=== PATIENT | female | born 1955 | race Caucasian/White ===

== ENCOUNTER 2017-11-15 16:57 | Emergency (ER) | payer OTHER ==
--- NOTE | 2017-11-15 19:11 | RAD REPORT ---
EXAM DESCRIPTION: RAD - Knee Left 3 View - 11/15/2017 6:51 pm CLINICAL HISTORY: Left knee pain FINDINGS: No fracture or dislocation is seen. Mild narrowing of the medial compartment is present. A spur extends off the anterior superior aspect of the patella
--- NOTE | 2017-11-15 19:28 | RAD REPORT ---
EXAM DESCRIPTION: [facility]11/15/2017 7:20 pm CLINICAL HISTORY: left leg pain and swelling. COMPARISON: None. FINDINGS: Left common femoral, superficial femoral, popliteal and posterior tibial veins are compre ssible and demonstrate augmentation. Doppler demonstrates good flow. A 7 x 1 centimeter Oden's cyst is present IMPRESSION: No evidence of deep venous thrombosis involving the left lower extremity. 7 x 1 centimeter Oden's cyst
--- NOTE | 2017-11-15 19:35 | EDPHYS ---
Physician Documentation [facility] Name: Rupa Gee Age: 62 yrs Sex: Female : 1955 Arrival Date: 11/15/2017 Time: 17:00 Bed 12 Private MD: ED Physician Anam Wilkins HPI: 11/16 01:43 This 62 yrs old Female presents to ER via Ambulatory with complaints of Left pm1 Knee Pain. 01:43 The patient presents with pain, swelling, tenderness. The complaints affect the left pm1 hamstring, posterior aspect of left knee and left knee. Context: The problem was sustained at home, resulted from an unknown cause, the patient can fully bear weight, the patient is able to ambulate. Onset: The symptoms/episode began/occurred this morning. Modifying factors: The symptoms are alleviated by nothing. the symptoms are aggravated by movement, weight bearing, bending knee. Associated signs and symptoms: Pertinent positives: swelling, Pertinent negatives calf tenderness, fever, numbness, tingling. Treatment prior to arrival includes: no previous treatment. Severity of symptoms: in the emergency department the symptoms are actually worse. The patient has not experienced similar symptoms in the past. The patient has not recently seen a physician. 01:43 No chest pain or shortness of breath. pm1 Historical: - PSHx: 11/15 17:06 Thyroidectomy; Cholecystectomy; hj - Immunization history:: Pneumococcal vaccine is up to date, Flu vaccine is up to date. - Social history:: Smoking status: Patient/guardian denies using tobacco. ROS: 11/16 01:43 Constitutional: Negative for fever, chills, and weight loss, Eyes: Negative for injury, pm1 pain, redness, and discharge, ENT: Negative for injury, pain, and discharge, Neck: Negative for injury, pain, and swelling, Cardiovascular: Negative for chest pain, palpitations, and edema, Respiratory: Negative for shortness of breath, cough, wheezing, and pleuritic chest pain, Abdomen/GI: Negative for abdominal pain, nausea, vomiting, diarrhea, and constipation, Back: Negative for injury and pain. Skin: Negative for injury, rash, and discoloration, Neuro: Negative for headache, weakness, numbness, tingling, and seizure. MS/extremity: Positive for pain, swelling, of the left knee and posterior aspect of left knee and left hamstring. Exam: 01:43 Constitutional: This is a well developed, well nourished patient who is awake, alert, pm1 and in no acute distress. Head/Face: Normocephalic, atraumatic. Neck: Trachea midline, no thyromegaly or masses palpated, and no cervical lymphadenopathy. Supple, full range of motion without nuchal rigidity, or vertebral point tenderness. No Meningismus. Chest/axilla: Normal chest wall appearance and motion. Nontender with no deformity. No lesions are appreciated. Cardiovascular: Regular rate and rhythm with a normal S1 and S2. No gallops, murmurs, or rubs. Normal PMI, no JVD. No pulse deficits. Respiratory: Lungs have equal breath sounds bilaterally, clear to auscultation and percussion. No rales, rhonchi or wheezes noted. No increased work of breathing, no retractions or nasal flaring. Abdomen/GI: Soft, non-tender, with normal bowel sounds. No distension or tympany. No guarding or rebound. No evidence of tenderness throughout. Back: No spinal tenderness. No costovertebral tenderness. Full range of motion. Skin: Warm, dry with normal turgor. Normal color with no rashes, no lesions, and no evidence of cellulitis. 01:43 Musculoskeletal/extremity: Extremities: grossly normal except: noted in the left leg and posterior aspect of left knee and left knee: swelling, tenderness, ROM: intact in all extremities, Circulation is intact in all extremities. Sensation intact. Vital Signs: 11/15 17:06 BP 124 / 60; Pulse 81; Resp 18; Temp 97.8(TE); Pulse Ox 100% on R/A; Weight 79.38 kg; hj Height 5 ft. 8 in. (172.72 cm); Pain 10/10; 19:45 BP 128 / 62; Pulse 82; Resp 18; Pulse Ox 98% ; ao 17:06 Body Mass Index 26.61 (79.38 kg, 172.72 cm) hj MDM: 18:24 Patient medically screened. pm1 19:32 Data reviewed: vital signs. Data interpreted: Pulse oximetry: on room air is 100 %. pm1 Interpretation: normal. Counseling: I had a detailed discussion with the patient and/or guardian regarding: the historical points, exam findings, and any diagnostic results supporting the discharge/admit diagnosis, the need for outpatient follow up, for definitive care, a orthopedic surgeon, to return to the emergency department if symptoms worsen or persist or if there are any questions or concerns that arise at home. 11/15 17:08 Order name: Knee Left 3 View XRAY; Complete Time: 19:32 hj 11/15 18:32 Order name: US Extremity Venous Uni Ltd; Complete Time: 19:32 pm1 11/15 19:32 Order name: Jose wrap-joint; Complete Time: 20:01 pm1 Administered Medications: No medications were administered Disposition: 11/15/17 19:35 Discharged to Home. Impression: Pain in left knee, Synovial cyst of popliteal space [Oden], left knee. - Condition is Stable. - Discharge Instructions: Oden Cyst, Knee Pain. - Prescriptions for Tylenol- Codeine #3 300-30 mg Oral Tablet - take 1 tablet by ORAL route every 6 hours As needed; 15 tablet. - Medication Reconciliation Form, Thank You Letter form. - Follow up: Emergency Department; When: As needed; Reason: Worsening of condition. Follow up: Thomas Echevarria MD; When: 2 - 3 days; Reason: Recheck today's complaints, Continuance of care, Re-evaluation by your physician. - Problem is new. - Symptoms have improved. Addendum: 11/18/2017 07:29 Co-signature as Attending Physician, Anam Wilkins MD. g s Signatures: Dispatcher [employer] EDMS Jorge Luis Nash RN RN Aaron Beach RN Jose oLpez, PICK UP AND DELIVERY DRIVER PICK UP AND DELIVERY DRIVER pm1 Anam Wilkins MD MD gs Brown, Kristina RN RN kb1
--- NOTE | 2017-11-15 19:35 | ER ---
Nurse's Notes [facility] Name: Rupa Gee Age: 62 yrs Sex: Female : 1955 Arrival Date: 11/15/2017 Time: 17:00 Bed 12 Private MD: Diagnosis: Pain in left knee;Synovial cyst of popliteal space [Oden], left knee Presentation: 11/15 17:03 Presenting complaint: Patient states: i woke up with pain on my L knee, its is swollen, hj no injury to the area;. Transition of care: patient was not received from another setting of care. Onset of symptoms was November 15, 2017. Care prior to arrival: None. 17:03 Method Of Arrival: Ambulatory hj 17:03 Acuity: KHUSHBU 4 hj Triage Assessment: 17:06 General: Appears in no apparent distress. uncomfortable, Behavior is calm, cooperative, hj appropriate for age. Pain: Complains of pain in posterior aspect of left knee and left knee. Historical: - PSHx: 17:06 Thyroidectomy; Cholecystectomy; hj - Immunization history:: Pneumococcal vaccine is up to date, Flu vaccine is up to date. - Social history:: Smoking status: Patient/guardian denies using tobacco. Screenin:32 Abuse screen: Denies threats or abuse. Nutritional screening: No deficits noted. kb1 Tuberculosis screening: No symptoms or risk factors identified. Fall Risk Secondary diagnosis (15 points) impaired mobility. Assessment: 18:32 Reassessment: Complains of pain in left knee and behind left thigh. Started kb1 approximately 3 weeks ago. General: Appears in no apparent distress. Behavior is calm, cooperative. Pain: Complains of pain in left leg and left knee and posterior aspect of left knee. Neuro: Level of Consciousness is awake, alert, obeys commands, Oriented to person, place, time, situation. Cardiovascular: Patient's skin is warm and dry. Cardiovascular: Denies chest pain. Respiratory: Respiratory effort is even, unlabored, Respiratory pattern is regular, symmetrical, Denies shortness of breath. GI: No signs and/or symptoms were reported involving the gastrointestinal system. : No signs and/or symptoms were reported regarding the genitourinary system. Derm: Area on back of left thigh that appears to be discolored. Musculoskeletal: Reports pain in left leg when walking. States "I been having to drag my leg". Injury Description: No injury noted. 19:30 General: Appears in no apparent distress. comfortable, Behavior is calm, cooperative, ao appropriate for age. Pain: Complains of pain in left leg and left knee and posterior aspect of left knee. Neuro: Level of Consciousness is awake, alert, obeys commands, Oriented to person, place, time, situation. Cardiovascular: Denies chest pain. Respiratory: Respiratory effort is even, unlabored, Respiratory pattern is regular, symmetrical. Musculoskeletal: Reports pain in left leg and left knee and posterior aspect of left knee. 20:02 Reassessment: Patient received a prescription from [facility]. Patient agree with the ao POC and to follow up with an orthopedic doctor. Vital Signs: 17:06 BP 124 / 60; Pulse 81; Resp 18; Temp 97.8(TE); Pulse Ox 100% on R/A; Weight 79.38 kg; hj Height 5 ft. 8 in. (172.72 cm); Pain 10/10; 19:45 BP 128 / 62; Pulse 82; Resp 18; Pulse Ox 98% ; ao 17:06 Body Mass Index 26.61 (79.38 kg, 172.72 cm) ED Course: 17:00 Patient arrived in ED. mr 17:05 Triage completed. hj 17:06 Arm band placed on right wrist. hj 18:19 Barb Martin, SARAH is Primary Nurse. kb1 18:24 Jose Ware NP is PHCP. pm1 18:24 Anam Wilkins MD is Attending Physician. pm1 18:32 Patient has correct armband on for positive identification. Call light in reach. kb1 Sitting in chair, wheels locked. 18:32 No provider procedures requiring assistance completed. Patient did not have IV access kb1 during this emergency room visit. 18:50 Knee Left 3 View XRAY In Process Unspecified. EDMS 18:50 X-ray completed. Portable x-ray completed in exam room. Patient tolerated procedure kc2 well. 19:08 Report given to Aaron SMITH. kb1 19:19 US Extremity Venous Uni Ltd In Process Unspecified. EDMS 19:20 Ultrasound completed. Patient tolerated well. aa4 19:34 Aaron Beach, SARAH is Primary Nurse. ao 19:34 Thomas Echevarria MD is Referral Physician. pm1 Administered Medications: No medications were administered Outcome: 19:35 Discharge ordered by . pm1 20:02 Discharged to home ambulatory. ao 20:02 Condition: stable 20:02 Discharge instructions given to patient, Instructed on discharge instructions, follow up and referral plans. Demonstrated understanding of instructions, follow-up care, medications, Prescriptions given X 1. 20:04 Patient left the ED. ao Signatures: Dispatcher [employer] EDMS Alexei Tanesha MalinMakayla novak aa4 Jorge Luis Nash, RN RN Aaron Beach RN RN ao Jose Ware, [employer] DRIVER pm1 Heidy Little kc2 Barb Martin RN RN kb1
[2017-11-15 20:09] VITALS: TEMP 97.8
[2017-11-15 20:10] VITALS: BP 128/62; O2SAT 98
== END 2017-11-15 20:04 | disposition home or self-care (01) ==
LOC: ER 16:57
DX: M71.22 Synovial cyst of popliteal space [Baker], left knee (principal); X58.XXXA Exposure to other specified factors, initial encounter; Y93.9 Activity, unspecified; Y92.009 Unspecified place in unspecified non-institutional (private) residence as the place of occurrence of the external cause
CPT/HCPCS: 93971; 99283

== ENCOUNTER 2018-08-17 06:06 | Day surgery (SDC) | payer OTHER ==
[2018-08-10 12:08] LABS: Absolute Monocytes 0.8 K/uL (0.1-1.3); Absolute Neutrophil 5.8 K/uL (1.8-8.0); Basophils % 0.9 % (0-1.3); Eosinophils % 2.4 % (0-4.4); Hematocrit 34.7 % (36.0-45.0); Lymphocytes % 12.7 % (15.3-44.8); MPV 8.3 fL (7.6-11.3); Monocytes % 10.4 % (3.3-12.3); RBC Red Blood Cell Count 3.74 M/uL (3.86-4.86)
[2018-08-10 12:10] LABS: Protime INR 1.08
--- NOTE | 2018-08-10 12:17 | RAD REPORT ---
EXAM DESCRIPTION: RAD - Chest Pa And Lat (2 Views) - 08/10/2018 11:50 am CLINICAL HISTORY: preop Chest pain. COMPARISON: Abdomen 1 View (KUB) dated 06/15/2016; Chest Pa And Lat (2 Views) dated 02/29/2016; CHEST SINGLE VIEW dated 11/24/2013 FINDINGS: Mild interstitial pulmonary edema seen. The heart is mildly enlarged. No displaced fractur es. Cholecystectomy clips. IMPRESSION: Mild CHF versus volume overload pattern.
[2018-08-10 12:21] LABS: Potassium 3.5 mmol/L (3.5-5.1)
--- NOTE | 2018-08-10 17:17 | EKG ---
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
[2018-08-17] MEDS ORDERED: Ringers Lactate 1,000 ML IV ONE (06:35)
[2018-08-17] MEDS ORDERED: CEFAZOLIN 1GM (PREMIX IV) 1 GM/50 ML BAG ONE (06:35)
[2018-08-17] MEDS ORDERED: FENTANYL CITR 250 MCG/5 ML ONE (07:01)
[2018-08-17] MEDS ORDERED: LIDOCAINE 2% MPF 5 ML VIAL ONE (07:01)
[2018-08-17] MEDS ORDERED: PROPOFOL 200 MG/20 ML VIAL IV ONE (07:01)
[2018-08-17] MEDS ORDERED: MIDAZOLAM HCL 2 MG/2 ML INJ ONE (07:01)
[2018-08-17] MEDS ORDERED: ROCURONIUM 50 MG/5 ML VIAL IV ONE (07:02)
[2018-08-17] MEDS ORDERED: LIDOCAINE 1% MPF 5 ML VIAL ONE (07:03)
[2018-08-17] MEDS ORDERED: EPINEPHRINE/PF 1 MG/ML AMP ONE (07:03)
[2018-08-17] MEDS ORDERED: ROPLVACAINE HCL 40 ML ONE (07:20)
[2018-08-17] MEDS ORDERED: DEXAMETHASONE 4 MG/ML VIAL ONE (07:20)
[2018-08-17] MEDS ORDERED: ONDANSETRON 4 MG/2 ML VIAL ONE (08:23)
[2018-08-17] MEDS ORDERED: EPHEDRINE SULF 50 MG/10 ML SYR ONE (08:31)
[2018-08-17] MEDS: Ringers Lactate 1,000 ML IV ONE ×2 (08:37→09:02)
[2018-08-17] MEDS ORDERED: KETOROLAC 30 MG/ML INJ ONE (10:03)
--- NOTE | 2018-08-17 10:07 | P.BOP ---
Preoperative diagnosis: right shoulder rotator cuff tear, bicipital tendinits, impingement syndrome Postoperative diagnosis: right shoulder rotator cuff tear, SLAP tear, impingement syndrome Primary procedure: right shoulder arthroscopic rotator cuff repair Secondary procedure: right shoulder arthroscopic SLAP debridement Other procedure(s): right shoulder arthroscopic subacromial decompression Estimated blood loss: 10 cc Specimen: non Findings: see dictation Anesthesia: General Complications: None Implants: 1- 5.5 mm arthrex corkscrew, 1- 4.75 mm swivelock Fluids & blood products: per anesthesia record Transferred to: Recovery Room Condition: Good
--- NOTE | 2018-08-17 11:30 | RAD REPORT ---
EXAM DESCRIPTION: RAD - Shoulder 1 View - 08/17/2018 11:23 am CLINICAL HISTORY: S/P RCR Postoperative right shoulder COMPARISON: No comparisons FINDINGS: Mild AC joint degenerative changes are present. Postsurgical soft tissue swelling and gas is seen. No unexpected postsurgical right shoulder finding.
[2018-08-17 16:33] VITALS: BP 131/70; TEMP 97.5; O2SAT 95
--- NOTE | 2018-08-18 23:09 | OP ---
Date of Procedure: 08/17/2018 Surgeon: Vaughn Cobb MD Preoperative Diagnoses: 1. Right shoulder rotator cuff tear. 2. Right shoulder bicipital tenosynovitis. 3. Right shoulder impingement syndrome. Postoperative Diagnoses: 1. Right shoulder rotator cuff tear. 2. Right shoulder SLAP tear. 3. Right shoulder impingement syndrome. Procedure Performed: 1. Right shoulder arthroscopic rotator cuff repair. 2. Right shoulder arthroscopic SLAP tear debridement. 3. Right shoulder subacromial decompression, arthroscopic. Anesthesia: General endotracheal. Fluids: Per Anesthesia record. Estimated Blood Loss: 10 cc. Complications: None. Implant: 1. One 5.5 mm Arthrex corkscrew. 2. One 4.75 mm Arthrex SwiveLock. Indication: Rupa is a 62-year-old female who presented to my clinic with signs and symptoms and MRI findings consistent with the right shoulder rotator cuff tear and impingement syndrome. I discussed with Rupa at length, risks and benefits associated with the operative and nonoperative treatment. She expressed understanding and elected to proceed with operative treatment. Description Of Procedure: After an informed consent was obtained, the patient was identified in the preoperative holding area. The right upper extremity was marked. The patient underwent an interscalene block to the right upper extremity performed by Anesthesia in the PACU prior. She was then brought to the operating room, transferred to the operative table in supine fashion and placed under general endotracheal anesthesia. She was then placed in the beach- chair position with her extremities well padded. The right upper extremity was then examined. The patient had full range of motion of the right shoulder without instability noted. Right upper extremity was then prepped and draped in usual sterile fashion. A time-out was initiated. The correct patient and procedure were confirmed and identified. The patient did receive her preoperative prophylactic antibiotics. Via the posterior portal position, a spinal needle was introduced into the glenohumeral joint and the joint was injected with 30 cc of normal saline to distend the capsule. A posterior portal was created using an 11 blade and an arthroscope was introduced into the shoulder through the posterior portal position. Standard anterior portal was created and cannula was placed. A diagnostic arthroscopy was then performed. The patient was noted to have overall pristine cartilage of the glenoid as well as the humeral head. The anterior and posterior labrum were found to be stable to probe as well as the inferior labrum. There was fraying and tearing of the superior labrum consistent with the type 1 SLAP tear. The arthroscopic shaver was introduced into the glenohumeral joint and debridement of SLAP tear was completed to stable edges. Probe was then introduced in the superior labrum. It was found to be stable to probe. The arthroscope was then brought on the axillary pouch. There were no loose bodies within the pouch. The arthroscope was then used to evaluate the subscapularis which was found to be stable. The arthroscope was then brought in and it was noted that the patient did have the articular sided tearing of the supraspinatus just posterior to the biceps tendon. A lateral portal was created and obturator was then brought into the glenohumeral joint which demonstrated a full-thickness tear of the supraspinatus. The arthroscope was then brought to the subacromial space and a subacromial bursectomy was performed using arthroscopic shaver. The tear in the supraspinatus was marked with 0 PDS and it was noted on the bursal side of the supraspinatus and an arthroscopic shaver was then used to debride the nonviable tissue. There was noted to be a small crescent-shaped tear of the supraspinatus which was full thickness. A cannula was placed laterally and just lateral to the acromion, a spinal needle was then used to help place a medial row anchor. A 5.5 mm corkscrew was then placed which was double loaded with sutures. The sutures were then passed through the supraspinatus in an anterior to posterior fashion and tied for medial row fixation using horizontal mattress type configuration. There was good reduction of the tear on the greater tuberosity. Those four suture limbs were then brought through the cannula and introduced a single 4.75 SwiveLock. The SwiveLock was then placed at the lateral aspect of the greater tuberosity for lateral row fixation. There was good lateral row fixation. There was good overall reduction of the tear onto its footprint. Next, attention was taken to the undersurface of the acromion. There was noted to be fraying of the coracoacromial ligament as well as undersurface spurring of the acromion, and at that point, soft tissue was debrided using a radiofrequency ablator and acromioplasty was performed using the arthroscopic emi to alleviate impingement symptoms. Arthroscopic instruments were then removed without complication and portal's skin was approximated using 3-0 Monocryl. Sterile dressings were applied. The patient was awakened and transferred to PACU in stable condition. Postoperative Plan: She will follow up in my clinic next week for wound check and dressing change, and she will begin the physical therapy at 4 weeks postop following the medium rotator cuff repair protocol. JOANNE Voice ID: [id number] Report ID: [id number] MTDD
== END 2018-08-17 12:30 | disposition home or self-care (01) ==
LOC: OR 06:06
PROVIDERS: ATTEND Orthopaedic Surgery Sports Medicine
PROC: 0RNJ4ZZ Release Right Shoulder Joint, Percutaneous Endoscopic Approach (ICD-10-PCS; 2018-08-17)
PROC: 0LM14ZZ Reattachment of Right Shoulder Tendon, Percutaneous Endoscopic Approach (ICD-10-PCS; principal; 2018-08-17 07:30)
DX: M75.121 Complete rotator cuff tear or rupture of right shoulder, not specified as traumatic (principal); S43.431A Superior glenoid labrum lesion of right shoulder, initial encounter; X58.XXXA Exposure to other specified factors, initial encounter; M75.41 Impingement syndrome of right shoulder; E07.9 Disorder of thyroid, unspecified; Z79.899 Other long term (current) drug therapy
CPT/HCPCS: 36415; 71046; 73020; 80048; 85025; 85610; 85730; 93005; J0171; J0690; J2250; J2405; J2704; J2795; J3010

== ENCOUNTER 2019-01-18 09:06 | Emergency (ER) | payer OTHER ==
[2019-01-18] MEDS ORDERED: LIDOCAINE 1% 20 ML MDV ONE (09:47)
--- NOTE | 2019-01-18 09:59 | ER ---
Nurse's Notes [facility] Name: Rupa Gee Age: 63 yrs Sex: Female : 1955 Arrival Date: 01/18/2019 Time: 09:10 Bed 18 Private MD: Swapnil Hoffman Diagnosis: Laceration without foreign body of left wrist;Bitten by dog Presentation: 01/18 09:18 Presenting complaint: Patient states: i was playing with my dog when he scratched me hj and i had this cut on my L wrist, it happened around 8:30 am today;. Transition of care: patient was not received from another setting of care. Onset of symptoms was January 18, 2019. Risk Assessment: Do you want to hurt yourself or someone else? Patient reports no desire to harm self or others. Initial Sepsis Screen: Does the patient meet any 2 criteria? No. Patient's initial sepsis screen is negative. Does the patient have a suspected source of infection? No. Patient's initial sepsis screen is negative. Care prior to arrival: None. 09:18 Method Of Arrival: Ambulatory 09:18 Acuity: [id number] 4 hj Triage Assessment: 09:22 General: Appears in no apparent distress. uncomfortable, Behavior is calm, cooperative, hj appropriate for age. Pain: Complains of pain in left wrist. Historical: - Allergies: 09:21 metoclopramide HCl; hj 09:21 Codeine; hj - Home Meds: 09:21 naptera injection a trail drug [Active]; Claritin Oral [Active]; gabapentin 300 mg oral hj cap 1 cap 3 times per day [Active]; Vitamin D3 oral oral [Active]; triamterene-hydrochlorothiazid 37.5-25 mg Oral tab 1 tab once daily [Active]; potassium chloride 10 mEq Oral cpER 1 cap once daily [Active]; - PMHx: 09:21 Hypothyroidism; hj - PSHx: 09:21 Thyroidectomy; Cholecystectomy; hj - Immunization history:: Adult Immunizations up to date. - Social history:: Smoking status: Patient/guardian denies using tobacco, Patient/guardian denies using alcohol. - Ebola Screening: : Patient negative for fever greater than or equal to 101.5 degrees Fahrenheit, and additional compatible Ebola Virus Disease symptoms Patient denies exposure to infectious person Patient denies travel to an Ebola-affected area in the 21 days before illness onset. - Family history:: not pertinent. Screenin:22 Abuse screen: Denies threats or abuse. Denies injuries from another. Nutritional hj screening: No deficits noted. Tuberculosis screening: No symptoms or risk factors identified. 09:23 Fall Risk None identified. hj Assessment: 09:23 General: Appears in no apparent distress. uncomfortable, Behavior is calm, cooperative, hj appropriate for age. Pain: Complains of pain in left wrist. Neuro: Level of Consciousness is awake, alert, obeys commands, Oriented to person, place, time, situation, Appropriate for age. Cardiovascular: Capillary refill < 3 seconds Patient's skin is warm and dry. Respiratory: Airway is patent Respiratory effort is even, unlabored, Respiratory pattern is regular, symmetrical. GI: No signs and/or symptoms were reported involving the gastrointestinal system. : No signs and/or symptoms were reported regarding the genitourinary system. EENT: No signs and/or symptoms were reported regarding the EENT system. Derm: Wound noted left wrist Reports. Musculoskeletal: No signs and/or symptoms reported regarding the musculoskeletal system. Injury Description: Laceration sustained to left wrist is clean, 2.6 to 7.5 cm long, was sustained 30-60 minutes ago. no active bleeding noted at this time. 09:40 Reassessment: provider in room for lac repair;. hj 10:13 Reassessment: neosporin applied, wrapped with gauze and co band;. Vital Signs: 09:22 BP 127 / 109; Pulse 69; Resp 18; Temp 98.1(O); Pulse Ox 98% on R/A; Weight 77.11 kg; hj Height 5 ft. 8 in. (172.72 cm); 10:12 BP 135 / 72; Pulse 69; Resp 18; Pulse Ox 100% on R/A; hj 09:22 Body Mass Index 25.85 (77.11 kg, 172.72 cm) ED Course: 09:10 Patient arrived in ED. mr 09:11 Swapnil Hoffman MD is Private Physician. mr 09:16 Gerard Fields MD is Attending Physician. [facility] 09:18 Jorge Luis Nash, SARAH is Primary Nurse. hj 09:19 Triage completed. hj 09:23 Arm band placed on right wrist. hj 09:23 Patient has correct armband on for positive identification. Bed in low position. Call light in reach. Side rails up X 1. 09:25 Wound care: to laceration cleaned wound with Hibiclens and normal saline to left wrist dh3 pt tolerated well. 09:58 Swapnil Hoffman MD is Referral Physician. [facility] 10:12 No provider procedures requiring assistance completed. Patient did not have IV access hj during this emergency room visit. Administered Medications: 09:55 Drug: Neosporin Ointment 1 application Route: Topical; Site: wound; 09:55 Drug: Lidocaine-Epinephrine -1%: (1:100,000) 10 ml Volume: 20 ml; Route: Infiltration; 10:00 Drug: Augmentin 875 mg Route: PO; 10:11 Follow up: Response: No adverse reaction 10:10 Drug: Tetanus-Diphtheria Toxoid Adult 0.5 ml {Lab Intern: [employer]. Exp: 10/06/2020. Lot #: [id number]. } Route: IM; Site: right deltoid; 10:11 Follow up: Response: No adverse reaction Outcome: 09:58 Discharge ordered by . [facility] 10:12 Discharged to home ambulatory, with family. 10:12 Condition: stable 10:12 Discharge instructions given to patient, family, Instructed on discharge instructions, follow up and referral plans. medication usage, Demonstrated understanding of instructions, follow-up care, medications, Prescriptions given X 2. 10:13 Patient left the ED. Signatures: Gerard Fields MD MD cha Rivera, Mary mr Joaquin, Henry RN Nalini Lomeli 3
--- NOTE | 2019-01-18 09:59 | EDPHYS ---
Physician Documentation [facility] Name: Rupa Gee Age: 63 yrs Sex: Female : 1955 Arrival Date: 01/18/2019 Time: 09:10 Bed 18 Private MD: Swapnil Hoffman ED Physician Gerard Fields HPI: 01/18 09:55 This 63 yrs old Female presents to ER via Ambulatory with complaints of Wrist russel laceration. 09:55 The patient or guardian reports pain. The complaints affect the left wrist diffusely. russel Context: The problem was sustained at home. Onset: The symptoms/episode began/occurred just prior to arrival. Modifying factors: The symptoms are alleviated by nothing, the symptoms are aggravated by nothing. Associated signs and symptoms: The patient has no apparent associated signs or symptoms. Compartment Syndrome negative for numbness, pain, tingling. The patient has not experienced similar symptoms in the past. Historical: - Allergies: 09:21 metoclopramide HCl; hj 09:21 Codeine; hj - Home Meds: 09:21 naptera injection a trail drug [Active]; Claritin Oral [Active]; gabapentin 300 mg oral hj cap 1 cap 3 times per day [Active]; Vitamin D3 oral oral [Active]; triamterene-hydrochlorothiazid 37.5-25 mg Oral tab 1 tab once daily [Active]; potassium chloride 10 mEq Oral cpER 1 cap once daily [Active]; - PMHx: 09:21 Hypothyroidism; hj - PSHx: 09:21 Thyroidectomy; Cholecystectomy; hj - Immunization history:: Adult Immunizations up to date. - Social history:: Smoking status: Patient/guardian denies using tobacco, Patient/guardian denies using alcohol. - Ebola Screening: : Patient negative for fever greater than or equal to 101.5 degrees Fahrenheit, and additional compatible Ebola Virus Disease symptoms Patient denies exposure to infectious person Patient denies travel to an Ebola-affected area in the 21 days before illness onset. - Family history:: not pertinent. ROS: 09:55 Constitutional: Negative for fever, chills, and weight loss, Eyes: Negative for injury, russel pain, redness, and discharge, ENT: Negative for injury, pain, and discharge, Neck: Negative for injury, pain, and swelling, Cardiovascular: Negative for chest pain, palpitations, and edema, Respiratory: Negative for shortness of breath, cough, wheezing, and pleuritic chest pain, Abdomen/GI: Negative for abdominal pain, nausea, vomiting, diarrhea, and constipation, Back: Negative for injury and pain, : Negative for injury, bleeding, discharge, and swelling, Skin: Negative for injury, rash, and discoloration, Neuro: Negative for headache, weakness, numbness, tingling, and seizure, Psych: Negative for depression, anxiety, suicide ideation, homicidal ideation, and hallucinations, Allergy/Immunology: Negative for hives, rash, and allergies, Endocrine: Negative for neck swelling, polydipsia, polyuria, polyphagia, and marked weight changes, Hematologic/Lymphatic: Negative for swollen nodes, abnormal bleeding, and unusual bruising. 09:55 MS/extremity: Positive for injury or acute deformity, laceration, of the left arm. Exam: 09:55 Constitutional: This is a well developed, well nourished patient who is awake, alert, russel and in no acute distress. Head/Face: Normocephalic, atraumatic. Eyes: Pupils equal round and reactive to light, extra-ocular motions intact. Lids and lashes normal. Conjunctiva and sclera are non-icteric and not injected. Cornea within normal limits. Periorbital areas with no swelling, redness, or edema. ENT: Nares patent. No nasal discharge, no septal abnormalities noted. Tympanic membranes are normal and external auditory canals are clear. Oropharynx with no redness, swelling, or masses, exudates, or evidence of obstruction, uvula midline. Mucous membranes moist. Neck: Trachea midline, no thyromegaly or masses palpated, and no cervical lymphadenopathy. Supple, full range of motion without nuchal rigidity, or vertebral point tenderness. No Meningismus. Chest/axilla: Normal chest wall appearance and motion. Nontender with no deformity. No lesions are appreciated. Cardiovascular: Regular rate and rhythm with a normal S1 and S2. No gallops, murmurs, or rubs. Normal PMI, no JVD. No pulse deficits. Respiratory: Lungs have equal breath sounds bilaterally, clear to auscultation and percussion. No rales, rhonchi or wheezes noted. No increased work of breathing, no retractions or nasal flaring. Abdomen/GI: Soft, non-tender, with normal bowel sounds. No distension or tympany. No guarding or rebound. No evidence of tenderness throughout. Back: No spinal tenderness. No costovertebral tenderness. Full range of motion. Skin: Warm, dry with normal turgor. Normal color with no rashes, no lesions, and no evidence of cellulitis. Neuro: Awake and alert, GCS 15, oriented to person, place, time, and situation. Cranial nerves II-XII grossly intact. Motor strength 5/5 in all extremities. Sensory grossly intact. Cerebellar exam normal. Normal gait. Psych: Awake, alert, with orientation to person, place and time. Behavior, mood, and affect are within normal limits. 09:55 Musculoskeletal/extremity: Extremities: laceration, ROM: full active range of motion, full passive range of motion, DVT Exam: No signs of deep vein thrombosis. no pain, no swelling, no tenderness, negative Homans' sign noted on exam, no appreciated bluish discoloration, no erythema, no increased warmth. Vital Signs: 09:22 BP 127 / 109; Pulse 69; Resp 18; Temp 98.1(O); Pulse Ox 98% on R/A; Weight 77.11 kg; hj Height 5 ft. 8 in. (172.72 cm); 10:12 BP 135 / 72; Pulse 69; Resp 18; Pulse Ox 100% on R/A; hj 09:22 Body Mass Index 25.85 (77.11 kg, 172.72 cm) Laceration: 10:02 Wound Repair of 3cm ( 1.2in ) subcutaneous laceration to left wrist. Linear shaped.. [facility] Distal neuro/vascular/tendon intact. Anesthesia: Local anesthetic administered with 6 mls of 1% lidocaine w/ Epi. Wound prep: Simple cleansing by me. Skin closed with 4 5-0 Prolene using vertical mattress sutures and sterile technique. Dressed with Neosporin, non-adherent dressing. Patient tolerated well. MDM: 09:16 Patient medically screened. [facility] 09:57 Data reviewed: vital signs, nurses notes. 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 Exp: 10/06/2020. Lot #: [id number]. } Route: IM; Site: right deltoid; 10:11 Follow up: Response: No adverse reaction Disposition: 01/18/19 09:58 Discharged to Home. Impression: Laceration without foreign body of left wrist, Bitten by dog. - Condition is Stable. - Discharge Instructions: Animal Bite, [id number], Animal Bite. - Prescriptions for Augmentin 875- 125 mg Oral Tablet - take 1 tablet by ORAL route every 12 hours for 7 days; 14 tablet. Motrin IB 200 mg Oral Tablet - take 2 tablet by ORAL route every 6 hours As needed as needed with food; 30 tablet. - Medication Reconciliation Form, Thank You Letter, Antibiotic Education, Prescription Opioid Use form. - Follow up: Swapnil Hoffman MD; When: 7 - 10 days; Reason: Recheck today's complaints, Re-evaluation by your physician. - Problem is new. - Symptoms have improved. Signatures: Gerard Fields MD MD cha Joaquin, Henry RN RN Corrections: (The following items were deleted from the chart) 10:13 09:58 01/18/2019 09:58 Discharged to Home. Impression: Laceration without foreign body hj of left wrist; Bitten by dog. Condition is Stable. Forms are Medication Reconciliation Form, Thank You Letter, Antibiotic Education, Prescription Opioid Use. Follow up: Swapnil Hoffman; When: 7 - 10 days; Reason: Recheck today's complaints, Re-evaluation by your physician. Problem is new. Symptoms have improved. russel
[2019-01-18] MEDS ORDERED: AMOX/K CLAV 875 MG TAB ONE (10:19)
[2019-01-18] MEDS ORDERED: TETANUS & DIPHTHERIA TOX,ADULT 0.5 ML VIAL ONE (10:19)
[2019-01-18 10:56] VITALS: TEMP 98.1
[2019-01-18 10:58] VITALS: BP 135/72; O2SAT 100
== END 2019-01-18 10:13 | disposition home or self-care (01) ==
LOC: ER 09:06
PROC: 0JQH0ZZ Repair Left Lower Arm Subcutaneous Tissue and Fascia, Open Approach (ICD-10-PCS; principal; 2019-01-18)
DX: S61.552A Open bite of left wrist, initial encounter (principal); W54.0XXA Bitten by dog, initial encounter; Y92.009 Unspecified place in unspecified non-institutional (private) residence as the place of occurrence of the external cause; E03.9 Hypothyroidism, unspecified; Z23 Encounter for immunization
CPT/HCPCS: 90471; 90714; 99283

== ENCOUNTER 2021-01-19 18:02 | Emergency (ER) | payer OTHER ==
--- OUTSIDE RECORDS SUMMARY | 2021-01-19 18:05 | XMS REPORT | Continuity of Care Document ---
:1955 Author Organization [facility] t Address [address] [place] [address] Care Team Providers Name Role Phone Unavailable Unavailable Unavailable Problems This patient has no known problems. Allergies, Adverse Reactions, Alerts Allergy Allergy Status Severity Reaction(s) Onset Inactive Treating Comm ents Source Name Type Date Date Clinician Reglan Adverse Active Info Not [facility] Reaction [facility] Medications Ordered Filled Start Stop Current Ordering Indication Dosage Frequency Signature Comments Components Source Medication Medication Date Date Medication? Clinician (SIG) Name Name Tramadol Tramadol 2018-08 Yes Vaughn [address] [facility] HCl HCl 0-03 [facility] as needed [facility] Amoxicillin Amoxicillin Yes Vaughn TAKE ONE [facility] -Pot -Pot [facility] (1) [facility] - Clavulanate Clavulanate TABLET(S) [facility] BY MOUTH l EVERY Outpati TWELVE ent HOURS FOR Clinics 7 DAYS. Hydrocodone Hydrocodone Yes Vaughn (Schedule [facility] -Acetaminop -Acetaminop [facility] II Drug) [facility] hen hen TAKE ONE [facility] (1) l TABLET(S) Out[facility] BY MOUTH ent DAILY Clinics NEEDED FOR PAIN. Promethazin Promethazin Yes Vaughn TAKE ONE [facility] e HCl e HCl [facility] (1) [facility] - TABLET(S) [facility] BY MOUTH l EVERY Outpati EIGHT ent HOURS Clinics NEEDED. Cetirizine Cetirizine Yes Vaughn TAKE ONE [facility] HCl HCl [facility] (1) [facility] - TABLET(S) [facility] BY MOUTH l ONCE A DAY Outpati NEEDED. ent Clinics Se-Clarke PLUS Se-Clarke PLUS Yes Vaughn TAKE ONE [facility] (1) [facility] - CAPSULE(S) [facility] BY MOUTH l ONCE A DAY Outpati WITH ent MEALS. Clinics Dicyclomine Dicyclomine Yes Vaughn TAKE ONE [facility] HCl HCl [facility] (1) [facility] CAPSULE(S) [facility] BY MOUTH l THREE Outpati TIMES A ent DAY. Clinics Tramadol Tramadol Yes Vaughn (Schedule [facility] HCl HCl [facility] IV Drug) [facility] - TAKE ONE [facility] (1) TO TWO l (2) Outpati TABLET(S) ent BY MOUTH Clinics TWICE A DAY NEEDED FOR PAIN. Potassium Potassium Yes Vaughn TAKE TWO [facility] Chloride ER Chloride ER [facility] (2) [facility] - TABLET(S) [facility] BY MOUTH l TWICE A Outpati DAY. ent Clinics Zofran Zofran Yes Vaughn [address] [facility] [place] as needed [facility] Natpara Natpara Yes Vaughn as [facility] directed [facility]ics Hydrochloro Hydrochloro Yes Vaughn TAKE ONE [facility] thiazide thiazide [facility] (1) [facility] TABLET(S) [facility] BY MOUTH l ONCE A Outpati DAY. ent Clinics Levothyroxi Levothyroxi Yes Vaughn TAKE ONE [facility] ne Sodium ne Sodium [facility] (1) [facility] - TABLET(S) [facility] BY MOUTH l ONCE A Outpati DAY. ent Clinics Levocetiriz Levocetiriz Yes Vaughn TAKE ONE [facility] ine ine [facility] (1) [facility] - Dihydrochlo Dihydrochlo TABLET(S) [facility] ride ride BY MOUTH l ONCE A DAY Outpati FOR ent ALLERGIES. Clinics Vitamin D3 Vitamin D3 Yes Vaughn TAKE ONE [facility] (1) [facility] CAPSULE(S) [facility] BY MOUTH l ONCE A Outpati WEEK. ent Clinics Gabapentin Gabapentin Yes Vaughn TAKE ONE [facility] (1) [facility]LE(S) [facility] BY MOUTH l FOUR TIMES Outpati A DAY FOR ent NERVE Clinics PAIN. Calcitriol Calcitriol Yes Vaughn not [facility] defined [facility] Simvastatin Simvastatin Yes Vaughn TAKE ONE [facility] (1) [facility] - TABLET(S) [facility] BY MOUTH l ONCE A DAY Outpati IN THE ent EVENING Clinics FOR CHOLESTERO L. Triamterene Triamterene Yes Vaughn TAKE ONE [facility] -HCTZ -HCTZ [facility] (1) [facility] CAPSULE(S) [facility] BY MOUTH l ONCE A Outpati DAY. ent Clinics Pantoprazol Pantoprazol Yes Vaughn TAKE ONE [facility] e Sodium e Sodium [facility] (1) [facility] - TABLET(S) [facility] BY MOUTH l TWICE A Outpati DAY. (30 ent MINUTES Clinics BEFORE BREAKFAST AND 30 MINUTES BEFORE SUPPER). Procedures This patient has no known procedures. Encounters Start End Encounter Admission Attending Care Care Encounter Source Date/Time Date/Time Type Type Clinicians Facility Department ID 2020-10-03 2020-10-03 Outpatient [facility] [id number] [facility] 2020-07-08 2020-07-08 Outpatient [facility] [id number] [id number] 2020-07-01 2020-07-01 Outpatient [facility] [id number] [facility] 2020-03-20 2020-03-20 Outpatient Fuad Meridat [id number] [facility] 09:15[facility]00 09[facility] 2020-03-15 2020-03-15 Outpatient Brazjuliette Meridat [id number] [facility] 10:00:00 10:00:00 [facility] 2020-03-06 2020-03-06 Outpatient Fuad Meridat [id number] [facility] 09:30:00 09:30:00 [facility] 2020-02-14 2020-02-14 Outpatient Fuad [place] [id number] [facility] 09:09:00 09:09:00 [facility] 2020-01-02 2020-01-02 Outpatient Fuad Meridat [id number] [facility] 10:30:00 10:30:00 [facility] Results This patient has no known results.
[2021-01-19] MEDS ORDERED: ONDANSETRON 4 MG/2 ML VIAL ONE ×2 (19:29→19:33)
[2021-01-19 19:30] LABS: Absolute Lymphocytes (CBC) 1.1 K/uL (0.7-4.9); Basophils % 1.1 % (0-1.3); Hematocrit 31.9 % (36.0-45.0); Lymphocytes % 11.9 % (15.3-44.8); MPV 7.7 fL (7.6-11.3); RBC Red Blood Cell Count 3.46 M/uL (3.86-4.86)
[2021-01-19 19:38] LABS: Potassium 3.1 mmol/L (3.5-5.1)
--- NOTE | 2021-01-19 19:46 | RAD REPORT ---
EXAM DESCRIPTION: CT - [id number] - 01/19/2021 7:21 pm CLINICAL HISTORY: PAINfall with trauma to posterior skull, positive loss of consciousness COMPARISON: Soft Tissue Neck W/Contr dated 07/01/2017 TECHNIQUE: Axial 5 mm thick images of the head were obtained. Axial 2 mm thick images of the cervic al spine were obtained with sagittal and coronal reconstruction images generated and reviewed. All CT scans are performed using dose optimization technique as appropriate and may include automated exposure control or mA/KV adjustment according to patient size. FINDINGS: No intracranial hemorrhage, mass, edema or acute intracranial finding. Patient has numerou s physiologic calcifications seen in the parenchyma of the cerebral hemispheres and cerebellar hemisp heres. No extra-axial fluid collections. Mastoid air cells and paranasal sinuses are clear. No globe or orbit abnormality seen. There appears to be a very minimal posterior scalp hematoma in the midline of the posterosuperior skull. No skull fracture is present. Cervical bodies are normal in height. C2-C7 alignment normal. There is disc space narrowing at C5-6. Posterior endplate spurring contributes to mild left foraminal stenosis. Facet joint alignment is nor mal. No gross central canal abnormality seen. Central canal detail is inherently limited. Occipital condyles are normally positioned relative to the lateral masses of C1. There is slight rotation of C1 ring relative to C2 displacing the left lateral mass approximately 2.5 mm posteriorly. Anterior disp lacement of the right-side lateral mass measures 1-2 mm. Normal positioning of the anterior arch note d to the dens. This minimal atlantoaxial rotation is not likely significant due to muscle spasm. No paraspinal mass or hematoma. IMPRESSION: No hemorrhage, edema or acute intracranial finding. Nonacute findings detailed in the [place] dy of the report. No fracture or significant cervical spine abnormality seen. Slight type I atlantoaxial rotary subluxa tion is not felt be clinically significant and is probably secondary to muscle spasm.
--- NOTE | 2021-01-19 20:10 | ER ---
Nurse's Notes [facility] Name: Rupa Gee Age: 65 yrs Sex: Female : 1955 Arrival Date: 01/19/2021 Time: 18:07 Bed 26 Private MD: Diagnosis: Unspecified injury of head Presentation: 01/19 18:17 Coronavirus screen: Client denies travel out of the [place] in the last 14 days. At this ll1 time, the client does not indicate any symptoms associated with coronavirus-19. Ebola Screen: Patient denies travel to an Ebola-affected area in the 21 days before illness onset. Risk Assessment: Do you want to hurt yourself or someone else? Patient reports no desire to harm self or others. Onset of symptoms was January 19, 2021. 18:17 Method Of Arrival: Wheelchair ll1 18:17 Acuity: KHUSHBU 2 ll1 18:19 Chief complaint: Patient states: Tripped and fell straight back onto back and head. ll1 Reports + LOC, dizziness, then N/V x 3. No blood thinners. Initial Sepsis Screen: Does the patient meet any 2 criteria? No. Patient's initial sepsis screen is negative. Does the patient have a suspected source of infection? No. Patient's initial sepsis screen is negative. Historical: - Allergies: 18:18 Codeine; ll1 18:18 metoclopramide HCl; ll1 - PMHx: 18:18 Hypothyroidism; ll1 - PSHx: 18:18 Thyroidectomy; Cholecystectomy; R shoulder SX; ll1 - Immunization history:: Client reports receiving the 2nd dose of the Covid vaccine, Last tetanus immunization: up to date Flu vaccine is up to date. - Social history:: Smoking status: Patient denies any tobacco usage or history of. Screenin:30 Abuse screen: Denies threats or abuse. Denies injuries from another. Tuberculosis hb screening: No symptoms or risk factors identified. 18:31 Nutritional screening: No deficits noted. Fall Risk Total Rice Fall Scale indicates hb Low Risk Score (25-44 pts). Fall prevention measures have been instituted. Side Rails Up X 2 Frequent Obs/Assesments occuring As available Patient and Family Educated on Fall Prevention Program and strategies. Primary Survey: 18:30 NO uncontrolled hemorrhage observed. A: The patient is alert. Airway: patent, No hb supplemental oxygen in use on arrival. Breathing/Chest: Respiratory pattern: regular, Breath sounds: clear, Chest inspection: symmetrical rise and fall of the chest. Circulation: Pulses: Skin color: pink, Skin temperature: warm, dry. Disability Alert. Exposure/Environment: Obvious injury(ies) are noted at this time: ABRASION TO LEFT ELBOW. Secondary Survey: 18:30 HEENT: No deficits noted. Gastrointestinal: No deficits noted. Abdomen is. : No hb deficits noted. No signs and/or symptoms were reported regarding the genitourinary system. Musculoskeletal: Reports BILATERAL ELBOW AND KNEE PAIN. Assessment: 18:31 General: Appears in no apparent distress. Behavior is calm, cooperative. Pain: Pain hb currently is 8 out of 10 on a pain scale. Neuro: Level of Consciousness is awake, alert, obeys commands, Oriented to person, place, time, situation, Reports dizziness, headache. Cardiovascular: Patient's skin is warm and dry. Respiratory: Respiratory effort is even, unlabored, Respiratory pattern is regular, symmetrical. GI: Reports nausea, vomiting. : No deficits noted. No signs and/or symptoms were reported regarding the genitourinary system. EENT: No deficits noted. No signs and/or symptoms were reported regarding the EENT system. Derm: Skin is pink, warm \T\ dry. Musculoskeletal: Reports BILATERAL ELBOW AND KNEE PAIN. 19:30 Reassessment: Patient appears in no apparent distress at this time. Patient and/or zb family updated on plan of care and expected duration. Pain level reassessed. Patient is alert, oriented x 3, equal unlabored respirations, skin warm/dry/pink. 20:24 Reassessment: Patient appears in no apparent distress at this time. Patient and/or zb family updated on plan of care and expected duration. Pain level reassessed. Patient is alert, oriented x 3, equal unlabored respirations, skin warm/dry/pink. d/c instructions given. patient requested to be wheeled out. Vital Signs: 18:19 BP 124 / 74; Pulse 79; Resp 17; Temp 97.0; Pulse Ox 96% on R/A; Weight 74.84 kg; Height ll1 5 ft. 8 in. (172.72 cm); Pain 8/10; 20:25 BP 150 / 70; Pulse 80; Resp 16; Pulse Ox 100% on R/A; zb 18:19 Body Mass Index 25.09 (74.84 kg, 172.72 cm) ll1 [place] Coma Score: 18:30 Eye Response: spontaneous(4). Verbal Response: oriented(5). Motor Response: obeys hb commands(6). Total: 15. 18:59 Eye Response: spontaneous(4). Verbal Response: oriented(5). Motor Response: obeys pm1 commands(6). Total: 15. Trauma Score (Adult): 18:30 Eye Response: spontaneous(1); Verbal Response: oriented(1); Motor Response: obeys hb commands(2); Systolic BP: > 89 mm Hg(4); Respiratory Rate: 10 to 29 per min(4); Isamar Score: 15; Trauma Score: 12 ED Course: 18:07 Patient arrived in ED. am4 18:17 Triage completed. ll1 18:19 Arm band placed on Patient placed in an exam room, on a stretcher. ll1 18:26 Thania Martin RN is Primary Nurse. zb 18:26 Jose Ware NP is PHCP. pm1 18:26 Gerard Fields MD is Attending Physician. pm1 18:30 Patient has correct armband on for positive identification. Bed in low position. Call hb light in reach. 18:30 Patient maintains SpO2 saturation greater than 95% on room air. hb 18:33 Primary Nurse role handed off by Thania Martin RN hb 18:33 Caridad Werner RN is Primary Nurse. hb 19:12 Inserted saline lock: 22 gauge in right antecubital area, using aseptic technique. hb ,using aseptic technique. by [facility] Blood collected. 19:21 CT Head C Spine In Process Unspecified. EDMS 20:08 Primary Nurse role handed off by Caridad Werner RN tt3 20:25 No provider procedures requiring assistance completed. IV discontinued, intact, zb bleeding controlled, No redness/swelling at site. Pressure dressing applied. 20:36 Thania Martin RN is Primary Nurse. zb Administered Medications: 19:14 Drug: Zofran (Ondansetron) 4 mg Route: IVP; Site: right antecubital; hb 20:22 Follow up: Response: No adverse reaction zb 20:23 Follow up: Response: No adverse reaction; Nausea is decreased zb 20:07 CANCELLED (Physician Discretion): SOLU-Medrol (methylPREDNISolone sodium succinate) 125 pm1 mg IM once 20:18 Drug: fentaNYL (PF) 25 mcg {Note: RASS 0.} Route: IVP; Site: right antecubital; zb 20:23 Follow up: Response: No adverse reaction; Medication administered at discharge. zb 20:22 Drug: Potassium Effervescent Tablet 50 mEq Route: PO; zb 20:23 Follow up: Response: Medication administered at discharge. zb 20:23 Drug: SOLU-Medrol (methylPrednisoLONE) 125 mg Route: IVP; Site: right antecubital; zb 20:24 Follow up: Response: No adverse reaction; Medication administered at discharge. zb Intake: 18:30 PO: 0ml; Total: 0ml. hb Outcome: 20:09 Discharge ordered by MD. pm1 20:26 Discharged to home via wheelchair, with family. zb 20:26 Condition: good 20:26 Discharge instructions given to patient. 20:26 Instructed on discharge instructions, follow up and referral plans. medication usage, Demonstrated understanding of instructions, follow-up care, medications, Prescriptions given X 1. 20:36 Patient left the ED. zb Signatures: Dispatcher [employer] EDMS Jose Ware NP BUSINESS EXCELLENCE MANAGER pm1 Caridad Werner RN RN hb Lewis, Lynsay, RN RN ll1 David Byrd tt3 Thania Martin RN RN zb Martinez, Ashley 4
--- NOTE | 2021-01-19 20:10 | EDPHYS ---
Physician Documentation [facility] Name: Rupa Gee Age: 65 yrs Sex: Female : 1955 Arrival Date: 01/19/2021 Time: 18:07 Bed 26 Private MD: Gerard Escobar HPI: 01/19 18:59 This 65 yrs old Female presents to ER via Wheelchair with complaints of Head pm1 Injury With LOC-Adult, Vomiting. 18:59 The patient or guardian reports pain. The complaints affect the Back of head. Context pm1 of injury: The problem was sustained at home, resulted from falling backwards. Patient was getting up from crouched position and when she stood up she back pedaled until she fell. Hit the back of her head on the concrete and lost consciousness . Onset: The symptoms/episode began/occurred just prior to arrival. Associated signs and symptoms: Loss of consciousness: This patient experience a loss of consciousness, Pertinent positives: nausea, vomiting. Severity of symptoms: in the emergency department the symptoms have improved. The patient has not experienced similar symptoms in the past. The patient has not recently seen a physician. Historical: - Allergies: 18:18 Codeine; ll1 18:18 metoclopramide HCl; ll1 - PMHx: 18:18 Hypothyroidism; ll1 - PSHx: 18:18 Thyroidectomy; Cholecystectomy; R shoulder SX; ll1 - Immunization history:: Client reports receiving the 2nd dose of the Covid vaccine, Last tetanus immunization: up to date Flu vaccine is up to date. - Social history:: Smoking status: Patient denies any tobacco usage or history of. ROS: 18:59 Constitutional: Negative for fever, chills, and weight loss, Eyes: Negative for injury, pm1 pain, redness, and discharge, ENT: Negative for injury, pain, and discharge, Neck: Negative for injury, pain, and swelling, Cardiovascular: Negative for chest pain, palpitations, and edema, Respiratory: Negative for shortness of breath, cough, wheezing, and pleuritic chest pain, Back: Negative for injury and pain. 18:59 : Negative for injury, bleeding, discharge, and swelling, MS/Extremity: Negative for injury and deformity. 18:59 Abdomen/GI: Positive for nausea and vomiting, Negative for abdominal pain, diarrhea, constipation. 18:59 Skin: Positive for abrasion(s), of the left elbow. 18:59 Neuro: Positive for headache. Exam: 18:59 Constitutional: This is a well developed, well nourished patient who is awake, alert, pm1 and in no acute distress. 18:59 Eyes: Pupils equal round and reactive to light, extra-ocular motions intact. Lids and lashes normal. Conjunctiva and sclera are non-icteric and not injected. Cornea within normal limits. Periorbital areas with no swelling, redness, or edema. ENT: Nares patent. No nasal discharge, no septal abnormalities noted. Tympanic membranes are normal and external auditory canals are clear. Oropharynx with no redness, swelling, or masses, exudates, or evidence of obstruction, uvula midline. Mucous membranes moist. 18:59 Chest/axilla: Normal chest wall appearance and motion. Nontender with no deformity. No lesions are appreciated. 18:59 Back: No spinal tenderness. No costovertebral tenderness. Full range of motion. MS/ Extremity: Pulses equal, no cyanosis. Neurovascular intact. Full, normal range of motion. 18:59 Head/face: Noted is no obvious of injury or deformity except contusion, that is superficial, of the back of head. 18:59 Neck: External neck: tenderness, that is mild, of the right trapezius, C-spine: vertebral tenderness, is not appreciated. 18:59 Cardiovascular: Rate: normal, Rhythm: regular, Pulses: no pulse deficits are appreciated. 18:59 Respiratory: Exam negative for acute changes, respiratory distress, shortness of breath. 18:59 Skin: Appearance: normal except for affected area, injury, abrasion(s), very small abrasion noted, of the left elbow. 18:59 Neuro: Orientation: is normal, Mentation: is normal, Cerebellar function: normal finger to nose testing, Motor: is normal, Sensation: is normal, no obvious gross deficits. Vital Signs: 18:19 BP 124 / 74; Pulse 79; Resp 17; Temp 97.0; Pulse Ox 96% on R/A; Weight 74.84 kg; Height ll1 5 ft. 8 in. (172.72 cm); Pain 8/10; 20:25 BP 150 / 70; Pulse 80; Resp 16; Pulse Ox 100% on R/A; zb 18:19 Body Mass Index 25.09 (74.84 kg, 172.72 cm) ll1 [place] Coma Score: 18:30 Eye Response: spontaneous(4). Verbal Response: oriented(5). Motor Response: obeys hb commands(6). Total: 15. 18:59 Eye Response: spontaneous(4). Verbal Response: oriented(5). Motor Response: obeys pm1 commands(6). Total: 15. Trauma Score (Adult): 18:30 Eye Response: spontaneous(1); Verbal Response: oriented(1); Motor Response: obeys hb commands(2); Systolic BP: > 89 mm Hg(4); Respiratory Rate: 10 to 29 per min(4); [place] Score: 15; Trauma Score: 12 MDM: 18:50 Patient medically screened. pm1 20:07 Data reviewed: vital signs. Data interpreted: Pulse oximetry: on room air is 96 %. pm1 Interpretation: normal. Counseling: I had a detailed discussion with the patient and/or guardian regarding: the historical points, exam findings, and any diagnostic results supporting the discharge/admit diagnosis, lab results, radiology results, the need for outpatient follow up, to return to the emergency department if symptoms worsen or persist or if there are any questions or concerns that arise at home. 05 18:51 Order name: CBC with Diff; Complete Time: 19:40 pm1 30 18:51 Order name: BMP; Complete Time: 19:40 pm1 01/19 18:51 Order name: CT Head C Spine; Complete Time: 19:53 pm1 Administered Medications: 19:14 Drug: Zofran (Ondansetron) 4 mg Route: IVP; Site: right antecubital; hb 20:22 Follow up: Response: No adverse reaction zb 20:23 Follow up: Response: No adverse reaction; Nausea is decreased zb 20:07 CANCELLED (Physician Discretion): SOLU-Medrol (methylPREDNISolone sodium succinate) 125 pm1 mg IM once 20:18 Drug: fentaNYL (PF) 25 mcg {Note: RASS 0.} Route: IVP; Site: right antecubital; zb 20:23 Follow up: Response: No adverse reaction; Medication administered at discharge. zb 20:22 Drug: Potassium Effervescent Tablet 50 mEq Route: PO; zb 20:23 Follow up: Response: Medication administered at discharge. zb 20:23 Drug: SOLU-Medrol (methylPrednisoLONE) 125 mg Route: IVP; Site: right antecubital; zb 20:24 Follow up: Response: No adverse reaction; Medication administered at discharge. zb Disposition: 01/20 07:38 Co-signature as Attending Physician, Gerard Fields MD I agree with the assessment and russel plan of care. Disposition: 01/19/21 20:09 Discharged to Home. Impression: Unspecified injury of head. - Condition is Stable. - Discharge Instructions: Head Injury, Adult. - Prescriptions for Zofran ODT 4 mg Oral tablet,disintegrating - place 1 tablet by TRANSLINGUAL route every 8 hours As needed; 1 tablet. - Medication Reconciliation Form, Thank You Letter, Antibiotic Education, Prescription Opioid Use form. - Follow up: Emergency Department; When: As needed; Reason: Worsening of condition. Follow up: Private Physician; When: 2 - 3 days; Reason: Recheck today's complaints, Continuance of care, Re-evaluation by your physician. - Problem is new. - Symptoms have improved. Signatures: Dispatcher [employer] EDMS Gerard Fields MD MD cha Marinas, Patrick, MANAGER FLIGHT OPERATIONS MANAGER FLIGHT OPERATIONS pm1 Caridad Werner RN RN Ruddy Garcia RN RN ll1 Thania Martin RN RN zb Corrections: (The following items were deleted from the chart) 01/19 19:05 18:27 Head Brain Wo [id number] ordered. EDMI EDMI 20:07 20:07 SOLU-Medrol (methylPREDNISolone sodium succinate) 125 mg IM once ordered. pm1 pm1 20:36 20:09 01/19/2021 20:09 Discharged to Home. Impression: Unspecified injury of head. zb Condition is Stable. Forms are Medication Reconciliation Form, Thank You Letter, Antibiotic Education, Prescription Opioid Use. Follow up: Emergency Department; When: As needed; Reason: Worsening of condition. Follow up: Private Physician; When: 2 - 3 days; Reason: Recheck today's complaints, Continuance of care, Re-evaluation by your physician. Problem is new. Symptoms have improved. pm1 01/20 01:24 01/19 18:59 This 65 yrs old Female presents to ER via Wheelchair with pm1 complaints of Head Injury With LOC-Adult, Vomiting, Dizziness, Heat Exposure. pm1
[2021-01-19] MEDS ORDERED: POTASSIUM 25 MEQ EFFERV TAB ONE (20:30)
[2021-01-19] MEDS ORDERED: FENTANYL CITR 100 MCG/2 ML ONE (20:30)
[2021-01-19] MEDS ORDERED: METHYLPREDNISOLONE 125 MG INJ ONE (20:33)
[2021-01-19 20:47] VITALS: TEMP 97
[2021-01-19 20:48] VITALS: BP 150/70; O2SAT 100
== END 2021-01-19 20:36 | disposition home or self-care (01) ==
LOC: ER 18:02
DX: S00.03XA Contusion of scalp, initial encounter (principal); S50.312A Abrasion of left elbow, initial encounter; W19.XXXA Unspecified fall, initial encounter; Y93.89 Activity, other specified; Y92.009 Unspecified place in unspecified non-institutional (private) residence as the place of occurrence of the external cause; Z88.5 Allergy status to narcotic agent; Z88.8 Allergy status to other drugs, medicaments and biological substances
CPT/HCPCS: 85025; 80048; 36415; 70450; 72125; 96375; 96374; 99284; J3010; J2930; J2405 ×2

== ENCOUNTER 2022-05-14 11:28 | Inpatient (IN) | payer OTHER ==
--- OUTSIDE RECORDS SUMMARY | 2022-05-14 11:31 | XMS REPORT | Continuity of Care Document ---
:1955 Author Organization [facility] t Address [address] [place] [address] Care Team Providers Name Role Phone JANET ROGERS Primary Care Physician Unavailable Janet Rogers Attending Clinician Unavailable Dylan Ahumada Attending Clinician Nadya Li Attending Clinician DYLAN VINES Attending Clinician Unavailable Doctor Unassigned, [place] Attending Clinician Unavailable Nikko Wheeler MD Attending Clinician NIKKO WHEELER Attending Clinician Unavailable Payers Payer Name Policy Type Policy Number Effective Date Expiration Date S ource Problems Condition Condition Condition Status Onset Resolution Last Treating Co mments Source Name Details Category Date Date Treatment Clinician Date No known No known Disease Unive rs active active ity of problems problems [facility] Allergies, Adverse Reactions, Alerts Allergy Allergy Status Severity Reaction(s) Onset Inactive Treating Comm ents Source Name Type Date Date Clinician Codeine Propensi Active Itching Univer s ty to 07 ity of adverse 00:00: [place] reaction 00 Medical s Branch CODEINE DRUG Active ITCHING Univers INGREDI 07 ity of 00:00: [place] 00 Medical Branch Reglan Adverse Active Info Not Common Reaction Available [facility] NO KNOWN Drug Active Univers ALLERGIE Class ity of S [place] [facility] Social History Social Habit Start Date Stop Date Quantity Comments Source Exposure to 2022-03-23 2022-04-02 Not sure [facility] SARS-CoV-2 00:00:00 10:45:00 [place] Medical (event) Branch Tobacco use and 2021-10-27 2021-10-27 Smokeless tobacco Un iversity of exposure 00:00:00 00:00:00 non-user [facility] Sex Ass[birth year] Universit y of 00:00:00 00:00:00 [facility] Smoking Status Start Date Stop Date Source Never smoked tobacco [facility] Medications Ordered Filled Start Stop Current Ordering Indication Dosage Frequency Signature Comments Components Source Medication Medication Date Date Medication? Clinician (SIG) Name Name dexamethaso 2021- No [id number] 10mg U nivers ne 04-02 ity of (DECADRON) 17:15: 16:20 [place] injection 00 :00 Medical 10 mg Branch dexamethaso 2021- No [id number] 10mg 10 mg, [facility] 04-02 Intramuscu ity of (DECADRON) 17:15: 16:20 lar, ONCE, [place] injection 00 :00 1 dose, On Medi torito 10 mg Danielle Branch 04/02/22 at 1215, Routine azelastine Yes [id number] 1{spray Use 1 Univers 137 mcg 3-07 } [place] in ity of (0.1 %) 00:00: each [place] nasal spray 00 nostril 2 Med ical (two) Branch times daily. Use in each nostril as directed fluticasone Yes [id number] 1{spray Use 1 Univers propionate 3-07 } [place] in ity o f 50 00:00: each [place] mcg/actuati 00 nostril Medic al on nasal daily. Branch spray azelastine 0 Yes [id number] 1{spray Use 1 Univers 137 mcg 3-07 } [place] in ity of (0.1 %) 00:00: each [place] nasal spray 00 nostril 2 Med ical (two) Branch times daily. Use in each nostril as directed fluticasone 2021-0 Yes [id number] 1{spray Use 1 Univers propionate 3-07 } [place] in ity o f 50 00:00: each [place] mcg/actuati 00 nostril Medic al on nasal daily. Branch spray azelastine Yes [id number] 1{spray Use 1 Univers 137 mcg 3-07 } [place] in ity of (0.1 %) 00:00: each [place] nasal spray 00 nostril 2 Med ical (two) Branch times daily. Use in each nostril as directed fluticasone Yes [id number] 1{spray Use 1 Univers propionate 3-07 } [place] in ity o f 50 00:00: each [place] mcg/actuati 00 nostril Medic al on nasal daily. Branch spray Tramadol Tramadol 2018-08 Yes [place] 1 tablet Common HCl HCl 0-03 [place] as needed Spirit 00:00: - [facility] Amoxicillin Amoxicillin Yes [place] TAKE ONE Common -Pot -Pot [place] (1) Spirit Clavulanate Clavulanate TABLET(S) - [facility] TWELVE Medical HOURS FOR Center 7 DAYS. Hydrocodone Hydrocodone Yes [place] (Schedule Common -Acetaminop -Acetaminop [place] II Drug) He hen tasha TAKE ONE - [facility] (1[facility] St TABLET(S) [facility] BY MOUTH Medical DAILY Center NEEDED FOR PAIN. Promethazin Promethazin Yes [place] TAKE ONE Common e HCl e HCl [place] (1) Spirit TABLET(S) - [facility] BY [facility] EIGHT Medical HOURS Center NEEDED. Cetirizine Cetirizine Yes [place] TAKE ONE Common HCl HCl [place] (1) [facility] TABLET(S) - [facility] BY MOUTH [facility] ONCE A DAY [facility] NEEDED. Medical Center Se-Clarke PLUS Se-Clarke PLUS Yes [place] TAKE ONE Common [place] (1) [facility] CAPSULE(S) - [facility] BY MOUTH [facility] ONCE A DAY [facility] WITH Medical MEALS. Center Dicyclomine Dicyclomine Yes [place] TAKE ONE Common HCl HCl [place] (1) [facility] CAPSULE(S) - [facility] BY MOUTH [facility] THREE [facility] TIMES A Medical DAY. Center Tramadol Tramadol Yes [place] (Schedule Common HCl HCl [place] IV Drug) He TAKE ONE - [facility] (1) TO TWO St (2) [facility] TABLET(S) Medical BY MOUTH Center TWICE A DAY NEEDED FOR PAIN. Potassium Potassium Yes [place] TAKE TWO Common Chloride ER Chloride ER [place] (2) S pirit TABLET(S) - [facility] BY MOUTH [facility] TWICE A [facility] DAY. Medical Center Zofran Zofran Yes [place] 1 tablet Comm on [place] as needed Spirit - [facility] Natpara Natpara Yes [place] as Common [place] directed [facility] - [facility] Hydrochloro Hydrochloro Yes [place] TAKE ONE Common thiazide thiazide [facility] (1) [facility] TABLET(S) - [facility] ONCE A [facility] DAY. Medical Center Levothyroxi Levothyroxi Yes [place] TAKE ONE Common ne Sodium ne Sodium [place] (1) Spiri t TABLET(S) - [facility] BY MOUTH [facility] ONCE A [facility] DAY. Medical Center Levocetiriz Levocetiriz Yes [place] TAKE ONE Common ine ine [place] (1) Spirit Dihydrochlo Dihydrochlo TABLET(S) - [facility] ride ride BY MOUTH St ONCE A DAY [facility] FOR Medical ALLERGIES. Center Vitamin D3 Vitamin D3 Yes [place] TAKE ONE Common [place] (1) [facility] CAPSULE(S) - [facility] BY MOUTH [facility] ONCE A [facility] WEEK. Medical Center Gabapentin Gabapentin Yes [place] TAKE ONE Common [place] (1) Spirit CAPSULE(S) - [facility] BY MOUTH [facility] FOUR TIMES [facility] A DAY FOR Medical NERVE Center PAIN. Calcitriol Calcitriol Yes [place] not Common [place] defined Spirit - [facility] Simvastatin Simvastatin Yes [place] TAKE ONE Common [place] (1) Spirit TABLET(S) - [facility] BY MOUTH [facility] ONCE A DAY [facility] IN THE Medical EVENING Center FOR CHOLESTERO L. Triamterene Triamterene Yes [place] TAKE ONE Common -HCTZ -HCTZ [facility] (1) Spirit CAPSULE(S) - [facility] BY MOUTH [facility] ONCE A [facility] DAY. Medical Center Pantoprazol Pantoprazol Yes [place] TAKE ONE Common e Sodium e Sodium [place] (1) Spirit TABLET(S) - [facility] BY MOUTH St TWICE A [facility] DAY. (30 Medical MINUTES Center BEFORE BREAKFAST AND 30 MINUTES BEFORE SUPPER). Vital Signs Vital Name Observation Time Observation Value Comments Source Systolic blood 2022-04-02 15:58:00 113 mm[Hg] Univer sity [facility] Diastolic blood 2022-04-02 15:58:00 75 mm[Hg] [facility] Heart rate 2022-04-02 15:58:00 78 [facility] Body temperature 2022-04-02 15:58:00 36.78 Janice [facility] Respiratory rate 2022-04-02 15:58:00 20 /min [facility] Body height 2022-04-02 15:58:00 172.7 cm [facility] Body weight 2022-04-02 15:58:00 72.757 kg [facility] BMI 2022-04-02 15:58:00 24.39 kg/m2 [facility] Oxygen saturation in 2022-04-02 15:58:00 98 /min [facility] Arterial blood by [facility] Pulse oximetry [place] Procedures Procedure Date / Time Performed Performing Clinician Sourc e POCT MOLECULAR STREP 2022-04-02 16:06:00 Nadya Louis [facility] ASSIGNMENT OF BENEFITS 2022-04-02 15:46:15 Doctor Unassigned, No [facility] Encounters Start End Encounter Admission Attending Care Care Encounter Source Date/Time Date/Time Type Type Clinicians Facility Department ID 2021-09-[address] [facility] [id number] - Common 14:39:04 [facility] 2021-09-[address] [facility] [id number] - Common 11:21:30 [facility] 2022-04-02 2022-04-02 Urgent Dylan Vines [facility] [id number] [facility] 10:00:00 11:19:53 [facility] [id number] [facility] [id number] Khari as JESSICA?BLEA [id number] [address] MEDICAL OFFICE BUILDING 2022-04-02 2022-04-02 Outpatient R JASMYN [facility] [id number] Univers 10:00:00 11:19:53 DYLAN [facility] 2022-04-02 2022-04-02 Outpatient R [facility] [id number] Univers 10:00:00 10:00:00 [id number] [facility] [place] [facility] 2022-04-02 2022-04-02 Orders Doctor NASH [id number] Univers 00:00:00 00:00:00 Only Unassigned, JORGE [id number] ity of [facility] [id number] Khari as [id number] [address] 2022-02-27 2022-02-27 [facility] [id number] Univers 00:00:00 00:00:00 [facility] [id number] it y of [place] [id number] Khari as JESSICA?BLEA [id number] [address] MEDICAL OFFICE BUILDING 2021-11-01 2021-11-01 Outpatient R [facility] [id number] Univers 11:00:00 11:00:00 [id number] ity [facility] 2021-11-01 2021-11-01 [facility] [id number] Univers 11:00:00 11:00:00 RANIA [facility] 2021-10-27 2021-10-27 [facility] [id number] Univers 09:00:00 09:48:05 NIKKO [facility] 2021-10-07 2021-10-07 ambulatory STLMLC ST[facility]C [id number] Common 00:00:00 00:00:00 [facility] 2021-09-25 2021-09-25 ambulatory STLMLC STLMLC [id number] Common 00:00:00 00:00:00 [facility] 2021-09-18 2021-09-18 ambulatory STLMLC STLMLC [id number] Common 00:00:00 00:00:00 [facility] 2020-10-03 2020-10-03 Outpatient STLMLC STLMLC [id number] Common 00:00:00 00:00:00 [facility] 2020-07-08 2020-07-08 Outpatient STLMLC STLMLC [id number] Common 00:00:00 00:00:00 [facility] 2020-07-01 2020-07-01 Outpatient STLMLC STLMLC [id number] Common 00:00:00 00:00:00 [facility] 2020-03-20 2020-03-20 [id number] Common 09:15:00 09:15:00 [facility] 2020-03-15 2020-03-15 [id number] Common 10:00:00 10:00:00 [facility] 2020-03-06 2020-03-06 [id number] Common 09:30:00 09:30:00 [facility] 2020-02-14 2020-02-14 [facility] [id number] Common 09:09:00 09:09:00 [facility] 2020-01-02 2020-01-02 [facility] [id number] Common 10:30:00 10:30:00 [facility] Results Test Description Test Time Test Comments Results Result Comments Source POCT MOLECULAR STREP 2022-04-02 16:14:48 Test Item Value Reference Range Interpretation Comme nts POCT Molecular Strep (test code = 93448-0) Negative Negative Lab Interpretation (test code = 75720-7) Normal [facility]
--- NOTE | 2022-05-14 12:43 | RAD REPORT ---
EXAM DESCRIPTION: CT - Head C Spine Cap Wo Con - 05/14/2022 12:24 pm CLINICAL HISTORY: syncope COMPARISON: <Comparisons> TECHNIQUE: Axial [address] head images were obtained. Axial [address] cervical spine images were obtain ed with sagittal and coronal reconstruction images reviewed. Axial 5 mm images of the chest, abdomen and pelvis were obtained. All CT scans are performed using dose optimization technique as appropriate and may include automated exposure control or mA/KV adjustment according to patient size. FINDINGS: No intracranial hemorrhage, mass or edema. No midline shift or abnormal fluid collection. Mastoid air cells and paranasal sinuses are clear. No skull fracture. Physiologic calcifications are present in the cerebral and cerebellar hemispheres. No measurable scalp hematoma. Cervical bodies are normal in height. Very slight retrolisthesis of C4 on C5 and C5 on C6. Endplate s purring and facet hypertrophy changes are present.No significant canal or foramen stenosis identified . OrNo fracture or acute bone finding.No disk space narrowing.No prevertebral soft tissue thickening or paraspinal mass.Central canal detail is inherently limited on CT imaging. No pneumothorax or pleural fluid collection seen. Patchy airspace opacities are present in the animal cytologist ior mid right upper lobe. History indicates right-sided trauma. This is suspicious for pulmonary cont usion. No displaced rib fractures are present. No nondisplaced rib fracture identifiable. There is a moderate-sized area of airspace opacification in the mid and posterior aspect of the left lower lobe. A few air bronchograms are present. No history of left-sided trauma. The left lower lobe findings cobian ve an appearance more consistent with pneumonia and needs correlation with clinical presentation. N o mediastinal hematoma seen. A few small nonspecific mediastinal lymph nodes are present likely react bautista. No chest will mass or abnormal axillary finding. Heart size is normal. A small pericardial effus ion is present. Maximum thickness is 8 mm near the apex. Sternum is intact. CT abdomen and pelvis show no injury to solid abdominal viscera. Cholecystectomy clips are present. N o biliary tree dilatation. No bowel injury or significant finding. No free air, free fluid or abnorma l stranding. No hernia, mass or bulky lymphadenopathy. No urinary bladder abnormality. No significant bone finding in the abdomen or pelvis. There is prominent degenerative change at the L 4-5 disc level. IMPRESSION: No significant CT Head finding. No significant CT cervical spine finding. Patchy parenchymal opacification in the posterior mid right lung field is suspicious for a small area of pulmonary contusion. The adjacent ribcage is intact with no pneumothorax or pleural fluid collect ion. Moderate-sized area of airspace opacification with air bronchogram formation in the left lower lobe. No history of left-sided trauma. This has an appearance more typical for pneumonia and correlation is needed with clinical presentation. No significant CT Abdomen and Pelvis finding.
--- NOTE | 2022-05-14 13:11 | RAD REPORT ---
EXAM DESCRIPTION: RAD - Knee Right 3 View - 05/14/2022 12:49 pm CLINICAL HISTORY: PAIN COMPARISON: No comparisons FINDINGS: No fracture, dislocation or periosteal reaction.No large joint effusion. No lipoma hemarth rosis. No joint space narrowing. No foreign body or other soft tissue abnormality. IMPRESSION: Negative right knee for acute bone or joint finding. Clinical concerns for internal derangement or occult bony injury could be further assessed with MR im aging.
--- NOTE | 2022-05-14 13:13 | RAD REPORT ---
EXAM DESCRIPTION: RAD - Ankle Right 3 View - 05/14/2022 12:49 pm CLINICAL HISTORY: PAIN COMPARISON: No comparisons FINDINGS: Oblique fracture is present through the distal fibula approximately 15 degrees posterior a ngulation deformity and 5 mm of posterolateral displacement. Medial malleolus and posterior malleolus fractures are present. There is approximately 5 mm lateral displacement of the dome of the talus rel ative to the tibial plafond. There is a triangular-shaped fracture along the anterior margin of the t ibial plafond. No joint effusion seen. No joint space narrowing. Soft tissue swelling is present around the ankle j oint. No pathologic bone changes are present. Minimal plantar spur is present. IMPRESSION: Trimalleolar ankle fracture is detailed.
--- NOTE | 2022-05-14 13:15 | RAD REPORT ---
EXAM DESCRIPTION: RAD - Tib Fib Right - 05/14/2022 12:49 pm CLINICAL HISTORY: PAINafter fall COMPARISON: No comparisons FINDINGS: The fibula and tibia fractures at the ankle joint are detailed in the ankle report. The re mainder of the right tib-fib structures show no fracture, dislocation or periosteal reaction. No path ologic changes. Soft tissue swelling is present at the ankle joint. IMPRESSION: Distal tibia and fibula fractures are detailed in the separate ankle report. The remaind er of the tib-fib is unremarkable.
--- NOTE | 2022-05-14 13:22 | RAD REPORT ---
EXAM DESCRIPTION: RAD - Chest Single View - 05/14/2022 12:49 pm CLINICAL HISTORY: COUGH, hypotensive COMPARISON: Two view chest 08/10/2022 TECHNIQUE: AP portable chest image was obtained 05/14/2022 12:49 pm . FINDINGS: No mass or consolidations seen. Interstitial pattern is mildly prominent but not clearly d ifferent from 2018 imaging. Cardiomegaly is present and there is mild central vascular engorgement. L arge cardiac silhouette is present but improved from the comparison. No measurable pleural effusion and no pneumothorax. No acute bony abnormality seen. No acute aortic findings suspected. IMPRESSION: Cardiomegaly is present but improved from the 2018 comparison. Heart, vasculature and lung markings all suggest a mild failure or volume overload.
[2022-05-14] MEDS ORDERED: NA CHLORIDE 0.9% 1,000 ML ONE ×2 (13:25→18:38)
[2022-05-14] MEDS ORDERED: CEFTRIAXONE 1000 MG/VIAL ONE ×2 (13:25→21:22)
[2022-05-14] MEDS ORDERED: NA CHLORIDE 0.9% 100 ML ONE (13:25)
[2022-05-14] MEDS ORDERED: ONDANSETRON 4 MG/2 ML VIAL ONE (13:25)
[2022-05-14] MEDS ORDERED: MORPHINE 4 MG/ML SYR ONE ×3 (13:25→21:22)
[2022-05-14 13:40] LABS: Protime INR 1.04
[2022-05-14 13:48] LABS: Absolute Lymphocytes (CBC) 0.7 K/uL (0.7-4.9); Hematocrit 30.6 % (36.0-45.0); Lymphocytes % 3.6 % (15.3-44.8); MCV 90.9 fL (80-100); MPV 7.4 fL (7.6-11.3); RBC Red Blood Cell Count 3.36 M/uL (3.86-4.86)
[2022-05-14 13:56] LABS: Albumin 3.3 g/dL (3.4-5.0); Bilirubin Direct 0.2 mg/dL (0-0.2); Bilirubin Total 1.1 mg/dL (0.2-1.0); Magnesium 1.6 mg/dL (1.8-2.4); Potassium 3.6 mmol/L (3.5-5.1); Troponin High Sensitivity 53.6 pg/mL (<58.9)
[2022-05-14 14:21] LABS: SARS-CoV-2 Antigen Rapid Res Negative (Negative)
--- NOTE | 2022-05-14 14:23 | EDPHYS ---
Physician Documentation [facility] Name: Rupa Gee Age: 66 yrs Sex: Female : 1955 Arrival Date: 05/14/2022 Time: 11:29 Bed 6 Private MD: GI Physician Gerard Fields HPI: 05/14 14:12 This 66 yrs old Female presents to ER via EMS with complaints of Ankle Injury.russel 14:12 The patient presents with decreased range of motion, a deformity, pain. The complaints russel affect the right ankle. Onset: The symptoms/episode began/occurred just prior to arrival. 14:13 Context: resulted from the patient falling, The mechanism of injury is unknown. The russel patient has experienced near-syncope, almost passed out, felt dizzy, felt faint, felt generally weak. Historical: - Allergies: 11:31 Codeine; bp 11:31 metoclopramide HCl; bp - Home Meds: 11:31 Claritin Oral [Active]; gabapentin 300 mg Oral cap 1 cap 3 times per day [Active]; bp naptera injection a trail drug [Active]; potassium chloride 10 mEq Oral cpER 1 cap once daily [Active]; triamterene-hydrochlorothiazid 37.5-25 mg Oral tab 1 tab once daily [Active]; Vitamin D3 Oral [Active]; - PMHx: 11:31 Hypothyroidism; bp - Immunization history:: Adult Immunizations up to date. - Social history:: Smoking status: Patient denies any tobacco usage or history of. ROS: 14:13 Constitutional: Negative for fever, chills, and weight loss, Eyes: Negative for injury, russel pain, redness, and discharge, ENT: Negative for injury, pain, and discharge, Neck: Negative for injury, pain, and swelling, Cardiovascular: Negative for chest pain, palpitations, and edema, Abdomen/GI: Negative for abdominal pain, nausea, vomiting, diarrhea, and constipation, Back: Negative for injury and pain, : Negative for injury, bleeding, discharge, and swelling, Skin: Negative for injury, rash, and discoloration, Neuro: Negative for headache, weakness, numbness, tingling, and seizure, Psych: Negative for depression, anxiety, suicide ideation, homicidal ideation, and hallucinations, Allergy/Immunology: Negative for hives, rash, and allergies, Endocrine: Negative for neck swelling, polydipsia, polyuria, polyphagia, and marked weight changes, Hematologic/Lymphatic: Negative for swollen nodes, abnormal bleeding, and unusual bruising. 14:13 Respiratory: Positive for cough, shortness of breath, at rest. 14:13 MS/extremity: Positive for decreased range of motion, pain, swelling, tenderness. Exam: 14:13 Constitutional: This is a well developed, well nourished patient who is awake, alert, russel and in no acute distress. Head/Face: Normocephalic, atraumatic. Eyes: Pupils equal round and reactive to light, extra-ocular motions intact. Lids and lashes normal. Conjunctiva and sclera are non-icteric and not injected. Cornea within normal limits. Periorbital areas with no swelling, redness, or edema. ENT: Nares patent. No nasal discharge, no septal abnormalities noted. Tympanic membranes are normal and external auditory canals are clear. Oropharynx with no redness, swelling, or masses, exudates, or evidence of obstruction, uvula midline. Mucous membranes moist. Neck: Trachea midline, no thyromegaly or masses palpated, and no cervical lymphadenopathy. Supple, full range of motion without nuchal rigidity, or vertebral point tenderness. No Meningismus. Chest/axilla: Normal chest wall appearance and motion. Nontender with no deformity. No lesions are appreciated. Cardiovascular: Regular rate and rhythm with a normal S1 and S2. No gallops, murmurs, or rubs. Normal PMI, no JVD. No pulse deficits. Abdomen/GI: Soft, non-tender, with normal bowel sounds. No distension or tympany. No guarding or rebound. No evidence of tenderness throughout. Back: No spinal tenderness. No costovertebral tenderness. Full range of motion. Female : Normal external genitalia. Skin: Warm, dry with normal turgor. Normal color with no rashes, no lesions, and no evidence of cellulitis. MS/ Extremity: Pulses equal, no cyanosis. Neurovascular intact. Full, normal range of motion. Neuro: Awake and alert, GCS 15, oriented to person, place, time, and situation. Cranial nerves II-XII grossly intact. Motor strength 5/5 in all extremities. Sensory grossly intact. Cerebellar exam normal. Normal gait. Psych: Awake, alert, with orientation to person, place and time. Behavior, mood, and affect are within normal limits. 14:13 ECG was reviewed by the Attending Physician. 14:13 Respiratory: mild respiratory distress is noted, Respirations: Breath sounds: decreased breath sounds, that are mild, are heard in the left posterior lower lobe, Respiratory rate: 18 Vital Signs: 11:29 BP 113 / 84; Pulse 77; Resp 16; Temp 99.7; Pulse Ox 98% ; Weight 75 kg; Height 5 ft. 8 bp in. (172.72 cm); 13:00 BP 124 / 95; Pulse 82; Resp 22; Pulse Ox 99% ; bp 14:00 BP 95 / 75; Pulse 82; Resp 23; Pulse Ox 98% ; bp 15:00 BP 96 / 50; Pulse 86; Resp 15; Pulse Ox 97% ; bp 16:00 BP 96 / 63; Pulse 88; Resp 19; Pulse Ox 92% ; bp 17:00 BP 100 / 46; Pulse 76; Resp 19; Pulse Ox 92% ; bp 18:00 BP 125 / 53; Pulse 82; Resp 15; Pulse Ox 98% ; bp 11:29 Body Mass Index 25.14 (75.00 kg, 172.72 cm) bp MDM: 11:31 Patient medically screened. russel 14:15 Differential diagnosis: fracture, sprain, arthritis. Differential Diagnosis: cardiac russel arrhythmia, seizure, vasovagal episode, cardiac arrhythmia, generalized weakness, hypovolemia, near-syncope, sepsis, syncope. Differential Diagnosis: Bronchitis Influenza Upper Respiratory Infection Sinusitis Pharyngitis Viral Syndrome Pneumonia. Data reviewed: vital signs, nurses notes, lab test result(s), EKG, radiologic studies, CT scan, plain films. Data interpreted: laboratory monitor: rate is 77 beats/min, rhythm is regular, Pulse oximetry: on room air is 98 %. Test interpretation: by ED physician or midlevel provider: ECG, plain radiologic studies. Counseling: I had a detailed discussion with the patient and/or guardian regarding: the historical points, exam findings, and any diagnostic results supporting the discharge/admit diagnosis, lab results, radiology results, the need for further work-up and treatment in the hospital. 05/14 12:07 Order name: Basic Metabolic Panel; Complete Time: 14:00 russel 05/14 12:07 Order name: CBC with Diff russel 05/14 12: Order name: LFT's; Complete Time: 14:00 [facility] 05/14 12:07 Order name: Magnesium; Complete Time: 14:00 [facility] 05/14 12:07 Order name: NT PRO-BNP; Complete Time: 14:00 [facility] 05/14 12:07 Order name: PT-INR; Complete Time: 14:00 [facility] 05/14 12:07 Order name: Troponin HS; Complete Time: 14:00 [facility] 05/14 12:08 Order name: Lipase; Complete Time: 14:00 [facility] 05/14 12:08 Order name: Urine Microscopic Only [facility] 05/14 12:08 Order name: SARS RAPID; Complete Time: 14:23 [facility] 05/14 12:09 Order name: Lactate; Complete Time: 14:00 [facility] 05/14 12:09 Order name: Blood Culture Adult (2) [facility] 05/14 15:35 Order name: Manual Differential [facility] 05/14 16:53 Order name: Basic Metabolic Panel [facility] 05/14 12:07 Order name: XRAY Chest (1 view); Complete Time: 14:00 [facility] 05/14 12:07 Order name: CT Traumagram (Head C Spine CAP wo con); Complete Time: 14:00 [facility] 05/14 12:07 Order name: Knee Right 3 View XRAY; Complete Time: 14:00 [facility] 05/14 12:07 Order name: Tib Fib Right XRAY; Complete Time: 14:00 [facility] 05/14 16:53 Order name: Basic Metabolic Panel EDMN 05/14 16:53 Order name: CBC with Automated Diff EDMS 05/14 16:53 Order name: CBC with Automated Diff EDMS 05/14 16:53 Order name: Comprehensive Metabolic Panel EDMS 05/14 16:53 Order name: Comprehensive Metabolic Panel EDMS 05/14 16:53 Order name: Lipid Profile EDMS 05/14 16:53 Order name: Lipid Profile EDMS 05/14 16:53 Order name: Protime (+INR) EDMS 05/14 16:53 Order name: Protime (+INR) EDMS 05/14 16:53 Order name: PTT, Activated Partial Thromb EDMS 05/14 16:53 Order name: PTT, Activated Partial Thromb EDMS 05/14 17:42 Order name: Urine Dipstick-Ancillary EDMN 05/14 12:07 Order name: EKG; Complete Time: 12:08 [facility] 05/14 12:07 Order name: Cardiac monitoring; Complete Time: 13:52 [facility] 05/14 12:07 Order name: EKG - Nurse/Tech; Complete Time: 13:52 [facility] 05/14 12:07 Order name: IV Saline Lock; Complete Time: 13:52 [facility] 05/14 12:07 Order name: Labs collected and sent; Complete Time: 13:52 [facility] 05/14 12:07 Order name: O2 Per Protocol; Complete Time: 13:52 [facility] 05/14 12:07 Order name: O2 Sat Monitoring; Complete Time: 13:52 [facility] 05/14 12:07 Order name: Ankle Right 3 View XRAY; Complete Time: 14:00 [facility] 05/14 12:08 Order name: Urine Dipstick-Ancillary (obtain specimen); Complete Time: 17:48 [facility] 05/14 14:07 Order name: Splint - Long Leg: Posterior w/ Stirrup; Complete Time: 14:49 [facility] 05/14 16:53 Order name: CONS Physician Consult [facility] 05/14 16:53 Order name: Heart Healthy [facility] 05/14 16:53 Order name: Heart Healthy [facility] 05/14 16:53 Order name: Echo with Doppler [facility] 05/14 16:53 Order name: Echo with Doppler [facility] 05/14 16:55 Order name: Carotid Artery Bilateral EDMN EC:13 Rate is 82 beats/min. Rhythm is regular. QRS [place] is Normal. AL interval is normal. QRS russel interval is normal. QT interval is normal. No Q waves. T waves are Normal. Clinical impression: NSR w/ Non-specific ST/T Changes and No evidence of ischemia. Interpreted by me. Reviewed by me. Administered Medications: 13:00 Drug: Rocephin (cefTRIAXone) 1 grams Route: IV; Rate: per protocol; Site: right bp antecubital; 15:19 Follow up: IV Status: Completed infusion; IV Intake: 100ml bp 13:30 Drug: NS 0.9% 500 ml Route: IV; Rate: bolus; Site: right antecubital; bp 15:29 Follow up: IV Status: Completed infusion; IV Intake: 500ml bp 13:30 Drug: NS 0.9% 1000 ml Route: IV; Rate: 125 ml/hr; Site: right antecubital; bp 15:29 Follow up: IV Status: Completed infusion; IV Intake: 500ml bp 13:30 Drug: morphine 4 mg Route: IVP; Infused Over: 4 mins; Site: right antecubital; bp 15:19 Follow up: Response: Pain is decreased bp 13:30 Drug: Zofran (Ondansetron) 4 mg Route: IVP; Site: right antecubital; bp 15:19 Follow up: Response: No adverse reaction bp 14:15 Drug: Zithromax (azithromycin) 500 mg Route: IVPB; Infused Over: 1 hrs; Site: right bp antecubital; 15:20 Follow up: IV Status: Completed infusion; IV Intake: 250ml bp 14:15 Drug: LevOfloxacin 750 mg Route: PO; bp 15:19 Follow up: Response: No adverse reaction bp 14:45 Drug: morphine 4 mg Route: IVP; Infused Over: 4 mins; Site: right antecubital; bp 15:20 Follow up: Response: Pain is decreased bp 15:00 Drug: Magnesium Sulfate 1 grams Route: IVPB; Infused Over: 1 hrs; Site: right bp antecubital; 17:49 Follow up: IV Status: Completed infusion; IV Intake: 100ml bp 15:00 Drug: NS 0.9% 1000 ml Route: IV; Rate: 1 bolus; Site: right antecubital; bp 17:48 Follow up: IV Status: Completed infusion; IV Intake: 1000ml bp 15:00 Drug: Tylenol 1000 mg Route: PO; bp 17:49 Follow up: Response: No adverse reaction bp Disposition Summary: 05/14/22 14:23 Hospitalization Ordered Hospitalization Status: Inpatient Admission russel Provider: Jess Faith cha Condition: Stable russel Problem: new russel Symptoms: have improved russel Bed/Room Type: Standard russel Location: Telemetry/MedSurg (Inpatient)(05/15/22 11:42) dw Room Assignment: 413(05/15/22 11:42) dw Diagnosis - Fall on same level, unspecified russel - Syncope Near russel - Hypotension, unspecified - resolved russel - Contusion of lung, unspecified, initial encounter russel - Pneumonia, unspecified organism - left lower lobe russel - Hypomagnesemia russel - Elevated white blood cell count russel - Anemia, unspecified russel - Nondisplaced trimalleolar fracture of right lower leg, initial encounter for closed russel fracture Forms: - Medication Reconciliation Form russel - SBAR form russel Signatures: Dispatcher [employer] Rosina Campuzano RN RN Gerard Shell MD MD cha Peltier, Brian, RN RN bp Corrections: (The following items were deleted from the chart) 18:20 14:23 Telemetry/MedSurg (Inpatient) [facility] bp 18:20 14:23 [facility] bp 05/15 11:42 05/14 18:20 BR ER HOLD bp dw 05/15 11:42 05/14 18:20 ERHOLD- bp dw
--- NOTE | 2022-05-14 14:23 | ER ---
Nurse's Notes [facility] Name: Rupa Gee Age: 66 yrs Sex: Female : 1955 Arrival Date: 05/14/2022 Time: 11:29 Bed 6 Private MD: Diagnosis: Fall on same level, unspecified;Syncope Near;Hypotension, unspecified-resolved;Contusion of lung, unspecified, initial encounter;Pneumonia, unspecified organism-left lower lobe;Hypomagnesemia;Elevated white blood cell count;Anemia, unspecified;Nondisplaced trimalleolar fracture of right lower leg, initial encounter for closed fracture Presentation: 05/14 11:29 Chief complaint: EMS states: DIZZY AND R ANKLE PAIN, HYPOTENSIVE ON SCENE. Coronavirus bp screen: At this time, the client does not indicate any symptoms associated with coronavirus-19. Ebola Screen: No symptoms or risks identified at this time. Initial Sepsis Screen: Does the patient meet any 2 criteria? No. Patient's initial sepsis screen is negative. Does the patient have a suspected source of infection? No. Patient's initial sepsis screen is negative. Risk Assessment: Do you want to hurt yourself or someone else? Patient reports no desire to harm self or others. Onset of symptoms was May 14, 2022 at 11:00. 11:29 Method Of Arrival: EMS: [facility] bp 11:29 Acuity: KHUSHBU 3 bp Triage Assessment: 11:31 General: Appears in no apparent distress. comfortable, Behavior is calm, cooperative, bp appropriate for age. Pain: Complains of pain in anterior aspect of right ankle. EENT: No deficits noted. Neuro: Reports dizziness. Cardiovascular: No deficits noted. Respiratory: No deficits noted. GI: No signs and/or symptoms were reported involving the gastrointestinal system. : No signs and/or symptoms were reported regarding the genitourinary system. Derm: No deficits noted. Musculoskeletal: Circulation, motion, and sensation intact. Range of motion: intact in all extremities, Reports pain in anterior aspect of right ankle. Historical: - Allergies: 11:31 Codeine; bp 11:31 metoclopramide HCl; bp - Home Meds: 11:31 Claritin Oral [Active]; gabapentin 300 mg Oral cap 1 cap 3 times per day [Active]; bp naptera injection a trail drug [Active]; potassium chloride 10 mEq Oral cpER 1 cap once daily [Active]; triamterene-hydrochlorothiazid 37.5-25 mg Oral tab 1 tab once daily [Active]; Vitamin D3 Oral [Active]; - PMHx: 11:31 Hypothyroidism; bp - Immunization history:: Adult Immunizations up to date. - Social history:: Smoking status: Patient denies any tobacco usage or history of. Screenin:34 Abuse screen: Denies threats or abuse. Denies injuries from another. Nutritional bp screening: No deficits noted. Tuberculosis screening: No symptoms or risk factors identified. Fall Risk None identified. Assessment: 11:34 General: SEE TRIAGE NOTE. bp 13:00 Reassessment: No changes from previously documented assessment. Patient and/or family bp updated on plan of care and expected duration. Pain level reassessed. 15:00 Reassessment: ADMIT INITIATED. bp 17:00 Reassessment: ADMIT IN PROCESS. bp Vital Signs: 11:29 BP 113 / 84; Pulse 77; Resp 16; Temp 99.7; Pulse Ox 98% ; Weight 75 kg; Height 5 ft. 8 bp in. (172.72 cm); 13:00 BP 124 / 95; Pulse 82; Resp 22; Pulse Ox 99% ; bp 14:00 BP 95 / 75; Pulse 82; Resp 23; Pulse Ox 98% ; bp 15:00 BP 96 / 50; Pulse 86; Resp 15; Pulse Ox 97% ; bp 16:00 BP 96 / 63; Pulse 88; Resp 19; Pulse Ox 92% ; bp 17:00 BP 100 / 46; Pulse 76; Resp 19; Pulse Ox 92% ; bp 18:00 BP 125 / 53; Pulse 82; Resp 15; Pulse Ox 98% ; bp 11:29 Body Mass Index 25.14 (75.00 kg, 172.72 cm) bp ED Course: 11:29 Patient arrived in ED. bp 11:30 Triage completed. bp 11:31 Gerard Fields MD is Attending Physician. russel 11:31 Arm band placed on. bp 11:34 Patient has correct armband on for positive identification. Bed in low position. Call bp light in reach. Side rails up X2. 12:00 Inserted saline lock: 20 gauge in right antecubital area, using aseptic technique. bp Blood collected. 12:17 Jelani Del Valle, SARAH is Primary Nurse. bp 12:25 CT Traumagram (Head C Spine CAP wo con) In Process Unspecified. EDMS 12:51 XRAY Chest (1 view) In Process Unspecified. EDMS 12:51 Knee Right 3 View XRAY In Process Unspecified. EDMS 12:51 Tib Fib Right XRAY In Process Unspecified. EDMS 12:51 Ankle Right 3 View XRAY In Process Unspecified. EDMS 14:18 Jess Faith MD is Hospitalizing Provider. russel 18:56 No provider procedures requiring assistance completed. Patient admitted, IV remains in bp place. 19:38 Primary Nurse role handed off by Jelani Del Valle RN as6 19:38 Vasile Quinonez RN is Primary Nurse. as6 20:21 Primary Nurse role handed off by Vasile Quinonez RN 20:21 Yusra Morton RN is Primary Nurse. 05/15 08:22 Primary Nurse role handed off by Yusra Morton RN eb 11:50 Jelani Del Valle RN is Primary Nurse. bp Administered Medications: 05/14 13:00 Drug: Rocephin (cefTRIAXone) 1 grams Route: IV; Rate: per protocol; Site: right bp antecubital; 15:19 Follow up: IV Status: Completed infusion; IV Intake: 100ml bp 13:30 Drug: NS 0.9% 500 ml Route: IV; Rate: bolus; Site: right antecubital; bp 15:29 Follow up: IV Status: Completed infusion; IV Intake: 500ml bp 13:30 Drug: NS 0.9% 1000 ml Route: IV; Rate: 125 ml/hr; Site: right antecubital; bp 15:29 Follow up: IV Status: Completed infusion; IV Intake: 500ml bp 13:30 Drug: morphine 4 mg Route: IVP; Infused Over: 4 mins; Site: right antecubital; bp 15:19 Follow up: Response: Pain is decreased bp 13:30 Drug: Zofran (Ondansetron) 4 mg Route: IVP; Site: right antecubital; bp 15:19 Follow up: Response: No adverse reaction bp 14:15 Drug: Zithromax (azithromycin) 500 mg Route: IVPB; Infused Over: 1 hrs; Site: right bp antecubital; 15:20 Follow up: IV Status: Completed infusion; IV Intake: 250ml bp 14:15 Drug: LevOfloxacin 750 mg Route: PO; bp 15:19 Follow up: Response: No adverse reaction bp 14:45 Drug: morphine 4 mg Route: IVP; Infused Over: 4 mins; Site: right antecubital; bp 15:20 Follow up: Response: Pain is decreased bp 15:00 Drug: Magnesium Sulfate 1 grams Route: IVPB; Infused Over: 1 hrs; Site: right bp antecubital; 17:49 Follow up: IV Status: Completed infusion; IV Intake: 100ml bp 15:00 Drug: NS 0.9% 1000 ml Route: IV; Rate: 1 bolus; Site: right antecubital; bp 17:48 Follow up: IV Status: Completed infusion; IV Intake: 1000ml bp 15:00 Drug: Tylenol 1000 mg Route: PO; bp 17:49 Follow up: Response: No adverse reaction bp Medication: 11:34 VIS not applicable for this client. bp Intake: 15:19 IV: 100ml; Total: 100ml. bp 15:20 IV: 250ml; Total: 350ml. bp 15:29 IV: 500ml; Total: 850ml. bp 15:29 IV: 500ml; Total: 1350ml. bp 17:48 IV: 1000ml; Total: 2350ml. bp 17:49 IV: 100ml; Total: 2450ml. bp Outcome: 14:23 Decision to Hospitalize by Provider. russel 19:00 Admitted to ER Hold. Please see [facility] for further documentation. bp 19:00 Condition: stable 19:00 Instructed on the need for admit. 05/15 12:43 Patient left the ED. bp Signatures: Dispatcher [employer] EDYusra Welch RN RN kl Anderson, Corey, MD MD cha Peltier, Brian, RN RN bp Botello, Elizabeth eb Slawson, Ashby, RN RN as6 Corrections: (The following items were deleted from the chart) 05/14 18:51 11:29 BP 113 / 84; Pulse 77bpm; Resp 16bpm; Pulse Ox 98%; Temp 99.7F; bp bp
[2022-05-14] MEDS ORDERED: AZITHROMYCIN 500 MG INJ IVPB ONE (14:24)
[2022-05-14] MEDS ORDERED: levoFLOXacin 750 MG TAB ONE (14:24)
[2022-05-14] MEDS ORDERED: NA CHLORIDE 0.9% 250 ML ONE (14:24)
[2022-05-14] MEDS ORDERED: MAGNESIUM SULFATE 1 gm IVPB 1 GM/100 ML BAG IV ONE (15:33)
[2022-05-14] MEDS ORDERED: ACETAMINOPHEN 500 MG TAB ONE (15:33)
[2022-05-14 15:35] LABS: Blood Morphology Comment NOT SEEN (NOT SEEN); Platelet Estimate ADEQ
[2022-05-14] MEDS ORDERED: ONDANSETRON 4 MG/2 ML VIAL IV PRN (16:47)
[2022-05-14] MEDS ORDERED: ACETAMINOPHEN 500 MG TAB PO PRN ×2 (16:47)
[2022-05-14] MEDS: NA CHLORIDE 0.9% 1,000 ML IV SCH (17:00)
[2022-05-14 17:41] LABS: Urine Blood Negative (Negative); Urine Glucose Negative (Negative); Urine Protein Negative (Negative); Urine Specific Gravity 1.015 (1.005-1.030)
[2022-05-14] MEDS: ENOXAPARIN 40 MG/0.4 ML SQ SCH (18:00)
[2022-05-14 18:20] LABS: Urine RBC <5 /HPF (None Seen)
[2022-05-14] MEDS ORDERED: ENOXAPARIN 40 MG/0.4 ML SQ ONE (18:38)
[2022-05-14 18:56] VITALS: BMI 25.0
--- NOTE | 2022-05-14 20:07 | RAD REPORT ---
EXAM DESCRIPTION: - CP - 05/14/2022 7:39 pm CLINICAL HISTORY: Carotid artery stenosis COMPARISON: No comparisons TECHNIQUE: Real-time sonographic evaluation of bilateral carotid and vertebral systems was performed . Harding scale and Doppler interrogation were performed with waveform tracing bilaterally. FINDINGS: Normal high resistance waveforms are noted in both external carotid arteries. The common c arotid arteries and internal carotid arteries show normal low resistance waveforms. Calcified plaquing changes are present in each carotid bulb. Peak systolic and end diastolic velocity values and the ICA/CCA ratios are in the non-hemodynamically significant range. Antegrade flow seen in both vertebral arteries. Velocity values and ratios were recorded and are retained in the patient's imaging records. No dissection. IMPRESSION: Bilateral calcified and noncalcified plaquing changes are present at each carotid bulb. Velocity values and ratios do not indicate a hemodynamically significant degree of stenosis.
[2022-05-14] MEDS: CEFTRIAXONE 1,000 MG in NA CHLORIDE 0.9% 50 ML IVPB SCH (21:00)
[2022-05-14] MEDS: METOPROLOL TAR 25 MG TAB PO SCH (21:00)
[2022-05-14] MEDS ORDERED: NA CHLORIDE 0.9% 50 ML ONE (21:22)
[2022-05-14] MEDS ORDERED: METOPROLOL TAR 25 MG TAB ONE (21:22)
[2022-05-14] MEDS: MORPHINE 4 MG/ML SYR IV PRN (21:31)
[2022-05-15] MEDS: MORPHINE 4 MG/ML SYR IV PRN ×4 (01:33→20:18)
[2022-05-15] MEDS ORDERED: ONDANSETRON 4 MG/2 ML VIAL ONE (01:39)
[2022-05-15] MEDS ORDERED: MORPHINE 4 MG/ML SYR ONE ×2 (01:39→08:03)
--- NOTE | 2022-05-15 03:05 | P.HP ---
Certification for Inpatient Patient admitted to: Observation With expected LOS: <2 Midnights Patient will require the following post-hospital care: None Practitioner: I am a practitioner with admitting privileges, knowledge of patient current condition, hospital course, and medical plan of care. Services: Services provided to patient in accordance with Admission requirements found in Title 42 Section 412.3 of the Code of Federal Regulations Patient History Date of Service: 05/14/22 Reason for admission: patient status post fall with right ankle fracture; syncope History of Present Illness: patient is a 66-year-old female who came to the hospital after falling. She lives at home with her . She also has her pxhyyz-kh-ine other. She brant lly does most of the care taking. However, after falling and suffering her ankle fracture she will need to be admitted to the hospital for further treatment. Orthopedic consultation is syncope workup pending. Patient states her son will be coming to live with her. She does want to go to rehab or a senior care facility. She wants to be able to go home. Allergies codeine Allergy (Severe, Verified 08/10/18 11:27) Shortness of breath metoclopramide HCl [From Reglan] Adverse Reaction (Verified 08/10/18 11:27) Shortness of breath Home Medications: Ergocalciferol (Vitamin D2) [Drisdol] 50,000 unit PO Q48H #15 capsule 11/30/13 Calcium Carbonate [Oscal*] 1,000 mg PO QID #0 tab 01/25/14 Levothyroxine [Synthroid*] 0.15 mg PO DAILYAC #0 tab 01/25/14 Pantoprazole [Protonix Tab*] 40 mg PO BIDAC #0 tab 01/25/14 Ferrous Sulfate [Feosol] 325 mg PO BID #60 tablet 03/04/16 Dicyclomine [Bentyl] 10 mg PO TID 05/04/17 Docosahexanoic AC/Epa [Fish Oil 1,000 MG CAP] 2,000 mg PO DAILY 05/04/17 Gabapentin [Gralise] 300 mg PO BID 05/04/17 Multivitamin [Multivitamins] 1 each PO DAILY 05/04/17 Parathyroid Hormone [Natpara] 75 mcg SQ DAILY 05/04/17 Potassium Chloride [Micro-K] 10 meq PO DAILY 05/04/17 Simvastatin 20 mg PO DAILY 05/04/17 Triamterene/Hydrochlorothiazid [Triamterene-Hctz 37.5-25 mg Tb] 1 each PO [id number] 05/04/17 Tramadol HCl [Ultram] 50 mg PO Q6HP PRN 08/10/18 - Past Medical/Surgical History Has patient received pneumonia vaccine in the past: Yes Diabetic: No -: hypothyroidism -: hypocalcemia -: anemia -: shortness of breath -: thyroidectomy -: jarad - Family History Father Family History: Reviewed- Non-Contributory - Social History Smoking Status: Never smoker Alcohol use: No CD- Drugs: No Review of Systems 10-point ROS is otherwise unremarkable Physical Examination - Vital Signs Temperature: 98 F Blood Pressure: 126/48 Pulse: 77 Respirations: 16 Pulse Ox (%): 99 - Physical Exam General: Alert, In no apparent distress, Oriented x3 HEENT: Atraumatic, PERRLA, Mucous membr. moist/pink, EOMI, Sclerae nonicteric Neck: Supple, 2+ carotid pulse no bruit, No LAD, Without JVD or thyroid abnormality Respiratory: Clear to auscultation bilaterally, Normal air movement Cardiovascular: Regular rate/rhythm, Normal S1 S2 Gastrointestinal: Normal bowel sounds, Soft and benign, Non-distended, No tenderness Musculoskeletal: No clubbing, No swelling, No tenderness Integumentary: No rashes Neurological: Normal speech, Normal tone, Sensation intact, Cranial nerves 3-12 intact, Normal affect, Abnormal gait, Abnormal strength Lymphatics: No axilla or inguinal lymphadenopathy - Studies Laboratory Data (last 24 hrs) 05/14/22 13:20: Lipase 77 05/14/22 13:20: PT 12.4, INR 1.04 05/14/22 13:20: WBC 18.30 H, Hgb 10.3 L, Hct 30.6 L, Plt Count 268 05/14/22 13:20: Sodium 136, Potassium 3.6, BUN 9, Creatinine 0.85, Glucose 112 H, Magnesium 1.6 L, Total Bilirubin 1.1 H, AST 13 L, ALT 18, Alkaline Phosphatase 83 Assessment & Plan - Problems (Diagnosis) (1) Syncope Current Visit: Yes Status: Acute (2) Status post fall Current Visit: Yes Status: Acute (3) Closed right ankle fracture Current Visit: Yes Status: Acute (4) Hypocalcemia Current Visit: No Status: Acute (5) Hypertension Onset Date: 03/02/16 Current Visit: No Status: Chronic (6) Hypothyroidism Current Visit: No Status: Chronic Qualifiers: - Plan Plan: 1. Pt remains hypoxic while in bed; O2 sats continue to worsen; will repeat CXR; had been saturating 100% on RA and she is down to 92%; progression of pneumonia suspected. Pt will be moved to inpatient hospitalization; patient with persistent leukocytosis as well. 2. Continue monitoring om telemetry 3. Echocardiogram and carotid Doppler 4. Hypocalcemia worsened 5. Outpt ortho follow-up 6. GI/DVT prophylaxis Discharge Plan: Home Plan to discharge in: 48 Hours - Advance Directives Does patient have a Living Will: No Does patient have a Durable POA for Healthcare: No - Code Status/Comfort Care Code Status Assessed: Yes Code Status: Full Code Critical Care: No Time Spent Managing PTS Care (In Minutes): 45
[2022-05-15] MEDS ORDERED: LORazepam 2 MG/ML VIAL IV ONE ×2 (03:58→10:27)
[2022-05-15 04:12] LABS: Protime INR 1.28
[2022-05-15 04:18] LABS: Hematocrit 29.9 % (36.0-45.0); Lymphocytes % 7.6 % (15.3-44.8); MCV 90.9 fL (80-100); MPV 7.4 fL (7.6-11.3); RBC Red Blood Cell Count 3.29 M/uL (3.86-4.86)
[2022-05-15] MEDS ORDERED: LORazepam 2 MG/ML VIAL ONE ×2 (04:23→10:45)
[2022-05-15 04:24] LABS: Albumin 2.8 g/dL (3.4-5.0); Bilirubin Total 0.9 mg/dL (0.2-1.0); Potassium 3.7 mmol/L (3.5-5.1); Protein, Total 6.7 g/dL (6.4-8.2)
[2022-05-15] MEDS: NA CHLORIDE 0.9% 1,000 ML IV SCH (06:20)
[2022-05-15] MEDS ORDERED: NA CHLORIDE 0.9% 1,000 ML ONE (08:04)
[2022-05-15] MEDS: CEFTRIAXONE 1,000 MG in NA CHLORIDE 0.9% 50 ML IVPB SCH (09:00)
[2022-05-15] MEDS: METOPROLOL TAR 25 MG TAB PO SCH ×2 (09:00→20:18)
[2022-05-15] MEDS: ENOXAPARIN 40 MG/0.4 ML SQ SCH (09:00)
[2022-05-15] MEDS ORDERED: AZITHROMYCIN IV 250 MG in NA CHLORIDE 0.9% 250 ML IVPB SCH (09:00)
[2022-05-15] MEDS: lisinopriL 10 MG TAB PO SCH (09:00)
[2022-05-15] MEDS ORDERED: CEFTRIAXONE 1000 MG/VIAL ONE (10:24)
[2022-05-15] MEDS ORDERED: METOPROLOL TAR 25 MG TAB ONE (10:24)
[2022-05-15] MEDS ORDERED: lisinopriL 10 MG TAB ONE (10:25)
[2022-05-15] MEDS ORDERED: NA CHLORIDE 0.9% 100 ML ONE (10:25)
[2022-05-15] MEDS ORDERED: ENOXAPARIN 40 MG/0.4 ML SQ ONE (10:25)
[2022-05-15] MEDS ORDERED: CYCLOBENZAPRINE 10 MG TAB PO PRN (10:27)
[2022-05-15] MEDS ORDERED: CEFTRIAXONE 1,000 MG in NA CHLORIDE 0.9% 50 ML IVPB SCH (11:00)
[2022-05-15] MEDS ORDERED: AZITHROMYCIN IV 250 MG in NA CHLORIDE 0.9% 250 ML IVPB ONE (11:00)
--- NOTE | 2022-05-15 17:54 | RAD REPORT ---
EXAM DESCRIPTION: RAD - Chest Single View - 05/15/2022 5:48 pm CLINICAL HISTORY: worsening hypoxemia Chest pain. COMPARISON: Chest Single View dated 05/14/2022; Chest Pa And Lat (2 Views) dated 08/10/2018; Abdomen 1 View (KUB) dated 06/15/2016; Chest Pa And Lat (2 Views) dated 02/29/2016 FINDINGS: Portable technique limits examination quality. Mild pulmonary edema is seen. The heart is mildly enlarged. No displaced fractures. IMPRESSION: Mild CHF.
[2022-05-15] MEDS: CYCLOBENZAPRINE 10 MG TAB PO PRN (23:16)
[2022-05-16] MEDS: MORPHINE 4 MG/ML SYR IV PRN ×2 (02:19→16:22)
--- NOTE | 2022-05-16 03:27 | CON ---
Date of Consultation: 05/15/2022 Reason For Consultation: Right ankle pain. History Of Present Illness: Ms. Gee is a 66-year-old female who presented to the ER after sustain ing a fall after becoming dizzy. She had a twisting injury to her right ankle with subsequent pain a nd deformity. She was brought to the emergency room and diagnosed with a right trimalleolar ankle fr acture and was placed in a posterior stirrup splint. She was also noted to have an elevated white co unt and pneumonia on ER evaluation. She is also getting worked up for her syncopal episode. Review of Systems: As above, otherwise negative. Past Medical History: Hypothyroidism and anemia. Past Surgical History: Thyroidectomy and cholecystectomy. Allergies: CODEINE AND REGLAN. Medications: Per medication reconciliation form. Social History: Denies tobacco, alcohol, or drug use. Lives at home. Physical Examination: General: No apparent distress. HEENT: Normocephalic, atraumatic. Neck: Supple. Cardiovascular: Brisk cap refill to all digits. Chest: Nonlabored breathing. Abdomen: Nondistended. Psychiatric: Responds to exam. Musculoskeletal: Bilateral upper extremities with functional range of motion without pain. No gross deformities. No obvious dislocations. Right lower extremity has a posterior stirrup splint in plac e. Toes with brisk capillary refill. Positive firing of EHL and FHL. Sensation grossly intact in t he tips of the toes. Left lower extremity with functional range of motion without pain. No gross de formities. No dislocations. Imaging: X-rays of the right ankle demonstrate a displaced trimalleolar ankle fracture with displace ment of the mortise. Assessment And Plan: Rupa is a 66-year-old female with a right trimalleolar ankle fracture. I discus sed with the patient at length her diagnosis as well as treatment plan. Given her displaced fracture , she will need surgical treatment; however, given her treatment for pneumonia as well as her syncopa l workup, we will proceed with surgery on an outpatient basis. She will be nonweightbearing on her r ight lower extremity and keep it elevated to aid with swelling control and she will follow up in [facility] for re-evaluation and scheduling of her outpatient surgery, after medically cleared by her [facility] care provider. Physical Therapy may be consulted to aid with mobilization at this time, once [facility] medically stable. CV/MODL Voice ID: [id number] Report ID: [id number]
[2022-05-16] MEDS ORDERED: CEFTRIAXONE 1000 MG/VIAL ONE (07:51)
[2022-05-16] MEDS ORDERED: NA CHLORIDE 0.9% 50 ML ONE (07:58)
[2022-05-16] MEDS: ENOXAPARIN 40 MG/0.4 ML SQ SCH (08:19)
[2022-05-16] MEDS: lisinopriL 10 MG TAB PO SCH (08:19)
[2022-05-16] MEDS: METOPROLOL TAR 25 MG TAB PO SCH ×2 (08:20→20:13)
[2022-05-16] MEDS ORDERED: AZITHROMYCIN IV 500 MG in NA CHLORIDE 0.9% 250 ML IVPB SCH (09:00)
[2022-05-16] MEDS ORDERED: CEFTRIAXONE 1,000 MG in NA CHLORIDE 0.9% 50 ML IVPB SCH (09:00)
[2022-05-16] MEDS: CYCLOBENZAPRINE 10 MG TAB PO PRN ×2 (10:05→20:13)
--- NOTE | 2022-05-16 11:04 | P.CNS ---
Date of Consult: 05/16/22 Reason for Consult: Possible pneumonia Chief Complaint: patient status post fall with right ankle fracture; syncope History of Present Illness: Patient is 66 years of age admitted after a fall fracture of her ankle denies any prior problems just happened rather suddenly has any fever chills cough phlegm no prior history of cardiopulmonary problems no chest pain or coronary artery disease currently doing well CT scan shows minimal inflammatory changes at the left base Allergies codeine Allergy (Severe, Verified 08/10/18 11:27) Shortness of breath metoclopramide HCl [From Reglan] Adverse Reaction (Verified 08/10/18 11:27) Shortness of breath Home Medications: Ergocalciferol (Vitamin D2) [Drisdol] 50,000 unit PO Q48H #15 capsule 11/30/13 Calcium Carbonate [Oscal*] 1,000 mg PO QID #0 tab 01/25/14 Levothyroxine [Synthroid*] 0.15 mg PO DAILYAC #0 tab 01/25/14 Pantoprazole [Protonix Tab*] 40 mg PO BIDAC #0 tab 01/25/14 Ferrous Sulfate [Feosol] 325 mg PO BID #60 tablet 03/04/16 Dicyclomine [Bentyl] 10 mg PO TID 05/04/17 Docosahexanoic AC/Epa [Fish Oil 1,000 MG CAP] 2,000 mg PO DAILY 05/04/17 Gabapentin [Gralise] 300 mg PO BID 05/04/17 Multivitamin [Multivitamins] 1 each PO DAILY 05/04/17 Parathyroid Hormone [Natpara] 75 mcg SQ DAILY 05/04/17 Potassium Chloride [Micro-K] 10 meq PO DAILY 05/04/17 Simvastatin 20 mg PO DAILY 05/04/17 Triamterene/Hydrochlorothiazid [Triamterene-Hctz 37.5-25 mg Tb] 1 each PO [id number] 05/04/17 Tramadol HCl [Ultram] 50 mg PO Q6HP PRN 08/10/18 - Past Medical/Surgical History Diabetic: No -: hypothyroidism -: hypocalcemia -: anemia -: shortness of breath -: thyroidectomy -: jarad - Family History Father Family History: Reviewed- Non-Contributory - Social History Smoking Status: Never smoker Alcohol use: No CD- Drugs: No Caffeine use: No Review of Systems 10-point ROS is otherwise unremarkable Physical Examination Temp Pulse Resp BP Pulse Ox 97.9 F 67 17 139/63 100 05/16/22 08:00 05/16/22 08:20 05/16/22 08:00 05/16/22 08:20 05/16/22 08:00 General: Alert, In no apparent distress, Oriented x3 Neck: Supple Respiratory: Clear to auscultation bilaterally Cardiovascular: No edema, Normal pulses, Regular rate/rhythm Gastrointestinal: Normal bowel sounds, Soft and benign - Problems (1) Abnormal chest x-ray Current Visit: Yes Status: Acute Plan: Patient is 66 years of age admitted with sudden onset of a syncopal attack she now has no prior history of cardiopulmonary problem minimal left lower lobe inflammatory changes with an elevated white count so had a fractured right ankle vital signs are stable cultures are negative can be changed over to p.o. Augmentin labs otherwise unremarkable CT scans reviewed he is got no risk factors for malignancy he does not smoke possible pulmonary contusion or recent fall and
[2022-05-16] MEDS: AMOX/K CLAV 875 MG TAB PO SCH (20:13)
[2022-05-17] MEDS: MORPHINE 4 MG/ML SYR IV PRN ×3 (00:14→15:32)
--- NOTE | 2022-05-17 01:29 | P.PN ---
Date of Service: 05/15/22 Subjective Patient remains hypoxic; repeat CXR in AM Physical Examination - Vital Signs reviewed - Physical Exam General: Alert, In no apparent distress, Oriented x3 Respiratory: Basilar crackles Cardiovascular: Regular rate/rhythm, Normal S1 S2 Gastrointestinal: Normal bowel sounds, Soft and benign, Non-distended, No tenderness Musculoskeletal: No clubbing, No swelling, No tenderness Neurological: Normal speech, Normal tone, Sensation intact, Cranial nerves 3-12 intact, Normal affect, Abnormal gait, Abnormal strength Assessment & Plan - Problems (Diagnosis) (1) Pneumonia with hypoxemia Current Visit: Yes Status: Acute (2) Status post fall Current Visit: Yes Status: Acute (3) Closed right ankle fracture Current Visit: Yes Status: Acute (4) Hypocalcemia Current Visit: No Status: Acute (5) Hypertension Onset Date: 03/02/16 Current Visit: No Status: Chronic (6) Hypothyroidism Current Visit: No Status: Chronic Qualifiers: - Plan Plan: 1. Pt remains hypoxic while in bed; O2 sats continue to worsen; will repeat CXR; had been saturating 100% on RA and she is down to 92%; progression of pneumonia suspected. Pt will be moved to inpatient hospitalization; patient with persistent leukocytosis as well. 2. Continue monitoring om telemetry 3. Echocardiogram and carotid Doppler reviewed 4. Continue monitoring calcium levels 5. Outpt ortho follow-up 6. GI/DVT prophylaxis
--- NOTE | 2022-05-17 01:31 | P.PN ---
Date of Service: 05/16/22 Subjective Patient states she is feeling better. Working on transfer home in a.m.. Outpatient ortho follow-up. Repeat chest x-ray and labs and check room air O2 sats. Physical Examination - Vital Signs reviewed - Physical Exam General: Alert, In no apparent distress, Oriented x3 Respiratory: Basilar crackles Cardiovascular: Regular rate/rhythm, Normal S1 S2 Gastrointestinal: Normal bowel sounds, Soft and benign, Non-distended, No tenderness Musculoskeletal: No clubbing, No swelling, No tenderness Neurological: Normal speech, Normal tone, Sensation intact, Cranial nerves 3-12 intact, Normal affect, Abnormal gait, Abnormal strength Assessment & Plan - Problems (Diagnosis) (1) Pneumonia with hypoxemia Current Visit: Yes Status: Acute (2) Status post fall Current Visit: Yes Status: Acute (3) Closed right ankle fracture Current Visit: Yes Status: Acute (4) Hypocalcemia Current Visit: No Status: Acute (5) Hypertension Onset Date: 03/02/16 Current Visit: No Status: Chronic (6) Hypothyroidism Current Visit: No Status: Chronic Qualifiers: - Plan Plan: 1. Pt remains hypoxic while in bed; O2 sats continue to worsen; will repeat CXR; had been saturating 100% on RA and she is down to 92%; progression of pneumonia suspected. Pt will be moved to inpatient hospitalization; patient with persistent leukocytosis as well. 2. Continue monitoring om telemetry 3. Echocardiogram and carotid Doppler reviewed 4. Continue monitoring calcium levels 5. Outpt ortho follow-up 6. GI/DVT prophylaxis
[2022-05-17 06:10] LABS: Hematocrit 26.4 % (36.0-45.0); Lymphocytes % 9.8 % (15.3-44.8); MPV 7.2 fL (7.6-11.3); RBC Red Blood Cell Count 2.91 M/uL (3.86-4.86)
[2022-05-17 06:28] LABS: Albumin 2.6 g/dL (3.4-5.0); Bilirubin Total 0.6 mg/dL (0.2-1.0); Magnesium 1.6 mg/dL (1.8-2.4); Protein, Total 6.5 g/dL (6.4-8.2)
[2022-05-17 06:30] LABS: Potassium 2.8 mmol/L (3.5-5.1)
[2022-05-17] MEDS ORDERED: POTASSIUM 25 MEQ EFFERV TAB PO ONE (06:40)
[2022-05-17] MEDS ORDERED: CALCIUM GLUC 10% INJ 4.65 MEQ in NA CHLORIDE 0.9% 100 ML IV ONE (06:41)
[2022-05-17] MEDS ORDERED: Magnesium Sulfate 2gm IVPB 2 G/50 ML BAG IV ONE ×2 (06:41→09:34)
[2022-05-17] MEDS ORDERED: KCL 20 MEQ/100 mL IVPB 20 MEQ/100 ML BAG IV SCH (07:00)
--- NOTE | 2022-05-17 07:20 | RAD REPORT ---
EXAM DESCRIPTION: RAD - Chest Single View - 05/17/2022 6:25 am CLINICAL HISTORY: pneumonia COMPARISON: Portable 05/15/2022, portable 05/14/2023, two view chest 08/10/2018 TECHNIQUE: AP portable chest image was obtained 05/17/2022 6:25 am . FINDINGS: No new or enlarging infiltrate. Prominent interstitial pattern show slight improvement. Central vasculature and lung markings in the perihilar region are improved. Cardiomegaly is still pre sent similar or slightly diminished. Trachea is midline. No measurable pleural effusion and no pneumothorax. No acute bony abnormality seen. No acute aortic findings suspected. IMPRESSION: No new or progressive infiltrative process seen. Mild CHF findings on the 05/15 study have improved.
[2022-05-17] MEDS ORDERED: KCL 20 MEQ/100 mL IVPB 100 ML IV ONE (08:17)
[2022-05-17] MEDS ORDERED: MAGNESIUM SULFATE 1 gm IVPB 0 GM/0 ML BAG IV ONE (08:17)
[2022-05-17] MEDS: ENOXAPARIN 40 MG/0.4 ML SQ SCH (08:26)
[2022-05-17] MEDS: AMOX/K CLAV 875 MG TAB PO SCH ×2 (08:27→20:10)
[2022-05-17] MEDS: METOPROLOL TAR 25 MG TAB PO SCH ×2 (08:27→20:11)
[2022-05-17] MEDS: lisinopriL 10 MG TAB PO SCH (08:27)
[2022-05-17] MEDS: CYCLOBENZAPRINE 10 MG TAB PO PRN ×2 (08:33→20:10)
[2022-05-17] MEDS ORDERED: POTASSIUM 25 MEQ EFFERV TAB ONE (08:35)
[2022-05-17] MEDS: CALCIUM CARB 500MG/VIT D 200 IU TAB PO SCH ×2 (09:27→20:10)
[2022-05-17] MEDS: MAGNESIUM CHLORIDE 64 MG TAB PO SCH (09:27)
[2022-05-17 11:43] LABS: Magnesium 2.7 mg/dL (1.8-2.4); Phosphorus 4.2 mg/dL (2.5-4.9); Potassium 3.2 mmol/L (3.5-5.1)
[2022-05-18] MEDS: MORPHINE 4 MG/ML SYR IV PRN ×2 (02:08→10:48)
--- NOTE | 2022-05-18 07:09 | ECHO ---
HEIGHT: 5 ft 8 in WEIGHT: 165 lb 4.8 oz DATE OF STUDY: 05/15/[address]: Jess Faith MD 2-DIMENSIONAL: YES M.MODE: YES DOPPLER: YE COLOR FLOW: YES TDS: PORTABLE: YES DEFINITY: BUBBLE STUDY: DIAGNOSIS: SYNCOPE CARDIAC HISTORY: CATHERIZATION: SURGERY: PROSTHETIC VALVE: PACEMAKER: MEASUREMENTS (cm) DIASTOLIC (NORMALS) SYSTOLIC (NORMALS) IVSd 1.0 (0.6-1.2) LA Diam 3.6 (1.9-4.0) LVEF 55-60% LVIDd 3.5 (3.5-5.7) LVIDs 2.6 (2.0-3.5) %FS 26% LVPWd 1.1 (0.6-1.2) Ao Diam 3.1 (2.0-3.7) 2 DIMENSIONAL ASSESSMENT: RIGHT ATRIUM: NORMAL LEFT ATRIUM: NORMAL RIGHT VENTRICLE: NORMAL LEFT VENTRICLE: NORMAL TRICUSPID VALVE: MILD TRICUSPID REGURGITATION MITRAL VALVE: MILD MITRAL REGURGITATION, MITRAL ANNULAR CALCIFICATION PULMONIC VALVE: NORMAL AORTIC VALVE: NORMAL PERICARDIAL EFFUSION: SMALL AORTIC ROOT: NORMAL LEFT VENTRICULAR WALL MOTION: NORMAL DOPPLER/COLOR FLOW: SEE BELOW COMMENTS: NORMAL LEFT VENTRICULAR EJECTION FRACTION 55-60%. NORMAL WALL MOTION. MILD TRICUSPID REGURGITATION/ MITRAL REGURGITATION. SMALL PERICARDIAL EFFUSION. MILD AORTIC INSUFFICIENCY. TECHNOLOGIST: AUSTEN US
--- NOTE | 2022-05-18 07:27 | P.PN ---
Date of Service: 05/17/22 Subjective patient is clinically doing much better. Symptoms are improved. Still working with physical therapy. Plan to arrange for home health and we should be able to discontinue oxygen in the morning. Her respiratory status has improved. She will need outpatient surgery in 2 weeks per Orthopedic. They want to see her once the pneumonia is cleared up. Continue working with home health physical therapy until surgery. Patient nonweightbearing to the right ankle. Multiple electrolyte abnormalities that are being corrected today as well Physical Examination - Vital Signs reviewed - Physical Exam General: Alert, In no apparent distress, Oriented x3 Respiratory: clear bilaterally Cardiovascular: Regular rate/rhythm, Normal S1 S2 Gastrointestinal: Normal bowel sounds, Soft and benign, Non-distended, No tenderness Musculoskeletal: No clubbing, No swelling, No tenderness Neurological: Normal speech, Normal tone, Sensation intact, Cranial nerves 3-12 intact, Normal affect, Abnormal gait, Abnormal strength Assessment & Plan - Problems (Diagnosis) (1) Pneumonia with hypoxemia Current Visit: Yes Status: Acute (2) Status post fall Current Visit: Yes Status: Acute (3) Closed right ankle fracture Current Visit: Yes Status: Acute (4) Hypocalcemia Current Visit: No Status: Acute (5) Hypertension Onset Date: 03/02/16 Current Visit: No Status: Chronic (6) Hypothyroidism Current Visit: No Status: Chronic Qualifiers: - Plan Plan: 1. oxygenation has improved. Weaning off of oxygen. On 1 L and satting 93%. 2. Outpatient follow-up with Orthopedics for surgery once pneumonia is cleared up. This will happen in about 2 week 3. Plan to correct electrolytes today 4. strict blood pressure control 5. Outpt ortho follow-up 6. GI/DVT prophylaxis
[2022-05-18] MEDS: METOPROLOL TAR 25 MG TAB PO SCH ×2 (07:50→20:11)
[2022-05-18] MEDS: lisinopriL 10 MG TAB PO SCH (07:50)
[2022-05-18] MEDS: CALCIUM CARB 500MG/VIT D 200 IU TAB PO SCH ×2 (07:50→20:11)
[2022-05-18] MEDS: AMOX/K CLAV 875 MG TAB PO SCH ×2 (07:50→20:11)
[2022-05-18] MEDS: MAGNESIUM CHLORIDE 64 MG TAB PO SCH (07:50)
[2022-05-18] MEDS: ENOXAPARIN 40 MG/0.4 ML SQ SCH (07:51)
[2022-05-18] MEDS: CYCLOBENZAPRINE 10 MG TAB PO PRN ×2 (07:52→19:00)
[2022-05-18 09:16] VITALS: O2SAT 97
[2022-05-18] MEDS ORDERED: CALCIUM GLUCONATE 1 GM IVPB 1 GM/50 ML BAG IV ONE (09:22)
[2022-05-18] MEDS ORDERED: POTASSIUM CL SA 10 MEQ TAB PO ONE (09:23)
[2022-05-18] MEDS ORDERED: KCL 20 MEQ/100 mL IVPB 20 MEQ/100 ML BAG IV SCH (10:00)
--- NOTE | 2022-05-18 14:19 | EKG ---
Test Date: 2022-05-14 Test Time: 13:11:14 Trust Officer: GARRET MEASUREMENT RESULTS: Intervals: Rate: 82 MO: 198 QRSD: 84 QT: 372 QTc: 434 Reva: P: 56 MO: 198 QRS: -42 T: 54 INTERPRETIVE STATEMENTS: Normal sinus rhythm Left axis deviation Abnormal ECG Compared to ECG 08/10/2018 11:41:40 No significant changes Electronically Signed On 05-18-22 14:15:04 CDT by Miki Tapia
[2022-05-18 15:42] LABS: Potassium 3.5 mmol/L (3.5-5.1)
[2022-05-18 16:55] VITALS: TEMP 97.3
--- NOTE | 2022-05-18 17:15 | P.DS ---
Admission Date: 05/14/22 Discharge Date: 05/18/22 Disposition: ROUTINE DISCHARGE Discharge Condition: GOOD Reason for Admission: patient status post fall with right ankle fracture; syncope Consultations: 1. Orthopedic Surgery 2. Pulmonary Medicine Hospital Course: DIAGNOSES: # Vasovagal Syncope complicated by Traumatic Ground-Level Fall with Right Trimalleolar Fracture and Possible Right-Upper Lobe Pulmonary Contusion # Acute Hypoxemic Respiratory Failure secondary to Community-Acquired Pneumonia (improved) # Hypertension # Hypothyroidism HOSPITAL COURSE: Ms. Rupa Gee is a pleasant 66 year old female with a past medical history significant for hypertension, hypothyroidism, and dyslipidemia who was admitted to the [facility] on 05/14/2022 for syncope and a traumatic ground-level fall. She was admitted to the Medicine service. Upon further evaluation, she was found to be hypoxic with SpO2 readings to 92 % on room air. Radiographic imaging was concerning for a right upper lobe pulmonary contusion as well as a left lower lobe pneumonia. Additionally, her ankle x-ray was concerning for a trimalleolar fracture. Pulmonary Medicine was consulted and she was evaluated by Dr. Parson. He recommended that she be transitioned to amoxicillin-clavulanate. She was weaned off oxygen to room air and maintained adequate SpO2 readings, so she has been cleared for discharge from a Pulmonary standpoint. In regards to her ankle fracture, she was evaluated by Dr. Cobb. He recommended that she have this surgically repaired as an outpatient once she has improved from her pneumonia. She and her son agree with this plan. They state that they will coordinate with Dr. Cobb and Dr. Rogers to arrange outpatient admission into acute rehab once she is post-op, which is reasonable. With the assistance of our case management team, Home Health has been arranged for now. On 05/18/2022, she was seen on rounds and deemed medically stable for discharge. She was discharged with instructions to schedule follow-up appointments with her PCP (Dr. Rogers) in 3-5 days and to keep her appointment on 05/27/2022 with Orthopedic Surgery (Dr. Cobb). She was provided prescriptions for amoxicillin- clavulanate, metoprolol, lisinopril, and hydrocodone-acetaminophen. She and her son were given the opportunity to ask questions and reported no further questions. Furthermore, all questions were answered to the best of my ability. A PDMP review was completed. In the last year, she has received 13 controlled substance prescriptions, from one provider, to one pharmacy. Her opioid overdose risk score is 060. A copy of this discharge summary will be sent to the above providers to facilitate continuity of care. Today, I personally spent 25 minutes on her case, of which greater than 50% of the time was spent in patient education, counseling, and coordination of care as described above. Vital Signs/Physical Exam: Temp Pulse Resp BP Pulse Ox 97.3 F 71 16 142/64 H 96 05/18/22 16:00 05/18/22 16:00 05/18/22 16:00 05/18/22 16:00 05/18/22 16:00 General: Alert, In no apparent distress, Oriented x3 HEENT: Atraumatic, PERRLA, Mucous membr. moist/pink, EOMI, Sclerae nonicteric Neck: Supple Respiratory: Clear to auscultation bilaterally, Normal air movement Cardiovascular: No edema, Regular rate/rhythm, Normal S1 S2 Capillary refill: <2 Seconds Gastrointestinal: Normal bowel sounds, Soft and benign, Non-distended, No tenderness, No rebound, No guarding Musculoskeletal: No clubbing, Other (right foot is wrapped in NAHOMY bandage.) Integumentary: No rashes Neurological: Normal speech, Cranial nerves 3-12 intact, Normal affect Laboratory Data at Discharge: WBC 10.10 K/uL (4.3-10.9) 05/17/22 06:02 Hgb 9.3 g/dL (12.0-15.0) L 05/17/22 06:02 Hct 26.4 % (36.0-45.0) L 05/17/22 06:02 Plt Count 230 K/uL (152-406) 05/17/22 06:02 PT 14.2 SECONDS (9.5-12.5) H 05/15/22 03:49 INR 1.28 05/15/22 03:49 APTT 29.3 SECONDS (24.3-36.9) 05/15/22 03:49 Sodium 134 mmol/L (136-145) L 05/18/22 14:56 Potassium 3.5 mmol/L (3.5-5.1) D 05/18/22 14:56 BUN 5 mg/dL (7-18) L 05/18/22 14:56 Creatinine 0.62 mg/dL (0.55-1.3) 05/18/22 14:56 Glucose 93 mg/dL (74-106) 05/18/22 14:56 Phosphorus 4.2 mg/dL (2.5-4.9) 05/17/22 11:07 Magnesium 2.7 mg/dL (1.8-2.4) H 05/17/22 11:07 Total Bilirubin 0.6 mg/dL (0.2-1.0) 05/17/22 06:02 AST 19 U/L (15-37) 05/17/22 06:02 ALT 11 U/L (12-78) L 05/17/22 06:02 Alkaline Phosphatase 65 U/L (45-117) 05/17/22 06:02 Triglycerides 79 mg/dL (<150) 05/15/22 03:49 Cholesterol 125 mg/dL (<200) 05/15/22 03:49 HDL Cholesterol 45 mg/dL (40-60) 05/15/22 03:49 Cholesterol/HDL Ratio 2.78 05/15/22 03:49 Lipase 77 U/L (73-393) 05/14/22 13:20 Home Medications: Ergocalciferol (Vitamin D2) [Drisdol] 50,000 unit PO Q48H #15 capsule 11/30/13 Calcium Carbonate [Oscal*] 1,000 mg PO QID #0 tab 01/25/14 Levothyroxine [Synthroid*] 0.15 mg PO DAILYAC #0 tab 01/25/14 Pantoprazole [Protonix Tab*] 40 mg PO BIDAC #0 tab 01/25/14 Ferrous Sulfate [Feosol] 325 mg PO BID #60 tablet 03/04/16 Dicyclomine [Bentyl*] 10 mg PO TID 05/04/17 Docosahexanoic AC/Epa [Fish Oil 1,000 MG*] 2,000 mg PO DAILY 05/04/17 Gabapentin [Gralise] 300 mg PO BID 05/04/17 Multivitamin [Multivitamins] 1 each PO DAILY 05/04/17 Parathyroid Hormone [Natpara] 75 mcg SQ DAILY 05/04/17 Potassium Chloride [Micro-K] 10 meq PO DAILY 05/04/17 Simvastatin 20 mg PO DAILY 05/04/17 Amox/Clavulanate [Augmentin 875-125 Tab*] 875 mg PO BID 5 Days #10 tab 05/18/22 Hydrocodone 5/APAP 325 [[place] 5/325] 1 tab PO Q6H PRN 3 Days #12 tab 05/18/22 Metoprolol Tartrate [Lopressor*] 25 mg PO BID #60 tab 05/18/22 lisinopriL [Prinivil*] 10 mg PO DAILY #30 tab 05/18/22 New Medications: Amox/Clavulanate [Augmentin 875-125 Tab*] 875 mg PO BID 5 Days #10 tab Metoprolol Tartrate [Lopressor*] 25 mg PO BID #60 tab Hydrocodone 5/APAP 325 [[place] 5/325] 1 tab PO Q6H PRN 3 Days #12 tab PRN Reason: Pain lisinopriL [Prinivil*] 10 mg PO DAILY #30 tab Physician Discharge Instructions: 1. Please schedule a follow-up with your PCP (Dr. Rogers) in 3-5 days 2. Please keep your Orthopedic Surgery appointment with Dr. Cobb on 05/27/2022 - Following surgery, please discuss the process of rehab and physical therapy with either Dr. Rogers or Dr. Cobb Diet: Regular Activity: Ad carolyn Followup: Chad Rogers MD [ACTIVE - CAN ADMIT] - Vaughn Cobb MD [ACTIVE - CAN ADMIT] - Time spent managing pt's care (in minutes): 25
[2022-05-18 20:12] VITALS: BP 144/58
== END 2022-05-18 20:59 | disposition home health service (06) | DRG 193 ==
LOC: ER 11:28 → OBSVTOIN 16:47 → ERHOLD 16:47 → 4TH 05-15 12:21
PROVIDERS: ADMIT Hospitalist; ATTEND Internal Medicine
DX: J18.9 Pneumonia, unspecified organism (principal); J96.01 Acute respiratory failure with hypoxia; S27.321A Contusion of lung, unilateral, initial encounter; S82.854A Nondisplaced trimalleolar fracture of right lower leg, initial encounter for closed fracture; I95.9 Hypotension, unspecified; I10 Essential (primary) hypertension; E78.5 Hyperlipidemia, unspecified; D64.9 Anemia, unspecified; E03.9 Hypothyroidism, unspecified; E83.51 Hypocalcemia; E83.42 Hypomagnesemia; D72.829 Elevated white blood cell count, unspecified; R55 Syncope and collapse; Z88.8 Allergy status to other drugs, medicaments and biological substances; Z88.5 Allergy status to narcotic agent; Z90.49 Acquired absence of other specified parts of digestive tract; Z79.890 Hormone replacement therapy; Z79.899 Other long term (current) drug therapy; Z20.822 Contact with and (suspected) exposure to COVID-19; W18.30XA Fall on same level, unspecified, initial encounter
CPT/HCPCS: 36415; 70450; 71045; 71250; 72125; 80048; 80053; 80061; 80076; 81003; 81015; 82040; 83605; 83690; 83735; 83880; 84100; 84145; 84484; 85025; 85610; 85730; 87040; 87811; 93005; 93306; 93880; 96365; 96366; 96367; 96375; 97161; 99285; J0456; J0610; J1650; J2405; J3475; J3480; J7030; J7050

== ENCOUNTER 2023-12-08 17:31 | Emergency (ER) | payer OTHER ==
--- OUTSIDE RECORDS SUMMARY | 2023-12-08 17:42 | XMS REPORT | Continuity of Care Document ---
Author Name Unknown Address [address] [place] [address] [facility] Address [address] [place] [address] Care Team Providers Care Adjunct Business Instructor Name Role Phone JANET SHORT Primary Care Physician Unav Janet Ralph Attending Clinician Unavailable DYLAN SPAIN Attending Clinician Unavailable Dylan Ahumada Attending Clinician [phone] Unknown, Attending Attending Clinician UnavailNadya Payne Attending Clinician [phone] Doctor Unassigned, [place] Attending Clinician Nikko Avery MD Attending Clinician [phone] NIKKO WHEELER Attending Clinician Unavailable Payers Payer Name Policy Type Policy Number Effective Date Expirati on Date Source [employer] MANAGED MEDICARE O-RANJIT [id number] 2022 00:00:00 MEDICARE PART A \T\ B [id number] 2021 00:00:00 [employer] INDEMNITY [id number] 2021 00:00:00 Problems Condition Name Condition Details Condition Category Status Onset Date Resolution Date Last Treatment Date Treating Clinician Comments Source Arthritis of both knees Arthritis of both knees Problem [facility] [id number] Nontraumat ic tear of right rotator cuff, unspecifie d tear extent Problem [facility] Arthritis of left knee Arthritis of knee, left Problem [facility] [id number] Complete tear of right rotator cuff Problem [facility] [id number] Primary osteoarthr itis of left knee Problem [facility] [id number] Primary osteoarthr itis of right knee Problem [facility] No known active problems No known active problems Disease [facility] Allergies, Adverse Reactions, Alerts Allergy Name Allergy Type Status Severity Reaction(s) Onset Date Inactive Date Treating Clinician Comments Source Codeine Propensi ty to adverse reaction s Active Itching 10-27 00:00: 00 [facility] CODEINE DRUG INGREDI Active ITCHING 10-27 00:00: 00 [facility] metoclop ramide metoclop ramide Active Unknown [facility] codeine codeine Active Unknown [facility] NO KNOWN ALLERGIE S Drug Class Active [facility] Social History Social Habit Start Date Stop Date Quantity Comments Source History of Tobacco Use [facility] Sex Assigned At [facility] Exposure to SARS-CoV-2 (event) 2022-11-06 00:00:00 2022-11-16 09:13:00 Not sure [facility] Tobacco use and exposure 2021-10-27 00:00:00 2021-10-27 00:00:00 Smokeless tobacco non-user [facility] Smoking Status Start Date Stop Date Source Never Smoker [facility] Medications Ordered Medication Name Filled Medication Name Start Date Stop Date Current Medication? Ordering Clinician Indication Dosage Frequency Signature (SIG) Comments Components Source [facility] 2022-08 2- 00:00: 00 No 2mL [facility] 2022-08 2- 00:00: 00 No 2mL [facility] 2022-08 2- 00:00: 00 No 2mL [facility] 2022-08 2- 00:00: 00 No 2mL [facility] 2022-08 2 00:00: 00 No 2mL [facility] 2022-08 2 00:00: 00 No 2mL [facility] 2022-08 2 00:00: 00 No 2mL [facility] 2022-08 2- 00:00: 00 No 2mL [facility] 2022-08 2 00:00: 00 No 2mL [facility] 2022-08 2- 00:00: 00 No 2mL [facility] 2022-08 2 00:00: 00 No 2mL [facility] Kenalog (Triamcinol one) Kenalog (Triamcinol one) 2022-08 2- 00:00: 00 No 1mL [facility] BUPivacaine HCl BUPivacaine HCl 2022-08 2- 00:00: 00 No 4mL [facility] 2022-08 2- 00:00: 00 No 2mL [facility] BUPivacaine HCl BUPivacaine HCl 2022-08 2- 00:00: 00 No 4mL [facility] Kenalog (Triamcinol one) Kenalog (Triamcinol one) 2022-08 2- 00:00: 00 No 1mL [facility] 2022-08 2 00:00: 00 No 2mL [facility] BUPivacaine HCl BUPivacaine HCl 2022-08 2 00:00: 00 No 4mL [facility] Kenalog (Triamcinol one) Kenalog (Triamcinol one) 2022-08 2- 00:00: 00 No 1mL [facility] 2022-08 2- 00:00: 00 No 2mL [facility] BUPivacaine HCl BUPivacaine HCl 2022-08 2 00:00: 00 No 4mL [facility] Kenalog (Triamcinol one) Kenalog (Triamcinol one) 2022-08 2 00:00: 00 No 1mL [facility] 2022-08 2 00:00: 00 No 2mL [facility] BUPivacaine HCl BUPivacaine HCl 2022-08 2 00:00: 00 No 4mL [facility] Kenalog (Triamcinol one) Kenalog (Triamcinol one) 2022-08 2 00:00: 00 No 1mL [facility] 2022-08 2 00:00: 00 No 2mL [facility] BUPivacaine HCl BUPivacaine HCl 2022-08 2 00:00: 00 No 4mL [facility] Kenalog (Triamcinol one) Kenalog (Triamcinol one) 2022-08 2 00:00: 00 No 1mL [facility] 2022-08 2 00:00: 00 No 2mL [facility] Bupivicaine [place] Bupivicaine [place] 04-13 00:00: 00 No 4mL [facility] Kenalog (Triamcinol one) Kenalog (Triamcinol one) 04-13 00:00: 00 No 1mL [facility] Bupivicaine [place] Bupivicaine [place] 2022-0 8- 00:00: 00 No 4mL [facility] Kenalog (Triamcinol one) Kenalog (Triamcinol one) 0 8- 00:00: 00 No 1mL [facility] Bupivicaine [place] Bupivicaine [place] 2022-0 8 00:00: 00 No 4mL [facility] Kenalog (Triamcinol one) Kenalog (Triamcinol one) 0 8- 00:00: 00 No 1mL [facility] Bupivicaine [place] Bupivicaine [place] 0 04-13 00:00: 00 No 4mL [facility] Kenalog (Triamcinol one) Kenalog (Triamcinol one) 0 8 00:00: 00 No 1mL [facility] Bupivicaine [place] Bupivicaine [place] 2022-0 8 00:00: 00 No 4mL [facility] Kenalog (Triamcinol one) Kenalog (Triamcinol one) 0 8 00:00: 00 No 1mL [facility] Bupivicaine [place] Bupivicaine [place] 2022-0 8 00:00: 00 No 4mL [facility] Kenalog (Triamcinol one) Kenalog (Triamcinol one) 0 8- 00:00: 00 No 1mL [facility] Bupivicaine [place] Bupivicaine [place] 2022-0 8- 00:00: 00 No 4mL [facility] Kenalog (Triamcinol one) Kenalog (Triamcinol one) 2022-0 8- 00:00: 00 No 1mL [facility] Bupivicaine [place] Bupivicaine [place] 2022-0 8- 00:00: 00 No 4mL [facility] Kenalog (Triamcinol one) Kenalog (Triamcinol one) 0 8 00:00: 00 No 1mL [facility] Bupivicaine [place] Bupivicaine [place] 0 04-13 00:00: 00 No 4mL [facility] Kenalog (Triamcinol one) Kenalog (Triamcinol one) 0 8 00:00: 00 No 1mL [facility] Bupivicaine [place] Bupivicaine [place] 0 04-13 00:00: 00 No 4mL [facility] Kenalog (Triamcinol one) Kenalog (Triamcinol one) 0 04-13 00:00: 00 No 1mL [facility] Bupivicaine [place] Bupivicaine [place] 0 8 00:00: 00 No 4mL [facility] Kenalog (Triamcinol one) Kenalog (Triamcinol one) 0 8 00:00: 00 No 1mL [facility] Bupivicaine [place] Bupivicaine [place] 0 8 00:00: 00 No 4mL [facility] Kenalog (Triamcinol one) Kenalog (Triamcinol one) 0 8 00:00: 00 No 1mL [facility] Bupivicaine [place] Bupivicaine [place] 0 8- 00:00: 00 No 4mL [facility] Kenalog (Triamcinol one) Kenalog (Triamcinol one) 0 8- 00:00: 00 No 1mL [facility] Bupivicaine [place] Bupivicaine [place] 2022-0 8- 00:00: 00 No 4mL [facility] Kenalog (Triamcinol one) Kenalog (Triamcinol one) 2022-0 8- 00:00: 00 No 1mL [facility] Bupivicaine [place] Bupivicaine [place] 2022-0 8-22 00:00: 00 No 4mL [facility] Kenalog (Triamcinol one) Kenalog (Triamcinol one) 0 8-22 00:00: 00 No 1mL [facility] Bupivicaine [place] Bupivicaine [place] 0 8-22 00:00: 00 No 4mL [facility] Kenalog (Triamcinol one) Kenalog (Triamcinol one) 0 8-22 00:00: 00 No 1mL [facility] Kenalog (Triamcinol one) Kenalog (Triamcinol one) 2022-0 8-22 00:00: 00 No 1mL [facility] Bupivicaine [place] Bupivicaine [place] 0 8-22 00:00: 00 No 4mL [facility] OrthoVisc OrthoVisc 3-0 5-11 00:00: 00 No 2mL [facility] Ortho[facility]isc 3-0 5-11 00:00: 00 No 2mL [facility] Orth[facility] 2023-0 5-11 00:00: 00 No 2mL [facility] Ortho[facility]isc 3-0 5-11 00:00: 00 No 2mL [facility] Orth[facility]isc 2023-0 5-11 00:00: 00 No 2mL [facility] Orth[facility]isc 2023-0 5-11 00:00: 00 No 2mL [facility] Orth[facility]isc 2023-0 5-11 00:00: 00 No 2mL [facility] Orth[facility]isc OrthoVisc 3-0 5-11 00:00: 00 No 2mL [facility] Orth[facility]isc OrthoVisc 2023-0 5-11 00:00: 00 No 2mL [facility] Orth[facility]isc 2023-0 5-11 00:00: 00 No 2mL [facility] OrthoVisc 2022-0 5-11 00:00: 00 No 2mL [facility] Orth[facility]isc 2022-0 5-11 00:00: 00 No 2mL [facility] Orth[facility]isc 2022-0 5-11 00:00: 00 No 2mL [facility] Orth[facility]isc 2022-0 5-11 00:00: 00 No 2mL [facility] Orth[facility]isc 2022-0 5-11 00:00: 00 No 2mL [facility] Ortho[facility]isc 2022-0 5- 00:00: 00 No 2mL [facility] Orth[facility] OrthoVisc 3-0 5-11 00:00: 00 No 2mL [facility] Orth[facility]isc OrthoVisc 3-0 5-04 00:00: 00 No 2mL [facility] OrthoVisc 3-0 5-04 00:00: 00 No 2mL [facility] Orth[facility]isc OrthoVisc 3-0 5-04 00:00: 00 No 2mL [facility] OrthoVisc 3-0 5-04 00:00: 00 No 2mL [facility] Orth[facility]isc OrthoVisc 3-0 5-04 00:00: 00 No 2mL [facility] OrthoVisc OrthoVisc 3-0 5-04 00:00: 00 No 2mL [facility] OrthoVisc OrthoVisc 3-0 5-04 00:00: 00 No 2mL [facility] OrthoVisc OrthoVisc 3-0 5-04 00:00: 00 No 2mL [facility] OrthoVisc OrthoVisc 3-0 5-04 00:00: 00 No 2mL [facility] OrthoVisc OrthoVisc 3-0 5-04 00:00: 00 No 2mL [facility] OrthoVisc OrthoVisc 2022-0 5-04 00:00: 00 No 2mL [facility] OrthoVisc OrthoVisc 3-0 5-04 00:00: 00 No 2mL [facility] Orth[facility]Visc OrthoVisc 3-0 5-04 00:00: 00 No 2mL [facility] Orth[facility]Visc OrthoVisc 3-0 5-04 00:00: 00 No 2mL [facility] Orth[facility] OrthoVisc 3-0 5-04 00:00: 00 No 2mL [facility] Ortho[facility]isc 3-0 5-04 00:00: 00 No 2mL [facility] Ortho[facility]isc 3-0 5-04 00:00: 00 No 2mL [facility] Orth[facility] 3-0 4-25 00:00: 00 No 2mL [facility] Orth[facility] 3-0 4-25 00:00: 00 No 2mL [facility] Orth[facility] Ortho[facility]isc 3-0 4-25 00:00: 00 No 2mL [facility] Orth[facility] 3-0 4-25 00:00: 00 No 2mL [facility] Orth[facility]isc 3-0 4-25 00:00: 00 No 2mL [facility] OrthoVisc 3-0 4-25 00:00: 00 No 2mL [facility] Orth[facility] 3-0 4-25 00:00: 00 No 2mL [facility] OrthoVisc 3-0 4-25 00:00: 00 No 2mL [facility] Orth[facility]isc OrthoVisc 3-0 4-25 00:00: 00 No 2mL [facility] OrthoVisc OrthoVisc 3-0 4-25 00:00: 00 No 2mL [facility] OrthoVisc OrthoVisc 3-0 4-25 00:00: 00 No 2mL [facility] OrthoVisc OrthoVisc 3-0 4-25 00:00: 00 No 2mL [facility] OrthoVisc OrthoVisc 3-0 4-25 00:00: 00 No 2mL [facility] OrthoVisc OrthoVisc 3-0 4-25 00:00: 00 No 2mL [facility] OrthoVisc OrthoVisc 3-0 4-25 00:00: 00 No 2mL [facility] OrthoVisc OrthoVisc 3-0 4-25 00:00: 00 No 2mL [facility] Orth[facility]Visc OrthoVisc 3-0 4-25 00:00: 00 No 2mL [facility] cephALEXin (KEFLEX) 500 mg capsule 0 11-16 00:00: 00 11-27 04:59 :00 No [id number] 500mg Take 1 capsule by mouth 4 (four) times daily for 10 days. [facility] Methocarbam ol 500 MG Methocarbam ol 500 MG 0 11-11 00:00: 00 No 1{table t} Methocarba mol 500 MG Methocarbam ol 500 MG Methocarbam ol 500 MG 0 11-11 00:00: 00 No 1{table t} Methocarba mol 500 MG Methocarbam ol 500 MG Methocarbam ol 500 MG 0 11-11 00:00: 00 No 1{table t} Methocarba mol 500 MG Methocarbam ol 500 MG Methocarbam ol 500 MG 0 22 00:00: 00 No 1{table t} Methocarba mol 500 MG Methocarbam ol 500 MG Methocarbam ol 500 MG 2022-0 22 00:00: 00 No 1{table t} Methocarba mol 500 MG Methocarbam ol 500 MG Methocarbam ol 500 MG 3-0 11-11 00:00: 00 No 1{table t} Methocarba mol 500 MG Methocarbam ol 500 MG Methocarbam ol 500 MG 3-0 22 00:00: 00 No 1{table t} Methocarba mol 500 MG Methocarbam ol 500 MG Methocarbam ol 500 MG 3-0 22 00:00: 00 No 1{table t} Methocarba mol 500 MG Methocarbam ol 500 MG Methocarbam ol 500 MG 3-0 22 00:00: 00 No 1{table t} Methocarba mol 500 MG Methocarbam ol 500 MG Methocarbam ol 500 MG 3-0 11-11 00:00: 00 No 1{table t} Methocarba mol 500 MG Methocarbam ol 500 MG Methocarbam ol 500 MG 3-0 11-11 00:00: 00 No 1{table t} Methocarba mol 500 MG Methocarbam ol 500 MG Methocarbam ol 500 MG 3-0 11-11 00:00: 00 No 1{table t} Methocarba mol 500 MG Methocarbam ol 500 MG Methocarbam ol 500 MG 2022-0 11-11 00:00: 00 No 1{table t} Methocarba mol 500 MG Methocarbam ol 500 MG Methocarbam ol 500 MG 3-0 11-11 00:00: 00 No 1{table t} Methocarba mol 500 MG Methocarbam ol 500 MG Methocarbam ol 500 MG 3-0 11-11 00:00: 00 No 1{table t} Methocarba mol 500 MG Methocarbam ol 500 MG Methocarbam ol 500 MG 3-0 22 00:00: 00 No 1{table t} Methocarba mol 500 MG Methocarbam ol 500 MG Methocarbam ol 500 MG 3-0 22 00:00: 00 No 1{table t} Methocarba mol 500 MG predniSONE 10 MG predniSONE 10 MG 2023-0 13 00:00: 00 No 1{table t} QD predniSONE 10 MG predniSONE 10 MG predniSONE 10 MG 3-0 3-13 00:00: 00 No 1{table t} QD predniSONE 10 MG predniSONE 10 MG predniSONE 10 MG 3-0 13 00:00: 00 No 1{table t} QD predniSONE 10 MG predniSONE 10 MG predniSONE 10 MG 3-0 3-13 00:00: 00 No 1{table t} QD predniSONE 10 MG predniSONE 10 MG predniSONE 10 MG 3-0 3-13 00:00: 00 No 1{table t} QD predniSONE 10 MG predniSONE 10 MG predniSONE 10 MG 3-0 3-13 00:00: 00 No 1{table t} QD predniSONE 10 MG predniSONE 10 MG predniSONE 10 MG 3-0 3-13 00:00: 00 No 1{table t} QD predniSONE 10 MG predniSONE 10 MG predniSONE 10 MG 3-0 3-13 00:00: 00 No 1{table t} QD predniSONE 10 MG predniSONE 10 MG predniSONE 10 MG 3-0 3-13 00:00: 00 No 1{table t} QD predniSONE 10 MG predniSONE 10 MG predniSONE 10 MG 3-0 3-13 00:00: 00 No 1{table t} QD predniSONE 10 MG predniSONE 10 MG predniSONE 10 MG 3-0 3-13 00:00: 00 No 1{table t} QD predniSONE 10 MG predniSONE 10 MG predniSONE 10 MG 3-0 3-13 00:00: 00 No 1{table t} QD predniSONE 10 MG predniSONE 10 MG predniSONE 10 MG 3-0 3-13 00:00: 00 No 1{table t} QD predniSONE 10 MG predniSONE 10 MG predniSONE 10 MG 3-0 3-13 00:00: 00 No 1{table t} QD predniSONE 10 MG predniSONE 10 MG predniSONE 10 MG 3-0 3-13 00:00: 00 No 1{table t} QD predniSONE 10 MG predniSONE 10 MG predniSONE 10 MG 3-0 3-13 00:00: 00 No 1{table t} QD predniSONE 10 MG predniSONE 10 MG predniSONE 10 MG 3-0 3-13 00:00: 00 No 1{table t} QD predniSONE 10 MG Bupivicaine [place] Bupivicaine [place] 2022-0 2-14 00:00: 00 No 2.5mg [facility] Kenalog (Triamcinol one) Kenalog (Triamcinol one) 2022-0 2-14 00:00: 00 No 40mg [facility] Bupivicaine [place] Bupivicaine [place] 2022-0 2-14 00:00: 00 No 2.5mg [facility] Kenalog (Triamcinol one) Kenalog (Triamcinol one) 0 14 00:00: 00 No 40mg [facility] Bupivicaine [place] Bupivicaine [place] 0 14 00:00: 00 No 2.5mg [facility] Kenalog (Triamcinol one) Kenalog (Triamcinol one) 0 14 00:00: 00 No 40mg [facility] Bupivicaine [place] Bupivicaine [place] 0 14 00:00: 00 No 2.5mg [facility] Kenalog (Triamcinol one) Kenalog (Triamcinol one) 0 14 00:00: 00 No 40mg [facility] Bupivicaine [place] Bupivicaine [place] 0 14 00:00: 00 No 2.5mg [facility] Kenalog (Triamcinol one) Kenalog (Triamcinol one) 0 14 00:00: 00 No 40mg [facility] Bupivicaine [place] Bupivicaine [place] 0 14 00:00: 00 No 2.5mg [facility] Kenalog (Triamcinol one) Kenalog (Triamcinol one) 0 14 00:00: 00 No 40mg [facility] Bupivicaine [place] Bupivicaine [place] 0 14 00:00: 00 No 2.5mg [facility] Kenalog (Triamcinol one) Kenalog (Triamcinol one) 0 14 00:00: 00 No 40mg [facility] Bupivicaine [place] Bupivicaine [place] 2022-0 14 00:00: 00 No 2.5mg [facility] Kenalog (Triamcinol one) Kenalog (Triamcinol one) 0 14 00:00: 00 No 40mg [facility] Bupivicaine [place] Bupivicaine [place] 0 14 00:00: 00 No 2.5mg [facility] Kenalog (Triamcinol one) Kenalog (Triamcinol one) 0 2-14 00:00: 00 No 40mg [facility] Bupivicaine [place] Bupivicaine [place] 0 14 00:00: 00 No 2.5mg [facility] Kenalog (Triamcinol one) Kenalog (Triamcinol one) 0 14 00:00: 00 No 40mg [facility] Bupivicaine [place] Bupivicaine [place] 0 14 00:00: 00 No 2.5mg [facility] Kenalog (Triamcinol one) Kenalog (Triamcinol one) 0 14 00:00: 00 No 40mg [facility] Bupivicaine [place] Bupivicaine [place] 0 14 00:00: 00 No 2.5mg [facility] Kenalog (Triamcinol one) Kenalog (Triamcinol one) 0 14 00:00: 00 No 40mg [facility] Bupivicaine [place] Bupivicaine [place] 0 14 00:00: 00 No 2.5mg [facility] Kenalog (Triamcinol one) Kenalog (Triamcinol one) 0 14 00:00: 00 No 40mg [facility] Bupivicaine [place] Bupivicaine [place] 0 14 00:00: 00 No 2.5mg [facility] Kenalog (Triamcinol one) Kenalog (Triamcinol one) 0 -14 00:00: 00 No 40mg [facility] Bupivicaine [place] Bupivicaine [place] 0 14 00:00: 00 No 2.5mg [facility] Kenalog (Triamcinol one) Kenalog (Triamcinol one) 0 14 00:00: 00 No 40mg [facility] Bupivicaine [place] Bupivicaine [place] 0 14 00:00: 00 No 2.5mg [facility] Kenalog (Triamcinol one) Kenalog (Triamcinol one) 0 214 00:00: 00 No 40mg [facility] Kenalog (Triamcinol one) Kenalog (Triamcinol one) 0 14 00:00: 00 No 40mg [facility] Bupivicaine [place] Bupivicaine [place] 0 10-06 00:00: 00 No 2.5mg [facility] traMADol HCl 50 MG traMADol HCl 50 MG 2021-08 2- 00:00: 00 No 1{table t_as_ne eded} traMADol HCl 50 MG traMADol HCl 50 MG traMADol HCl 50 MG 2021-08 2- 00:00: 00 No 1{table t_as_ne eded} traMADol HCl 50 MG traMADol HCl 50 MG traMADol HCl 50 MG 2021-08 2- 00:00: 00 No 1{table t_as_ne eded} traMADol HCl 50 MG traMADol HCl 50 MG traMADol HCl 50 MG 2021-08 2- 00:00: 00 No 1{table t_as_ne eded} traMADol HCl 50 MG traMADol HCl 50 MG traMADol HCl 50 MG 2021-08 2- 00:00: 00 No 1{table t_as_ne eded} traMADol HCl 50 MG traMADol HCl 50 MG traMADol HCl 50 MG 2021-08 2- 00:00: 00 No 1{table t_as_ne eded} traMADol HCl 50 MG traMADol HCl 50 MG traMADol HCl 50 MG 2021-08 2-19 00:00: 00 No 1{table t_as_ne eded} traMADol HCl 50 MG traMADol HCl 50 MG traMADol HCl 50 MG 2021-08 2-19 00:00: 00 No 1{table t_as_ne eded} traMADol HCl 50 MG traMADol HCl 50 MG traMADol HCl 50 MG 2021-08 2- 00:00: 00 No 1{table t_as_ne eded} traMADol HCl 50 MG traMADol HCl 50 MG traMADol HCl 50 MG 2021-08 2- 00:00: 00 No 1{table t_as_ne eded} traMADol HCl 50 MG traMADol HCl 50 MG traMADol HCl 50 MG 2021-08 2- 00:00: 00 No 1{table t_as_ne eded} traMADol HCl 50 MG traMADol HCl 50 MG traMADol HCl 50 MG 2021-08 2- 00:00: 00 No 1{table t_as_ne eded} traMADol HCl 50 MG traMADol HCl 50 MG traMADol HCl 50 MG 2021-08 2- 00:00: 00 No 1{table t_as_ne eded} traMADol HCl 50 MG traMADol HCl 50 MG traMADol HCl 50 MG 2021-08 2- 00:00: 00 No 1{table t_as_ne eded} traMADol HCl 50 MG traMADol HCl 50 MG traMADol HCl 50 MG 2021-08 2- 00:00: 00 No 1{table t_as_ne eded} traMADol HCl 50 MG traMADol HCl 50 MG traMADol HCl 50 MG 2021-08 2- 00:00: 00 No 1{table t_as_ne eded} traMADol HCl 50 MG traMADol HCl 50 MG traMADol HCl 50 MG 2021-08 2- 00:00: 00 No 1{table t_as_ne eded} traMADol HCl 50 MG traMADol HCl 50 MG traMADol HCl 50 MG 2021-08 2-19 00:00: 00 No 1{table t_as_ne eded} traMADol HCl 50 MG traMADol HCl 50 MG traMADol HCl 50 MG 2021-08 0-20 00:00: 00 No 1{table t_as_ne eded} traMADol HCl 50 MG traMADol HCl 50 MG traMADol HCl 50 MG 2021-08 0-20 00:00: 00 No 1{table t_as_ne eded} traMADol HCl 50 MG traMADol HCl 50 MG traMADol HCl 50 MG 2021-08 0-20 00:00: 00 No 1{table t_as_ne eded} traMADol HCl 50 MG traMADol HCl 50 MG traMADol HCl 50 MG 2021-08 0-20 00:00: 00 No 1{table t_as_ne eded} traMADol HCl 50 MG traMADol HCl 50 MG traMADol HCl 50 MG 2021-08 0-20 00:00: 00 No 1{table t_as_ne eded} traMADol HCl 50 MG traMADol HCl 50 MG traMADol HCl 50 MG 2021-08 0-20 00:00: 00 No 1{table t_as_ne eded} traMADol HCl 50 MG traMADol HCl 50 MG traMADol HCl 50 MG 2021-08 0-20 00:00: 00 No 1{table t_as_ne eded} traMADol HCl 50 MG traMADol HCl 50 MG traMADol HCl 50 MG 2021-08 0-20 00:00: 00 No 1{table t_as_ne eded} traMADol HCl 50 MG traMADol HCl 50 MG traMADol HCl 50 MG 2021-08 0-20 00:00: 00 No 1{table t_as_ne eded} traMADol HCl 50 MG traMADol HCl 50 MG traMADol HCl 50 MG 2021-08 0-20 00:00: 00 No 1{table t_as_ne eded} traMADol HCl 50 MG traMADol HCl 50 MG traMADol HCl 50 MG 2021-08 0-20 00:00: 00 No 1{table t_as_ne eded} traMADol HCl 50 MG traMADol HCl 50 MG traMADol HCl 50 MG 2021-08 0-20 00:00: 00 No 1{table t_as_ne eded} traMADol HCl 50 MG traMADol HCl 50 MG traMADol HCl 50 MG 2021-08 0-20 00:00: 00 No 1{table t_as_ne eded} traMADol HCl 50 MG traMADol HCl 50 MG traMADol HCl 50 MG 2021-08 0-20 00:00: 00 No 1{table t_as_ne eded} traMADol HCl 50 MG traMADol HCl 50 MG traMADol HCl 50 MG 2021-08 0-20 00:00: 00 No 1{table t_as_ne eded} traMADol HCl 50 MG traMADol HCl 50 MG traMADol HCl 50 MG 2021-08 0-20 00:00: 00 No 1{table t_as_ne eded} traMADol HCl 50 MG traMADol HCl 50 MG traMADol HCl 50 MG 2021-08 0-20 00:00: 00 No 1{table t_as_ne eded} traMADol HCl 50 MG traMADol HCl 50 MG traMADol HCl 50 MG 2021-08 0-20 00:00: 00 No 1{table t_as_ne eded} traMADol HCl 50 MG traMADol HCl 50 MG traMADol HCl 50 MG 2021-08 0-20 00:00: 00 No 1{table t_as_ne eded} traMADol HCl 50 MG traMADol HCl 50 MG traMADol HCl 50 MG 2021-08 0-20 00:00: 00 No 1{table t_as_ne eded} traMADol HCl 50 MG traMADol HCl 50 MG traMADol HCl 50 MG 2021-08 0-20 00:00: 00 No 1{table t_as_ne eded} traMADol HCl 50 MG HYDROcodone -Acetaminop hen 7.5-325 MG HYDROcodone -Acetaminop hen 7.5-325 MG 2021-08 0-06 00:00: 00 No 1{table t_as_ne eded} HYDROcodon e-Acetamin ophen 7.5-325 MG HYDROcodone -Acetaminop hen 7.5-325 MG HYDROcodone -Acetaminop hen 7.5-325 MG 2021-08 0-06 00:00: 00 No 1{table t_as_ne eded} HYDROcodon e-Acetamin ophen 7.5-325 MG HYDROcodone -Acetaminop hen 7.5-325 MG HYDROcodone -Acetaminop hen 7.5-325 MG 2021- 0-06 00:00: 00 No 1{table t_as_ne eded} HYDROcodon e-Acetamin ophen 7.5-325 MG HYDROcodone -Acetaminop hen 7.5-325 MG HYDROcodone -Acetaminop hen 7.5-325 MG 2021- 0-06 00:00: 00 No 1{table t_as_ne eded} HYDROcodon e-Acetamin ophen 7.5-325 MG HYDROcodone -Acetaminop hen 7.5-325 MG HYDROcodone -Acetaminop hen 7.5-325 MG 2021-1 0-06 00:00: 00 No 1{table t_as_ne eded} HYDROcodon e-Acetamin ophen 7.5-325 MG HYDROcodone -Acetaminop hen 7.5-325 MG HYDROcodone -Acetaminop hen 7.5-325 MG 2021- 0-06 00:00: 00 No 1{table t_as_ne eded} HYDROcodon e-Acetamin ophen 7.5-325 MG HYDROcodone -Acetaminop hen 7.5-325 MG HYDROcodone -Acetaminop hen 7.5-325 MG 2021- 0-06 00:00: 00 No 1{table t_as_ne eded} HYDROcodon e-Acetamin ophen 7.5-325 MG HYDROcodone -Acetaminop hen 7.5-325 MG HYDROcodone -Acetaminop hen 7.5-325 MG 2021- 0-06 00:00: 00 No 1{table t_as_ne eded} HYDROcodon e-Acetamin ophen 7.5-325 MG HYDROcodone -Acetaminop hen 7.5-325 MG HYDROcodone -Acetaminop hen 7.5-325 MG 2021- 0-06 00:00: 00 No 1{table t_as_ne eded} HYDROcodon e-Acetamin ophen 7.5-325 MG HYDROcodone -Acetaminop hen 7.5-325 MG HYDROcodone -Acetaminop hen 7.5-325 MG 2021- 0-06 00:00: 00 No 1{table t_as_ne eded} HYDROcodon e-Acetamin ophen 7.5-325 MG HYDROcodone -Acetaminop hen 7.5-325 MG HYDROcodone -Acetaminop hen 7.5-325 MG 2021- 0-06 00:00: 00 No 1{table t_as_ne eded} HYDROcodon e-Acetamin ophen 7.5-325 MG HYDROcodone -Acetaminop hen 7.5-325 MG HYDROcodone -Acetaminop hen 7.5-325 MG 2021- 0-06 00:00: 00 No 1{table t_as_ne eded} HYDROcodon e-Acetamin ophen 7.5-325 MG HYDROcodone -Acetaminop hen 7.5-325 MG HYDROcodone -Acetaminop hen 7.5-325 MG 2021- 0-06 00:00: 00 No 1{table t_as_ne eded} HYDROcodon e-Acetamin ophen 7.5-325 MG HYDROcodone -Acetaminop hen 7.5-325 MG HYDROcodone -Acetaminop hen 7.5-325 MG 2021- 0-06 00:00: 00 No 1{table t_as_ne eded} HYDROcodon e-Acetamin ophen 7.5-325 MG HYDROcodone -Acetaminop hen 7.5-325 MG HYDROcodone -Acetaminop hen 7.5-325 MG 2021- 0-06 00:00: 00 No 1{table t_as_ne eded} HYDROcodon e-Acetamin ophen 7.5-325 MG HYDROcodone -Acetaminop hen 7.5-325 MG HYDROcodone -Acetaminop hen 7.5-325 MG 2021- 0-06 00:00: 00 No 1{table t_as_ne eded} HYDROcodon e-Acetamin ophen 7.5-325 MG HYDROcodone -Acetaminop hen 7.5-325 MG HYDROcodone -Acetaminop hen 7.5-325 MG 2021- 0-06 00:00: 00 No 1{table t_as_ne eded} HYDROcodon e-Acetamin ophen 7.5-325 MG HYDROcodone -Acetaminop hen 7.5-325 MG HYDROcodone -Acetaminop hen 7.5-325 MG 2021- 0-06 00:00: 00 No 1{table t_as_ne eded} HYDROcodon e-Acetamin ophen 7.5-325 MG HYDROcodone -Acetaminop hen 7.5-325 MG HYDROcodone -Acetaminop hen 7.5-325 MG 2021- 0-06 00:00: 00 No 1{table t_as_ne eded} HYDROcodon e-Acetamin ophen 7.5-325 MG HYDROcodone -Acetaminop hen 7.5-325 MG HYDROcodone -Acetaminop hen 7.5-325 MG 2021- 0-06 00:00: 00 No 1{table t_as_ne eded} HYDROcodon e-Acetamin ophen 7.5-325 MG HYDROcodone -Acetaminop hen 7.5-325 MG HYDROcodone -Acetaminop hen 7.5-325 MG 2021-1 0-06 00:00: 00 No 1{table t_as_ne eded} HYDROcodon e-Acetamin ophen 7.5-325 MG HYDROcodone -Acetaminop hen 7.5-325 MG HYDROcodone -Acetaminop hen 7.5-325 MG 2021-1 0-06 00:00: 00 No 1{table t_as_ne eded} HYDROcodon e-Acetamin ophen 7.5-325 MG HYDROcodone -Acetaminop hen 7.5-325 MG HYDROcodone -Acetaminop hen 7.5-325 MG 2021- 0-06 00:00: 00 No 1{table t_as_ne eded} HYDROcodon e-Acetamin ophen 7.5-325 MG Methocarbam ol 500 MG Methocarbam ol 500 MG 2021-08 0-06 00:00: 00 06-27 00:00 :00 No 1{table t} Methocarba mol 500 MG Methocarbam ol 500 MG Methocarbam ol 500 MG 2021-08 0-06 00:00: 00 06-27 00:00 :00 No 1{table t} Methocarba mol 500 MG Methocarbam ol 500 MG Methocarbam ol 500 MG 2021- 0-06 00:00: 00 06-27 00:00 :00 No 1{table t} Methocarba mol 500 MG HYDROcodone -Acetaminop hen 7.5-325 MG HYDROcodone -Acetaminop hen 7.5-325 MG 2021-1 0-04 00:00: 00 No 1{table t_as_ne eded} QID HYDROcodon e-Acetamin ophen 7.5-325 MG HYDROcodone -Acetaminop hen 7.5-325 MG HYDROcodone -Acetaminop hen 7.5-325 MG 2021-1 0-04 00:00: 00 No 1{table t_as_ne eded} QID HYDROcodon e-Acetamin ophen 7.5-325 MG HYDROcodone -Acetaminop hen 7.5-325 MG HYDROcodone -Acetaminop hen 7.5-325 MG 2-1 0-04 00:00: 00 No 1{table t_as_ne eded} QID HYDROcodon e-Acetamin ophen 7.5-325 MG HYDROcodone -Acetaminop hen 7.5-325 MG HYDROcodone -Acetaminop hen 7.5-325 MG 2-1 0-04 00:00: 00 No 1{table t_as_ne eded} QID HYDROcodon e-Acetamin ophen 7.5-325 MG HYDROcodone -Acetaminop hen 7.5-325 MG HYDROcodone -Acetaminop hen 7.5-325 MG 2-1 0-04 00:00: 00 No 1{table t_as_ne eded} QID HYDROcodon e-Acetamin ophen 7.5-325 MG HYDROcodone -Acetaminop hen 7.5-325 MG HYDROcodone -Acetaminop hen 7.5-325 MG 2021-1 0-04 00:00: 00 No 1{table t_as_ne eded} QID HYDROcodon e-Acetamin ophen 7.5-325 MG HYDROcodone -Acetaminop hen 7.5-325 MG HYDROcodone -Acetaminop hen 7.5-325 MG 2021-1 0-04 00:00: 00 No 1{table t_as_ne eded} QID HYDROcodon e-Acetamin ophen 7.5-325 MG HYDROcodone -Acetaminop hen 7.5-325 MG HYDROcodone -Acetaminop hen 7.5-325 MG 2021-1 0-04 00:00: 00 No 1{table t_as_ne eded} QID HYDROcodon e-Acetamin ophen 7.5-325 MG HYDROcodone -Acetaminop hen 7.5-325 MG HYDROcodone -Acetaminop hen 7.5-325 MG 2021-1 0-04 00:00: 00 No 1{table t_as_ne eded} QID HYDROcodon e-Acetamin ophen 7.5-325 MG HYDROcodone -Acetaminop hen 7.5-325 MG HYDROcodone -Acetaminop hen 7.5-325 MG 2021-1 0-04 00:00: 00 No 1{table t_as_ne eded} QID HYDROcodon e-Acetamin ophen 7.5-325 MG HYDROcodone -Acetaminop hen 7.5-325 MG HYDROcodone -Acetaminop hen 7.5-325 MG 2021-1 0-04 00:00: 00 No 1{table t_as_ne eded} QID HYDROcodon e-Acetamin ophen 7.5-325 MG HYDROcodone -Acetaminop hen 7.5-325 MG HYDROcodone -Acetaminop hen 7.5-325 MG 2021-1 0-04 00:00: 00 No 1{table t_as_ne eded} QID HYDROcodon e-Acetamin ophen 7.5-325 MG HYDROcodone -Acetaminop hen 7.5-325 MG HYDROcodone -Acetaminop hen 7.5-325 MG 2021-1 0-04 00:00: 00 No 1{table t_as_ne eded} QID HYDROcodon e-Acetamin ophen 7.5-325 MG HYDROcodone -Acetaminop hen 7.5-325 MG HYDROcodone -Acetaminop hen 7.5-325 MG 2021- 0-04 00:00: 00 No 1{table t_as_ne eded} QID HYDROcodon e-Acetamin ophen 7.5-325 MG HYDROcodone -Acetaminop hen 7.5-325 MG HYDROcodone -Acetaminop hen 7.5-325 MG 2021-1 0-04 00:00: 00 No 1{table t_as_ne eded} QID HYDROcodon e-Acetamin ophen 7.5-325 MG HYDROcodone -Acetaminop hen 7.5-325 MG HYDROcodone -Acetaminop hen 7.5-325 MG 2021-1 0-04 00:00: 00 No 1{table t_as_ne eded} QID HYDROcodon e-Acetamin ophen 7.5-325 MG HYDROcodone -Acetaminop hen 7.5-325 MG HYDROcodone -Acetaminop hen 7.5-325 MG 2021-1 0-04 00:00: 00 No 1{table t_as_ne eded} QID HYDROcodon e-Acetamin ophen 7.5-325 MG HYDROcodone -Acetaminop hen 7.5-325 MG HYDROcodone -Acetaminop hen 7.5-325 MG 2-1 0-04 00:00: 00 No 1{table t_as_ne eded} QID HYDROcodon e-Acetamin ophen 7.5-325 MG HYDROcodone -Acetaminop hen 7.5-325 MG HYDROcodone -Acetaminop hen 7.5-325 MG 2021-1 0-04 00:00: 00 No 1{table t_as_ne eded} QID HYDROcodon e-Acetamin ophen 7.5-325 MG HYDROcodone -Acetaminop hen 7.5-325 MG HYDROcodone -Acetaminop hen 7.5-325 MG 2021-1 0-04 00:00: 00 No 1{table t_as_ne eded} QID HYDROcodon e-Acetamin ophen 7.5-325 MG HYDROcodone -Acetaminop hen 7.5-325 MG HYDROcodone -Acetaminop hen 7.5-325 MG 2021- 0-04 00:00: 00 No 1{table t_as_ne eded} QID HYDROcodon e-Acetamin ophen 7.5-325 MG HYDROcodone -Acetaminop hen 7.5-325 MG HYDROcodone -Acetaminop hen 7.5-325 MG 2021-1 0-04 00:00: 00 No 1{table t_as_ne eded} QID HYDROcodon e-Acetamin ophen 7.5-325 MG HYDROcodone -Acetaminop hen 7.5-325 MG HYDROcodone -Acetaminop hen 7.5-325 MG 2021- 0-04 00:00: 00 No 1{table t_as_ne eded} QID HYDROcodon e-Acetamin ophen 7.5-325 MG HYDROcodone -Acetaminop hen 7.5-325 MG HYDROcodone -Acetaminop hen 7.5-325 MG 2021-1 0-04 00:00: 00 No 1{table t_as_ne eded} QID HYDROcodon e-Acetamin ophen 7.5-325 MG dexamethaso ne (DECADRON) injection 10 mg 2021- 811 17:15: 00 04-02 16:20 :00 No [id number] 10mg [facility] azelastine 137 mcg (0.1 %) nasal spray 0 3-07 00:00: 00 Yes [id number] 1{spray } Use 1 [place] in each nostril 2 (two) times daily. Use in each nostril as directed [facility] fluticasone propionate 50 mcg/actuati on nasal spray 0 3-07 00:00: 00 Yes [id number] 1{spray } Use 1 [place] in each nostril daily. [facility] Hyalgan 20 mg Hyalgan 20 mg 2021-0 2-15 00:00: 00 No 20mg [facility] Hyalgan 20 mg Hyalgan 20 mg 2021-0 2-15 00:00: 00 No 20mg [facility] Hyalgan 20 mg Hyalgan 20 mg 2021-0 2-15 00:00: 00 No 20mg [facility] Hyalgan 20 mg Hyalgan 20 mg 2021-0 2-15 00:00: 00 No 20mg [facility] Hyalgan 20 mg Hyalgan 20 mg 2021-0 2-15 00:00: 00 No 20mg [facility] Hyalgan 20 mg Hyalgan 20 mg 2021-0 2-15 00:00: 00 No 20mg [facility] Hyalgan 20 mg Hyalgan 20 mg 2021-0 2-15 00:00: 00 No 20mg [facility] Hyalgan 20 mg Hyalgan 20 mg 2021-0 2-15 00:00: 00 No 20mg [facility] Hyalgan 20 mg Hyalgan 20 mg 2021-0 2-15 00:00: 00 No 20mg [facility] Hyalgan 20 mg Hyalgan 20 mg 2021-0 2-15 00:00: 00 No 20mg [facility] Hyalgan 20 mg Hyalgan 20 mg 2021-0 2-15 00:00: 00 No 20mg [facility] Hyalgan 20 mg Hyalgan 20 mg 2-0 2-15 00:00: 00 No 20mg [facility] Hyalgan 20 mg Hyalgan 20 mg 2022-0 2-15 00:00: 00 No [facility]mg [facility] Hyalgan 20 mg Hyalgan 20 mg 2-0 2-15 00:00: 00 No 20mg [facility] Hyalgan 20 mg Hyalgan 20 mg 2022-0 2-15 00:00: 00 No 20mg [facility] Hyalgan 20 mg Hyalgan 20 mg 2-0 2-15 00:00: 00 No 20mg [facility] Hyalgan 20 mg Hyalgan 20 mg 2022-0 2-15 00:00: 00 No 20mg [facility] Hyalgan 20 mg Hyalgan 20 mg 2-0 2-15 00:00: 00 No 20mg [facility] Hyalgan 20 mg Hyalgan 20 mg 2-0 2-15 00:00: 00 No 20mg [facility] Hyalgan 20 mg Hyalgan 20 mg 2-0 2-15 00:00: 00 No 20mg [facility] Hyalgan 20 mg Hyalgan 20 mg 2-0 2-15 00:00: 00 No 20mg [facility] Hyalgan 20 mg Hyalgan 20 mg 2-0 2-15 00:00: 00 No 20mg [facility] Hyalgan 20 mg Hyalgan 20 mg 2-0 2-15 00:00: 00 No 20mg [facility] Hyalgan 20 mg Hyalgan 20 mg 2-0 2-15 00:00: 00 No 20mg [facility] Hyalgan 20 mg Hyalgan 20 mg 2-0 2-15 00:00: 00 No 20mg [facility] Hyalgan 20 mg Hyalgan 20 mg 2-0 2-15 00:00: 00 No 20mg [facility] Hyalgan 20 mg Hyalgan 20 mg 2022-0 2-03 00:00: 00 No 20mg [facility] Hyalgan 20 mg Hyalgan 20 mg 2022-0 2-03 00:00: 00 No 20mg [facility] Hyalgan 20 mg Hyalgan 20 mg 2-0 2-03 00:00: 00 No 20mg [facility] Hyalgan 20 mg Hyalgan 20 mg 2021-0 2-03 00:00: 00 No 20mg [facility] Hyalgan 20 mg Hyalgan 20 mg 2021-0 2-03 00:00: 00 No 20mg [facility] Hyalgan 20 mg Hyalgan 20 mg 2021-0 2-03 00:00: 00 No 20mg [facility] Hyalgan 20 mg Hyalgan 20 mg 2021-0 2-03 00:00: 00 No 20mg [facility] Hyalgan 20 mg Hyalgan 20 mg 2021-0 2-03 00:00: 00 No 20mg [facility] Hyalgan 20 mg Hyalgan 20 mg 2021-0 2-03 00:00: 00 No 20mg [facility] Hyalgan 20 mg Hyalgan 20 mg 2021-0 2-03 00:00: 00 No 20mg [facility] Hyalgan 20 mg Hyalgan 20 mg 2021-0 2-03 00:00: 00 No 20mg [facility] Hyalgan 20 mg Hyalgan 20 mg 2021-0 2-03 00:00: 00 No 20mg [facility] Hyalgan 20 mg Hyalgan 20 mg 2021-0 2-03 00:00: 00 No 20mg [facility] Hyalgan 20 mg Hyalgan 20 mg 2021-0 2-03 00:00: 00 No 20mg [facility] Hyalgan 20 mg Hyalgan 20 mg 2021-0 2-03 00:00: 00 No 20mg [facility] Hyalgan 20 mg Hyalgan 20 mg 2021-0 2-03 00:00: 00 No 20mg [facility] Hyalgan 20 mg Hyalgan 20 mg 2021-0 2-03 00:00: 00 No 20mg [facility] Hyalgan 20 mg Hyalgan 20 mg 2022-0 2-03 00:00: 00 No 20mg [facility] Hyalgan 20 mg Hyalgan 20 mg 0 2- 00:00: 00 No 20mg [facility] Hyalgan 20 mg Hyalgan 20 mg 0 2- 00:00: 00 No 20mg [facility] Hyalgan 20 mg Hyalgan 20 mg 0 2- 00:00: 00 No 20mg [facility] Hyalgan 20 mg Hyalgan 20 mg 0 2- 00:00: 00 No 20mg [facility] Hyalgan 20 mg Hyalgan 20 mg 0 2- 00:00: 00 No 20mg [facility] Hyalgan 20 mg Hyalgan 20 mg 0 2- 00:00: 00 No 20mg [facility] Hyalgan 20 mg Hyalgan 20 mg 0 2- 00:00: 00 No 20mg [facility] Hyalgan 20 mg Hyalgan 20 mg 0 2- 00:00: 00 No 20mg [facility] Kenalog (Triamcinol one) Kenalog (Triamcinol one) - 00:00: 00 No 40mg [facility] Hyalgan 20 mg Hyalgan 20 mg 0 - 00:00: 00 No 20mg [facility] Kenalog (Triamcinol one) Kenalog (Triamcinol one) 0 - 00:00: 00 No 40mg [facility] Bupivicaine [place] Bupivicaine [place] 0 09-18 00:00: 00 No 2.5mg [facility] Hyalgan 20 mg Hyalgan 20 mg 09-18 00:00: 00 No 20mg [facility] Kenalog (Triamcinol one) Kenalog (Triamcinol one) - 00:00: 00 No 40mg [facility] Bupivicaine [place] Bupivicaine [place] 09-18 00:00: 00 No 2.5mg [facility] Hyalgan 20 mg Hyalgan 20 mg 09-18 00:00: 00 No 20mg [facility] Kenalog (Triamcinol one) Kenalog (Triamcinol one) 09-18 00:00: 00 No 40mg [facility] Bupivicaine [place] Bupivicaine [place] 09-18 00:00: 00 No 2.5mg [facility] Hyalgan 20 mg Hyalgan 20 mg 09-18 00:00: 00 No 20mg [facility] Kenalog (Triamcinol one) Kenalog (Triamcinol one) 09-18 00:00: 00 No 40mg [facility] Bupivicaine [place] Bupivicaine [place] 09-18 00:00: 00 No 2.5mg [facility] Hyalgan 20 mg Hyalgan 20 mg 09-18 00:00: 00 No 20mg [facility] Kenalog (Triamcinol one) Kenalog (Triamcinol one) 09-18 00:00: 00 No 40mg [facility] Bupivicaine [place] Bupivicaine [place] 09-18 00:00: 00 No 2.5mg [facility] Hyalgan 20 mg Hyalgan 20 mg 09-18 00:00: 00 No 20mg [facility] Kenalog (Triamcinol one) Kenalog (Triamcinol one) 09-18 00:00: 00 No 40mg [facility] Bupivicaine [place] Bupivicaine [place] 09-18 00:00: 00 No 2.5mg [facility] Hyalgan 20 mg Hyalgan 20 mg 09-18 00:00: 00 No 20mg [facility] Kenalog (Triamcinol one) Kenalog (Triamcinol one) 09-18 00:00: 00 No 40mg [facility] Bupivicaine [place] Bupivicaine [place] 09-18 00:00: 00 No 2.5mg [facility] Hyalgan 20 mg Hyalgan 20 mg 09-18 00:00: 00 No 20mg [facility] Bupivicaine [place] Bupivicaine [place] 09-18 00:00: 00 No 2.5mg [facility] Kenalog (Triamcinol one) Kenalog (Triamcinol one) 09-18 00:00: 00 No 40mg [facility] Kenalog (Triamcinol one) Kenalog (Triamcinol one) 09-18 00:00: 00 No 40mg [facility] Bupivicaine [place] Bupivicaine [place] 09-18 00:00: 00 No 2.5mg [facility] Hyalgan 20 mg Hyalgan 20 mg 09-18 00:00: 00 No 20mg [facility] Hyalgan 20 mg Hyalgan 20 mg 09-18 00:00: 00 No 20mg [facility] Kenalog (Triamcinol one) Kenalog (Triamcinol one) 09-18 00:00: 00 No 40mg [facility] Hyalgan 20 mg Hyalgan 20 mg 09-18 00:00: 00 No 20mg [facility] Bupivicaine [place] Bupivicaine [place] 09-18 00:00: 00 No 2.5mg [facility] Kenalog (Triamcinol one) Kenalog (Triamcinol one) 09-18 00:00: 00 No 40mg [facility] Hyalgan 20 mg Hyalgan 20 mg 09-18 00:00: 00 No 20mg [facility] Bupivicaine [place] Bupivicaine [place] 09-18 00:00: 00 No 2.5mg [facility] Kenalog (Triamcinol one) Kenalog (Triamcinol one) 09-18 00:00: 00 No 40mg [facility] Hyalgan 20 mg Hyalgan 20 mg 09-18 00:00: 00 No 20mg [facility] Bupivicaine [place] Bupivicaine [place] 09-18 00:00: 00 No 2.5mg [facility] Kenalog (Triamcinol one) Kenalog (Triamcinol one) 09-18 00:00: 00 No 40mg [facility] Hyalgan 20 mg Hyalgan 20 mg 09-18 00:00: 00 No 20mg [facility] Bupivicaine [place] Bupivicaine [place] 09-18 00:00: 00 No 2.5mg [facility] Kenalog (Triamcinol one) Kenalog (Triamcinol one) 09-18 00:00: 00 No 40mg [facility] Hyalgan 20 mg Hyalgan 20 mg 09-18 00:00: 00 No 20mg [facility] Bupivicaine [place] Bupivicaine [place] 09-18 00:00: 00 No 2.5mg [facility] Kenalog (Triamcinol one) Kenalog (Triamcinol one) 09-18 00:00: 00 No 40mg [facility] Hyalgan 20 mg Hyalgan 20 mg 09-18 00:00: 00 No 20mg [facility] Bupivicaine [place] Bupivicaine [place] 09-18 00:00: 00 No 2.5mg [facility] Bupivicaine [place] Bupivicaine [place] 09-18 00:00: 00 No [facility] Kenalog (Triamcinol one) Kenalog (Triamcinol one) 09-18 00:00: 00 No 40mg [facility] Hyalgan 20 mg Hyalgan 20 mg 09-18 00:00: 00 No 20mg [facility] Bupivicaine [place] Bupivicaine [place] 09-18 00:00: 00 No [facility] Kenalog (Triamcinol one) Kenalog (Triamcinol one) 09-18 00:00: 00 No 40mg [facility] Hyalgan 20 mg Hyalgan 20 mg 09-18 00:00: 00 No 20mg [facility] Bupivicaine [place] Bupivicaine [place] 09-18 00:00: 00 No 2.5mg [facility] Kenalog (Triamcinol one) Kenalog (Triamcinol one) 09-18 00:00: 00 No 40mg [facility] Hyalgan 20 mg Hyalgan 20 mg 09-18 00:00: 00 No 20mg [facility] Bupivicaine [place] Bupivicaine [place] 09-18 00:00: 00 No 2.5mg [facility] Kenalog (Triamcinol one) Kenalog (Triamcinol one) 09-18 00:00: 00 No 40mg [facility] Hyalgan 20 mg Hyalgan 20 mg 09-18 00:00: 00 No 20mg [facility] Bupivicaine [place] Bupivicaine [place] 09-18 00:00: 00 No 2.5mg [facility] Kenalog (Triamcinol one) Kenalog (Triamcinol one) 09-18 00:00: 00 No 40mg [facility] Hyalgan 20 mg Hyalgan 20 mg 09-18 00:00: 00 No 20mg [facility] Bupivicaine [place] Bupivicaine [place] 09-18 00:00: 00 No 2.5mg [facility] Kenalog (Triamcinol one) Kenalog (Triamcinol one) 09-18 00:00: 00 No 40mg [facility] Hyalgan 20 mg Hyalgan 20 mg 09-18 00:00: 00 No 20mg [facility] Bupivicaine [place] Bupivicaine [place] 09-18 00:00: 00 No 2.5mg [facility] Kenalog (Triamcinol one) Kenalog (Triamcinol one) 09-18 00:00: 00 No 40mg [facility] Hyalgan 20 mg Hyalgan 20 mg 09-18 00:00: 00 No 20mg [facility] Kenalog (Triamcinol one) Kenalog (Triamcinol one) 09-18 00:00: 00 No 40mg [facility] Bupivicaine [place] Bupivicaine [place] 09-18 00:00: 00 No 2.5mg [facility] Hyalgan 20 mg Hyalgan 20 mg 09-18 00:00: 00 No 20mg [facility] Kenalog (Triamcinol one) Kenalog (Triamcinol one) 09-18 00:00: 00 No 40mg [facility] Bupivicaine [place] Bupivicaine [place] 09-18 00:00: 00 No 2.5mg [facility] Hyalgan 20 mg Hyalgan 20 mg 09-18 00:00: 00 No 20mg [facility] Hyalgan 20 mg Hyalgan 20 mg 09-18 00:00: 00 No 20mg [facility] Kenalog (Triamcinol one) Kenalog (Triamcinol one) 09-18 00:00: 00 No 40mg [facility] Bupivicaine [place]pa Bupivicaine Sapulpa 09-18 00:00: 00 No 2.5mg [facility] Bupivicaine [place] Bupivicaine Sapulpa 09-18 00:00: 00 No 2.5mg [facility] Bupivicaine [place] Bupivicaine Sapulpa 2019-08 00:00: 00 No 2.5mg [facility] Kenalog (Triamcinol one) Kenalog (Triamcinol one) 2019-08 00:00: 00 No 40mg [facility] Kenalog (Triamcinol one) Kenalog (Triamcinol one) 2019-08 00:00: 00 No 40mg [facility] Bupivicaine [place]pa Bupivicaine Sapulpa 2019-08 00:00: 00 No 2.5mg [facility] Kenalog (Triamcinol one) Kenalog (Triamcinol one) 2019-08 00:00: 00 No 40mg [facility] Bupivicaine [place] Bupivicaine Sapulpa 2019-08 00:00: 00 No 2.5mg [facility] Kenalog (Triamcinol one) Kenalog (Triamcinol one) 2019-08 00:00: 00 No 40mg [facility] Bupivicaine [place] Bupivicaine Sapulpa 2019-08 00:00: 00 No 2.5mg [facility] Bupivicaine [place] Bupivicaine Sapulpa 2019-08 00:00: 00 No 2.5mg [facility] Kenalog (Triamcinol one) Kenalog (Triamcinol one) 2019-08 00:00: 00 No 40mg [facility] Bupivicaine [place] Bupivicaine Sapulpa 2019-08 00:00: 00 No 2.5mg [facility] Kenalog (Triamcinol one) Kenalog (Triamcinol one) 2019-08 00:00: 00 No 40mg [facility] Bupivicaine [place] Bupivicaine Sapulpa 2019-08 00:00: 00 No 2.5mg [facility] Kenalog (Triamcinol one) Kenalog (Triamcinol one) 2019-08 00:00: 00 No 40mg [facility] Bupivicaine [place] Bupivicaine Sapulpa 2019-08 00:00: 00 No 2.5mg [facility] Kenalog (Triamcinol one) Kenalog (Triamcinol one) 2019-08 00:00: 00 No 40mg [facility] Bupivicaine [place] Bupivicaine Sapulpa 2019-08 00:00: 00 No 2.5mg [facility] Kenalog (Triamcinol one) Kenalog (Triamcinol one) 2019-08 00:00: 00 No 40mg [facility] Kenalog (Triamcinol one) Kenalog (Triamcinol one) 2019-08 00:00: 00 No 40mg [facility] Bupivicaine [place] Bupivicaine Sapulpa 2019-08 00:00: 00 No 2.5mg [facility] Kenalog (Triamcinol one) Kenalog (Triamcinol one) 2019-08 00:00: 00 No 40mg [facility] Kenalog (Triamcinol one) Kenalog (Triamcinol one) 2019-08 00:00: 00 No 40mg [facility] Bupivicaine [place]pa Bupivicaine Sapulpa 2019-08 00:00: 00 No 2.5mg [facility] Bupivicaine [place] Bupivicaine Sapulpa 2019-08 00:00: 00 No 2.5mg [facility] Kenalog (Triamcinol one) Kenalog (Triamcinol one) 2019-08 00:00: 00 No 40mg [facility] Bupivicaine [place] Bupivicaine Sapulpa 2019-08 00:00: 00 No 2.5mg [facility] Kenalog (Triamcinol one) Kenalog (Triamcinol one) 2019-08 00:00: 00 No 40mg [facility] Bupivicaine [place] Bupivicaine Sapulpa 2019-08 00:00: 00 No 2.5mg [facility] Kenalog (Triamcinol one) Kenalog (Triamcinol one) 2019-08 00:00: 00 No 40mg [facility] Bupivicaine [place] Bupivicaine Sapulpa 2019-08 00:00: 00 No 2.5mg [facility] Kenalog (Triamcinol one) Kenalog (Triamcinol one) 2019-08 00:00: 00 No 40mg [facility] Bupivicaine [place] Bupivicaine Sapulpa 2019-08 00:00: 00 No 2.5mg [facility] Kenalog (Triamcinol one) Kenalog (Triamcinol one) 2019-08 00:00: 00 No 40mg [facility] Bupivicaine [place]pa Bupivicaine Sapulpa 2019-08 00:00: 00 No [facility] Kenalog (Triamcinol one) Kenalog (Triamcinol one) 2019-08 00:00: 00 No 40mg [facility] Bupivicaine [place] Bupivicaine Sapulpa 2019-08 00:00: 00 No [facility] Kenalog (Triamcinol one) Kenalog (Triamcinol one) 2019-08 00:00: 00 No 40mg [facility] Kenalog (Triamcinol one) Kenalog (Triamcinol one) 2019-08 00:00: 00 No 40mg [facility] Bupivicaine [place] Bupivicaine Sapulpa 2019-08 00:00: 00 No 2.5mg [facility] Kenalog (Triamcinol one) Kenalog (Triamcinol one) 2019-08 00:00: 00 No 40mg [facility] Bupivicaine [place] Bupivicaine Sapulpa 2019-08 00:00: 00 No 2.5mg [facility] Bupivicaine [place] Bupivicaine Sapulpa 2019-08 00:00: 00 No 2.5mg [facility] Kenalog (Triamcinol one) Kenalog (Triamcinol one) 2019-08 00:00: 00 No 40mg [facility] Bupivicaine [place] Bupivicaine Sapulpa 2019-08 00:00: 00 No 2.5mg [facility] Kenalog (Triamcinol one) Kenalog (Triamcinol one) 2019-08 00:00: 00 No 40mg [facility] Bupivicaine [place] Bupivicaine Sapulpa 2019-08 00:00: 00 No 2.5mg [facility] Bupivicaine [place] Bupivicaine Sapulpa 2019-08 00:00: 00 No 2.5mg [facility] Kenalog (Triamcinol one) Kenalog (Triamcinol one) 2019-08 00:00: 00 No 40mg [facility] Bupivicaine [place] Bupivicaine Sapulpa 2019-08 00:00: 00 No 2.5mg [facility] Kenalog (Triamcinol one) Kenalog (Triamcinol one) 2019-08 00:00: 00 No 40mg [facility] Kenalog (Triamcinol one) Kenalog (Triamcinol one) 2019-08 00:00: 00 No 40mg [facility] Bupivicaine S[place]pa Bupivicaine Sapulpa 2019-08 00:00: 00 No 2.5mg [facility] Visco-3 Visco-3 2019-0 03-20 00:00: 00 No 2.5mL [facility] Visco-3 Visco-3 0 03-20 00:00: 00 No 2.5mL [facility] Visco-3 Visco-3 0 03-20 00:00: 00 No 2.5mL [facility] Visco-3 Visco-3 0 03-20 00:00: 00 No 2.5mL [facility] Visco-3 Visco-3 2019-0 03-20 00:00: 00 No 2.5mL [facility] Visco-3 Visco-3 2019-0 03-20 00:00: 00 No 2.5mL [facility] Visco-3 Visco-3 2019-0 03-20 00:00: 00 No 2.5mL [facility] Visco-3 Visco-3 0 03-20 00:00: 00 No 2.5mL [facility] Visco-3 Visco-3 2019-0 03-20 00:00: 00 No 2.5mL [facility] Visco-3 Visco-3 2019-0 03-20 00:00: 00 No 2.5mL [facility] Visco-3 Visco-3 2019-0 03-20 00:00: 00 No 2.5mL [facility] Visco-3 Visco-3 2019-0 03-20 00:00: 00 No 2.5mL [facility] Visco-3 Visco-3 2019-0 03-20 00:00: 00 No 2.5mL [facility] Visco-3 Visco-3 2019-0 03-20 00:00: 00 No 2.5mL [facility] Visco-3 Visco-3 2019-0 03-20 00:00: 00 No 2.5mL [facility] Visco-3 Visco-3 2019-0 03-20 00:00: 00 No 2.5mL [facility] Visco-3 Visco-3 2019-0 03-20 00:00: 00 No [facility] Visco-3 Visco-3 2019-0 03-20 00:00: 00 No [facility] Visco-3 Visco-3 2019-0 03-20 00:00: 00 No 2.5mL [facility] Visco-3 Visco-3 2019-0 03-20 00:00: 00 No 2.5mL [facility] Visco-3 Visco-3 2019-0 03-20 00:00: 00 No 2.5mL [facility] Visco-3 Visco-3 2019-0 03-20 00:00: 00 No 2.5mL [facility] Visco-3 Visco-3 2019-0 03-20 00:00: 00 No 2.5mL [facility] Visco-3 Visco-3 2019-0 03-20 00:00: 00 No 2.5mL [facility] Visco-3 Visco-3 2019-0 03-20 00:00: 00 No 2.5mL [facility] Visco-3 Visco-3 2019-0 03-20 00:00: 00 No 2.5mL [facility] Visco-3 Visco-3 2019-0 03-15 00:00: 00 No 2.5mL [facility] Visco-3 Visco-3 2019-0 03-15 00:00: 00 No 2.5mL [facility] Visco-3 Visco-3 2019-0 03-15 00:00: 00 No 2.5mL [facility] Visco-3 Visco-3 2019-0 03-15 00:00: 00 No 2.5mL [facility] Visco-3 Visco-3 2020-0 724 00:00: 00 No 2.5mL [facility] Visco-3 Visco-3 2020-0 24 00:00: 00 No 2.5mL [facility] Visco-3 Visco-3 2020-0 24 00:00: 00 No 2.5mL [facility] Visco-3 Visco-3 2020-0 24 00:00: 00 No 2.5mL [facility] Visco-3 Visco-3 2020-0 24 00:00: 00 No 2.5mL [facility] Visco-3 Visco-3 2020-0 24 00:00: 00 No 2.5mL [facility] Visco-3 Visco-3 2020-0 24 00:00: 00 No 2.5mL [facility] Visco-3 Visco-3 2020-0 24 00:00: 00 No 2.5mL [facility] Visco-3 Visco-3 2020-0 24 00:00: 00 No 2.5mL [facility] Visco-3 Visco-3 2020-0 24 00:00: 00 No 2.5mL [facility] Visco-3 Visco-3 2020-0 24 00:00: 00 No 2.5mL [facility] Visco-3 Visco-3 2020-0 24 00:00: 00 No 2.5mL [facility] Visco-3 Visco-3 2020-0 724 00:00: 00 No [facility] Visco-3 Visco-3 2020-0 24 00:00: 00 No [facility] Visco-3 Visco-3 2020-0 24 00:00: 00 No 2.5mL [facility] Visco-3 Visco-3 2020-0 24 00:00: 00 No 2.5mL [facility] Visco-3 Visco-3 2019-0 24 00:00: 00 No 2.5mL [facility] Visco-3 Visco-3 2019-0 24 00:00: 00 No 2.5mL [facility] Visco-3 Visco-3 2019-0 24 00:00: 00 No 2.5mL [facility] Visco-3 Visco-3 2019-0 24 00:00: 00 No 2.5mL [facility] Visco-3 Visco-3 2019-0 24 00:00: 00 No 2.5mL [facility] Visco-3 Visco-3 2019-0 24 00:00: 00 No 2.5mL [facility] Bupivicaine [place]pa Bupivicaine Sapulpa 2019-0 15 00:00: 00 No 4mL [facility] Visco-3 Visco-3 2019-0 03-06 00:00: 00 No 2.5mL [facility] Bupivicaine [place] Bupivicaine Sapulpa 2019-0 15 00:00: 00 No 4mL [facility] Kenalog (Triamcinol one) Kenalog (Triamcinol one) 0 15 00:00: 00 No 40mg [facility] Visco-3 Visco-3 2019-0 15 00:00: 00 No 2.5mL [facility] Visco-3 Visco-3 2019-0 15 00:00: 00 No 2.5mL [facility] Bupivicaine [place] Bupivicaine Sapulpa 2019-0 15 00:00: 00 No 4mL [facility] Kenalog (Triamcinol one) Kenalog (Triamcinol one) 0 15 00:00: 00 No 40mg [facility] Kenalog (Triamcinol one) Kenalog (Triamcinol one) 0 15 00:00: 00 No 40mg [facility] Visco-3 Visco-3 2020-0 7-15 00:00: 00 No 2.5mL [facility] Bupivicaine [place] Bupivicaine Sapulpa 2019-0 7-15 00:00: 00 No 4mL [facility] Kenalog (Triamcinol one) Kenalog (Triamcinol one) 2019-0 7-15 00:00: 00 No 40mg [facility] Visco-3 Visco-3 2019-0 7-15 00:00: 00 No 2.5mL [facility] Bupivicaine [place] Bupivicaine Sapulpa 2019-0 7-15 00:00: 00 No 4mL [facility] Kenalog (Triamcinol one) Kenalog (Triamcinol one) 2019-0 7-15 00:00: 00 No 40mg [facility] Visco-3 Visco-3 2019-0 7-15 00:00: 00 No 2.5mL [facility] Bupivicaine [place] Bupivicaine Sapulpa 2019-0 7-15 00:00: 00 No 4mL [facility] Kenalog (Triamcinol one) Kenalog (Triamcinol one) 2019-0 7-15 00:00: 00 No 40mg [facility] Visco-3 Visco-3 2019-0 7-15 00:00: 00 No 2.5mL [facility] Bupivicaine [place] Bupivicaine Sapulpa 2019-0 7-15 00:00: 00 No 4mL [facility] Kenalog (Triamcinol one) Kenalog (Triamcinol one) 2019-0 7-15 00:00: 00 No 40mg [facility] Visco-3 Visco-3 2019-0 7-15 00:00: 00 No 2.5mL [facility] Bupivicaine [place] Bupivicaine Sapulpa 2019-0 7-15 00:00: 00 No 4mL [facility] Kenalog (Triamcinol one) Kenalog (Triamcinol one) 2019-0 7-15 00:00: 00 No 40mg [facility] Visco-3 Visco-3 2019-0 7-15 00:00: 00 No 2.5mL [facility] Bupivicaine [place] Bupivicaine Sapulpa 2019-0 7-15 00:00: 00 No 4mL [facility] Kenalog (Triamcinol one) Kenalog (Triamcinol one) 2019-0 7-15 00:00: 00 No 40mg [facility] Bupivicaine [place] Bupivicaine Sapulpa 2019-0 7-15 00:00: 00 No 4mL [facility] Visco-3 Visco-3 2019-0 7-15 00:00: 00 No 2.5mL [facility] Bupivicaine [place] Bupivicaine Sapulpa 2019-0 7-15 00:00: 00 No 4mL [facility] Kenalog (Triamcinol one) Kenalog (Triamcinol one) 2019-0 7-15 00:00: 00 No 40mg [facility] Visco-3 Visco-3 2019-0 7-15 00:00: 00 No 2.5mL [facility] Kenalog (Triamcinol one) Kenalog (Triamcinol one) 2019-0 7-15 00:00: 00 No 40mg [facility] Bupivicaine [place] Bupivicaine Sapulpa 2019-0 7-15 00:00: 00 No 4mL [facility] Kenalog (Triamcinol one) Kenalog (Triamcinol one) 2019-0 7-15 00:00: 00 No 40mg [facility] Visco-3 Visco-3 2019-0 7-15 00:00: 00 No 2.5mL [facility] Bupivicaine [place] Bupivicaine Sapulpa 2019-0 7-15 00:00: 00 No 4mL [facility] Kenalog (Triamcinol one) Kenalog (Triamcinol one) 2019-0 -15 00:00: 00 No 40mg [facility] Visco-3 Visco-3 2019-0 7-15 00:00: 00 No 2.5mL [facility] Bupivicaine [place] Bupivicaine Sapulpa 2019-0 15 00:00: 00 No 4mL [facility] Kenalog (Triamcinol one) Kenalog (Triamcinol one) 0 -15 00:00: 00 No 40mg [facility] Visco-3 Visco-3 2019-0 15 00:00: 00 No 2.5mL [facility] Bupivicaine [place] Bupivicaine Sapulpa 2019-0 15 00:00: 00 No 4mL [facility] Kenalog (Triamcinol one) Kenalog (Triamcinol one) 0 -15 00:00: 00 No 40mg [facility] Visco-3 Visco-3 0 15 00:00: 00 No 2.5mL [facility] Bupivicaine [place]pa Bupivicaine Sapulpa 2019-0 15 00:00: 00 No 4mL [facility] Kenalog (Triamcinol one) Kenalog (Triamcinol one) 0 15 00:00: 00 No 40mg [facility] Visco-3 Visco-3 2019-0 715 00:00: 00 No 2.5mL [facility] Bupivicaine [place] Bupivicaine Sapulpa 2019-0 15 00:00: 00 No 4mL [facility] Visco-3 Visco-3 2019-0 7-15 00:00: 00 No [facility] Kenalog (Triamcinol one) Kenalog (Triamcinol one) 0 15 00:00: 00 No 40mg [facility] Bupivicaine [place] Bupivicaine Sapulpa 2019-0 7-15 00:00: 00 No 4mL [facility] Visco-3 Visco-3 2019-0 7-15 00:00: 00 No [facility] Kenalog (Triamcinol one) Kenalog (Triamcinol one) 2019-0 7-15 00:00: 00 No 40mg [facility] Bupivicaine [place] Bupivicaine Sapulpa 2019-0 7-15 00:00: 00 No 4mL [facility] Bupivicaine [place] Bupivicaine Sapulpa 2019-0 7-15 00:00: 00 No 4mL [facility] Visco-3 Visco-3 2019-0 7-15 00:00: 00 No 2.5mL [facility] Visco-3 Visco-3 2019-0 15 00:00: 00 No 2.5mL [facility] Kenalog (Triamcinol one) Kenalog (Triamcinol one) 2019-0 7-15 00:00: 00 No 40mg [facility] Bupivicaine [place] Bupivicaine Sapulpa 2019-0 15 00:00: 00 No 4mL [facility] Visco-3 Visco-3 2019-0 715 00:00: 00 No 2.5mL [facility] Kenalog (Triamcinol one) Kenalog (Triamcinol one) 2019-0 7-15 00:00: 00 No 40mg [facility] Kenalog (Triamcinol one) Kenalog (Triamcinol one) 2019-0 7-15 00:00: 00 No 40mg [facility] Bupivicaine [place] Bupivicaine Sapulpa 2019-0 7-15 00:00: 00 No 4mL [facility] Visco-3 Visco-3 2019-0 7-15 00:00: 00 No 2.5mL [facility] Kenalog (Triamcinol one) Kenalog (Triamcinol one) 2019-0 7-15 00:00: 00 No 40mg [facility] Bupivicaine [place] Bupivicaine Sapulpa 2019-0 7-15 00:00: 00 No 4mL [facility] Kenalog (Triamcinol one) Kenalog (Triamcinol one) 2019-0 7-15 00:00: 00 No 40mg [facility] Visco-3 Visco-3 2019-0 7-15 00:00: 00 No 2.5mL [facility] Visco-3 Visco-3 2019-0 7-15 00:00: 00 No 2.5mL [facility] Bupivicaine [place] Bupivicaine Sapulpa 2019-0 -15 00:00: 00 No 4mL [facility] Kenalog (Triamcinol one) Kenalog (Triamcinol one) 0 7-15 00:00: 00 No 40mg [facility] Visco-3 Visco-3 2019-0 7-15 00:00: 00 No 2.5mL [facility] Bupivicaine [place] Bupivicaine Sapulpa 2019-0 -15 00:00: 00 No 4mL [facility] Kenalog (Triamcinol one) Kenalog (Triamcinol one) 2019-0 7-15 00:00: 00 No 40mg [facility] Bupivicaine [place] Bupivicaine Sapulpa 2019-0 -15 00:00: 00 No 4mL [facility] Visco-3 Visco-3 2019-0 15 00:00: 00 No 2.5mL [facility] Kenalog (Triamcinol one) Kenalog (Triamcinol one) 0 7-15 00:00: 00 No 40mg [facility] Bupivicaine [place]pa Bupivicaine Sapulpa 2019-0 5-12 00:00: 00 No 4mL [facility] Kenalog (Triamcinol one) Kenalog (Triamcinol one) 2019-0 5-12 00:00: 00 No 40mg [facility] Bupivicaine [place] Bupivicaine Sapulpa 2019-0 5-12 00:00: 00 No 4mL [facility] Kenalog (Triamcinol one) Kenalog (Triamcinol one) 2019-0 5-12 00:00: 00 No 40mg [facility] Bupivicaine [place]pa Bupivicaine Sapulpa 2019-0 5-12 00:00: 00 No 4mL [facility] Bupivicaine [place] Bupivicaine Sapulpa 2019-0 5-12 00:00: 00 No 4mL [facility] Kenalog (Triamcinol one) Kenalog (Triamcinol one) 2019-0 5-12 00:00: 00 No 40mg [facility] Kenalog (Triamcinol one) Kenalog (Triamcinol one) 2019-0 5-12 00:00: 00 No 40mg [facility] Bupivicaine [place] Bupivicaine Sapulpa 2019-0 5-12 00:00: 00 No 4mL [facility] Kenalog (Triamcinol one) Kenalog (Triamcinol one) 2019-0 5-12 00:00: 00 No 40mg [facility] Bupivicaine [place] Bupivicaine Sapulpa 2019-0 5-12 00:00: 00 No 4mL [facility] Kenalog (Triamcinol one) Kenalog (Triamcinol one) 2019-0 5-12 00:00: 00 No 40mg [facility] Bupivicaine [place] Bupivicaine Sapulpa 2019-0 5-12 00:00: 00 No 4mL [facility] Kenalog (Triamcinol one) Kenalog (Triamcinol one) 2019-0 5-12 00:00: 00 No 40mg [facility] Bupivicaine [place] Bupivicaine Sapulpa 2019-0 5-12 00:00: 00 No 4mL [facility] Kenalog (Triamcinol one) Kenalog (Triamcinol one) 2019-0 5-12 00:00: 00 No 40mg [facility] Bupivicaine [place] Bupivicaine Sapulpa 2019-0 5-12 00:00: 00 No 4mL [facility] Kenalog (Triamcinol one) Kenalog (Triamcinol one) 2019-0 5-12 00:00: 00 No 40mg [facility] Kenalog (Triamcinol one) Kenalog (Triamcinol one) 2019-0 5-12 00:00: 00 No 40mg [facility] Bupivicaine [place]pa Bupivicaine Sapulpa 2019-0 5-12 00:00: 00 No 4mL [facility] Bupivicaine [place] Bupivicaine Sapulpa 2019-0 5-12 00:00: 00 No 4mL [facility] Kenalog (Triamcinol one) Kenalog (Triamcinol one) 2019-0 5-12 00:00: 00 No 40mg [facility] Bupivicaine [place]pa Bupivicaine Sapulpa 2019-0 5-12 00:00: 00 No 4mL [facility] Kenalog (Triamcinol one) Kenalog (Triamcinol one) 2019-0 5-12 00:00: 00 No 40mg [facility] Kenalog (Triamcinol one) Kenalog (Triamcinol one) 2019-0 5-12 00:00: 00 No 40mg [facility] Bupivicaine [place]pa Bupivicaine Sapulpa 2019-0 5-12 00:00: 00 No 4mL [facility] Kenalog (Triamcinol one) Kenalog (Triamcinol one) 2019-0 5-12 00:00: 00 No 40mg [facility] Bupivicaine [place] Bupivicaine Sapulpa 2020-0 5-12 00:00: 00 No 4mL [facility] Kenalog (Triamcinol one) Kenalog (Triamcinol one) 2019-0 5-12 00:00: 00 No 40[facility] Bupivicaine [place] Bupivicaine Sapulpa 2020-0 5-12 00:00: 00 No 4mL [facility] Kenalog (Triamcinol one) Kenalog (Triamcinol one) 2019-0 5-12 00:00: 00 No 40[facility] Bupivicaine [place] Bupivicaine Sapulpa 2020-0 5-12 00:00: 00 No 4mL [facility] Bupivicaine [place] Bupivicaine Sapulpa 2019-0 5-12 00:00: 00 No 4mL [facility] Kenalog (Triamcinol one) Kenalog (Triamcinol one) 2019-0 5-12 00:00: 00 No 40[facility] Bupivicaine [place] Bupivicaine Sapulpa 2019-0 5-12 00:00: 00 No 4mL [facility] Kenalog (Triamcinol one) Kenalog (Triamcinol one) 2019-0 5-12 00:00: 00 No 40mg [facility] Bupivicaine [place] Bupivicaine Sapulpa 2019-0 5-12 00:00: 00 No 4mL [facility] Kenalog (Triamcinol one) Kenalog (Triamcinol one) 2019-0 5-12 00:00: 00 No 40mg [facility] Bupivicaine [place] Bupivicaine Sapulpa 2020-0 5-12 00:00: 00 No 4mL [facility] Kenalog (Triamcinol one) Kenalog (Triamcinol one) 2019-0 5-12 00:00: 00 No 40mg [facility] Bupivicaine [place] Bupivicaine S[place]pa 2020-0 5-12 00:00: 00 No 4mL [facility] Bupivicaine [place] Bupivicaine [place]pa 2020-0 5-12 00:00: 00 No 4mL [facility] Kenalog (Triamcinol one) Kenalog (Triamcinol one) 2019-0 5-12 00:00: 00 No 40mg [facility] Kenalog (Triamcinol one) Kenalog (Triamcinol one) 2020-0 5-12 00:00: 00 No 40mg [facility] Kenalog (Triamcinol one) Kenalog (Triamcinol one) 2019-0 5-12 00:00: 00 No 40mg [facility] Bupivicaine [place] Bupivicaine S[place]pa 2019-0 5-12 00:00: 00 No 4mL [facility] Bupivicaine [place] Bupivicaine [place]pa 2019-0 5-12 00:00: 00 No 4mL [facility] Kenalog (Triamcinol one) Kenalog (Triamcinol one) 2019-0 5-12 00:00: 00 No 40mg [facility] Bupivicaine [place] Bupivicaine [place]pa 2019-0 5-12 00:00: 00 No 4mL [facility] Kenalog (Triamcinol one) Kenalog (Triamcinol one) 2019-0 5-12 00:00: 00 No 40mg [facility] Bupivicaine [place] Bupivicaine [place]pa 2019-0 5-12 00:00: 00 No 4mL [facility] Kenalog (Triamcinol one) Kenalog (Triamcinol one) 2019-0 5-12 00:00: 00 No 40mg [facility] Orthovisc Orthovisc 2020-0 1-02 00:00: 00 No 2mL [facility] Orthovisc Orthovisc 2020-0 1-02 00:00: 00 No 2mL [facility] Orthovisc Orthovisc 2020-0 1-02 00:00: 00 No 2mL [facility] Orthovisc Orthovisc 2020-0 1-02 00:00: 00 No 2mL [facility] Orthovisc Orthovisc 2020-0 1-02 00:00: 00 No 2mL [facility] Orthovisc Orthovisc 2020-0 1-02 00:00: 00 No 2mL [facility] Orthovisc Orthovisc 2020-0 1-02 00:00: 00 No 2mL [facility] Orthovisc Orthovisc 2020-0 1-02 00:00: 00 No 2mL [facility] Orth[facility] Orthovisc 2020-0 1-02 00:00: 00 No 2mL [facility] Orthovisc 2020-0 1-02 00:00: 00 No 2mL [facility] Orthovisc 2020-0 1-02 00:00: 00 No 2mL [facility] Orthovisc 2020-0 1-02 00:00: 00 No 2mL [facility] Orthovisc 2020-0 1-02 00:00: 00 No 2mL [facility] Orthovisc 2020-0 1-02 00:00: 00 No 2mL [facility] Orthovisc 2020-0 1-02 00:00: 00 No 2mL [facility] Orth[facility]isc 2020-0 1-02 00:00: 00 No 2mL [facility] Orth[facility]isc 2020-0 1-02 00:00: 00 No 2mL [facility] Orthovisc 2020-0 1-02 00:00: 00 No 2mL [facility] Orth[facility]isc 2020-0 1-02 00:00: 00 No 2mL [facility] Orth[facility]isc 2020-0 1-02 00:00: 00 No 2mL [facility] Orthovisc 2020-0 1-02 00:00: 00 No 2mL [facility] Orthovisc 2020-0 1-02 00:00: 00 No 2mL [facility] Orthovisc 2020-0 1-02 00:00: 00 No 2mL [facility] Orth[facility]isc 2020-0 1-02 00:00: 00 No 2mL [facility] Orth[facility]isc 2019-0 1-02 00:00: 00 No 2mL [facility] Orthovisc 2019-0 1-02 00:00: 00 No 2mL [facility] Orth[facility]isc 2019-1 2-19 00:00: 00 No 2mL [facility] Orth[facility]isc 2019-1 2-19 00:00: 00 No 2mL [facility] Orth[facility]isc 2019-1 2-19 00:00: 00 No 2mL [facility] Orth[facility]isc 2019-1 2-19 00:00: 00 No 2mL [facility] Orth[facility]isc 2019-1 2-19 00:00: 00 No 2mL [facility] Orth[facility]isc 2019-1 2-19 00:00: 00 No 2mL [facility] Orth[facility] 2019-1 2-19 00:00: 00 No 2mL [facility] Orth[facility] 2019-1 2-19 00:00: 00 No 2mL [facility] Orth[facility] 2019-1 2-19 00:00: 00 No 2mL [facility] Orth[facility] 2019-1 2-19 00:00: 00 No 2mL [facility] Orth[facility] 2019-1 2-19 00:00: 00 No 2mL [facility] Orth[facility] 2019-1 2-19 00:00: 00 No 2mL [facility] Orth[facility]isc 2019-1 2-19 00:00: 00 No 2mL [facility] Orth[facility]isc 2019-1 2-19 00:00: 00 No 2mL [facility] Orth[facility]isc 2019-1 2-19 00:00: 00 No 2mL [facility] Orth[facility]isc 2018-1 2-19 00:00: 00 No 2mL [facility] Orthovisc 2018-1 2- 00:00: 00 No 2mL [facility] Orth[facility]isc 2018-1 2- 00:00: 00 No 2mL [facility] Orth[facility] 2018-1 2- 00:00: 00 No 2mL [facility] Orth[facility] 1 2 00:00: 00 No 2mL [facility] Orth[facility]isc 2018-1 2 00:00: 00 No 2mL [facility] Orth[facility]isc 2018-1 2 00:00: 00 No 2mL [facility] Orth[facility]isc 2018-1 2- 00:00: 00 No 2mL [facility] Orth[facility]isc 2018- 2 00:00: 00 No 2mL [facility] Orth[facility]isc 2018-1 2- 00:00: 00 No 2mL [facility] Orth[facility]isc 2018- 2- 00:00: 00 No 2mL [facility]og ([facility] Kenalog (Triamcinol one) 2018-08 2- 00:00: 00 No 1mL [facility] LIDOCAINE HCL 10MG/ML LIDOCAINE HCL 10MG/ML 2018- 2-10 00:00: 00 No 4mL [facility] Orthovisc 2018- 2- 00:00: 00 No 2mL [facility] Kenalog (Triamcinol one) Kenalog (Triamcinol one) 2018-08 2- 00:00: 00 No 1mL [facility] LIDOCAINE HCL 10MG/ML LIDOCAINE HCL 10MG/ML 2018-08 2-10 00:00: 00 No 4mL [facility] Orthovisc 2018-08 2 00:00: 00 No 2mL [facility] Kenalog (Triamcinol one) Kenalog (Triamcinol one) 2018-08 2- 00:00: 00 No 1mL [facility] LIDOCAINE HCL 10MG/ML LIDOCAINE HCL 10MG/ML 2018-08 00:00: 00 No 4mL [facility] Orthovisc 2018-08 00:00: 00 No 2mL [facility] LIDOCAINE HCL 10MG/ML LIDOCAINE HCL 10MG/ML 2018-08 00:00: 00 No 4mL [facility] Kenalog (Triamcinol one) Kenalog (Triamcinol one) 2018-08 00:00: 00 No 1mL [facility] Orthovisc 2018-08 00:00: 00 No 2mL [facility] LIDOCAINE HCL 10MG/ML LIDOCAINE HCL 10MG/ML 2018-08 00:00: 00 No 4mL [facility] Orthovisc 2018-08 00:00: 00 No 2mL [facility] Kenalog (Triamcinol one) Kenalog (Triamcinol one) 2018-08 2- 00:00: 00 No 1mL [facility] LIDOCAINE HCL 10MG/ML LIDOCAINE HCL 10MG/ML 2018-08 00:00: 00 No 4mL [facility] Orthovisc 2018-08 00:00: 00 No 2mL [facility] Kenalog (Triamcinol one) Kenalog (Triamcinol one) 2018-08 2- 00:00: 00 No 1mL [facility] LIDOCAINE HCL 10MG/ML LIDOCAINE HCL 10MG/ML 2018-08- 00:00: 00 No 4mL [facility] Orthovisc 2018-08 2-10 00:00: 00 No 2mL [facility] Kenalog (Triamcinol one) Kenalog (Triamcinol one) 2018-08 2- 00:00: 00 No 1mL [facility] LIDOCAINE HCL 10MG/ML LIDOCAINE HCL 10MG/ML 2018-08 2- 00:00: 00 No 4mL [facility] Orthovisc 2018-08 2 00:00: 00 No 2mL [facility] Kenalog (Triamcinol one) Kenalog (Triamcinol one) 2018-08 00:00: 00 No 1mL [facility] Kenalog (Triamcinol one) Kenalog (Triamcinol one) 2018-08 2 00:00: 00 No 1mL [facility] LIDOCAINE HCL 10MG/ML LIDOCAINE HCL 10MG/ML 2018-08 00:00: 00 No 4mL [facility] Orthovisc 2018-08 00:00: 00 No 2mL [facility] Kenalog (Triamcinol one) Kenalog (Triamcinol one) 2018-08- 00:00: 00 No 1mL [facility] Orthovisc 2018-08 2- 00:00: 00 No 2mL [facility] LIDOCAINE HCL 10MG/ML LIDOCAINE HCL 10MG/ML 2018-08 2- 00:00: 00 No 4mL [facility] Kenalog (Triamcinol one) Kenalog (Triamcinol one) 2018-08 2- 00:00: 00 No 1mL [facility] Orth[facility] 2018-08 2- 00:00: 00 No 2mL [facility] LIDOCAINE HCL 10MG/ML LIDOCAINE HCL 10MG/ML 2018-08 2- 00:00: 00 No 4mL [facility] LIDOCAINE HCL 10MG/ML LIDOCAINE HCL 10MG/ML 2018-08 2-10 00:00: 00 No 4mL [facility] Orth[facility]isc 2018-08 2-10 00:00: 00 No 2mL [facility] Kenalog (Triamcinol one) Kenalog (Triamcinol one) 2018-08 2-10 00:00: 00 No 1mL [facility] Orth[facility] 2018-08 2- 00:00: 00 No 2mL [facility] LIDOCAINE HCL 10MG/ML LIDOCAINE HCL 10MG/ML 2018-08 2-10 00:00: 00 No 4mL [facility] Kenalog (Triamcinol one) Kenalog (Triamcinol one) 2018-08 2- 00:00: 00 No 1mL [facility] Orthovisc 2018-08 2- 00:00: 00 No 2mL [facility] LIDOCAINE HCL 10MG/ML LIDOCAINE HCL 10MG/ML 2018-08- 00:00: 00 No 4mL [facility] Kenalog (Triamcinol one) Kenalog (Triamcinol one) 2018-08 2-10 00:00: 00 No 1mL [facility] Orthovisc 2018-08 2-10 00:00: 00 No 2mL [facility] LIDOCAINE HCL 10MG/ML LIDOCAINE HCL 10MG/ML 2018-08 2- 00:00: 00 No 4mL [facility] Kenalog (Triamcinol one) Kenalog (Triamcinol one) 2018-08 2-10 00:00: 00 No 1mL [facility] Orth[facility] 2018-08 2-10 00:00: 00 No 2mL [facility] LIDOCAINE HCL 10MG/ML LIDOCAINE HCL 10MG/ML 2018-08 2-10 00:00: 00 No 4mL [facility] Kenalog (Triamcinol one) Kenalog (Triamcinol one) 2018-08 2- 00:00: 00 No 1mL [facility] LIDOCAINE HCL 10MG/ML LIDOCAINE HCL 10MG/ML 2018-08 2 00:00: 00 No 4mL [facility] Orth[facility]isc 2018-08 00:00: 00 No 2mL [facility] Kenalog (Triamcinol one) Kenalog (Triamcinol one) 2018-08 2 00:00: 00 No 1mL [facility] LIDOCAINE HCL 10MG/ML LIDOCAINE HCL 10MG/ML 2018-08 00:00: 00 No 4mL [facility] Orthovisc 2018-08 00:00: 00 No 2mL [facility] Kenalog (Triamcinol one) Kenalog (Triamcinol one) 2018-08 00:00: 00 No 1mL [facility] Kenalog (Triamcinol one) Kenalog (Triamcinol one) 2018-08 00:00: 00 No 1mL [facility] LIDOCAINE HCL 10MG/ML LIDOCAINE HCL 10MG/ML 2018-08 00:00: 00 No 4mL [facility] Orthovisc 2018-08 00:00: 00 No 2mL [facility] Kenalog (Triamcinol one) Kenalog (Triamcinol one) 2018-08- 00:00: 00 No 1mL [facility] LIDOCAINE HCL 10MG/ML LIDOCAINE HCL 10MG/ML 2018-08 210 00:00: 00 No 4mL [facility] Orth[facility]isc 2018-08 00:00: 00 No 2mL [facility] Kenalog (Triamcinol one) Kenalog (Triamcinol one) 2018-08 2- 00:00: 00 No 1mL [facility] LIDOCAINE HCL 10MG/ML LIDOCAINE HCL 10MG/ML 2018-08 2-10 00:00: 00 No 4mL [facility] LIDOCAINE HCL 10MG/ML LIDOCAINE HCL 10MG/ML 2018-08 2- 00:00: 00 No 4mL [facility] Orth[facility] 2018-08 2 00:00: 00 No 2mL [facility] 2018-08 2 00:00: 00 No 2mL [facility] Kenalog (Triamcinol one) Kenalog (Triamcinol one) 2018-08 2 00:00: 00 No 1mL [facility] Orth[facility] 2018-08 00:00: 00 No 2mL [facility] LIDOCAINE HCL 10MG/ML LIDOCAINE HCL 10MG/ML 2018-08 00:00: 00 No 4mL [facility] Kenalog (Triamcinol one) Kenalog (Triamcinol one) 2018-08- 00:00: 00 No 1mL [facility] LIDOCAINE HCL 10MG/ML LIDOCAINE HCL 10MG/ML 2018-08 00:00: 00 No 4mL [facility] 2018-08 00:00: 00 No 2mL [facility] Kenalog (Triamcinol one) Kenalog (Triamcinol one) 2018-08 2- 00:00: 00 No 1mL [facility] LIDOCAINE HCL 10MG/ML LIDOCAINE HCL 10MG/ML 2018-08- 00:00: 00 No 4mL [facility] Orth[facility] 2018-08 00:00: 00 No 2mL [facility] Kenalog (Triamcinol one) Kenalog (Triamcinol one) 2018-08 2- 00:00: 00 No 1mL [facility] Orth[facility] 2018-08 2- 00:00: 00 No 2mL [facility] Kenalog (Triamcinol one) Kenalog (Triamcinol one) 2018-08 2-10 00:00: 00 No 1mL [facility] LIDOCAINE HCL 10MG/ML LIDOCAINE HCL 10MG/ML 2018-08 2-10 00:00: 00 No 4mL [facility] LIDOCAINE HCL 10MG/ML LIDOCAINE HCL 10MG/ML 2018-08 0-03 00:00: 00 No 5mL [facility] Kenalog (Triamcinol one) Kenalog (Triamcinol one) 2018-08 0-03 00:00: 00 No 1mL [facility] LIDOCAINE HCL 10MG/ML LIDOCAINE HCL 10MG/ML 2018-08 0-03 00:00: 00 No 5mL [facility] Kenalog (Triamcinol one) Kenalog (Triamcinol one) 2018-08 0-03 00:00: 00 No 1mL [facility] LIDOCAINE HCL 10MG/ML LIDOCAINE HCL 10MG/ML 2018-08 0-03 00:00: 00 No 5mL [facility] Kenalog (Triamcinol one) Kenalog (Triamcinol one) 2018-08 0-03 00:00: 00 No 1mL [facility] LIDOCAINE HCL 10MG/ML LIDOCAINE HCL 10MG/ML 2018-08 0-03 00:00: 00 No 5mL [facility] Tramadol HCl Tramadol HCl 2018-08 0-03 00:00: 00 Yes Vaughn Cobb 1 tablet as needed [facility] Kenalog (Triamcinol one) Kenalog (Triamcinol one) 2018-08 0-03 00:00: 00 No 1mL [facility] Kenalog (Triamcinol one) Kenalog (Triamcinol one) 2018-08 0-03 00:00: 00 No 1mL [facility] LIDOCAINE HCL 10MG/ML LIDOCAINE HCL 10MG/ML 2018-08 0-03 00:00: 00 No 5mL [facility] LIDOCAINE HCL 10MG/ML LIDOCAINE HCL 10MG/ML 2018-08 0-03 00:00: 00 No 5mL [facility] Kenalog (Triamcinol one) Kenalog (Triamcinol one) 2018-08 0-03 00:00: 00 No 1mL [facility] LIDOCAINE HCL 10MG/ML LIDOCAINE HCL 10MG/ML 2018-08 003 00:00: 00 No 5mL [facility] Kenalog (Triamcinol one) Kenalog (Triamcinol one) 2018-08 003 00:00: 00 No 1mL [facility] LIDOCAINE HCL 10MG/ML LIDOCAINE HCL 10MG/ML 2018-08 003 00:00: 00 No 5mL [facility] Kenalog (Triamcinol one) Kenalog (Triamcinol one) 2018-08 003 00:00: 00 No 1mL [facility] LIDOCAINE HCL 10MG/ML LIDOCAINE HCL 10MG/ML 2018-08 003 00:00: 00 No 5mL [facility] Kenalog (Triamcinol one) Kenalog (Triamcinol one) 2018-08 003 00:00: 00 No 1mL [facility] LIDOCAINE HCL 10MG/ML LIDOCAINE HCL 10MG/ML 2018-08 003 00:00: 00 No 5mL [facility] Kenalog (Triamcinol one) Kenalog (Triamcinol one) 2018-08 003 00:00: 00 No 1mL [facility] LIDOCAINE HCL 10MG/ML LIDOCAINE HCL 10MG/ML 2018-08 003 00:00: 00 No 5mL [facility] Kenalog (Triamcinol one) Kenalog (Triamcinol one) 2018-08 0-03 00:00: 00 No 1mL [facility] LIDOCAINE HCL 10MG/ML LIDOCAINE HCL 10MG/ML 2018-08 0-03 00:00: 00 No 5mL [facility] Kenalog (Triamcinol one) Kenalog (Triamcinol one) 2018-08 0-03 00:00: 00 No 1mL [facility] LIDOCAINE HCL 10MG/ML LIDOCAINE HCL 10MG/ML 2018-08 003 00:00: 00 No 5mL [facility] Kenalog (Triamcinol one) Kenalog (Triamcinol one) 2018-08 0-03 00:00: 00 No 1mL [facility] LIDOCAINE HCL 10MG/ML LIDOCAINE HCL 10MG/ML 2018-08 003 00:00: 00 No 5mL [facility] Kenalog (Triamcinol one) Kenalog (Triamcinol one) 2018-08 003 00:00: 00 No 1mL [facility] LIDOCAINE HCL 10MG/ML LIDOCAINE HCL 10MG/ML 2018-08 0 00:00: 00 No 5mL [facility] Kenalog (Triamcinol one) Kenalog (Triamcinol one) 2018-08 003 00:00: 00 No 1mL [facility] LIDOCAINE HCL 10MG/ML LIDOCAINE HCL 10MG/ML 2018-08 003 00:00: 00 No 5mL [facility] Kenalog (Triamcinol one) Kenalog (Triamcinol one) 2018-08 0-03 00:00: 00 No 1mL [facility] LIDOCAINE HCL 10MG/ML LIDOCAINE HCL 10MG/ML 2018-08 003 00:00: 00 No 5mL [facility] Kenalog (Triamcinol one) Kenalog (Triamcinol one) 2018-08 003 00:00: 00 No 1mL [facility] LIDOCAINE HCL 10MG/ML LIDOCAINE HCL 10MG/ML 2018-08 0-03 00:00: 00 No 5mL [facility] Kenalog (Triamcinol one) Kenalog (Triamcinol one) 2018-08 0-03 00:00: 00 No 1mL [facility] LIDOCAINE HCL 10MG/ML LIDOCAINE HCL 10MG/ML 2018-08 003 00:00: 00 No 5mL [facility] Kenalog (Triamcinol one) Kenalog (Triamcinol one) 2018-08 003 00:00: 00 No 1mL [facility] LIDOCAINE HCL 10MG/ML LIDOCAINE HCL 10MG/ML 2018-08 0-03 00:00: 00 No 5mL [facility] Kenalog (Triamcinol one) Kenalog (Triamcinol one) 2018-08 003 00:00: 00 No 1mL [facility] LIDOCAINE HCL 10MG/ML LIDOCAINE HCL 10MG/ML 2018-08 003 00:00: 00 No 5mL [facility] Kenalog (Triamcinol one) Kenalog (Triamcinol one) 2018-08 003 00:00: 00 No 1mL [facility] LIDOCAINE HCL 10MG/ML LIDOCAINE HCL 10MG/ML 2018-08 003 00:00: 00 No 5mL [facility] Kenalog (Triamcinol one) Kenalog (Triamcinol one) 2018-08 003 00:00: 00 No 1mL [facility] LIDOCAINE HCL 10MG/ML LIDOCAINE HCL 10MG/ML 2018-08 003 00:00: 00 No 5mL [facility] Kenalog (Triamcinol one) Kenalog (Triamcinol one) 2018-08 0-03 00:00: 00 No 1mL [facility] LIDOCAINE HCL 10MG/ML LIDOCAINE HCL 10MG/ML 2018-08 0-03 00:00: 00 No 5mL [facility] Kenalog (Triamcinol one) Kenalog (Triamcinol one) 2018-08 0-03 00:00: 00 No 1mL [facility] LIDOCAINE HCL 10MG/ML LIDOCAINE HCL 10MG/ML 2018-08 0-03 00:00: 00 No 5mL [facility] Kenalog (Triamcinol one) Kenalog (Triamcinol one) 2018-08 0-03 00:00: 00 No 1mL [facility] LIDOCAINE HCL 10MG/ML LIDOCAINE HCL 10MG/ML 2018-08 0-03 00:00: 00 No 5mL [facility] Kenalog (Triamcinol one) Kenalog (Triamcinol one) 2018-08 0-03 00:00: 00 No 1mL [facility] Orth[facility] 0 01-17 00:00: 00 No 1mg [facility] Orth[facility] 0 01-17 00:00: 00 No 1mg [facility] Orth[facility]isc 0 01-17 00:00: 00 No 1mg [facility] Orth[facility] 0 01-17 00:00: 00 No 1mg [facility] Orth[facility] 0 01-17 00:00: 00 No 1mg [facility] Orth[facility]isc 0 01-17 00:00: 00 No 1mg [facility] Orth[facility] 0 01-17 00:00: 00 No 1mg [facility] Orth[facility] 0 01-17 00:00: 00 No 1mg [facility] Orthovisc 01-17 00:00: 00 No 1mg [facility] Orth[facility] 0 01-17 00:00: 00 No 1mg [facility] Orth[facility] 0 01-17 00:00: 00 No 1mg [facility] 0 01-17 00:00: 00 No 1mg [facility] 0 01-17 00:00: 00 No 1mg [facility] 0 01-17 00:00: 00 No 1mg [facility] Orth[facility] 0 01-17 00:00: 00 No 1mg [facility] 0 01-17 00:00: 00 No 1mg [facility] Orth[facility] 0 01-17 00:00: 00 No 1mg [facility] Orth[facility] 0 01-17 00:00: 00 No 1mg [facility] 0 01-17 00:00: 00 No 1mg [facility] 0 01-17 00:00: 00 No 1mg [facility] 0 01-17 00:00: 00 No 1mg [facility] 0 01-17 00:00: 00 No 1mg [facility] 0 01-17 00:00: 00 No 1mg [facility] 0 01-17 00:00: 00 No 1mg [facility] 0 01-17 00:00: 00 No 1mg [facility] 0 01-17 00:00: 00 No 1mg [facility] Orth[facility]isc 0 01-06 00:00: 00 No 2mL [facility] Orth[facility] 0 01-06 00:00: 00 No 2mL [facility] Orth[facility]isc 0 01-06 00:00: 00 No 2mL [facility] Orth[facility] 0 01-06 00:00: 00 No 2mL [facility] Orth[facility] 0 01-06 00:00: 00 No 2mL [facility] Orth[facility] 0 5-17 00:00: 00 No 2mL [facility] 2019-0 5-17 00:00: 00 No 2mL [facility] 2019-0 5-17 00:00: 00 No 2mL [facility] Orth[facility]isc 2019-0 5-17 00:00: 00 No 2mL [facility] 2019-0 5-17 00:00: 00 No 2mL [facility] 2019-0 5-17 00:00: 00 No 2mL [facility] 2018-0 5-17 00:00: 00 No 2mL [facility] 2019-0 5-17 00:00: 00 No 2mL [facility] 2019-0 5-17 00:00: 00 No 2mL [facility] 2019-0 5-17 00:00: 00 No 2mL [facility] 2019-0 5-17 00:00: 00 No 2mL [facility] 2019-0 5-17 00:00: 00 No 2mL [facility] 2019-0 5-17 00:00: 00 No 2mL [facility] 2019-0 5-17 00:00: 00 No 2mL [facility] 2019-0 5-17 00:00: 00 No 2mL [facility] 2019-0 5-17 00:00: 00 No 2mL [facility] 2019-0 5-17 00:00: 00 No 2mL [facility] 2019-0 5-17 00:00: 00 No 2mL [facility] 0 5-17 00:00: 00 No 2mL [facility] 0 5-17 00:00: 00 No 2mL [facility] 0 5-17 00:00: 00 No 2mL [facility] LIDOCAINE HCL 10MG/ML LIDOCAINE HCL 10MG/ML 0 5-10 00:00: 00 No 10mg [facility] 0 5-10 00:00: 00 No 1mg [facility] Kenalog (Triamcinol one) Kenalog (Triamcinol one) 0 5-10 00:00: 00 No 40mg [facility] 0 5-10 00:00: 00 No 1mg [facility] LIDOCAINE HCL 10MG/ML LIDOCAINE HCL 10MG/ML 0 5-10 00:00: 00 No 10mg [facility] 0 5-10 00:00: 00 No 1mg [facility] Kenalog (Triamcinol one) Kenalog (Triamcinol one) 0 5-10 00:00: 00 No 40mg [facility] Kenalog (Triamcinol one) Kenalog (Triamcinol one) 0 5-10 00:00: 00 No 40mg [facility] LIDOCAINE HCL 10MG/ML LIDOCAINE HCL 10MG/ML 0 5-10 00:00: 00 No 10mg [facility] Orth[facility] 0 5-10 00:00: 00 No 1mg [facility] Kenalog (Triamcinol one) Kenalog (Triamcinol one) 0 5-10 00:00: 00 No 40mg [facility] LIDOCAINE HCL 10MG/ML LIDOCAINE HCL 10MG/ML 0 5-10 00:00: 00 No 10mg [facility] LIDOCAINE HCL 10MG/ML LIDOCAINE HCL 10MG/ML 0 510 00:00: 00 No 10mg [facility] Orth[facility] 0 5-10 00:00: 00 No 1mg [facility] Kenalog (Triamcinol one) Kenalog (Triamcinol one) 0 5-10 00:00: 00 No 40mg [facility] LIDOCAINE HCL 10MG/ML LIDOCAINE HCL 10MG/ML 0 510 00:00: 00 No 10mg [facility] Orth[facility] 0 510 00:00: 00 No 1mg [facility] Kenalog (Triamcinol one) Kenalog (Triamcinol one) 0 510 00:00: 00 No 40mg [facility] LIDOCAINE HCL 10MG/ML LIDOCAINE HCL 10MG/ML 0 510 00:00: 00 No 10mg [facility] 0 510 00:00: 00 No 1mg [facility] Kenalog (Triamcinol one) Kenalog (Triamcinol one) 0 10 00:00: 00 No 40mg [facility] LIDOCAINE HCL 10MG/ML LIDOCAINE HCL 10MG/ML 0 510 00:00: 00 No 10mg [facility] 0 510 00:00: 00 No 1mg [facility] Kenalog (Triamcinol one) Kenalog (Triamcinol one) 0 5-10 00:00: 00 No 40mg [facility] LIDOCAINE HCL 10MG/ML LIDOCAINE HCL 10MG/ML 0 510 00:00: 00 No 10mg [facility] 0 5-10 00:00: 00 No 1mg [facility] Kenalog (Triamcinol one) Kenalog (Triamcinol one) 0 5-10 00:00: 00 No 40mg [facility] LIDOCAINE HCL 10MG/ML LIDOCAINE HCL 10MG/ML 0 5-10 00:00: 00 No 10mg [facility] Orth[facility] 0 5-10 00:00: 00 No 1mg [facility] Kenalog (Triamcinol one) Kenalog (Triamcinol one) 0 5-10 00:00: 00 No 40mg [facility] Orth[facility] 0 5-10 00:00: 00 No 1mg [facility] Kenalog (Triamcinol one) Kenalog (Triamcinol one) 0 5-10 00:00: 00 No 40mg [facility] LIDOCAINE HCL 10MG/ML LIDOCAINE HCL 10MG/ML 0 5-10 00:00: 00 No 10mg [facility] Orth[facility] 0 5-10 00:00: 00 No 1mg [facility] Kenalog (Triamcinol one) Kenalog (Triamcinol one) 0 5-10 00:00: 00 No 40mg [facility] LIDOCAINE HCL 10MG/ML LIDOCAINE HCL 10MG/ML 0 5-10 00:00: 00 No 10mg [facility] LIDOCAINE HCL 10MG/ML LIDOCAINE HCL 10MG/ML 0 5-10 00:00: 00 No 10mg [facility] Orth[facility] 0 5-10 00:00: 00 No 1mg [facility] Kenalog (Triamcinol one) Kenalog (Triamcinol one) 0 5-10 00:00: 00 No 40mg [facility] LIDOCAINE HCL 10MG/ML LIDOCAINE HCL 10MG/ML 0 5-10 00:00: 00 No 10mg [facility] 0 5-10 00:00: 00 No 1mg [facility] Kenalog (Triamcinol one) Kenalog (Triamcinol one) 0 5-10 00:00: 00 No 40mg [facility] LIDOCAINE HCL 10MG/ML LIDOCAINE HCL 10MG/ML 0 510 00:00: 00 No 10mg [facility] 0 510 00:00: 00 No 1mg [facility] Kenalog (Triamcinol one) Kenalog (Triamcinol one) 0 510 00:00: 00 No 40mg [facility] LIDOCAINE HCL 10MG/ML LIDOCAINE HCL 10MG/ML 0 10 00:00: 00 No 10mg [facility] 0 510 00:00: 00 No 1mg [facility] Kenalog (Triamcinol one) Kenalog (Triamcinol one) 0 10 00:00: 00 No 40mg [facility] 0 10 00:00: 00 No 1mg [facility] Kenalog (Triamcinol one) Kenalog (Triamcinol one) 0 10 00:00: 00 No 40mg [facility] LIDOCAINE HCL 10MG/ML LIDOCAINE HCL 10MG/ML 0 510 00:00: 00 No 10mg [facility] 0 510 00:00: 00 No 1mg [facility] Kenalog (Triamcinol one) Kenalog (Triamcinol one) 0 510 00:00: 00 No 40mg [facility] LIDOCAINE HCL 10MG/ML LIDOCAINE HCL 10MG/ML 0 5-10 00:00: 00 No 10mg [facility] Orth[facility] 0 5-10 00:00: 00 No 1mg [facility] Kenalog (Triamcinol one) Kenalog (Triamcinol one) 0 5-10 00:00: 00 No 40mg [facility] LIDOCAINE HCL 10MG/ML LIDOCAINE HCL 10MG/ML 0 5-10 00:00: 00 No 10mg [facility] Orth[facility]isc 0 5-10 00:00: 00 No 1mg [facility] Kenalog (Triamcinol one) Kenalog (Triamcinol one) 0 5-10 00:00: 00 No 40mg [facility] Orth[facility] 0 5-10 00:00: 00 No 1mg [facility] Kenalog (Triamcinol one) Kenalog (Triamcinol one) 0 5-10 00:00: 00 No 40mg [facility] LIDOCAINE HCL 10MG/ML LIDOCAINE HCL 10MG/ML 0 5-10 00:00: 00 No 10mg [facility] Orth[facility] 0 5-10 00:00: 00 No 1mg [facility] Kenalog (Triamcinol one) Kenalog (Triamcinol one) 0 5-10 00:00: 00 No 40mg [facility] LIDOCAINE HCL 10MG/ML LIDOCAINE HCL 10MG/ML 0 5-10 00:00: 00 No 10mg [facility] LIDOCAINE HCL 10MG/ML LIDOCAINE HCL 10MG/ML 0 5-10 00:00: 00 No 10mg [facility] Kenalog (Triamcinol one) Kenalog (Triamcinol one) 0 5-10 00:00: 00 No 40mg [facility] Orth[facility]isc 0 5-10 00:00: 00 No 1mg [facility] LIDOCAINE HCL 10MG/ML LIDOCAINE HCL 10MG/ML 0 5-10 00:00: 00 No 10mg [facility] LIDOCAINE HCL 10MG/ML LIDOCAINE HCL 10MG/ML 0 5-10 00:00: 00 No 10mg [facility] Orth[facility]isc 2018-0 5-10 00:00: 00 No 1mg [facility] Kenalog (Triamcinol one) Kenalog (Triamcinol one) 0 5-10 00:00: 00 No 40mg [facility] LIDOCAINE HCL 10MG/ML LIDOCAINE HCL 10MG/ML 0 5-10 00:00: 00 No 10mg [facility] Orth[facility]isc 0 5-10 00:00: 00 No 1mg [facility] Kenalog (Triamcinol one) Kenalog (Triamcinol one) 0 5-10 00:00: 00 No 40mg [facility] LIDOCAINE HCL 10MG/ML LIDOCAINE HCL 10MG/ML 0 5-10 00:00: 00 No 10mg [facility] Orth[facility]isc 0 5-10 00:00: 00 No 1mg [facility] Kenalog (Triamcinol one) Kenalog (Triamcinol one) 0 5-10 00:00: 00 No 40mg [facility] Orth[facility]isc 2018-0 8-30 00:00: 00 No 2mL [facility] Orth[facility]isc 2018-0 8-30 00:00: 00 No 2mL [facility] Orth[facility] 2018-0 8-30 00:00: 00 No 2mL [facility] 2017-0 8-30 00:00: 00 No 2mL [facility] Orth[facility]isc 2017-0 8-30 00:00: 00 No 2mL [facility] Orth[facility] 2017-0 8-30 00:00: 00 No 2mL [facility] Orth[facility]isc 2018-0 8 00:00: 00 No 2mL [facility] Orth[facility] 0 8 00:00: 00 No 2mL [facility] 0 8 00:00: 00 No 2mL [facility] 0 04-21 00:00: 00 No 2mL [facility] Orth[facility] 0 04-21 00:00: 00 No 2mL [facility] 0 04-21 00:00: 00 No 2mL [facility] 0 04-21 00:00: 00 No 2mL [facility] 0 04-21 00:00: 00 No 2mL [facility] 0 04-21 00:00: 00 No 2mL [facility] 0 04-21 00:00: 00 No 2mL [facility] Orth[facility] 0 04-21 00:00: 00 No 2mL [facility] 0 04-21 00:00: 00 No 2mL [facility] 0 04-21 00:00: 00 No 2mL [facility] Orth[facility] 0 04-21 00:00: 00 No 2mL [facility] 0 04-21 00:00: 00 No 2mL [facility] 0 04-21 00:00: 00 No 2mL [facility] 2017-0 8 00:00: 00 No 2mL [facility] Orth[facility]isc 0 04-21 00:00: 00 No 2mL [facility] 0 04-21 00:00: 00 No 2mL [facility] Orth[facility] 0 04-21 00:00: 00 No 2mL [facility] Betamethaso ne Sodium Phosphate Betamethaso ne Sodium Phosphate 0 04-04 00:00: 00 No 1mL [facility] Orth[facility]isc 0 04-04 00:00: 00 No 2mL [facility] LIDOCAINE HCL 10MG/ML LIDOCAINE HCL 10MG/ML 0 04-04 00:00: 00 No 10mg [facility] Betamethaso ne Sodium Phosphate Betamethaso ne Sodium Phosphate 0 04-04 00:00: 00 No 1mL [facility] Betamethaso ne Sodium Phosphate Betamethaso ne Sodium Phosphate 0 04-04 00:00: 00 No 1mL [facility] Orth[facility]isc 0 04-04 00:00: 00 No 2mL [facility] LIDOCAINE HCL 10MG/ML LIDOCAINE HCL 10MG/ML 0 04-04 00:00: 00 No 10mg [facility] Betamethaso ne Sodium Phosphate Betamethaso ne Sodium Phosphate 0 04-04 00:00: 00 No 1mL [facility] Orth[facility]isc 0 04-04 00:00: 00 No 2mL [facility] LIDOCAINE HCL 10MG/ML LIDOCAINE HCL 10MG/ML 0 04-04 00:00: 00 No 10mg [facility] Betamethaso ne Sodium Phosphate Betamethaso ne Sodium Phosphate 0 04-04 00:00: 00 No 1mL [facility] Orth[facility]isc 0 04-04 00:00: 00 No 2mL [facility] LIDOCAINE HCL 10MG/ML LIDOCAINE HCL 10MG/ML 0 04-04 00:00: 00 No 10mg [facility] LIDOCAINE HCL 10MG/ML LIDOCAINE HCL 10MG/ML 0 04-04 00:00: 00 No 10mg [facility] Betamethaso ne Sodium Phosphate Betamethaso ne Sodium Phosphate 0 04-04 00:00: 00 No 1mL [facility] Orthovisc 0 04-04 00:00: 00 No 2mL [facility] LIDOCAINE HCL 10MG/ML LIDOCAINE HCL 10MG/ML 0 04-04 00:00: 00 No 10mg [facility] Betamethaso ne Sodium Phosphate Betamethaso ne Sodium Phosphate 0 04-04 00:00: 00 No 1mL [facility] Orth[facility]isc 0 04-04 00:00: 00 No 2mL [facility] LIDOCAINE HCL 10MG/ML LIDOCAINE HCL 10MG/ML 04-04 00:00: 00 No 10mg [facility] Betamethaso ne Sodium Phosphate Betamethaso ne Sodium Phosphate 04-04 00:00: 00 No 1mL [facility] 0 04-04 00:00: 00 No 2mL [facility] LIDOCAINE HCL 10MG/ML LIDOCAINE HCL 10MG/ML 04-04 00:00: 00 No 10mg [facility] Orth[facility] 0 04-04 00:00: 00 No 2mL [facility] Betamethaso ne Sodium Phosphate Betamethaso ne Sodium Phosphate 0 04-04 00:00: 00 No 1mL [facility] Orth[facility] 0 04-04 00:00: 00 No 2mL [facility] LIDOCAINE HCL 10MG/ML LIDOCAINE HCL 10MG/ML 0 04-04 00:00: 00 No 10mg [facility] Betamethaso ne Sodium Phosphate Betamethaso ne Sodium Phosphate 04-04 00:00: 00 No 1mL [facility] Betamethaso ne Sodium Phosphate Betamethaso ne Sodium Phosphate 04-04 00:00: 00 No 1mL [facility] LIDOCAINE HCL 10MG/ML LIDOCAINE HCL 10MG/ML 04-04 00:00: 00 No 10mg [facility] 04-04 00:00: 00 No 2mL [facility] Betamethaso ne Sodium Phosphate Betamethaso ne Sodium Phosphate 04-04 00:00: 00 No 1mL [facility] LIDOCAINE HCL 10MG/ML LIDOCAINE HCL 10MG/ML 04-04 00:00: 00 No 10mg [facility] Orth[facility]isc 04-04 00:00: 00 No 2mL [facility] Betamethaso ne Sodium Phosphate Betamethaso ne Sodium Phosphate 04-04 00:00: 00 No 1mL [facility] LIDOCAINE HCL 10MG/ML LIDOCAINE HCL 10MG/ML 04-04 00:00: 00 No 10mg [facility] Orth[facility]isc 04-04 00:00: 00 No 2mL [facility] LIDOCAINE HCL 10MG/ML LIDOCAINE HCL 10MG/ML 04-04 00:00: 00 No 10mg [facility] Betamethaso ne Sodium Phosphate Betamethaso ne Sodium Phosphate 04-04 00:00: 00 No 1mL [facility] LIDOCAINE HCL 10MG/ML LIDOCAINE HCL 10MG/ML 04-04 00:00: 00 No 10mg [facility] Orth[facility] 04-04 00:00: 00 No 2mL [facility] Betamethaso ne Sodium Phosphate Betamethaso ne Sodium Phosphate 04-04 00:00: 00 No 1mL [facility] LIDOCAINE HCL 10MG/ML LIDOCAINE HCL 10MG/ML 04-04 00:00: 00 No 10mg [facility] Orthovisc 0 04-04 00:00: 00 No 2mL [facility] Betamethaso ne Sodium Phosphate Betamethaso ne Sodium Phosphate 04-04 00:00: 00 No 1mL [facility] LIDOCAINE HCL 10MG/ML LIDOCAINE HCL 10MG/ML 04-04 00:00: 00 No 10mg [facility] Orthovisc Orthovisc 04-04 00:00: 00 No 2mL [facility] Orthovisc 04-04 00:00: 00 No 2mL [facility] Betamethaso ne Sodium Phosphate Betamethaso ne Sodium Phosphate 04-04 00:00: 00 No 1mL [facility] LIDOCAINE HCL 10MG/ML LIDOCAINE HCL 10MG/ML 04-04 00:00: 00 No 10mg [facility] Orthovisc 04-04 00:00: 00 No 2mL [facility] Betamethaso ne Sodium Phosphate Betamethaso ne Sodium Phosphate 04-04 00:00: 00 No 1mL [facility] LIDOCAINE HCL 10MG/ML LIDOCAINE HCL 10MG/ML 04-04 00:00: 00 No 10mg [facility] Orthovisc 04-04 00:00: 00 No 2mL [facility] Betamethaso ne Sodium Phosphate Betamethaso ne Sodium Phosphate 04-04 00:00: 00 No 1mL [facility] Orth[facility]isc 0 04-04 00:00: 00 No 2mL [facility] Betamethaso ne Sodium Phosphate Betamethaso ne Sodium Phosphate 04-04 00:00: 00 No 1mL [facility] LIDOCAINE HCL 10MG/ML LIDOCAINE HCL 10MG/ML 04-04 00:00: 00 No 10mg [facility] Orthovisc 0 04-04 00:00: 00 No 2mL [facility] Betamethaso ne Sodium Phosphate Betamethaso ne Sodium Phosphate 04-04 00:00: 00 No 1mL [facility] LIDOCAINE HCL 10MG/ML LIDOCAINE HCL 10MG/ML 04-04 00:00: 00 No 10mg [facility] Orthov[facility] Orthovisc 04-04 00:00: 00 No 2mL [facility] Betamethaso ne Sodium Phosphate Betamethaso ne Sodium Phosphate 04-04 00:00: 00 No 1mL [facility] LIDOCAINE HCL 10MG/ML LIDOCAINE HCL 10MG/ML 04-04 00:00: 00 No 10mg [facility] Orthovisc 04-04 00:00: 00 No 2mL [facility] LIDOCAINE HCL 10MG/ML LIDOCAINE HCL 10MG/ML 04-04 00:00: 00 No 10mg [facility] Betamethaso ne Sodium Phosphate Betamethaso ne Sodium Phosphate 04-04 00:00: 00 No 1mL [facility] LIDOCAINE HCL 10MG/ML LIDOCAINE HCL 10MG/ML 04-04 00:00: 00 No 10mg [facility] Betamethaso ne Sodium Phosphate Betamethaso ne Sodium Phosphate 04-04 00:00: 00 No 1mL [facility] Orthovisc 04-04 00:00: 00 No 2mL [facility] LIDOCAINE HCL 10MG/ML LIDOCAINE HCL 10MG/ML 0 04-04 00:00: 00 No 10mg [facility] Betamethaso ne Sodium Phosphate Betamethaso ne Sodium Phosphate 04-04 00:00: 00 No 1mL [facility] Orthovisc 04-04 00:00: 00 No 2mL [facility] LIDOCAINE HCL 10MG/ML LIDOCAINE HCL 10MG/ML 04-04 00:00: 00 No 10mg [facility] LIDOCAINE HCL 10MG/ML LIDOCAINE HCL 10MG/ML 04-04 00:00: 00 No 10mg [facility] Orthovisc 04-04 00:00: 00 No 2mL [facility] Orth[facility]isc 04-04 00:00: 00 No 2mL [facility] Betamethaso ne Sodium Phosphate Betamethaso ne Sodium Phosphate 04-04 00:00: 00 No 1mL [facility] LIDOCAINE HCL 10MG/ML LIDOCAINE HCL 10MG/ML 03-28 00:00: 00 No 10mg [facility] Orth[facility]isc 03-28 00:00: 00 No 2mL [facility] LIDOCAINE HCL 10MG/ML LIDOCAINE HCL 10MG/ML 03-28 00:00: 00 No 10mg [facility] Orth[facility] 03-28 00:00: 00 No 2mL [facility] 03-28 00:00: 00 No 2mL [facility] LIDOCAINE HCL 10MG/ML LIDOCAINE HCL 10MG/ML 03-28 00:00: 00 No 10mg [facility] LIDOCAINE HCL 10MG/ML LIDOCAINE HCL 10MG/ML 03-28 00:00: 00 No 10mg [facility] 03-28 00:00: 00 No 2mL [facility] LIDOCAINE HCL 10MG/ML LIDOCAINE HCL 10MG/ML 0 03-28 00:00: 00 No 10mg [facility] Orth[facility] 03-28 00:00: 00 No 2mL [facility] LIDOCAINE HCL 10MG/ML LIDOCAINE HCL 10MG/ML 03-28 00:00: 00 No 10mg [facility] 03-28 00:00: 00 No 2mL [facility] LIDOCAINE HCL 10MG/ML LIDOCAINE HCL 10MG/ML 03-28 00:00: 00 No 10mg [facility] 03-28 00:00: 00 No 2mL [facility] LIDOCAINE HCL 10MG/ML LIDOCAINE HCL 10MG/ML 03-28 00:00: 00 No 10mg [facility] 03-28 00:00: 00 No 2mL [facility] [facility] LIDOCAINE HCL 10MG/ML LIDOCAINE HCL 10MG/ML 03-28 00:00: 00 No 10mg [facility] 03-28 00:00: 00 No 2mL [facility] LIDOCAINE HCL 10MG/ML LIDOCAINE HCL 10MG/ML 03-28 00:00: 00 No 10mg [facility] 03-28 00:00: 00 No 2mL [facility] 03-28 00:00: 00 No 2mL [facility] LIDOCAINE HCL 10MG/ML LIDOCAINE HCL 10MG/ML 03-28 00:00: 00 No 10mg [facility] LIDOCAINE HCL 10MG/ML LIDOCAINE HCL 10MG/ML 03-28 00:00: 00 No 10mg [facility] 03-28 00:00: 00 No 2mL [facility] LIDOCAINE HCL 10MG/ML LIDOCAINE HCL 10MG/ML 03-28 00:00: 00 No 10mg [facility] 03-28 00:00: 00 No 2mL [facility] LIDOCAINE HCL 10MG/ML LIDOCAINE HCL 10MG/ML 03-28 00:00: 00 No 10mg [facility] 03-28 00:00: 00 No 2mL [facility] LIDOCAINE HCL 10MG/ML LIDOCAINE HCL 10MG/ML 03-28 00:00: 00 No 10mg [facility] 03-28 00:00: 00 No 2mL [facility] LIDOCAINE HCL 10MG/ML LIDOCAINE HCL 10MG/ML 03-28 00:00: 00 No 10mg [facility] 03-28 00:00: 00 No 2mL [facility] 03-28 00:00: 00 No 2mL [facility] LIDOCAINE HCL 10MG/ML LIDOCAINE HCL 10MG/ML 03-28 00:00: 00 No 10mg [facility] 03-28 00:00: 00 No 2mL [facility] LIDOCAINE HCL 10MG/ML LIDOCAINE HCL 10MG/ML 03-28 00:00: 00 No 10mg [facility] 03-28 00:00: 00 No 2mL [facility] LIDOCAINE HCL 10MG/ML LIDOCAINE HCL 10MG/ML 03-28 00:00: 00 No 10mg [facility] 03-28 00:00: 00 No 2mL [facility] 03-28 00:00: 00 No 2mL [facility] LIDOCAINE HCL 10MG/ML LIDOCAINE HCL 10MG/ML 03-28 00:00: 00 No 10mg [facility] LIDOCAINE HCL 10MG/ML LIDOCAINE HCL 10MG/ML 03-28 00:00: 00 No 10mg [facility] 03-28 00:00: 00 No 2mL [facility] LIDOCAINE HCL 10MG/ML LIDOCAINE HCL 10MG/ML 03-28 00:00: 00 No 10mg [facility] LIDOCAINE HCL 10MG/ML LIDOCAINE HCL 10MG/ML 03-28 00:00: 00 No 10mg [facility] 03-28 00:00: 00 No 2mL [facility] LIDOCAINE HCL 10MG/ML LIDOCAINE HCL 10MG/ML 03-28 00:00: 00 No 10mg [facility] 03-28 00:00: 00 No 2mL [facility] LIDOCAINE HCL 10MG/ML LIDOCAINE HCL 10MG/ML 03-28 00:00: 00 No 10mg [facility] 03-28 00:00: 00 No 2mL [facility] 03-28 00:00: 00 No 2mL [facility] LIDOCAINE HCL 10MG/ML LIDOCAINE HCL 10MG/ML 03-28 00:00: 00 No 10mg [facility] Amoxicillin -Pot Clavulanate Amoxicillin -Pot Clavulanate Yes Vaughn Cobb TAKE ONE (1) TABLET(S) BY MOUTH EVERY TWELVE HOURS FOR 7 DAYS. [facility] Hydrocodone -Acetaminop hen Hydrocodone -Acetaminop hen Yes Vaughn Cobb (Schedule II Drug) TAKE ONE (1) TABLET(S) BY MOUTH DAILY NEEDED FOR PAIN. [facility] Promethazin e HCl Promethazin e HCl Yes Vaughn Cobb TAKE ONE (1) TABLET(S) BY MOUTH EVERY EIGHT HOURS NEEDED. [facility] Cetirizine HCl Cetirizine HCl Yes Vaughn Cobb TAKE ONE (1) TABLET(S) BY MOUTH ONCE A DAY NEEDED. [facility] Se-Clarke PLUS Se-Clarke PLUS Yes Shaheed Cobb TAKE ONE (1) CAPSULE(S) BY MOUTH ONCE A DAY WITH MEALS. [facility] Dicyclomine HCl Dicyclomine HCl Yes Vaughn Cobb TAKE ONE (1) CAPSULE(S) BY MOUTH THREE TIMES A DAY. [facility] Tramadol HCl Tramadol HCl Yes Vaughn Cobb (Schedule IV Drug) TAKE ONE (1) TO TWO (2) TABLET(S) BY MOUTH TWICE A DAY NEEDED FOR PAIN. [facility] Potassium Chloride ER Potassium Chloride ER Yes Vaughn Cobb TAKE TWO (2) TABLET(S) BY MOUTH TWICE A DAY. [facility] Zofran Zofran Yes Vaughn Cobb 1 tablet as needed [facility] Natpara Natpara Yes Vaughn Cobb as directed [facility] Hydrochloro thiazide Hydrochloro thiazide Yes Vaughn Cobb TAKE ONE (1) TABLET(S) BY MOUTH ONCE A DAY. [facility] Levothyroxi ne Sodium Levothyroxi ne Sodium Yes Vaughn Cobb TAKE ONE (1) TABLET(S) BY MOUTH ONCE A DAY. [facility] Levocetiriz ine Dihydrochlo ride Levocetiriz ine Dihydrochlo ride Yes Vaughn Cobb TAKE ONE (1) TABLET(S) BY MOUTH ONCE A DAY FOR ALLERGIES. [facility] Vitamin D3 Vitamin D3 Yes Vaughn Cobb TAKE ONE (1) CAPSULE(S) BY MOUTH ONCE A WEEK. [facility] Gabapentin Gabapentin Yes Vaughn Cobb TAKE ONE (1) CAPSULE(S) BY MOUTH FOUR TIMES A DAY FOR NERVE PAIN. [facility] Calcitriol Calcitriol Yes Vaughn Cobb not defined [facility] Simvastatin Simvastatin Yes Shaheed Cobb TAKE ONE (1) TABLET(S) BY MOUTH ONCE A DAY IN THE EVENING FOR CHOLESTERO L. [facility] Triamterene -HCTZ Triamterene -HCTZ Yes Vaughn Cobb TAKE ONE (1) CAPSULE(S) BY MOUTH ONCE A DAY. [facility] Pantoprazol e Sodium Pantoprazol e Sodium Yes Vaughn Cobb TAKE ONE (1) TABLET(S) BY MOUTH TWICE A DAY. (30 MINUTES BEFORE BREAKFAST AND 30 MINUTES BEFORE SUPPER). [facility] Pantoprazol e Sodium 40 MG Pantoprazol e Sodium 40 MG No Pantoprazo le Sodium 40 MG hydroCHLORO thiazide 25 MG hydroCHLORO thiazide 25 MG No hydroCHLOR Othiazide 25 MG Calcitriol Calcitriol No Calcitriol Levothyroxi ne Sodium 150 MCG Levothyroxi ne Sodium 150 MCG No Levothyrox ine Sodium 150 MCG Cetirizine HCl 10 MG Cetirizine HCl 10 MG No Cetirizine HCl 10 MG Promethazin e HCl 12.5 MG Promethazin e HCl 12.5 MG No Promethazi ne HCl 12.5 MG Levocetiriz ine Dihydrochlo ride 5 MG Levocetiriz ine Dihydrochlo ride 5 MG No Levocetiri zine Dihydrochl oride 5 MG Gabapentin 300 MG Gabapentin 300 MG No Gabapentin 300 MG Dicyclomine HCl 10 MG Dicyclomine HCl 10 MG No Dicyclomin e HCl 10 MG Simvastatin 20 MG Simvastatin 20 MG No Simvastati n 20 MG Se-Clarke PLUS 162-115.2-1 MG Se-Clarke PLUS 162-115.2-1 MG No Se-Clarke PLUS 162-115.2- 1 MG Potassium Chloride ER 10 MEQ Potassium Chloride ER 10 MEQ No Potassium Chloride ER 10 MEQ Triamterene -HCTZ 37.5-25 MG Triamterene -HCTZ 37.5-25 MG No Triamteren e-HCTZ 37.5-25 MG Amoxicillin -Pot Clavulanate 875-125 MG Amoxicillin -Pot Clavulanate 875-125 MG No Amoxicilli n-Pot Clavulanat e 875-125 MG HYDROcodone -Acetaminop hen 5-325 MG HYDROcodone -Acetaminop hen 5-325 MG No HYDROcodon e-Acetamin ophen 5-325 MG Zofran 4 MG Zofran 4 MG No 1{table t_as_ne eded} Zofran 4 MG Pantoprazol e Sodium 40 MG Pantoprazol e Sodium 40 MG No Pantoprazo le Sodium 40 MG hydroCHLORO thiazide 25 MG hydroCHLORO thiazide 25 MG No hydroCHLOR Othiazide 25 MG Levothyroxi ne Sodium 150 MCG Levothyroxi ne Sodium 150 MCG No Levothyrox ine Sodium 150 MCG Cetirizine HCl 10 MG Cetirizine HCl 10 MG No Cetirizine HCl 10 MG Promethazin e HCl 12.5 MG Promethazin e HCl 12.5 MG No Promethazi ne HCl 12.5 MG Levocetiriz ine Dihydrochlo ride 5 MG Levocetiriz ine Dihydrochlo ride 5 MG No Levocetiri zine Dihydrochl oride 5 MG Gabapentin 300 MG Gabapentin 300 MG No Gabapentin 300 MG Dicyclomine HCl 10 MG Dicyclomine HCl 10 MG No Dicyclomin e HCl 10 MG Simvastatin 20 MG Simvastatin 20 MG No Simvastati n 20 MG Se-Clarke PLUS 162-115.2-1 MG Se-Clarke PLUS 162-115.2-1 MG No Se-Clarke PLUS 162-115.2- 1 MG Potassium Chloride ER 10 MEQ Potassium Chloride ER 10 MEQ No Potassium Chloride ER 10 MEQ Triamterene -HCTZ 37.5-25 MG Triamterene -HCTZ 37.5-25 MG No Triamteren e-HCTZ 37.5-25 MG Amoxicillin -Pot Clavulanate 875-125 MG Amoxicillin -Pot Clavulanate 875-125 MG No Amoxicilli n-Pot Clavulanat e 875-125 MG HYDROcodone -Acetaminop hen 5-325 MG HYDROcodone -Acetaminop hen 5-325 MG No HYDROcodon e-Acetamin ophen 5-325 MG Zofran 4 MG Zofran 4 MG No 1{table t_as_ne eded} Zofran 4 MG Pantoprazol e Sodium 40 MG Pantoprazol e Sodium 40 MG No Pantoprazo le Sodium 40 MG hydroCHLORO thiazide 25 MG hydroCHLORO thiazide 25 MG No hydroCHLOR Othiazide 25 MG Levothyroxi ne Sodium 150 MCG Levothyroxi ne Sodium 150 MCG No Levothyrox ine Sodium 150 MCG Cetirizine HCl 10 MG Cetirizine HCl 10 MG No Cetirizine HCl 10 MG Promethazin e HCl 12.5 MG Promethazin e HCl 12.5 MG No Promethazi ne HCl 12.5 MG Levocetiriz ine Dihydrochlo ride 5 MG Levocetiriz ine Dihydrochlo ride 5 MG No Levocetiri zine Dihydrochl oride 5 MG Gabapentin 300 MG Gabapentin 300 MG No Gabapentin 300 MG Dicyclomine HCl 10 MG Dicyclomine HCl 10 MG No Dicyclomin e HCl 10 MG Simvastatin 20 MG Simvastatin 20 MG No Simvastati n 20 MG Se-Clarke PLUS 162-115.2-1 MG Se-Clarke PLUS 162-115.2-1 MG No Se-Clarke PLUS 162-115.2- 1 MG Potassium Chloride ER 10 MEQ Potassium Chloride ER 10 MEQ No Potassium Chloride ER 10 MEQ Triamterene -HCTZ 37.5-25 MG Triamterene -HCTZ 37.5-25 MG No Triamteren e-HCTZ 37.5-25 MG Amoxicillin -Pot Clavulanate 875-125 MG Amoxicillin -Pot Clavulanate 875-125 MG No Amoxicilli n-Pot Clavulanat e 875-125 MG HYDROcodone -Acetaminop hen 5-325 MG HYDROcodone -Acetaminop hen 5-325 MG No HYDROcodon e-Acetamin ophen 5-325 MG HYDROcodone -Acetaminop hen 5-325 MG HYDROcodone -Acetaminop hen 5-325 MG No HYDROcodon e-Acetamin ophen 5-325 MG hydroCHLORO thiazide 25 MG hydroCHLORO thiazide 25 MG No hydroCHLOR Othiazide 25 MG Amoxicillin -Pot Clavulanate 875-125 MG Amoxicillin -Pot Clavulanate 875-125 MG No Amoxicilli n-Pot Clavulanat e 875-125 MG Natpara 75 MCG Natpara 75 MCG No Natpara 75 MCG Levocetiriz ine Dihydrochlo ride 5 MG Levocetiriz ine Dihydrochlo ride 5 MG No Levocetiri zine Dihydrochl oride 5 MG Gabapentin 300 MG Gabapentin 300 MG No Gabapentin 300 MG Potassium Chloride ER 10 MEQ Potassium Chloride ER 10 MEQ No Potassium Chloride ER 10 MEQ Pantoprazol e Sodium 40 MG Pantoprazol e Sodium 40 MG No Pantoprazo le Sodium 40 MG Promethazin e HCl 12.5 MG Promethazin e HCl 12.5 MG No Promethazi ne HCl 12.5 MG Levothyroxi ne Sodium 150 MCG Levothyroxi ne Sodium 150 MCG No Levothyrox ine Sodium 150 MCG Se-Clarke PLUS 162-115.2-1 MG Se-Clarke PLUS 162-115.2-1 MG No Se-Clarke PLUS 162-115.2- 1 MG Dicyclomine HCl 10 MG Dicyclomine HCl 10 MG No Dicyclomin e HCl 10 MG Triamterene -HCTZ 37.5-25 MG Triamterene -HCTZ 37.5-25 MG No Triamteren e-HCTZ 37.5-25 MG Cetirizine HCl 10 MG Cetirizine HCl 10 MG No Cetirizine HCl 10 MG Simvastatin 20 MG Simvastatin 20 MG No Simvastati n 20 MG HYDROcodone -Acetaminop hen 5-325 MG HYDROcodone -Acetaminop hen 5-325 MG No HYDROcodon e-Acetamin ophen 5-325 MG hydroCHLORO thiazide 25 MG hydroCHLORO thiazide 25 MG No hydroCHLOR Othiazide 25 MG Amoxicillin -Pot Clavulanate 875-125 MG Amoxicillin -Pot Clavulanate 875-125 MG No Amoxicilli n-Pot Clavulanat e 875-125 MG Natpara 75 MCG Natpara 75 MCG No Natpara 75 MCG Levocetiriz ine Dihydrochlo ride 5 MG Levocetiriz ine Dihydrochlo ride 5 MG No Levocetiri zine Dihydrochl oride 5 MG Gabapentin 300 MG Gabapentin 300 MG No Gabapentin 300 MG Potassium Chloride ER 10 MEQ Potassium Chloride ER 10 MEQ No Potassium Chloride ER 10 MEQ Dicyclomine HCl 10 MG Dicyclomine HCl 10 MG No Dicyclomin e HCl 10 MG Pantoprazol e Sodium 40 MG Pantoprazol e Sodium 40 MG No Pantoprazo le Sodium 40 MG Promethazin e HCl 12.5 MG Promethazin e HCl 12.5 MG No Promethazi ne HCl 12.5 MG Levothyroxi ne Sodium 150 MCG Levothyroxi ne Sodium 150 MCG No Levothyrox ine Sodium 150 MCG Se-Clarke PLUS 162-115.2-1 MG Se-Clarke PLUS 162-115.2-1 MG No Se-Clarke PLUS 162-115.2- 1 MG Dicyclomine HCl 10 MG Dicyclomine HCl 10 MG No Dicyclomin e HCl 10 MG Se-Clarke PLUS 162-115.2-1 MG Se-Clarke PLUS 162-115.2-1 MG No Se-Clarke PLUS 162-115.2- 1 MG Triamterene -HCTZ 37.5-25 MG Triamterene -HCTZ 37.5-25 MG No Triamteren e-HCTZ 37.5-25 MG Cetirizine HCl 10 MG Cetirizine HCl 10 MG No Cetirizine HCl 10 MG Simvastatin 20 MG Simvastatin 20 MG No Simvastati n 20 MG Triamterene -HCTZ 37.5-25 MG Triamterene -HCTZ 37.5-25 MG No Triamteren e-HCTZ 37.5-25 MG HYDROcodone -Acetaminop hen 5-325 MG HYDROcodone -Acetaminop hen 5-325 MG No HYDROcodon e-Acetamin ophen 5-325 MG hydroCHLORO thiazide 25 MG hydroCHLORO thiazide 25 MG No hydroCHLOR Othiazide 25 MG Pantoprazol e Sodium 40 MG Pantoprazol e Sodium 40 MG No Pantoprazo le Sodium 40 MG Cetirizine HCl 10 MG Cetirizine HCl 10 MG No Cetirizine HCl 10 MG HYDROcodone -Acetaminop hen 5-325 MG HYDROcodone -Acetaminop hen 5-325 MG No HYDROcodon e-Acetamin ophen 5-325 MG hydroCHLORO thiazide 25 MG hydroCHLORO thiazide 25 MG No hydroCHLOR Othiazide 25 MG Amoxicillin -Pot Clavulanate 875-125 MG Amoxicillin -Pot Clavulanate 875-125 MG No Amoxicilli n-Pot Clavulanat e 875-125 MG Natpara 75 MCG Natpara 75 MCG No Natpara 75 MCG Amoxicillin -Pot Clavulanate 875-125 MG Amoxicillin -Pot Clavulanate 875-125 MG No Amoxicilli n-Pot Clavulanat e 875-125 MG Levocetiriz ine Dihydrochlo ride 5 MG Levocetiriz ine Dihydrochlo ride 5 MG No Levocetiri zine Dihydrochl oride 5 MG Gabapentin 300 MG Gabapentin 300 MG No Gabapentin 300 MG Potassium Chloride ER 10 MEQ Potassium Chloride ER 10 MEQ No Potassium Chloride ER 10 MEQ Pantoprazol e Sodium 40 MG Pantoprazol e Sodium 40 MG No Pantoprazo le Sodium 40 MG Potassium Chloride ER 10 MEQ Potassium Chloride ER 10 MEQ No Potassium Chloride ER 10 MEQ Promethazin e HCl 12.5 MG Promethazin e HCl 12.5 MG No Promethazi ne HCl 12.5 MG Levothyroxi ne Sodium 150 MCG Levothyroxi ne Sodium 150 MCG No Levothyrox ine Sodium 150 MCG Se-Clarke PLUS 162-115.2-1 MG Se-Clarke PLUS 162-115.2-1 MG No Se-Clarke PLUS 162-115.2- 1 MG Dicyclomine HCl 10 MG Dicyclomine HCl 10 MG No Dicyclomin e HCl 10 MG Triamterene -HCTZ 37.5-25 MG Triamterene -HCTZ 37.5-25 MG No Triamteren e-HCTZ 37.5-25 MG Cetirizine HCl 10 MG Cetirizine HCl 10 MG No Cetirizine HCl 10 MG Simvastatin 20 MG Simvastatin 20 MG No Simvastati n 20 MG Natpara 75 MCG Natpara 75 MCG No Natpara 75 MCG traMADol HCl 50 MG traMADol HCl 50 MG No traMADol HCl 50 MG Levothyroxi ne Sodium 150 MCG Levothyroxi ne Sodium 150 MCG No Levothyrox ine Sodium 150 MCG Levocetiriz ine Dihydrochlo ride 5 MG Levocetiriz ine Dihydrochlo ride 5 MG No Levocetiri zine Dihydrochl oride 5 MG Gabapentin 300 MG Gabapentin 300 MG No Gabapentin 300 MG HYDROcodone -Acetaminop hen 5-325 MG HYDROcodone -Acetaminop hen 5-325 MG No HYDROcodon e-Acetamin ophen 5-325 MG hydroCHLORO thiazide 25 MG hydroCHLORO thiazide 25 MG No hydroCHLOR Othiazide 25 MG Amoxicillin -Pot Clavulanate 875-125 MG Amoxicillin -Pot Clavulanate 875-125 MG No Amoxicilli n-Pot Clavulanat e 875-125 MG Natpara 75 MCG Natpara 75 MCG No Natpara 75 MCG Levocetiriz ine Dihydrochlo ride 5 MG Levocetiriz ine Dihydrochlo ride 5 MG No Levocetiri zine Dihydrochl oride 5 MG Gabapentin 300 MG Gabapentin 300 MG No Gabapentin 300 MG Potassium Chloride ER 10 MEQ Potassium Chloride ER 10 MEQ No Potassium Chloride ER 10 MEQ Pantoprazol e Sodium 40 MG Pantoprazol e Sodium 40 MG No Pantoprazo le Sodium 40 MG Zofran 4 MG Zofran 4 MG No 1{table t_as_ne eded} Zofran 4 MG Promethazin e HCl 12.5 MG Promethazin e HCl 12.5 MG No Promethazi ne HCl 12.5 MG Levothyroxi ne Sodium 150 MCG Levothyroxi ne Sodium 150 MCG No Levothyrox ine Sodium 150 MCG Se-Clarke PLUS 162-115.2-1 MG Se-Clarke PLUS 162-115.2-1 MG No Se-Clarke PLUS 162-115.2- 1 MG Dicyclomine HCl 10 MG Dicyclomine HCl 10 MG No Dicyclomin e HCl 10 MG Triamterene -HCTZ 37.5-25 MG Triamterene -HCTZ 37.5-25 MG No Triamteren e-HCTZ 37.5-25 MG Cetirizine HCl 10 MG Cetirizine HCl 10 MG No Cetirizine HCl 10 MG Simvastatin 20 MG Simvastatin 20 MG No Simvastati n 20 MG Simvastatin 20 MG Simvastatin 20 MG No Simvastati n 20 MG Promethazin e HCl 12.5 MG Promethazin e HCl 12.5 MG No Promethazi ne HCl 12.5 MG HYDROcodone -Acetaminop hen 5-325 MG HYDROcodone -Acetaminop hen 5-325 MG No HYDROcodon e-Acetamin ophen 5-325 MG hydroCHLORO thiazide 25 MG hydroCHLORO thiazide 25 MG No hydroCHLOR Othiazide 25 MG Amoxicillin -Pot Clavulanate 875-125 MG Amoxicillin -Pot Clavulanate 875-125 MG No Amoxicilli n-Pot Clavulanat e 875-125 MG Natpara 75 MCG Natpara 75 MCG No Natpara 75 MCG Levocetiriz ine Dihydrochlo ride 5 MG Levocetiriz ine Dihydrochlo ride 5 MG No Levocetiri zine Dihydrochl oride 5 MG Gabapentin 300 MG Gabapentin 300 MG No Gabapentin 300 MG Potassium Chloride ER 10 MEQ Potassium Chloride ER 10 MEQ No Potassium Chloride ER 10 MEQ Pantoprazol e Sodium 40 MG Pantoprazol e Sodium 40 MG No Pantoprazo le Sodium 40 MG Promethazin e HCl 12.5 MG Promethazin e HCl 12.5 MG No Promethazi ne HCl 12.5 MG Levothyroxi ne Sodium 150 MCG Levothyroxi ne Sodium 150 MCG No Levothyrox ine Sodium 150 MCG Se-Clarke PLUS 162-115.2-1 MG Se-Clarke PLUS 162-115.2-1 MG No Se-Clarke PLUS 162-115.2- 1 MG Dicyclomine HCl 10 MG Dicyclomine HCl 10 MG No Dicyclomin e HCl 10 MG Triamterene -HCTZ 37.5-25 MG Triamterene -HCTZ 37.5-25 MG No Triamteren e-HCTZ 37.5-25 MG Cetirizine HCl 10 MG Cetirizine HCl 10 MG No Cetirizine HCl 10 MG Simvastatin 20 MG Simvastatin 20 MG No Simvastati n 20 MG Dicyclomine HCl 10 MG Dicyclomine HCl 10 MG No Dicyclomin e HCl 10 MG Natpara 75 MCG Natpara 75 MCG No Natpara 75 MCG Promethazin e HCl 12.5 MG Promethazin e HCl 12.5 MG No Promethazi ne HCl 12.5 MG Levothyroxi ne Sodium 150 MCG Levothyroxi ne Sodium 150 MCG No Levothyrox ine Sodium 150 MCG Gabapentin 300 MG Gabapentin 300 MG No Gabapentin 300 MG Potassium Chloride ER 10 MEQ Potassium Chloride ER 10 MEQ No Potassium Chloride ER 10 MEQ Pantoprazol e Sodium 40 MG Pantoprazol e Sodium 40 MG No Pantoprazo le Sodium 40 MG hydroCHLORO thiazide 25 MG hydroCHLORO thiazide 25 MG No hydroCHLOR Othiazide 25 MG Cetirizine HCl 10 MG Cetirizine HCl 10 MG No Cetirizine HCl 10 MG Triamterene -HCTZ 37.5-25 MG Triamterene -HCTZ 37.5-25 MG No Triamteren e-HCTZ 37.5-25 MG Levocetiriz ine Dihydrochlo ride 5 MG Levocetiriz ine Dihydrochlo ride 5 MG No Levocetiri zine Dihydrochl oride 5 MG Se-Clarke PLUS 162-115.2-1 MG Se-Clarke PLUS 162-115.2-1 MG No Se-Clarke PLUS 162-115.2- 1 MG Amoxicillin -Pot Clavulanate 875-125 MG Amoxicillin -Pot Clavulanate 875-125 MG No Amoxicilli n-Pot Clavulanat e 875-125 MG Simvastatin 20 MG Simvastatin 20 MG No Simvastati n 20 MG HYDROcodone -Acetaminop hen 5-325 MG HYDROcodone -Acetaminop hen 5-325 MG No HYDROcodon e-Acetamin ophen 5-325 MG Cetirizine HCl 10 MG Cetirizine HCl 10 MG No Cetirizine HCl 10 MG Pantoprazol e Sodium 40 MG Pantoprazol e Sodium 40 MG No Pantoprazo le Sodium 40 MG Potassium Chloride ER 10 MEQ Potassium Chloride ER 10 MEQ No Potassium Chloride ER 10 MEQ Promethazin e HCl 12.5 MG Promethazin e HCl 12.5 MG No Promethazi ne HCl 12.5 MG Gabapentin 300 MG Gabapentin 300 MG No Gabapentin 300 MG Levocetiriz ine Dihydrochlo ride 5 MG Levocetiriz ine Dihydrochlo ride 5 MG No Levocetiri zine Dihydrochl oride 5 MG Dicyclomine HCl 10 MG Dicyclomine HCl 10 MG No Dicyclomin e HCl 10 MG Triamterene -HCTZ 37.5-25 MG Triamterene -HCTZ 37.5-25 MG No Triamteren e-HCTZ 37.5-25 MG Se-Clarke PLUS 162-115.2-1 MG Se-Clarke PLUS 162-115.2-1 MG No Se-Clarke PLUS 162-115.2- 1 MG HYDROcodone -Acetaminop hen 5-325 MG HYDROcodone -Acetaminop hen 5-325 MG No HYDROcodon e-Acetamin ophen 5-325 MG Levothyroxi ne Sodium 150 MCG Levothyroxi ne Sodium 150 MCG No Levothyrox ine Sodium 150 MCG Natpara 75 MCG Natpara 75 MCG No Natpara 75 MCG Simvastatin 20 MG Simvastatin 20 MG No Simvastati n 20 MG hydroCHLORO thiazide 25 MG hydroCHLORO thiazide 25 MG No hydroCHLOR Othiazide 25 MG Amoxicillin -Pot Clavulanate 875-125 MG Amoxicillin -Pot Clavulanate 875-125 MG No Amoxicilli n-Pot Clavulanat e 875-125 MG Cetirizine HCl 10 MG Cetirizine HCl 10 MG No Cetirizine HCl 10 MG Pantoprazol e Sodium 40 MG Pantoprazol e Sodium 40 MG No Pantoprazo le Sodium 40 MG Potassium Chloride ER 10 MEQ Potassium Chloride ER 10 MEQ No Potassium Chloride ER 10 MEQ Promethazin e HCl 12.5 MG Promethazin e HCl 12.5 MG No Promethazi ne HCl 12.5 MG Gabapentin 300 MG Gabapentin 300 MG No Gabapentin 300 MG Levocetiriz ine Dihydrochlo ride 5 MG Levocetiriz ine Dihydrochlo ride 5 MG No Levocetiri zine Dihydrochl oride 5 MG Dicyclomine HCl 10 MG Dicyclomine HCl 10 MG No Dicyclomin e HCl 10 MG Triamterene -HCTZ 37.5-25 MG Triamterene -HCTZ 37.5-25 MG No Triamteren e-HCTZ 37.5-25 MG Se-Clarke PLUS 162-115.2-1 MG Se-Clarke PLUS 162-115.2-1 MG No Se-Clarke PLUS 162-115.2- 1 MG HYDROcodone -Acetaminop hen 5-325 MG HYDROcodone -Acetaminop hen 5-325 MG No HYDROcodon e-Acetamin ophen 5-325 MG Levothyroxi ne Sodium 150 MCG Levothyroxi ne Sodium 150 MCG No Levothyrox ine Sodium 150 MCG Natpara 75 MCG Natpara 75 MCG No Natpara 75 MCG Simvastatin 20 MG Simvastatin 20 MG No Simvastati n 20 MG hydroCHLORO thiazide 25 MG hydroCHLORO thiazide 25 MG No hydroCHLOR Othiazide 25 MG Amoxicillin -Pot Clavulanate 875-125 MG Amoxicillin -Pot Clavulanate 875-125 MG No Amoxicilli n-Pot Clavulanat e 875-125 MG Cetirizine HCl 10 MG Cetirizine HCl 10 MG No Cetirizine HCl 10 MG Pantoprazol e Sodium 40 MG Pantoprazol e Sodium 40 MG No Pantoprazo le Sodium 40 MG Potassium Chloride ER 10 MEQ Potassium Chloride ER 10 MEQ No Potassium Chloride ER 10 MEQ Promethazin e HCl 12.5 MG Promethazin e HCl 12.5 MG No Promethazi ne HCl 12.5 MG Gabapentin 300 MG Gabapentin 300 MG No Gabapentin 300 MG Levocetiriz ine Dihydrochlo ride 5 MG Levocetiriz ine Dihydrochlo ride 5 MG No Levocetiri zine Dihydrochl oride 5 MG Dicyclomine HCl 10 MG Dicyclomine HCl 10 MG No Dicyclomin e HCl 10 MG Triamterene -HCTZ 37.5-25 MG Triamterene -HCTZ 37.5-25 MG No Triamteren e-HCTZ 37.5-25 MG Se-Clarke PLUS 162-115.2-1 MG Se-Clarke PLUS 162-115.2-1 MG No Se-Clarke PLUS 162-115.2- 1 MG HYDROcodone -Acetaminop hen 5-325 MG HYDROcodone -Acetaminop hen 5-325 MG No HYDROcodon e-Acetamin ophen 5-325 MG Levothyroxi ne Sodium 150 MCG Levothyroxi ne Sodium 150 MCG No Levothyrox ine Sodium 150 MCG Natpara 75 MCG Natpara 75 MCG No Natpara 75 MCG hydroCHLORO thiazide 25 MG hydroCHLORO thiazide 25 MG No hydroCHLOR Othiazide 25 MG Simvastatin 20 MG Simvastatin 20 MG No Simvastati n 20 MG hydroCHLORO thiazide 25 MG hydroCHLORO thiazide 25 MG No hydroCHLOR Othiazide 25 MG Amoxicillin -Pot Clavulanate 875-125 MG Amoxicillin -Pot Clavulanate 875-125 MG No Amoxicilli n-Pot Clavulanat e 875-125 MG Zofran 4 MG Zofran 4 MG No 1{table [email or web address]_ne eded} Zofran 4 MG Levothyroxi ne Sodium 150 MCG Levothyroxi ne Sodium 150 MCG No Levothyrox ine Sodium 150 MCG traMADol HCl 50 MG traMADol HCl 50 MG No traMADol HCl 50 MG Levocetiriz ine Dihydrochlo ride 5 MG Levocetiriz ine Dihydrochlo ride 5 MG No Levocetiri zine Dihydrochl oride 5 MG HYDROcodone -Acetaminop hen 5-325 MG HYDROcodone -Acetaminop hen 5-325 MG No HYDROcodon e-Acetamin ophen 5-325 MG Vitamin D3 06745 UNIT Vitamin D3 15725 UNIT No Vitamin D3 89445 UNIT Dicyclomine HCl 10 MG Dicyclomine HCl 10 MG No Dicyclomin e HCl 10 MG Cetirizine HCl 10 MG Cetirizine HCl 10 MG No Cetirizine HCl 10 MG Pantoprazol e Sodium 40 MG Pantoprazol e Sodium 40 MG No Pantoprazo le Sodium 40 MG Potassium Chloride ER 10 MEQ Potassium Chloride ER 10 MEQ No Potassium Chloride ER 10 MEQ Promethazin e HCl 12.5 MG Promethazin e HCl 12.5 MG No Promethazi ne HCl 12.5 MG Gabapentin 300 MG Gabapentin 300 MG No Gabapentin 300 MG Pantoprazol e Sodium 40 MG Pantoprazol e Sodium 40 MG No Pantoprazo le Sodium 40 MG Levocetiriz ine Dihydrochlo ride 5 MG Levocetiriz ine Dihydrochlo ride 5 MG No Levocetiri zine Dihydrochl oride 5 MG Dicyclomine HCl 10 MG Dicyclomine HCl 10 MG No Dicyclomin e HCl 10 MG Triamterene -HCTZ 37.5-25 MG Triamterene -HCTZ 37.5-25 MG No Triamteren e-HCTZ 37.5-25 MG Se-Clarke PLUS 162-115.2-1 MG Se-Clarke PLUS 162-115.2-1 MG No Se-Clarke PLUS 162-115.2- 1 MG HYDROcodone -Acetaminop hen 5-325 MG HYDROcodone -Acetaminop hen 5-325 MG No HYDROcodon e-Acetamin ophen 5-325 MG Levothyroxi ne Sodium 150 MCG Levothyroxi ne Sodium 150 MCG No Levothyrox ine Sodium 150 MCG Natpara 75 MCG Natpara 75 MCG No Natpara 75 MCG Se-Clarke PLUS 162-115.2-1 MG Se-Clarke PLUS 162-115.2-1 MG No Se-Clarke PLUS 162-115.2- 1 MG Simvastatin 20 MG Simvastatin 20 MG No Simvastati n 20 MG hydroCHLORO thiazide 25 MG hydroCHLORO thiazide 25 MG No hydroCHLOR Othiazide 25 MG Amoxicillin -Pot Clavulanate 875-125 MG Amoxicillin -Pot Clavulanate 875-125 MG No Amoxicilli n-Pot Clavulanat e 875-125 MG Natpara 75 MCG Natpara 75 MCG No Natpara 75 MCG Potassium Chloride ER 10 MEQ Potassium Chloride ER 10 MEQ No Potassium Chloride ER 10 MEQ Triamterene -HCTZ 37.5-25 MG Triamterene -HCTZ 37.5-25 MG No Triamteren e-HCTZ 37.5-25 MG Simvastatin 20 MG Simvastatin 20 MG No Simvastati n 20 MG Cetirizine HCl 10 MG Cetirizine HCl 10 MG No Cetirizine HCl 10 MG Promethazin e HCl 12.5 MG Promethazin e HCl 12.5 MG No Promethazi ne HCl 12.5 MG Cetirizine HCl 10 MG Cetirizine HCl 10 MG No Cetirizine HCl 10 MG Pantoprazol e Sodium 40 MG Pantoprazol e Sodium 40 MG No Pantoprazo le Sodium 40 MG Potassium Chloride ER 10 MEQ Potassium Chloride ER 10 MEQ No Potassium Chloride ER 10 MEQ Promethazin e HCl 12.5 MG Promethazin e HCl 12.5 MG No Promethazi ne HCl 12.5 MG Gabapentin 300 MG Gabapentin 300 MG No Gabapentin 300 MG Gabapentin 300 MG Gabapentin 300 MG No Gabapentin 300 MG Levocetiriz ine Dihydrochlo ride 5 MG Levocetiriz ine Dihydrochlo ride 5 MG No Levocetiri zine Dihydrochl oride 5 MG Dicyclomine HCl 10 MG Dicyclomine HCl 10 MG No Dicyclomin e HCl 10 MG Triamterene -HCTZ 37.5-25 MG Triamterene -HCTZ 37.5-25 MG No Triamteren e-HCTZ 37.5-25 MG Se-[facility]ke PLUS 162-115.2-1 MG Se-Clarke PLUS 162-115.2-1 MG No Se-Clarke PLUS 162-115.2- 1 MG HYDROcodone -Acetaminop hen 5-325 MG HYDROcodone -Acetaminop hen 5-325 MG No HYDROcodon e-Acetamin ophen 5-325 MG Levothyroxi ne Sodium 150 MCG Levothyroxi ne Sodium 150 MCG No Levothyrox ine Sodium 150 MCG Natpara 75 MCG Natpara 75 MCG No Natpara 75 MCG Amoxicillin -Pot Clavulanate 875-125 MG Amoxicillin -Pot Clavulanate 875-125 MG No Amoxicilli n-Pot Clavulanat e 875-125 MG Simvastatin 20 MG Simvastatin 20 MG No Simvastati n 20 MG hydroCHLORO thiazide 25 MG hydroCHLORO thiazide 25 MG No hydroCHLOR Othiazide 25 MG Amoxicillin -Pot Clavulanate 875-125 MG Amoxicillin -Pot Clavulanate 875-125 MG No Amoxicilli n-Pot Clavulanat e 875-125 MG Dicyclomine HCl 10 MG Dicyclomine HCl 10 MG No Dicyclomin e HCl 10 MG Se-[facility] PLUS 162-115.2-1 MG Se-[place]ke PLUS 162-115.2-1 MG No Se-Cl[facility]ke PLUS 162-115.2- 1 MG HYDROcodone -Acetaminop hen 5-325 MG HYDROcodone -Acetaminop hen 5-325 MG No HYDROcodon e-Acetamin ophen 5-325 MG hydroCHLORO thiazide 25 MG hydroCHLORO thiazide 25 MG No hydroCHLOR Othiazide 25 MG Pantoprazol e Sodium 40 MG Pantoprazol e Sodium 40 MG No Pantoprazo le Sodium 40 MG Cetirizine HCl 10 MG Cetirizine HCl 10 MG No Cetirizine HCl 10 MG Dicyclomine HCl 10 MG Dicyclomine HCl 10 MG No Dicyclomin e HCl 10 MG Se-[facility] PLUS 162-115.2-1 MG Se-[place]ke PLUS 162-115.2-1 MG No Se-Clarke PLUS 162-115.2- 1 MG HYDROcodone -Acetaminop hen 5-325 MG HYDROcodone -Acetaminop hen 5-325 MG No HYDROcodon e-Acetamin ophen 5-325 MG Amoxicillin -Pot Clavulanate 875-125 MG Amoxicillin -Pot Clavulanate 875-125 MG No Amoxicilli n-Pot Clavulanat e 875-125 MG hydroCHLORO thiazide 25 MG hydroCHLORO thiazide 25 MG No hydroCHLOR Othiazide 25 MG Pantoprazol e Sodium 40 MG Pantoprazol e Sodium 40 MG No Pantoprazo le Sodium 40 MG Cetirizine HCl 10 MG Cetirizine HCl 10 MG No Cetirizine HCl 10 MG Amoxicillin -Pot Clavulanate 875-125 MG Amoxicillin -Pot Clavulanate 875-125 MG No Amoxicilli n-Pot Clavulanat e 875-125 MG Potassium Chloride ER 10 MEQ Potassium Chloride ER 10 MEQ No Potassium Chloride ER 10 MEQ Natpara 75 MCG Natpara 75 MCG No Natpara 75 MCG traMADol HCl 50 MG traMADol HCl 50 MG No traMADol HCl 50 MG Levothyroxi ne Sodium 150 MCG Levothyroxi ne Sodium 150 MCG No Levothyrox ine Sodium 150 MCG Levocetiriz ine Dihydrochlo ride 5 MG Levocetiriz ine Dihydrochlo ride 5 MG No Levocetiri zine Dihydrochl oride 5 MG Potassium Chloride ER 10 MEQ Potassium Chloride ER 10 MEQ No Potassium Chloride ER 10 MEQ Gabapentin 300 MG Gabapentin 300 MG No Gabapentin 300 MG Zofran 4 MG Zofran 4 MG No 1{table t_as_ne eded} Zofran 4 MG Vitamin D3 50986 UNIT Vitamin D3 13066 UNIT No Vitamin D3 66590 UNIT Triamterene -HCTZ 37.5-25 MG Triamterene -HCTZ 37.5-25 MG No Triamteren e-HCTZ 37.5-25 MG Simvastatin 20 MG Simvastatin 20 MG No Simvastati n 20 MG Promethazin e HCl 12.5 MG Promethazin e HCl 12.5 MG No Promethazi ne HCl 12.5 MG Natpara 75 MCG Natpara 75 MCG No Natpara 75 MCG traMADol HCl 50 MG traMADol HCl 50 MG No traMADol HCl 50 MG Levothyroxi ne Sodium 150 MCG Levothyroxi ne Sodium 150 MCG No Levothyrox ine Sodium 150 MCG Levocetiriz ine Dihydrochlo ride 5 MG Levocetiriz ine Dihydrochlo ride 5 MG No Levocetiri zine Dihydrochl oride 5 MG Cetirizine HCl 10 MG Cetirizine HCl 10 MG No Cetirizine HCl 10 MG Gabapentin 300 MG Gabapentin 300 MG No Gabapentin 300 MG Simvastatin 20 MG Simvastatin 20 MG No Simvastati n 20 MG Zofran 4 MG Zofran 4 MG No 1{table t_as_ne eded} Zofran 4 MG Triamterene -HCTZ 37.5-25 MG Triamterene -HCTZ 37.5-25 MG No Triamteren e-HCTZ 37.5-25 MG Simvastatin 20 MG Simvastatin 20 MG No Simvastati n 20 MG Promethazin e HCl 12.5 MG Promethazin e HCl 12.5 MG No Promethazi ne HCl 12.5 MG Zofran 4 MG Zofran 4 MG No 1{table t_as_ne eded} Zofran 4 MG Dicyclomine HCl 10 MG Dicyclomine HCl 10 MG No Dicyclomin e HCl 10 MG Se-[facility] PLUS 162-115.2-1 MG Se-[place]ke PLUS 162-115.2-1 MG No Se-Cl[facility]ke PLUS 162-115.2- 1 MG Amoxicillin -Pot Clavulanate 875-125 MG Amoxicillin -Pot Clavulanate 875-125 MG No Amoxicilli n-Pot Clavulanat e 875-125 MG Potassium Chloride ER 10 MEQ Potassium Chloride ER 10 MEQ No Potassium Chloride ER 10 MEQ Gabapentin 300 MG Gabapentin 300 MG No Gabapentin 300 MG Cetirizine HCl 10 MG Cetirizine HCl 10 MG No Cetirizine HCl 10 MG Levothyroxi ne Sodium 150 MCG Levothyroxi ne Sodium 150 MCG No Levothyrox ine Sodium 150 MCG Triamterene -HCTZ 37.5-25 MG Triamterene -HCTZ 37.5-25 MG No Triamteren e-HCTZ 37.5-25 MG Promethazin e HCl 12.5 MG Promethazin e HCl 12.5 MG No Promethazi ne HCl 12.5 MG Pantoprazol e Sodium 40 MG Pantoprazol e Sodium 40 MG No Pantoprazo le Sodium 40 MG HYDROcodone -Acetaminop hen 5-325 MG HYDROcodone -Acetaminop hen 5-325 MG No HYDROcodon e-Acetamin ophen 5-325 MG Natpara 75 MCG Natpara 75 MCG No Natpara 75 MCG Simvastatin 20 MG Simvastatin 20 MG No Simvastati n 20 MG Levocetiriz ine Dihydrochlo ride 5 MG Levocetiriz ine Dihydrochlo ride 5 MG No Levocetiri zine Dihydrochl oride 5 MG hydroCHLORO thiazide 25 MG hydroCHLORO thiazide 25 MG No hydroCHLOR Othiazide 25 MG Gabapentin 300 MG Gabapentin 300 MG No Gabapentin 300 MG Zofran 4 MG Zofran 4 MG No 1{table t_as_ne eded} Zofran 4 MG Levothyroxi ne Sodium 150 MCG Levothyroxi ne Sodium 150 MCG No Levothyrox ine Sodium 150 MCG Promethazin e HCl 12.5 MG Promethazin e HCl 12.5 MG No Promethazi ne HCl 12.5 MG Amoxicillin -Pot Clavulanate 875-125 MG Amoxicillin -Pot Clavulanate 875-125 MG No Amoxicilli n-Pot Clavulanat e 875-125 MG Cetirizine HCl 10 MG Cetirizine HCl 10 MG No Cetirizine HCl 10 MG HYDROcodone -Acetaminop hen 5-325 MG HYDROcodone -Acetaminop hen 5-325 MG No HYDROcodon e-Acetamin ophen 5-325 MG Triamterene -HCTZ 37.5-25 MG Triamterene -HCTZ 37.5-25 MG No Triamteren e-HCTZ 37.5-25 MG hydroCHLORO thiazide 25 MG hydroCHLORO thiazide 25 MG No hydroCHLOR Othiazide 25 MG Natpara 75 MCG Natpara 75 MCG No Natpara 75 MCG Potassium Chloride ER 10 MEQ Potassium Chloride ER 10 MEQ No Potassium Chloride ER 10 MEQ Pantoprazol e Sodium 40 MG Pantoprazol e Sodium 40 MG No Pantoprazo le Sodium 40 MG Se-[place] PLUS 162-115.2-1 MG Se-[place] PLUS 162-115.2-1 MG No Se-Cl[facility]ke PLUS 162-115.2- 1 MG Simvastatin 20 MG Simvastatin 20 MG No Simvastati n 20 MG Levocetiriz ine Dihydrochlo ride 5 MG Levocetiriz ine Dihydrochlo ride 5 MG No Levocetiri zine Dihydrochl oride 5 MG Dicyclomine HCl 10 MG Dicyclomine HCl 10 MG No Dicyclomin e HCl 10 MG Gabapentin 300 MG Gabapentin 300 MG No Gabapentin 300 MG Dicyclomine HCl 10 MG Dicyclomine HCl 10 MG No Dicyclomin e HCl 10 MG Vitamin D3 50970 UNIT Vitamin D3 45371 UNIT No Vitamin D3 89828 UNIT hydroCHLORO thiazide 25 MG hydroCHLORO thiazide 25 MG No hydroCHLOR Othiazide 25 MG HYDROcodone -Acetaminop hen 5-325 MG HYDROcodone -Acetaminop hen 5-325 MG No HYDROcodon e-Acetamin ophen 5-325 MG Levocetiriz ine Dihydrochlo ride 5 MG Levocetiriz ine Dihydrochlo ride 5 MG No Levocetiri zine Dihydrochl oride 5 MG Promethazin e HCl 12.5 MG Promethazin e HCl 12.5 MG No Promethazi ne HCl 12.5 MG Cetirizine HCl 10 MG Cetirizine HCl 10 MG No Cetirizine HCl 10 MG Amoxicillin -Pot Clavulanate 875-125 MG Amoxicillin -Pot Clavulanate 875-125 MG No Amoxicilli n-Pot Clavulanat e 875-125 MG Se-Clarke PLUS 162-115.2-1 MG Se-Clarke PLUS 162-115.2-1 MG No Se-Clarke PLUS 162-115.2- 1 MG Triamterene -HCTZ 37.5-25 MG Triamterene -HCTZ 37.5-25 MG No Triamteren e-HCTZ 37.5-25 MG Simvastatin 20 MG Simvastatin 20 MG No Simvastati n 20 MG Pantoprazol e Sodium 40 MG Pantoprazol e Sodium 40 MG No Pantoprazo le Sodium 40 MG Potassium Chloride ER 10 MEQ Potassium Chloride ER 10 MEQ No Potassium Chloride ER 10 MEQ Natpara 75 MCG Natpara 75 MCG No Natpara 75 MCG Levothyroxi ne Sodium 150 MCG Levothyroxi ne Sodium 150 MCG No Levothyrox ine Sodium 150 MCG Cetirizine HCl 10 MG Cetirizine HCl 10 MG No Cetirizine HCl 10 MG Promethazin e HCl 12.5 MG Promethazin e HCl 12.5 MG No Promethazi ne HCl 12.5 MG HYDROcodone -Acetaminop hen 5-325 MG HYDROcodone -Acetaminop hen 5-325 MG No HYDROcodon e-Acetamin ophen 5-325 MG Calcitriol Calcitriol No Calcitriol Dicyclomine HCl 10 MG Dicyclomine HCl 10 MG No Dicyclomin e HCl 10 MG Gabapentin 300 MG Gabapentin 300 MG No Gabapentin 300 MG Levothyroxi ne Sodium 150 MCG Levothyroxi ne Sodium 150 MCG No Levothyrox ine Sodium 150 MCG Natpara 75 MCG Natpara 75 MCG No Natpara 75 MCG Triamterene -HCTZ 37.5-25 MG Triamterene -HCTZ 37.5-25 MG No Triamteren e-HCTZ 37.5-25 MG Se-[place] PLUS 162-115.2-1 MG Se-Cl[place]ke PLUS 162-115.2-1 MG No Se-Cl[place]ke PLUS 162-115.2- 1 MG Pantoprazol e Sodium 40 MG Pantoprazol e Sodium 40 MG No Pantoprazo le Sodium 40 MG Simvastatin 20 MG Simvastatin 20 MG No Simvastati n 20 MG Levocetiriz ine Dihydrochlo ride 5 MG Levocetiriz ine Dihydrochlo ride 5 MG No Levocetiri zine Dihydrochl oride 5 MG hydroCHLORO thiazide 25 MG hydroCHLORO thiazide 25 MG No hydroCHLOR Othiazide 25 MG Amoxicillin -Pot Clavulanate 875-125 MG Amoxicillin -Pot Clavulanate 875-125 MG No Amoxicilli n-Pot Clavulanat e 875-125 MG Potassium Chloride ER 10 MEQ Potassium Chloride ER 10 MEQ No Potassium Chloride ER 10 MEQ Dicyclomine HCl 10 MG Dicyclomine HCl 10 MG No Dicyclomin e HCl 10 MG Zofran 4 MG Zofran 4 MG No 1{table t_as_ne eded} Zofran 4 MG Pantoprazol e Sodium 40 MG Pantoprazol e Sodium 40 MG No Pantoprazo le Sodium 40 MG hydroCHLORO thiazide 25 MG hydroCHLORO thiazide 25 MG No hydroCHLOR Othiazide 25 MG traMADol HCl 50 MG traMADol HCl 50 MG No 1{table t_as_ne eded} QID traMADol HCl 50 MG Levothyroxi ne Sodium 150 MCG Levothyroxi ne Sodium 150 MCG No Levothyrox ine Sodium 150 MCG Cetirizine HCl 10 MG Cetirizine HCl 10 MG No Cetirizine HCl 10 MG Se-[place] PLUS 162-115.2-1 MG Se-Cl[place] PLUS 162-115.2-1 MG No Se-Cl[place]ke PLUS 162-115.2- 1 MG Promethazin e HCl 12.5 MG Promethazin e HCl 12.5 MG No Promethazi ne HCl 12.5 MG Levocetiriz ine Dihydrochlo ride 5 MG Levocetiriz ine Dihydrochlo ride 5 MG No Levocetiri zine Dihydrochl oride 5 MG Gabapentin 300 MG Gabapentin 300 MG No Gabapentin 300 MG Vitamin D3 07840 UNIT Vitamin D3 36818 UNIT No Vitamin D3 71509 UNIT Dicyclomine HCl 10 MG Dicyclomine HCl 10 MG No Dicyclomin e HCl 10 MG Simvastatin 20 MG Simvastatin 20 MG No Simvastati n 20 MG Se-Cl[facility]ke PLUS 162-115.2-1 MG Se-Clarke PLUS 162-115.2-1 MG No Se-Clarke PLUS 162-115.2- 1 MG HYDROcodone -Acetaminop hen 5-325 MG HYDROcodone -Acetaminop hen 5-325 MG No HYDROcodon e-Acetamin ophen 5-325 MG Potassium Chloride ER 10 MEQ Potassium Chloride ER 10 MEQ No Potassium Chloride ER 10 MEQ Triamterene -HCTZ 37.5-25 MG Triamterene -HCTZ 37.5-25 MG No Triamteren e-HCTZ 37.5-25 MG Amoxicillin -Pot Clavulanate 875-125 MG Amoxicillin -Pot Clavulanate 875-125 MG No Amoxicilli n-Pot Clavulanat e 875-125 MG HYDROcodone -Acetaminop hen 5-325 MG HYDROcodone -Acetaminop hen 5-325 MG No HYDROcodon e-Acetamin ophen 5-325 MG hydroCHLORO thiazide 25 MG hydroCHLORO thiazide 25 MG No hydroCHLOR Othiazide 25 MG Pantoprazol e Sodium 40 MG Pantoprazol e Sodium 40 MG No Pantoprazo le Sodium 40 MG Cetirizine HCl 10 MG Cetirizine HCl 10 MG No Cetirizine HCl 10 MG Amoxicillin -Pot Clavulanate 875-125 MG Amoxicillin -Pot Clavulanate 875-125 MG No Amoxicilli n-Pot Clavulanat e 875-125 MG Potassium Chloride ER 10 MEQ Potassium Chloride ER 10 MEQ No Potassium Chloride ER 10 MEQ Natpara 75 MCG Natpara 75 MCG No Natpara 75 MCG Zofran 4 MG Zofran 4 MG No 1{table t_as_ne eded} Zofran 4 MG Pantoprazol e Sodium 40 MG Pantoprazol e Sodium 40 MG No Pantoprazo le Sodium 40 MG hydroCHLORO thiazide 25 MG hydroCHLORO thiazide 25 MG No hydroCHLOR Othiazide 25 MG Levothyroxi ne Sodium 150 MCG Levothyroxi ne Sodium 150 MCG No Levothyrox ine Sodium 150 MCG Cetirizine HCl 10 MG Cetirizine HCl 10 MG No Cetirizine HCl 10 MG traMADol HCl 50 MG traMADol HCl 50 MG No traMADol HCl 50 MG Promethazin e HCl 12.5 MG Promethazin e HCl 12.5 MG No Promethazi ne HCl 12.5 MG Levocetiriz ine Dihydrochlo ride 5 MG Levocetiriz ine Dihydrochlo ride 5 MG No Levocetiri zine Dihydrochl oride 5 MG Gabapentin 300 MG Gabapentin 300 MG No Gabapentin 300 MG Dicyclomine HCl 10 MG Dicyclomine HCl 10 MG No Dicyclomin e HCl 10 MG Simvastatin 20 MG Simvastatin 20 MG No Simvastati n 20 MG Se-Cl[facility]ke PLUS 162-115.2-1 MG Se-Clarke PLUS 162-115.2-1 MG No Se-Clarke PLUS 162-115.2- 1 MG Levothyroxi ne Sodium 150 MCG Levothyroxi ne Sodium 150 MCG No Levothyrox ine Sodium 150 MCG Potassium Chloride ER 10 MEQ Potassium Chloride ER 10 MEQ No Potassium Chloride ER 10 MEQ Triamterene -HCTZ 37.5-25 MG Triamterene -HCTZ 37.5-25 MG No Triamteren e-HCTZ 37.5-25 MG Amoxicillin -Pot Clavulanate 875-125 MG Amoxicillin -Pot Clavulanate 875-125 MG No Amoxicilli n-Pot Clavulanat e 875-125 MG HYDROcodone -Acetaminop hen 5-325 MG HYDROcodone -Acetaminop hen 5-325 MG No HYDROcodon e-Acetamin ophen 5-325 MG Levocetiriz ine Dihydrochlo ride 5 MG Levocetiriz ine Dihydrochlo ride 5 MG No Levocetiri zine Dihydrochl oride 5 MG Gabapentin 300 MG Gabapentin 300 MG No Gabapentin 300 MG Triamterene -HCTZ 37.5-25 MG Triamterene -HCTZ 37.5-25 MG No Triamteren e-HCTZ 37.5-25 MG Zofran 4 MG Zofran 4 MG No 1{table t_as_ne eded} Zofran 4 MG Zofran 4 MG Zofran 4 MG No 1{table t_as_ne eded} Zofran 4 MG Pantoprazol e Sodium 40 MG Pantoprazol e Sodium 40 MG No Pantoprazo le Sodium 40 MG hydroCHLORO thiazide 25 MG hydroCHLORO thiazide 25 MG No hydroCHLOR Othiazide 25 MG Levothyroxi ne Sodium 150 MCG Levothyroxi ne Sodium 150 MCG No Levothyrox ine Sodium 150 MCG Cetirizine HCl 10 MG Cetirizine HCl 10 MG No Cetirizine HCl 10 MG Promethazin e HCl 12.5 MG Promethazin e HCl 12.5 MG No Promethazi ne HCl 12.5 MG Levocetiriz ine Dihydrochlo ride 5 MG Levocetiriz ine Dihydrochlo ride 5 MG No Levocetiri zine Dihydrochl oride 5 MG Gabapentin 300 MG Gabapentin 300 MG No Gabapentin 300 MG Dicyclomine HCl 10 MG Dicyclomine HCl 10 MG No Dicyclomin e HCl 10 MG Simvastatin 20 MG Simvastatin 20 MG No Simvastati n 20 MG Se-Clarke PLUS 162-115.2-1 MG Se-Clarke PLUS 162-115.2-1 MG No Se-Clarke PLUS 162-115.2- 1 MG Simvastatin 20 MG Simvastatin 20 MG No Simvastati n 20 MG Potassium Chloride ER 10 MEQ Potassium Chloride ER 10 MEQ No Potassium Chloride ER 10 MEQ Triamterene -HCTZ 37.5-25 MG Triamterene -HCTZ 37.5-25 MG No Triamteren e-HCTZ 37.5-25 MG Amoxicillin -Pot Clavulanate 875-125 MG Amoxicillin -Pot Clavulanate 875-125 MG No Amoxicilli n-Pot Clavulanat e 875-125 MG HYDROcodone -Acetaminop hen 5-325 MG HYDROcodone -Acetaminop hen 5-325 MG No HYDROcodon e-Acetamin ophen 5-325 MG Promethazin e HCl 12.5 MG Promethazin e HCl 12.5 MG No Promethazi ne HCl 12.5 MG Vital Signs Vital Name Observation Time Observation Value Comments S rachel height 2023-08-12 15:30:00 68 [in_i] Commo n [facility] weight 2023-08-12 15:30:00 151 [lb_av] Comm on [facility] temperature 2023-08-12 15:30:00 97.8 [degF] Com [facility] bmi 2023-08-12 15:30:00 22.96 kg/m2 Comm on [facility] blood pressure systolic 2023-08-12 15:30:00 122 mm[Hg] Common [facility] blood pressure diastolic 2023-08-12 15:30:00 74 mm[Hg] Common [facility] height 2023-08-05 10:45:00 68 [in_i] Commo n [facility] weight 2023-08-05 10:45:00 152 [lb_av] Comm on [facility] temperature 2023-08-05 10:45:00 98.4 [degF] Com [facility] bmi 2023-08-05 10:45:00 23.11 kg/m2 Comm on [facility] blood pressure systolic 2023-08-05 10:45:00 120 mm[Hg] [facility] blood pressure diastolic 2023-08-05 10:45:00 70 mm[Hg] Common [facility] height 2023-07-29 15:00:00 68 [in_i] Commo n [facility] weight 2023-07-29 15:00:00 152 [lb_av] Comm on [facility] temperature 2023-07-29 15:00:00 98.3 [degF] Com [facility] bmi 2023-07-29 15:00:00 23.11 kg/m2 Comm on [facility] blood pressure systolic 2023-07-29 15:00:00 121 mm[Hg] Common [facility] blood pressure diastolic 2023-07-29 15:00:00 56 mm[Hg] Common [facility] height 2023-06-24 09:00:00 68 [in_i] Commo n [facility] weight 2023-06-24 09:00:00 152 [lb_av] Comm on [facility] temperature 2023-06-24 09:00:00 98.1 [degF] Com [facility] bmi 2023-06-24 09:00:00 23.11 kg/m2 Comm on [facility] blood pressure systolic 2023-06-24 09:00:00 116 mm[Hg] Common [facility] blood pressure diastolic 2023-06-24 09:00:00 74 mm[Hg] [facility] height 2023-04-13 10:45:00 68 [in_i] Commo n [facility] weight 2023-04-13 10:45:00 153 [lb_av] Comm on [facility] temperature 2023-04-13 10:45:00 97.7 [degF] Com [facility] bmi 2023-04-13 10:45:00 23.26 kg/m2 Comm on [facility] blood pressure systolic 2023-04-13 10:45:00 110 mm[Hg] Common [facility] blood pressure diastolic 2023-04-13 10:45:00 70 mm[Hg] [facility] height 2023-03-02 10:45:00 68 [in_i] Commo n [facility] weight 2023-03-02 10:45:00 155.8 [lb_av] Co mmon [facility] temperature 2023-03-02 10:45:00 98.3 [degF] Com [facility] bmi 2023-03-02 10:45:00 23.69 kg/m2 Comm on [facility] blood pressure systolic 2023-03-02 10:45:00 132 mm[Hg] Common [facility] blood pressure diastolic 2023-03-02 10:45:00 76 mm[Hg] [facility] height 2022-12-24 15:15:00 68 [in_i] Commo n [facility] weight 2022-12-24 15:15:00 158 [lb_av] Comm on [facility] temperature 2022-12-24 15:15:00 97.6 [degF] Com [facility] bmi 2022-12-24 15:15:00 24.02 kg/m2 Comm on [facility] blood pressure systolic 2022-12-24 15:15:00 120 mm[Hg] Common [facility] blood pressure diastolic 2022-12-24 15:15:00 74 mm[Hg] [facility] height 2022-12-15 14:15:00 68 [in_i] Commo n [facility] weight 2022-12-15 14:15:00 158 [lb_av] Comm on [facility] temperature 2022-12-15 14:15:00 97.6 [degF] Com [facility] bmi 2022-12-15 14:15:00 24.02 kg/m2 Comm on [facility] blood pressure systolic 2022-12-15 14:15:00 121 mm[Hg] Common [facility] blood pressure diastolic 2022-12-15 14:15:00 74 mm[Hg] [facility] height 2022-11-23 08:45:00 68 [in_i] Commo n [facility] weight 2022-11-23 08:45:00 158 [lb_av] Comm on [facility] temperature 2022-11-23 08:45:00 98.2 [degF] Com mon [facility] bmi 2022-11-23 08:45:00 24.02 kg/m2 Comm on [facility] blood pressure systolic 2022-11-23 08:45:00 114 mm[Hg] Common [facility] blood pressure diastolic 2022-11-23 08:45:00 70 mm[Hg] [facility] Systolic blood pressure 2022-11-16 14:17:00 110 mm[Hg] [facility] Diastolic blood pressure 2022-11-16 14:17:00 60 mm[Hg] [facility] Heart rate 2022-11-16 14:17:00 82 /min [facility] Body temperature 2022-11-16 14:17:00 37 Janice [facility] Respiratory rate 2022-11-16 14:17:00 16 /min [facility] Body height 2022-11-16 14:17:00 172.7 cm [facility] Body weight 2022-11-16 14:17:00 57.749 kg [facility] BMI 2022-11-16 14:17:00 19.36 kg/m2 [facility] Oxygen saturation in Arterial blood by Pulse oximetry 2022-11-16 14:17:00 98 /min [facility] height 2022-11-02 10:00:00 68 [in_i] Commo n [facility] weight 2022-11-02 10:00:00 158 [lb_av] Comm on [facility] temperature 2022-11-02 10:00:00 98.3 [degF] Com [facility] bmi 2022-11-02 10:00:00 24.02 kg/m2 Comm on [facility] blood pressure systolic 2022-11-02 10:00:00 132 mm[Hg] [facility] blood pressure diastolic 2022-11-02 10:00:00 74 mm[Hg] Common [facility] height 2022-10-12 09:30:00 68 [in_i] Commo n [facility] weight 2022-10-12 09:30:00 135 [lb_av] Comm on [facility] bmi 2022-10-12 09:30:00 20.52 kg/m2 Comm on [facility] blood pressure systolic 2022-10-12 09:30:00 137 mm[Hg] [facility] blood pressure diastolic 2022-10-12 09:30:00 69 mm[Hg] [facility] height 2022-10-06 08:00:00 68 [in_i] Commo n [facility] weight 2022-10-06 08:00:00 135 [lb_av] Comm on [facility] temperature 2022-10-06 08:00:00 98.5 [degF] Com mon [facility] bmi 2022-10-06 08:00:00 20.52 kg/m2 Comm on [facility] blood pressure systolic 2022-10-06 08:00:00 114 mm[Hg] [facility] blood pressure diastolic 2022-10-06 08:00:00 67 mm[Hg] [facility] height 2022-08-10 10:45:00 68 [in_i] Commo n [facility] weight 2022-08-10 10:45:00 165 [lb_av] Comm on [facility] temperature 2022-08-10 10:45:00 98.6 [degF] Com mon [facility] bmi 2022-08-10 10:45:00 25.09 kg/m2 Comm on [facility] blood pressure systolic 2022-08-10 10:45:00 136 mm[Hg] Common [facility] blood pressure diastolic 2022-08-10 10:45:00 84 mm[Hg] Common [facility] height 2022-07-07 15:15:00 68 [in_i] Commo n [facility] weight 2022-07-07 15:15:00 165 [lb_av] Comm on [facility] temperature 2022-07-07 15:15:00 98.2 [degF] Com mon [facility] bmi 2022-07-07 15:15:00 25.09 kg/m2 Comm on [facility] blood pressure systolic 2022-07-07 15:15:00 134 mm[Hg] Common [facility] blood pressure diastolic 2022-07-07 15:15:00 80 mm[Hg] Common [facility] height 2022-06-11 15:30:00 68 [in_i] Commo n [facility] weight 2022-06-11 15:30:00 165 [lb_av] Comm on [facility] temperature 2022-06-11 15:30:00 97.3 [degF] Com mon [facility] bmi 2022-06-11 15:30:00 25.09 kg/m2 Comm on [facility] blood pressure systolic 2022-06-11 15:30:00 112 mm[Hg] Common [facility] blood pressure diastolic 2022-06-11 15:30:00 72 mm[Hg] [facility] Systolic blood pressure 2022-04-02 15:58:00 113 mm[Hg] [facility] Diastolic blood pressure 2022-04-02 15:58:00 75 mm[Hg] [facility] Heart rate 2022-04-02 15:58:00 78 /min [facility] Body temperature 2022-04-02 15:58:00 36.78 Janice [facility] Respiratory rate 2022-04-02 15:58:00 20 /min [facility] Body height 2022-04-02 15:58:00 172.7 cm [facility] Body weight 2022-04-02 15:58:00 72.757 kg [facility] BMI 2022-04-02 15:58:00 24.39 kg/m2 [facility] Oxygen saturation in Arterial blood by Pulse oximetry 2022-04-02 15:58:00 98 /min [facility] height 2021-10-07 15:45:00 68 [in_i] Commo n [facility] weight 2021-10-07 15:45:00 165 [lb_av] Comm on [facility] bmi 2021-10-07 15:45:00 25.09 kg/m2 Comm on [facility] blood pressure systolic 2021-10-07 15:45:00 132 mm[Hg] Common [facility] blood pressure diastolic 2021-10-07 15:45:00 74 mm[Hg] Common [facility] height 2021-09-25 11:15:00 68 [in_i] Commo n [facility] weight 2021-09-25 11:15:00 165 [lb_av] Comm on [facility] temperature 2021-09-25 11:15:00 97.3 [degF] Com mon [facility] bmi 2021-09-25 11:15:00 25.09 kg/m2 Comm on [facility] blood pressure systolic 2021-09-25 11:15:00 132 mm[Hg] Common [facility] blood pressure diastolic 2021-09-25 11:15:00 74 mm[Hg] Common [facility] height 2021-09-18 10:30:00 68 [in_i] Commo n [facility] weight 2021-09-18 10:30:00 165 [lb_av] Comm on [facility] temperature 2021-09-18 10:30:00 97.7 [degF] Com mon [facility] bmi 2021-09-18 10:30:00 25.09 kg/m2 Comm on [facility] blood pressure systolic 2021-09-18 10:30:00 124 mm[Hg] [facility] blood pressure diastolic 2021-09-18 10:30:00 72 mm[Hg] [facility] Procedures Procedure Date / Time Performed Performing Clinicia n Source POCT MOLECULAR STREP 2022-04-02 16:06:00 Nadya Louis [facility] ASSIGNMENT OF BENEFITS 2022-04-02 15:46:15 Docto r Unassigned, [place] [facility] Encounters Start Date/Time End Date/Time Encounter Type Admission Type Attending [facility] Facility Care Department Encounter ID Source 2023-08-12 16:20:00 Outpatient Janet Short [facility] [id number] [facility] 2022-11-25 09:38:01 Outpatient Janet Short [facility] [id number] [facility] 2022-11-06 14:07:00 Outpatient Janet Short [facility] [id number] [facility] 2022-09-22 12:27:00 Outpatient Janet Short [facility] [id number] [facility] 2022-08-11 15:40:00 Outpatient Janet Short [facility] [id number] [facility] 2022-06-11 15:20:02 Outpatient Janet Short [facility] [id number] [facility] 2021-09-17 14:39:04 Outpatient Janet Short [facility] [id number] [facility] 2021-09-17 11:21:30 Outpatient Janet Short [facility] [id number] [facility] 2023-08-12 00:00:00 2023-08-12 00:00:00 (IN/ASP) INJ ASP STLMLC STLMLC [id number] [facility] 2023-08-05 00:00:00 2023-08-05 00:00:00 (IN/ASP) INJ ASP STLMLC STLMLC [id number] [facility] 2023-07-29 00:00:00 2023-07-29 00:00:00 OFFICE VISIT ESTAB PT LEVEL 4 STLMLC STLMLC [id number] [facility] 2023-07-07 00:00:00 2023-07-07 00:00:00 (TEL) STLMLC STLMLC [id number] [facility] 2023-06-24 00:00:00 2023-06-24 00:00:00 OFFICE VISIT ESTAB PT LEVEL 4 STLMLC STLMLC [id number] [facility] 2023-04-13 00:00:00 2023-04-13 00:00:00 OFFICE VISIT ESTAB PT LEVEL 4 STLMLC STLMLC [id number] [facility] 2023-03-02 00:00:00 2023-03-02 00:00:00 OFFICE VISIT ESTAB PT LEVEL 4 STLMLC STLMLC [id number] [facility] 2022-12-24 00:00:00 2022-12-24 00:00:00 (IN/ASP) INJ ASP STLMLC STLMLC [id number] [facility] 2022-12-15 00:00:00 2022-12-15 00:00:00 (IN/ASP) INJ ASP STLMLC STLMLC [id number] [facility] 2022-11-25 00:00:00 2022-11-25 00:00:00 (TEL) STLMLC STLMLC [id number] [facility] 2022-11-23 00:00:00 2022-11-23 00:00:00 OFFICE VISIT ESTAB PT LEVEL 4 STLMLC STLMLC [id number] [facility] 2022-11-16 09:20:00 2022-11-16 09:36:43 Outpatient R DYLAN SPAIN [facility] [id number] [facility] 2022-11-16 09:20:00 2022-11-16 09:36:43 Urgent Care Dylan [place] Unknown, [facility] [id number] [facility] 2022-11-16 00:00:00 2022-11-16 00:00:00 (TEL) STLMLC STLMLC [id number] [facility] 2022-11-09 00:00:00 2022-11-09 00:00:00 (TEL) STLMLC STLMLC [id number] [facility] 2022-11-04 00:00:00 2022-11-04 00:00:00 (TEL) STLMLC STLMLC [id number] [facility] 2022-11-02 00:00:00 2022-11-02 00:00:00 OFFICE VISIT ESTAB PT LEVEL 4 STLMLC STLMLC [id number] [facility] 2022-10-12 00:00:00 2022-10-12 00:00:00 OFFICE VISIT ESTAB PT LEVEL 3 STLMLC STLMLC [id number] [facility] 2022-10-06 00:00:00 2022-10-06 00:00:00 OFFICE VISIT ESTAB PT LEVEL 4 STLMLC STLMLC [id number] [facility] 2022-08-10 00:00:00 2022-08-10 00:00:00 NON-BILLAB LE VISIT STLMLC STLMLC [id number] [facility] 2022-07-07 00:00:00 2022-07-07 00:00:00 NON-BILLAB LE VISIT STLMLC STLMLC [id number] [facility] 2022-07-02 00:00:00 2022-07-02 00:00:00 (TEL) STLMLC STLMLC [id number] [facility] 2022-06-11 00:00:00 2022-06-11 00:00:00 NON-BILLAB LE VISIT STLMLC STLMLC [id number] [facility] 2022-05-28 00:00:00 2022-05-28 00:00:00 (TEL) STLMLC STLMLC [id number] [facility] 2022-05-26 00:00:00 2022-05-26 00:00:00 (TEL) STLMLC STLMLC [id number] [facility] 2022-05-21 00:00:00 2022-05-21 00:00:00 (TEL) STLMLC STLC [id number] [facility] 2022-04-02 10:00:00 2022-04-02 11:19:53 Outpatient R DYLAN SPAIN [facility] [id number] [facility] 2022-04-02 10:00:00 2022-04-02 11:19:53 Urgent Care Dylan Spain [facility] [id number] [facility] 2022-04-02 00:00:00 2022-04-02 00:00:00 Orders Only Doctor Unassigned, [place] [facility] [id number] [facility] 2022-02-27 00:00:00 2022-02-27 00:00:00 Nikko Leon [facility] [id number] [facility] 2021-11-01 11:00:00 2021-11-01 11:00:00 Outpatient DYLAN MAREI [facility] [id number] [facility] 2021-10-27 09:00:00 2021-10-27 09:48:05 Outpatient Kei WHEELERNIKKO [facility] [id number] [facility] 2021-10-07 00:00:00 2021-10-07 00:00:00 (IN/ASP) INJ ASP STLMLC STLMLC [id number] [facility] 2021-09-25 00:00:00 2021-09-25 00:00:00 (IN/ASP) INJ ASP STLMLC STLMLC [id number] [facility] 2021-09-18 00:00:00 2021-09-18 00:00:00 OFFICE VISIT ESTAB PT LEVEL 4 STLMLC STLMLC [id number] [facility] 2020-10-03 00:00:00 2020-10-03 00:00:00 Outpatient STLMLC STLMLC [id number] [facility] 2020-07-08 00:00:00 2020-07-08 00:00:00 Outpatient STLMLC STLMLC [id number] [facility] 2020-07-01 00:00:00 2020-07-01 00:00:00 Outpatient STLMLC STLMLC [id number] [facility] 2020-03-20 09:15:00 2020-03-20 09:15:00 Outpatient [facility] [place] [id number] [facility] 2020-03-15 10:00:00 2020-03-15 10:00:00 Outpatient [facility] [place] [id number] [facility] 2020-03-06 09:30:00 2020-03-06 09:30:00 Outpatient [facility] [place] [id number] [facility] 2020-02-14 09:09:00 2020-02-14 09:09:00 Outpatient [facility] [id number] [facility] 2020-01-02 10:30:00 2020-01-02 10:30:00 Outpatient [facility] [id number] [facility] Results Test Description Test Time Test Comments Results Result Co mments Source [facility]
[2023-12-08 18:51] LABS: Absolute Basophils 0.1 K/uL (0-0.5); Absolute Eosinophils 0.2 K/uL (0-0.5); Absolute Lymphocytes (CBC) 0.7 K/uL (0.7-4.9); Absolute Monocytes 0.6 K/uL (0.1-1.3); Absolute Neutrophil 4.8 K/uL (1.8-8.0); Basophils % 0.8 % (0-1.3); Eosinophils % 2.5 % (0-4.4); Hematocrit 21.6 % (36.0-45.0); Hemoglobin 6.9 g/dL (12.0-15.0); Lymphocytes % 11.4 % (15.3-44.8); MCH 26.4 pg (27.0-35.0); MCHC 32.2 g/dL (32.0-36.0); MPV 7.3 fL (7.6-11.3); Monocytes % 10.1 % (3.3-12.3); Neutrophils % 75.2 % (41.7-73.7); Platelets 294 thou/uL (152-406); RBC Red Blood Cell Count 2.63 M/uL (3.86-4.86); Red Cell Distribution Width 15.2 % (12.1-15.2)
[2023-12-08 18:57] LABS: Anion Gap 7.6 mEq/L (5.0-15.0); Potassium 3.6 mEq/L (3.5-5.1)
[2023-12-08] MEDS ORDERED: NA CHLORIDE 0.9% 250 ML ONE (22:32)
--- NOTE | 2023-12-09 00:34 | EDPHYS ---
Physician Documentation [facility] Name: Rupa Gee Age: 68 yrs Sex: Female : 1955 Arrival Date: 12/08/2023 Time: 17:31 Bed 3 Private MD: ED Physician Syed Mayfield HPI: 12/07 21:33 This 68 yrs old Female presents to ER via Ambulatory with complaints of Abnormal Lab kb Results. 21:34 Pt is a 68 year old female who presents for anemia. States she has been having kb shortness of breath on exertion for 2 months so she has seen Dr Tapia who has done a number of tests that were all normal. The last thing he did was order blood work. States she was called today and told to come to the ER for blood transfusion. Pt reports history of anemia. Denies any bleeding, dark stools, abd pain'. Historical: - Allergies: 17:41 Codeine; ko1 17:41 metoclopramide HCl; ko1 - PMHx: 17:41 Hypothyroidism; ko1 - Immunization history:: Adult Immunizations up to date. - Infectious Disease History:: Denies. - Social history:: Smoking status: Patient denies any tobacco usage or history of. ROS: 21:34 Constitutional: As per HPI kb Exam: 21:34 Constitutional: This is a well developed, well nourished patient who is awake, alert, kb and in no acute distress. Head/Face: Normocephalic, atraumatic. ENT: Moist Mucous membranes Cardiovascular: Regular rate Respiratory: Respirations even and unlabored. No increased work of breathing. Talking in full sentences Abdomen/GI: Soft, non-tender. No distention Skin: Warm, dry with normal turgor. Normal color. MS/ Extremity: Pulses equal, no cyanosis. Neurovascular intact. Full, normal range of motion. Neuro: Awake and alert, GCS 15, oriented to person, place, time, and situation. Moves all extremities. Normal gait. Vital Signs: 17:40 BP 117 / 60; Pulse 83; Resp 18; Temp 97.2; Pulse Ox 100% on R/A; ko1 19:30 BP 126 / 58; Pulse 81; Resp 18; Pulse Ox 100% ; cp4 20:30 BP 126 / 55; Pulse 80; Resp 18; Pulse Ox 100% ; cp4 04/18 00:08 BP 113 / 60; Pulse 62; Resp 18 S; Pulse Ox 100% on R/A; rv1 MDM: 12/07 17:37 Patient medically screened. kb 21:37 Differential diagnosis: abnormal electrolytes, anemia. Data reviewed: vital signs, kb nurses notes. Management of patient was discussed with the following: Dr Mayfield, recommends transfusion and discharge home. Does not recommend calcium administration. 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 12/07 17:41 Order name: Type And Screen kb 12/07 17:41 Order name: CBC with Diff; Complete Time: 19:01 kb 12/07 17:41 Order name: BMP; Complete Time: 19:03 kb 12/07 19:15 Order name: Packed RBC Leukored [facility] 12/07 17:41 Order name: IV Start; Complete Time: 18:38 kb Administered Medications: No medications were administered Disposition Summary: 12/09/23 00:33 Discharge Ordered Notes: Location: Home kb Condition: Stable kb Diagnosis - Anemia, unspecified kb Followup: kb - With: Emergency Department - When: As needed - Reason: Worsening of condition Followup: kb - With: Private Physician - When: 2 - 3 days - Reason: Recheck today's complaints, Continuance of care, Re-evaluation by your physician Discharge Instructions: - Discharge Summary Sheet kb - Anemia kb - Blood Transfusion, Adult, Care After, [id number] kb Forms: - Medication Reconciliation Form kb - Thank You Letter kb - Antibiotic Education kb - Prescription Opioid Use kb - Patient Portal Instructions kb - Leadership Thank You Letter kb Signatures: Dispatcher [employer] Lalita Esteves, BAN-C BAN-Marlin Castelan, RN RN ko1
--- NOTE | 2023-12-09 00:34 | ER ---
Nurse's Notes [facility] Name: Rupa Gee Age: 68 yrs Sex: Female : 1955 Arrival Date: 12/08/2023 Time: 17:31 Bed 3 Private MD: Diagnosis: Anemia, unspecified Presentation: 12/07 17:40 Chief complaint: Patient states: short of breath on exertion for 2 months, saw Dr adri Tapia and had blood work done, called today and told to come to ER for anemia. Coronavirus screen: At this time, the client does not indicate any symptoms associated with coronavirus-19. Ebola Screen: No symptoms or risks identified at this time. Initial Sepsis Screen: Does the patient meet any 2 criteria? No. Patient's initial sepsis screen is negative. Does the patient have a suspected source of infection? No. Patient's initial sepsis screen is negative. Risk Assessment: Do you want to hurt yourself or someone else? Patient reports no desire to harm self or others. Onset of symptoms is unknown. 17:40 Method Of Arrival: Ambulatory ko1 17:40 Acuity: KHUSHBU 3 ko1 Triage Assessment: 17:41 General: Appears in no apparent distress. comfortable, Behavior is calm, cooperative, ko1 appropriate for age. Pain: Denies pain. Respiratory: Reports shortness of breath on exertion since 2 months. Historical: - Allergies: 17:41 Codeine; ko1 17:41 metoclopramide HCl; ko1 - PMHx: 17:41 Hypothyroidism; ko1 - Immunization history:: Adult Immunizations up to date. - Infectious Disease History:: Denies. - Social history:: Smoking status: Patient denies any tobacco usage or history of. Screenin:36 [facility] ED Fall Risk Assessment (Adult) History of falling in the last 3 months, cp4 including since admission No falls in past 3 months (0 pts) Confusion or Disorientation No (0 pts) Intoxicated or Sedated No (0 pts) Impaired Gait No (0 pts) Mobility Assist Device Used No (0 pt) Altered Elimination No (0 pt) Score/Fall Risk Level 0 - 2 = Low Risk Oriented to surroundings, Maintained a safe environment, Assessed \T\ reinforced patient's understanding of fall precautions, Hourly rounding (assess needs \T\ fall precautionary measures) done. Abuse screen: Denies threats or abuse. Nutritional screening: No deficits noted. Tuberculosis screening: No symptoms or risk factors identified. Assessment: 18:36 General: Appears in no apparent distress. Behavior is calm, cooperative, appropriate cp4 for age. Pain: Denies pain. Vital Signs: 17:40 BP 117 / 60; Pulse 83; Resp 18; Temp 97.2; Pulse Ox 100% on R/A; ko1 19:30 BP 126 / 58; Pulse 81; Resp 18; Pulse Ox 100% ; cp4 20:30 BP 126 / 55; Pulse 80; Resp 18; Pulse Ox 100% ; cp4 12/08 00:08 BP 113 / 60; Pulse 62; Resp 18 S; Pulse Ox 100% on R/A; rv1 ED Course: 12/07 17:35 Patient arrived in ED. mg5 17:36 Lalita Haas FNP-C is PHCP. kb 17:36 Syed Mayfield MD is Attending Physician. kb 17:41 Triage completed. ko1 17:41 Arm band placed on right wrist. Patient placed in an exam room, on a stretcher, on ko1 teletypesetter monitor, on pulse oximetry, Patient notified of wait time. 18:15 Violet Dowd is Primary Nurse. cp4 18:36 Bed in low position. Call light in reach. Side rails up X2. cp4 18:37 No provider procedures requiring assistance completed. Initial lab(s) drawn, by wv, cp4 sent to lab. T\T\S collected, blood band applied to patient. Inserted saline lock: 22 gauge in left hand, using aseptic technique. Blood collected. 18:38 Type And Screen Sent. cp4 18:38 BMP Sent. cp4 18:38 CBC with Diff Sent. cp4 22:20 Provided Education on: Blood Transfusion. jj7 12/08 00:38 IV discontinued, intact, bleeding controlled, No redness/swelling at site. Pressure jj7 dressing applied. Administered Medications: No medications were administered Medication: 12/07 18:36 VIS not applicable for this client. cp4 22:30 Blood products: PRBCs X 1 unit given. jj7 Outcome: 12/08 00:33 Discharge ordered by . chris 00:38 Discharged to home ambulatory, jj7 00:38 Condition: improved 00:38 Discharge instructions given to patient, Instructed on discharge instructions, follow up and referral plans. Demonstrated understanding of instructions, follow-up care, 00:39 Patient left the ED. jj7 Signatures: Lalita Haas, BAN-C MINE SHIFTER-Marlin Castelan, RN RN koDanna Sesay RN RN jj7 Eulalia Cazares rv1 Flakita Winter mg5 Violet Dowd cp4 Corrections: (The following items were deleted from the chart) 12/07 20:41 19:30 BP 126 / 55; Pulse 80bpm; Resp 18bpm; Pulse Ox 100%; cp4 cp4
[2023-12-09 09:05] VITALS: BP 113/60; TEMP 97.2; O2SAT 100
== END 2023-12-09 00:39 | disposition home or self-care (01) ==
LOC: ER 17:31
DX: D64.9 Anemia, unspecified (principal); Z88.5 Allergy status to narcotic agent; Z88.8 Allergy status to other drugs, medicaments and biological substances
CPT/HCPCS: 85025; 80048; 36415; 86900; 86850; 86901; 86920; 36430; 99284; P9016; J7050

== ENCOUNTER 2024-05-22 17:17 | Emergency (ER) | payer OTHER ==
--- OUTSIDE RECORDS SUMMARY | 2024-05-22 17:20 | XMS REPORT | Clinical Summary ---
Author Name Unknown Organization [facility] Address [address] [place] [address] Care Team Providers Care Assurance Engineer Name Role Phone Samanta Lara NP Unavailable Samanta Lara NP Unavailable Leslie Hoskins MD Primary Care Provider [phone] Allergies Active Allergy Reactions Criticality Noted Date Comments Adhesive Tape-Silicones Rash Low 05/25/2022 Codeine Itching,Other (See Comments),Shortness Of Breath High 08/10/2018 Metoclopramide Shortness Of Breath,Other (See Comments) High 08/10/2018 Other Reaction(s): Choking sensation/Hutton's Palsy, 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 08/21/2023 Active cholecalciferol, vitamin D3, 1,250 mcg (50,000 unit) capsule every 30 (thirty) days. 10/26/2023 Active azelastine (ASTELIN) 137 mcg/spray nasal spray Inhale 1 spray (137 mcg) into each nostril twice daily. 10/27/2021 Active calcium carbonate (OS-PK) 500 mg (1,250 mg calcium carbonate per tablet) tablet 1 tablet (500 mg) 3 (three) times a week Wednesday, Wednesday and Wednesday. 01/25/2014 Active cetirizine (ZyrTEC) 10 mg tablet Take 1 tablet (10 mg) by mouth daily. Active dicyclomine (BENTYL) 10 mg capsule Take 1 capsule (10 mg) by mouth daily. Active gabapentin (NEURONTIN) 300 mg capsule at bedtime. Active HYDROcodone-aceta minophen (NORCO) 5 mg-325 mg per tablet Take 1 tablet by mouth every 8 (eight) hours as needed. Active levothyroxine (SYNTHROID, LEVOTHROID) 137 mcg tablet Take 1 tablet (137 mcg) by mouth daily. Active methocarbamol (ROBAXIN) 500 mg tablet Take 1 tablet (500 mg) by mouth every 8 (eight) hours as needed. Active potassium chloride (KLOR-CON) 10 mEq CR tablet Take 2 tablets (20 mEq) by mouth twice daily. Active promethazine (PHENERGAN) 12.5 mg tablet Take 1 tablet (12.5 mg) by mouth every 8 (eight) hours as needed. Active simvastatin (ZOCOR) 20 mg tablet Take 1 tablet (20 mg) by mouth at bedtime. Active traMADol (ULTRAM) 50 mg tablet Take 1 tablet (50 mg) by mouth every 8 (eight) hours as needed. 06/11/2022 Active traZODone (DESYREL) 50 mg tablet Take 1 tablet (50 mg) by mouth nightly as needed. Active triamterene-hydro CHLOROthiazide (DYAZIDE) 37.5 mg-25 mg per capsule daily. Active cyanocobalamin, vitamin B-12, 1,000 mcg sublIndications:D isorder of vitamin B12 Place 1,000 mcg under the tongue daily. 30 tablet 01/14/2024 Active hydroCHLOROthiazi de (HYDRODIURIL) 25 mg tablet 1 tablet (25 mg) daily. 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 (Primary Dx); Vascular ectasia of gastric antrum; Disorder of vitamin B12 04/26/2024 Travel 03/02/2024 11:30 AM CDT Telemedicine MD Donnie Brown [address] [facility] [place] [address] Alexa Alvarenga, TAFE LECTURER 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 03/02/2024 Travel 02/03/2024 2:40 PM CDT Telephone MD Donnie Brown [address] [place] [address], [place] [address] Alexa Alvarenga, TAFE LECTURER 02/03/2024 8:30 AM CDT Infusion MD [facility] [place] [facility] [address] [place] [address], [place] [address] Leslie Hoskins MD Alegado, Reynaldo F Jr., RN Disorder of vitamin B12 (Primary Dx); 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 02/03/2024 Travel 01/27/2024 2:00 PM CDT Telephone MD Donnie Brown [address] [place] [address], [place] [address] Alexa Alvarenga, TAFE LECTURER 01/27/2024 8:45 AM CDT Infusion MD [facility] [place] [facility] [address] [place] [address], [place] [address] Leslie Hoskins MD Alegado, Reynaldo F Jr., RN Disorder of vitamin B12 (Primary Dx); 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 01/27/2024 Travel 01/20/2024 1:00 PM CDT Telephone MD Donnie Brown [address] [place] [address], [place] [address] Alexa Alvarenga, TAFE LECTURER 01/20/2024 8:45 AM CDT Infusion MD [place] [place] [facility] [address] [place] [address], [place] [address] Leslie Hoskins MD Beckford, Tiffany A, RN Disorder of vitamin B12 (Primary Dx); 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 01/20/2024 Travel 01/14/2024 Orders Only MD Donnie [place] [address] [place] [address] Alexa Alvarenga, TAFE LECTURER 01/13/2024 10:00 AM CDT Infusion MD [facility] [place] [facility] [address] [facility] [address] [place] [address] Leslie Hoskins MD Beckford, Tiffany A, RN Disorder of vitamin B12 (Primary Dx); 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 01/13/2024 Travel 01/12/2024 10:40 AM CDT Office Visit MD [place]nie [place] [address] [place] [address] Leslie Hoskins MD 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 (Primary Dx); Vascular ectasia of gastric antrum; Disorder of vitamin B12 01/12/2024 10:00 AM CDT NPR MDA PATIENT ACCESS Leslie Hoskins MD 01/12/2024 Travel after 05/23/2023 Surgical History Surgery Date Site/Laterality Comments COLONOSCOPY THYROID SURGERY CHOLECYSTECTOMY SHOULDER SURGERY UPPER GASTROINTESTINAL ENDOSCOPY series Medical History Medical History Date Comments Hyperlipidemia Allergic rhinitis Sinusitis Tooth disorder Asthma Pneumonia Gastric reflux Diverticulitis Irritable bowel syndrome History of recurrent urinary tract infection Menopause Anemia Blood transfusion, without reported diagnosis Arthritis Hypothyroidism Family History Medical History Relation Name Comments Colon cancer Son Michael Gee He is on chemot herapy. It s working, Thank God! Relation Name Status Comments En Gee Alive Social History Tobacco Use Types Packs/Day Years Used Date Smoking Tobacco: Never Smokeless Tobacco: Never Tobacco Cessation:Counseling Given: Not Answered Alcohol Use Standard Drinks/Week Comments Not Currently 0 (1 standard drink = 0.6 oz pur e alcohol) Social Sex and Gender Information Value Date Recorded Sex Assigned at Not on file Gender Identity Not on file Sexual Orientation Not on file Job Start Date Occupation Industry Not on file Not on file Not on file Obstetrics History Para Term AB IAB SAB Ectopic Multiple Livin g Live Births 2 2 Date Outcome GA Total Labor Labor/2nd/3rd Weight Sex Type Anes PTL Nidhi A1 A5 Name Clin Last Filed Vital Signs Vital Sign Reading Time Taken Comments Blood Pressure 125/76 04/26/2024 10:09 AM CDT Pulse 65 04/26/2024 10:09 AM CDT Temperature 36.8 C (98.2 F) 04/26/2024 10:09 AM C DT Respiratory Rate 16 04/26/2024 10:09 AM CDT Oxygen Saturation 97% 04/26/2024 10:09 AM CDT Inhaled Oxygen Concentration - - Weight 68.1 kg (150 lb 2.1 oz) 04/26/2024 10:07 AM CDT Height 168 cm (5' 6.14") 01/12/2024 11:49 AM CDT Body Mass Index 24.13 01/12/2024 11:49 AM CDT Plan of Treatment Upcoming Encounters Date Type Department Care Team (Late st Contact Info) Description 08/30/2024 10:45 AM RUBBER FLAP CUTTER Lab [facility] [address] [place] [id number] Leslie Hoskins MD [address] [place] [address] [email or web address] 08/30/2024 11:40 AM RUBBER FLAP CUTTER Follow-Up MD [facility] [place] [address] [place] [address] Leslie Hoskins MD [address] [place] [address] [email or web address] Health Maintenance Due Date Last Done Comments Pneumococcal Vaccine: 65+ Years (1 of 1 - PCV) 022 COVID-19 Vaccine (2023- season) 2024 Influenza Vaccine (#1) 2024 Procedures Procedure Name Priority Date/Time Associated Diagnosis Comments .CBC Routine 04/26/2024 8:35 AM CDT Vascular ectasia of gastric antrum 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 Disorder of vitamin B12 FOLATE LEVEL Routine 04/26/2024 8:35 AM CDT Vascular ectasia of gastric antrum 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 Disorder of vitamin B12 VITAMIN B12 LEVEL Routine 04/26/2024 8:3 5 AM CDT Vascular ectasia of gastric antrum 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 Disorder of vitamin B12 TRANSFERRIN Routine 04/26/2024 8:35 AM CDT Vascular ectasia of gastric antrum 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 Disorder of vitamin B12 IRON LEVEL Routine 04/26/2024 8:35 AM CDT Vascular ectasia of gastric antrum 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 Disorder of vitamin B12 FERRITIN Routine 04/26/2024 8:35 AM CDT Vascular ectasia of gastric antrum 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 Disorder of vitamin B12 PHOSPHORUS LEVEL Routine 04/26/2024 8:35 AM CDT Vascular ectasia of gastric antrum 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 Disorder of vitamin B12 MAGNESIUM LEVEL Routine 04/26/2024 8:35 AM CDT Vascular ectasia of gastric antrum 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 Disorder of vitamin B12 COMPREHENSIVE METABOLIC PANEL Routine 04/26/2024 8:35 AM CDT Vascular ectasia of gastric antrum 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 Disorder of vitamin B12 COMPLETE BLOOD COUNT W/ DIFFERENTIAL Routine 04/26/2024 8:35 AM CDT Vascular ectasia of gastric antrum 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 Disorder of vitamin B12 .CBC Routine 03/02/2024 8:54 AM CDT 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 TYPE AND SCREEN Routine 03/02/2024 8:54 AM CDT 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 FERRITIN Routine 03/02/2024 8:54 AM CDT 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 COMPLETE BLOOD COUNT W/ DIFFERENTIAL Routine 03/02/2024 8:54 AM CDT 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 .CBC Routine 02/03/2024 7:53 AM CDT 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 COMPLETE BLOOD COUNT W/ DIFFERENTIAL Routine 02/03/2024 7:53 AM CDT 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 TMP INTERPRETATION ANTIBODY IDENTIFICATION Routine 01/27/2024 7:34 AM CDT 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 ABID COMPLETE Routine 01/27/2024 7:34 AM CDT 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 ANTIBODY ID Routine 01/27/2024 7:34 AM CDT 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 TMP INTERP AUTO ANTIBODY SCREEN POSITIVE Routine 01/27/2024 7:34 AM CDT 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 .CBC Routine 01/27/2024 7:34 AM CDT 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 TYPE AND SCREEN Routine 01/27/2024 7:34 AM CDT 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 COMPLETE BLOOD COUNT W/ DIFFERENTIAL Routine 01/27/2024 7:34 AM CDT 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 TMP INTERP AUTO ANTIBODY SCREEN POSITIVE Routine 01/20/2024 7:55 AM CDT 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 .CBC Routine 01/20/2024 7:55 AM CDT 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 TYPE AND SCREEN Routine 01/20/2024 7:55 AM CDT 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 COMPLETE BLOOD COUNT W/ DIFFERENTIAL Routine 01/20/2024 7:55 AM CDT 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 FREE KAPPA/FREE LAMBDA RATIO Routine 01/12/2024 1:55 PM CDT Vascular ectasia of gastric antrum 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 Disorder of vitamin B12 IMMUNOFIXATION ELECTROPHORESIS Routine 01/12/2024 1:55 PM CDT Vascular ectasia of gastric antrum 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 Disorder of vitamin B12 PROTEIN ELECTROPHORESIS Routine 01/12/20 1:55 PM CDT Vascular ectasia of gastric antrum 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 Disorder of vitamin B12 .CBC Routine 01/12/2024 1:55 PM CDT Vascular ectasia of gastric antrum 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 Disorder of vitamin B12 COPPER LEVEL Routine 01/12/2024 1:55 PM CDT Vascular ectasia of gastric antrum 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 Disorder of vitamin B12 ZINC LEVEL Routine 01/12/2024 1:55 PM CDT Vascular ectasia of gastric antrum 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 Disorder of vitamin B12 IMMUNOGLOBULIN M Routine 01/12/2024 1:55 PM CDT Vascular ectasia of gastric antrum 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 Disorder of vitamin B12 IMMUNOGLOBULIN A Routine 01/12/2024 1:55 PM CDT Vascular ectasia of gastric antrum 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 Disorder of vitamin B12 IMMUNOGLOBULIN G Routine 01/12/2024 1:55 PM CDT Vascular ectasia of gastric antrum 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 Disorder of vitamin B12 HEPATITIS C VIRUS ANTIBODY Routine 01/12/2024 1:55 PM CDT Vascular ectasia of gastric antrum 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 Disorder of vitamin B12 HEPATITIS B SURFACE ANTIBODY Routine 01/12/2024 1:55 PM CDT Vascular ectasia of gastric antrum 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 Disorder of vitamin B12 SERUM PROTEIN ELECTROPHORESIS WITH GURDEEP Routine 01/12/2024 1:55 PM CDT Vascular ectasia of gastric antrum 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 Disorder of vitamin B12 FREE LAMBDA LIGHT CHAIN Routine 01/12/20 24 1:55 PM CDT Vascular ectasia of gastric antrum 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 Disorder of vitamin B12 FREE KAPPA LIGHT CHAIN Routine 4 1:55 PM CDT Vascular ectasia of gastric antrum 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 Disorder of vitamin B12 TYPE AND SCREEN Routine 01/12/2024 1:55 PM CDT Vascular ectasia of gastric antrum 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 Disorder of vitamin B12 FOLATE LEVEL Routine 01/12/2024 1:55 PM CDT Vascular ectasia of gastric antrum 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 Disorder of vitamin B12 RETICULOCYTE COUNT AUTOMATED Routine 01/12/2024 1:55 PM CDT Vascular ectasia of gastric antrum 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 Disorder of vitamin B12 TRANSFERRIN Routine 01/12/2024 1:55 PM CDT Vascular ectasia of gastric antrum 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 Disorder of vitamin B12 VITAMIN B12 LEVEL Routine 01/12/2024 1:5 5 PM CDT Vascular ectasia of gastric antrum 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 Disorder of vitamin B12 IRON LEVEL Routine 01/12/2024 1:55 PM CDT Vascular ectasia of gastric antrum 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 Disorder of vitamin B12 FERRITIN Routine 01/12/2024 1:55 PM CDT Vascular ectasia of gastric antrum 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 Disorder of vitamin B12 VITAMIN D 25 HYDROXY LEVEL Routine 01/12/2024 1:55 PM CDT Vascular ectasia of gastric antrum 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 Disorder of vitamin B12 URIC ACID Routine 01/12/2024 1:55 PM CDT Vascular ectasia of gastric antrum 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 Disorder of vitamin B12 PHOSPHORUS LEVEL Routine 01/12/2024 1:55 PM CDT Vascular ectasia of gastric antrum 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 Disorder of vitamin B12 MAGNESIUM LEVEL Routine 01/12/2024 1:55 PM CDT Vascular ectasia of gastric antrum 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 Disorder of vitamin B12 LACTATE DEHYDROGENASE Routine 01/12/2024 1:55 PM CDT Vascular ectasia of gastric antrum 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 Disorder of vitamin B12 COMPREHENSIVE METABOLIC PANEL Routine 01/12/2024 1:55 PM CDT Vascular ectasia of gastric antrum 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 [facility] White Blood Cell 7.9 4.1 - 10.5 K/uL 04/26/2024 8:40 AM CDT [facility] Red Blood Cell 3.48(L) 3.99 - 5.46 M/uL 04/26/2024 8:40 AM CDT [facility] Hemoglobin 11.0(L) 12.2 - 15.3 g/dL 04/26/2024 8:40 AM [facility] Hematocrit 33.9(L) 36.4 - 46.8 % 04/26/2024 8:40 AM [facility] Mean Cell Volume 97 82 - 99 fL 04/26/2024 8:40 AM [facility] Mean Cell Hemoglobin 31.6 26.6 - 33.2 pg 04/26/2024 8:40 AM [facility] Mean Cell Hemoglobin Concentration 32.4 31.1 - 35.2 g/dL 04/26/2024 8:40 AM [facility] RDW-SD 46.0 37.5 - 49.7 fL 04/26/2024 8:40 AM [facility] Red Cell Diameter Width 13.0 11.6 - 15.5 % 04/26/2024 8:40 AM [facility] Platelet 216 160 - 397 K/uL 04/26/2024 8:40 AM [facility] Mean Platelet Volume 8.9(L) 9.1 - 12.6 fL 04/26/2024 8:40 AM [facility] Neutrophil % 68.7 43.2 - 72.7 % 04/26/2024 8:40 AM [facility] Lymphocyte % 16.3(L) 16.8 - 46.2 % 04/26/2024 8:40 AM [facility] Monocyte % 11.1 5.1 - 12.5 % 04/26/2024 8:40 AM [facility] Eosinophil % 3.4 0.4 - 6.3 % 04/26/2024 8:40 AM [facility] Basophil % 0.4 0.2 - 1.4 % 04/26/2024 8:40 AM [facility] IGRE % 0.1 0.1 - 1.5 % 04/26/2024 8:40 AM [facility] Comment:The IGRE% includes M etamyelocytes, Myelocytes and Promyelocytes. Neutrophil Abs 5.44 1.95 - 7.25 K/uL 04/26/2024 8:40 AM [facility] Lymphocyte Abs 1.29 1.01 - 3.24 K/uL 04/26/2024 8:40 AM [facility] Monocyte Abs 0.88(H) 0.24 - 0.85 K/uL 04/26/2024 8:40 AM T [facility] Eosinophil Abs 0.27 0.02 - 0.50 K/uL 04/26/2024 8:40 AM [facility] Basophil Abs 0.03 0.02 - 0.09 K/uL 04/26/2024 8:40 AM [facility] IG Abs 0.01 0.01 - 0.12 K/uL 04/26/2024 8:40 AM [facility] Blood Peripheral blood specimen / Unknown Venipuncture / Unknown 04/26/2024 8:35 AM CDT 04/26/2024 8:35 AM CDT Leslie Hoskins MD LAB BLOOD ORDERABLES [facility] [address] [facility], [facility] [address] [place] [address] * (ABNORMAL) Comprehensive Metabolic Panel (04/26/2024 8:35 AM CDT) Only the most recent of2 resultswithin the time period is included. Bilirubin Total 0.5 0.0 - 1.2 mg/dL 04/26/2024 9:04 AM [facility] Comment:Indocyanine Green (I CG) may cause falsely elevated bilirubin results. Total and direct bilirubin must not be measured from samples containing indocyanine green. False elevation of total bilirubin can be seen in patients with IgG concentrations above 28 g/L. eGFR 78 >=60 mL/min/1.7 3 sq. m 04/26/2024 9:04 AM [facility] Comment: The eGFRcr is calculated with the 2020 CKD-EPI creatinine equation using creatinine, patient's age, and sex for adults 18 years of age and older. Other factors, especially muscle mass, may affect accuracy and need to be considered. According to the Kidney Disease: Improving Global Outcomes (KDIGO) CKD Work Group 2012 Clinical Practice Guideline, chronic kidney disease (CKD) is defined as the abnormalities of kidney structure or function, present for more than 3 months, with implications for health. CKD should be classified by cause, GFR category, and albuminuria category. KDIGO guidelines provide the following GFR categories. Stage / Description / GFR mL/min/1.73 m2: G1* / Normal or high / >= 90 G2* / Mildly decreased / 60-89 G3a / Mildly to moderately decreased / 45-59 G3b / Moderately to severely decreased / 30-44 G4 / Severely decreased / 15-29 G5 / Kidney failure / <15 *In the absence of evidence of kidney damage, neither G1 nor G2 fulfill criteria for CKD. Tot Protein 6.9 6.4 - 8.3 gm/dL 04/26/2024 9:04 AM [facility] Calcium Level Total 8.6 8.2 - 10.2 mg/dL 04/26/2024 9:04 AM [facility] Alkaline Phosphatase 101 35 - 104 U/L 04/26/2024 9:04 AM [facility] Albumin Level 4.0 3.5 - 5.2 gm/dL 04/26/2024 9:04 AM [facility] AST 16 <=32 U/L 04/26/2024 9:04 AM [facility] ALT <5 <=33 U/L 04/26/2024 9:04 AM [facility] Sodium Level 136 136 - 145 mmol/L 04/26/2024 9:04 AM [facility] Potassium Level 4.1 3.4 - 4.5 mmol/L 04/26/2024 9:04 AM [facility] Chloride 96(L) 98 - 107 mmol/L 04/26/2024 9:04 AM [facility] CO2 25 22 - 29 mmol/L 04/26/2024 9:04 AM [facility] Anion Gap 15(H) 4 - 14 mmol/L 04/26/2024 9:04 AM [facility] Creatinine 0.82 0.51 - 0.95 mg/dL 04/26/2024 9:04 AM [facility] BUN 8 6 - 23 mg/dL 04/26/2024 9:04 AM [facility] Glucose Level 80 70 - 99 mg/dL 04/26/2024 9:04 AM [facility] Comment: Effective 03/18/16, the glucose reference intervals have been updated based on [place] [employer] guidelines (Standards of Medical Care in Diabetes 2016. Diabetes Care 2016; 39: S13-S22). Fasting blood glucose: Normal: 70-99 mg/dL Impaired fasting glucose (increased risk for diabetes or pre-diabetes): 100-125 mg/dL Diabetes mellitus: >/=126 mg/dL Random blood glucose: Normal: 70-199 mg/dL Note: Random glucose >100 mg/dL is associated with increased risk for diabetes. Blood Peripheral blood specimen / Unknown Venipuncture / Unknown 04/26/2024 8:35 AM CDT 04/26/2024 8:35 AM CDT Leslie Hoskins MD LAB BLOOD ORDERABLES Performing Organization Address City/[facility]/ZIP Co de Phone Number [address] [address] * (ABNORMAL) Transferrin with TIBC (04/26/2024 8:35 AM CDT) Only the most recent of2 resultswithin the time period is included. Transferrin 193(L) 200 - 360 mg/dL 04/26/2024 9:04 AM T [facility] Total Iron Binding Capacity 270 250 - 450 mcg/dL 04/26/2024 9:04 AM T [facility] Blood Peripheral blood specimen / Unknown Venipuncture / Unknown 04/26/2024 8:35 AM CDT 04/26/2024 8:35 AM CDT Leslie Hoskins MD LAB BLOOD ORDERABLES [address] [address] * (ABNORMAL) Phosphorus Level (04/26/2024 8:35 AM CDT) Only the most recent of2 resultswithin the time period is included. Phosphorus Level 5.4(H) 2.5 - 4.5 mg/dL 04/26/2024 9:04 AM T [facility] Blood Peripheral blood specimen / Unknown Venipuncture / Unknown 04/26/2024 8:35 AM CDT 04/26/2024 8:35 AM CDT Leslie Hoskins MD LAB BLOOD ORDERABLES Performing Organization Address [facility] Co de Phone Number [address] [address] * (ABNORMAL) Magnesium Level (04/26/2024 8:35 AM CDT) Only the most recent of2 resultswithin the time period is included. Magnesium Level 1.5(L) 1.6 - 2.6 mg/dL 04/26/2024 9:04 AM CDT [facility] Blood Peripheral blood specimen / Unknown Venipuncture / Unknown 04/26/2024 8:35 AM CDT 04/26/2024 8:35 AM CDT Leslie Hoskins MD LAB BLOOD ORDERABLES Performing Organization Address City/[facility] Co de Phone Number [address] [address] * Iron (04/26/2024 8:35 AM CDT) Only the most recent of2 resultswithin the time period is included. Iron Level 94 37 - 145 mcg/dL 04/26/2024 9:04 AM CDT [facility] Is patient fasting? Yes 04/26/2024 9:04 AM CDT [facility] Blood Peripheral blood specimen / Unknown Venipuncture / Unknown 04/26/2024 8:35 AM CDT 04/26/2024 8:35 AM CDT Leslie Hoskins MD LAB BLOOD ORDERABLES Performing Organization Address City/[facility]/ZIP Co de Phone Number [address] [address] * Folate Level (04/26/2024 8:35 AM CDT) Only the most recent of2 resultswithin the time period is included. Folate Level 8.5 4.8 - 24.2 ng/mL 04/26/2024 9:27 AM CDT [facility] Is patient fasting? Yes 04/26/2024 9:27 AM CDT [facility] Blood Peripheral blood specimen / Unknown Venipuncture / Unknown 04/26/2024 8:35 AM CDT 04/26/2024 8:35 AM CDT [facility] - 04/26/2024 9:27 AM CDT Reference range established based on adult population. Leslie Hoskins MD LAB BLOOD ORDERABLES [address], [address] [address] * (ABNORMAL) Ferritin (04/26/2024 8:35 AM CDT) Only the most recent of3 resultswithin the time period is included. Ferritin Level 701(H) 13 - 150 ng/mL 04/26/2024 9:16 AM CDT [facility] Blood Peripheral blood specimen / Unknown Venipuncture / Unknown 04/26/2024 8:35 AM CDT 04/26/2024 8:35 AM CDT [facility] - 04/26/2024 9:16 AM CDT Reference range established for age 17 - 60 years Leslie Hoskins MD LAB BLOOD ORDERABLES [address], [address] [address] * Vitamin B12 Level (04/26/2024 8:35 AM CDT) Only the most recent of2 resultswithin the time period is included. Vitamin B12 Level 806 232 - 1,245 pg/mL 04/26/2024 9:24 AM CDT [facility] Is patient fasting? Yes 04/26/2024 9:24 AM CDT [facility] Blood Peripheral blood specimen / Unknown Venipuncture / Unknown 04/26/2024 8:35 AM CDT 04/26/2024 8:35 AM CDT Narrative [facility] - 04/26/2024 9:24 AM CDT Reference range established based on adult population. Leslie Hoskins MD LAB BLOOD ORDERABLES [facility] [address] [facility], [facility] [address] [place] [address] * Type and Screen (03/02/2024 8:54 AM CDT) Only the most recent of4 resultswithin the time period is included. ABORh A POS 03/02/2024 8:39 AM CDT [facility] ABSC Negative 03/02/2024 8:39 AM CDT [facility] Clot Expiration 03/05/2024 23:59 03/02/2024 8:39 AM CDT [facility] Historical Record Check Complete 03/02/2024 8:39 AM CDT [facility] Blood Peripheral blood specimen / Unknown Venipuncture / Unknown 03/02/2024 8:54 AM CDT 03/02/2024 8:57 AM CDT Alexa Alvarenga TAFE LECTURER BLOOD BANK TEST ORDE MIGUELANGEL [facility] [address] [place] [address] * ABID Complete (01/27/2024 7:34 AM CDT) ABID Complete Yes 01/27/2024 6:28 PM CDT [facility] Blood Peripheral blood specimen / Unknown Venipuncture / Unknown 01/27/2024 7:34 AM CDT 01/27/2024 7:34 AM CDT Alexa Alvarenga APRN BLOOD BANK TEST KRISTIN MEANS [facility] [address] [facility] [address] [place] [address] * TMP Interp Auto Antibody Screen Positive (01/27/2024 7:34 AM CDT) Only the most recent of2 resultswithin the time period is included. TMP Auto Pos ABSC Interp At the present time, laboratory testing of this patient's red blood cell (RBC) antibody screen is positive. DISPENSING CROSSMATCH COMPATIBLE RBC UNITS TO THIS PATIENT MAY REQUIRE ADDITIONAL TIME. Alloantibodies directed to RBC surface antigens most often form due to exposure to foreign RBCs during previous transfusion(s) / transplantation, during in female patients, or from exposure to environmental antigens similar in structure to RBC antigens. The presence of these actively formed antibodies may fade over time but can reemerge with re-exposure. Passively acquired alloantibodies may be present in a patient who recently received intravenous immunoglobulin (IVIg) and may be detected by this test. Additional new alloantibodies can result from recent transfusion or ; therefore, we require a repeat type and screen every three days in patients with continuing transfusion needs. 01/27/2024 10:39 PM CDT [facility] TMP Signature . 01/27/2024 10:39 PM CDT [facility] Blood Peripheral blood specimen / Unknown Venipuncture / Unknown 01/27/2024 7:34 AM CDT 01/27/2024 7:34 AM CDT Alexa Alvarenga APRN BLOOD BANK TEST KRISTIN MEANS [facility] [address] [facility] [address] [place] [address] * TMP Interpretation Antibody Identification (01/27/2024 7:34 AM CDT) TMP ABID Interpretation At the present time, laboratory testing of this patient's red blood cell (RBC) antibody screen is positive. DISPENSING CROSSMATCH COMPATIBLE RBC UNITS TO THIS PATIENT MAY REQUIRE ADDITIONAL TIME. This patient has formed an alloantibody against an unidentified RBC antigen(s). We are unable to determine if specific alloantibodies are present or if the unidentified antibodies are clinically significant. All RBC units for transfusion should be crossmatched, and compatible or least incompatible RBC unit(s) should be selected for transfusion. This will cause a delay in dispensing RBCs. Alloantibodies directed to RBC surface antigens most often form due to exposure to foreign RBCs during previous transfusion(s) / transplantation, during in female patients, or from exposure to environmental antigens similar in structure to RBC antigens. The presence of these actively formed antibodies may fade over time but can reemerge with re-exposure. Passively acquired alloantibodies may be present in a patient who recently received intravenous immunoglobulin (IVIg) and may be detected by this test. Additional new alloantibodies can result from recent transfusion or ; therefore, we require a repeat type and screen every three days in patients with continuing transfusion needs. 01/27/2024 10:51 PM CDT [facility] TMP Signature . 01/27/2024 10:51 PM CDT [facility] Blood Peripheral blood specimen / Unknown Venipuncture / Unknown 01/27/2024 7:34 AM CDT 01/27/2024 7:34 AM CDT Alexa Lyle MASTERS BLOOD BANK TEST KRISTIN MEANS [facility] [address] [facility] [address] [place] [address] * Antibody Identification (01/27/2024 7:34 AM CDT) ABID 1 Ab Und Specificity 01/27/2024 6:28 PM CDT [facility] Blood Peripheral blood specimen / Unknown Venipuncture / Unknown 01/27/2024 7:34 AM CDT 01/27/2024 7:34 AM CDT Alexa Alvarenga SONAM BLOOD BANK TEST ORDE MIGUELANGEL [facility] [address] [place] [address] [address] [place] [address] * GURDEEP (01/12/2024 1:55 PM CDT) Serum Immunofixation See Comment 01/14/2024 12:40 PM CDT [facility] GURDEEP Path Interp The serum protein immunofixation electrophoretic patterns obtained with the use of antisera against IgG, IgA, IgM, bound kappa and bound lambda light chains do not show definitive evidence of a monoclonal gammopathy. Please note, Immunofixation studies using antisera against IgD, IgE, or free light chains were not performed in this study, consequently, if an M-protein with these characteristics is suspected, suggest follow-up GURDEEP studies using these antisera, if clinically indicated. 01/14/2024 12:40 PM CDT [facility] Pathologist Signature . 01/14/2024 12:40 PM CDT [facility] Blood Peripheral blood specimen / Unknown Venipuncture / Unknown 01/12/2024 1:55 PM CDT 01/12/2024 1:57 PM CDT Leslie Hoskins MD LAB BLOOD ORDERABLES [facility] Unless otherwise noted, all lab tests performed by: Division of Pathology and Laboratory Medicine [address] [place] [address] * Serum Protein Electrophoresis (01/12/2024 1:55 PM CDT) Albumin 4.3 3.6 - 5.4 gm/dL 01/14/2024 12:25 PM CDT [facility] Alpha 1 Globulin 0.4 0.2 - 0.4 gm/dL 01/14/2024 12:25 PM CDT [facility] Alpha 2 Globulin 1.0 0.5 - 1.0 gm/dL 01/14/2024 12:25 PM CDT [facility] Beta Globulin 1.1 0.5 - 1.1 gm/dL 01/14/2024 12:25 PM CDT [facility] Gamma Globulin 1.0 0.7 - 1.6 gm/dL 01/14/2024 12:25 PM CDT [facility] SPE Path Interp The serum protein electrophoretic pattern does not show a clearly quantifiable M-protein component. If a paraproteinemia is suspected clinically, however, serum studies (free light chains, GURDEEP and/or immunoglobulin quantitation) and urine Bence-Ray protein studies are recommended. 01/14/2024 12:25 PM CDT [facility] Pathologist Signature . 01/14/2024 12:25 PM CDT [facility] Total Protein 7.7 6.4 - 8.3 gm/dL 01/14/2024 12:25 PM CDT [facility] Blood Peripheral blood specimen / Unknown Venipuncture / Unknown 01/12/2024 1:55 PM CDT 01/12/2024 1:57 PM CDT Leslie Hoskins MD LAB BLOOD ORDERABLES [facility] Unless otherwise noted, all lab tests performed by: Division of Pathology and Laboratory Medicine [address] [place] [address] * Free [place]/Free Lambda Ratio (01/12/2024 1:55 PM CDT) Free [place]/ Free Lambda Ratio 1.06 0.26 - 1.65 01/13/2024 12:06 PM CDT [facility] Blood Peripheral blood specimen / Unknown Venipuncture / Unknown 01/12/2024 1:55 PM CDT 01/12/2024 1:57 PM CDT Leslie Hoskins MD LAB BLOOD ORDERABLES Performing Organization Address [facility] Co de Phone Number [facility] Unless otherwise noted, all lab tests performed by: Division of Pathology and Laboratory Medicine [address] [place] [address] * Hepatitis C Virus Antibody (01/12/2024 1:55 PM CDT) [facility] HCVAb. Non Reactive Non Reactive 01/13/2024 9:36 AM CDT [facility] Blood Peripheral blood specimen / Unknown Venipuncture / Unknown 01/12/2024 1:55 PM CDT 01/12/2024 1:57 PM CDT Narrative [facility] - 01/13/2024 9:36 AM CDT Antibody detection in the immunocompromised and immunosuppressed population may be delayed or absent entirely. Therefore serial testing, correlation with other clinical findings, and supplemental testing (if available) should be taken into consideration when interpreting the results. Leslie Hoskins MD LAB BLOOD ORDERABLES Performing Organization Address [facility] Co de Phone Number [facility] Unless otherwise noted, all lab tests performed by: Division of Pathology and Laboratory Medicine [address] [place] [address] * Free Lambda Light Chain (01/12/2024 1:55 PM CDT) [facility] Free Lambda Light chain 23.75 5.71 - 26.30 mg/L 01/13/2024 12:06 PM CDT [facility] Blood Peripheral blood specimen / Unknown Venipuncture / Unknown 01/12/2024 1:55 PM CDT 01/12/2024 1:57 PM CDT Leslie Hoskins MD LAB BLOOD ORDERABLES Performing Organization Address [facility] Co de Phone Number [facility] Unless otherwise noted, all lab tests performed by: Division of Pathology and Laboratory Medicine [address] [place] [id number] * (ABNORMAL) Free [place] Light Chain (01/12/2024 1:55 PM CDT) Free [place] Light 25.06(H) 3.30 - 19.40 mg/L 01/13/2024 12:06 PM CDT [facility] Blood Peripheral blood specimen / Unknown Venipuncture / Unknown 01/12/2024 1:55 PM CDT 01/12/2024 1:57 PM CDT Leslie Hoskins MD LAB BLOOD ORDERABLES Performing Organization Address City/[facility]/ZIP Co de Phone Number [facility] Unless otherwise noted, all lab tests performed by: Division of Pathology and Laboratory Medicine [address] [place] [id number] * Copper Level (01/12/2024 1:55 PM CDT) Pathologist [facility] Copper, S 126 77 - 206 mcg/dL 01/14/2024 3:51 PM CDT [facility] DEANDRE Comment: ADDITIONAL INFORMATION This test was developed and its performance characteristics determined by [facility] in a manner consistent with CLIA requirements. This test has not been cleared or approved by the U.S. Food and Drug Administration. Test Performed by: [facility] - [address] [address] Trade Economist: Ruben Pereira M.D. Ph.D.; CLIA# [id number] Blood Peripheral blood specimen / Unknown Venipuncture / Unknown 01/12/2024 1:55 PM CDT 01/12/2024 1:57 PM CDT Leslie Hoskins MD LAB BLOOD ORDERABLES Performing Organization Address City/[facility]/ZIP Co de Phone Number [facility] SARAJEF * Zinc Level (01/12/2024 1:55 PM CDT) Zinc, S 69 60 - 106 mcg/dL 01/14/2024 2:43 PM CDT ROD KENIA CARRERA Comment: ADDITIONAL INFORMATION This test was developed and its performance characteristics determined by [facility] in a manner consistent with CLIA requirements. This test has not been cleared or approved by the U.S. Food and Drug Administration. Test Performed by: [facility] - [place] [id number] Trade Economist: Ruben Pereira M.D. Ph.D.; CLIA# [id number] Blood Peripheral blood specimen / Unknown Venipuncture / Unknown 01/12/2024 1:55 PM CDT 01/12/2024 1:57 PM CDT Leslie Hoskins MD LAB BLOOD ORDERABLES [facility] * Vitamin D 25OH (01/12/2024 1:55 PM CDT) Pathologist [facility] Vitamin D 25 OH 46 30 - 100 ng/mL 01/12/2024 2:43 PM CDT [facility] Blood Peripheral blood specimen / Unknown Venipuncture / Unknown 01/12/2024 1:55 PM CDT 01/12/2024 1:57 PM CDT Narrative [facility] - 01/12/2024 2:43 PM CDT Reference Range: Deficiency: <=20 ng/mL Insufficiency: 21-29 ng/mL Sufficiency: 30-100 ng/mL Potential toxicity: >100 ng/mL Leslie Hoskins MD LAB BLOOD ORDERABLES [facility] [address] [facility], [facility] [address] [place] [address] * Hepatitis B Surface Antibody (01/12/2024 1:55 PM CDT) HBsAb Non Reactive 01/13/2024 9:36 AM CDT [facility] Blood Peripheral blood specimen / Unknown Venipuncture / Unknown 01/12/2024 1:55 PM CDT 01/12/2024 1:57 PM CDT Narrative [facility] - 01/13/2024 9:36 AM CDT Vaccinated individual: Reactive Unvaccinated individual: Non-Reactive Leslie Hoskins MD LAB BLOOD ORDERABLES [facility] Unless otherwise noted, all lab tests performed by: Division of Pathology and Laboratory Medicine [address] [place] [id number] * (ABNORMAL) Retic Auto (01/12/2024 1:55 PM CDT) [facility] Reticulocyte Count Automated 0.73(L) 0.92 - 2.71 % 01/12/2024 8:03 PM CDT [facility] RETHE 25.5(L) 29.9 - 38.4 pg 01/12/2024 8:03 PM CDT [facility] IRF 11.6 3.5 - 19.8 % 01/12/2024 8:03 PM CDT [facility] Retic Absolute 0.0246(L) 0.04 - 0.13 M/uL 01/12/2024 8:03 PM CDT [facility] Blood Peripheral blood specimen / Unknown Venipuncture / Unknown 01/12/2024 1:55 PM CDT 01/12/2024 1:57 PM CDT Leslie Hoskins MD LAB BLOOD ORDERABLES [facility] Unless otherwise noted, all lab tests performed by: Division of Pathology and Laboratory Medicine [address] [place] [id number] * Uric Acid (01/12/2024 1:55 PM CDT) Pathologist [facility] Uric Acid 4.6 2.4 - 5.7 mg/dL 01/12/2024 2:22 PM CDT [facility] Blood Peripheral blood specimen / Unknown Venipuncture / Unknown 01/12/2024 1:55 PM CDT 01/12/2024 1:57 PM CDT Leslie Hoskins MD LAB BLOOD ORDERABLES [address] [address] * (ABNORMAL) LDH (01/12/2024 1:55 PM CDT) [facility] LDH 280(H) 135 - 214 U/L 01/12/2024 2:22 PM CDT [facility] Blood Peripheral blood specimen / Unknown Venipuncture / Unknown 01/12/2024 1:55 PM CDT 01/12/2024 1:57 PM CDT Narrative [facility] - 01/12/2024 2:22 PM CDT Results greater than 1651 U/L may not be reliable due to matrix effect with extended dilution as it exceeds the ornament stitcher's recommended limit. Caution should be exercised when interpreting such values and done in conjunction with clinical context. Leslie Hoskins MD LAB BLOOD ORDERABLES Performing Organization Address City/[facility]/ZIP Co de Phone Number [address] [address] * IgA (01/12/2024 1:55 PM CDT) [facility] IgA 354.0 85.0 - 499.0 mg/dL 01/13/2024 12:06 PM CDT [facility] Blood Peripheral blood specimen / Unknown Venipuncture / Unknown 01/12/2024 1:55 PM CDT 01/12/2024 1:57 PM CDT Leslie Hoskins MD LAB BLOOD ORDERABLES [facility] Unless otherwise noted, all lab tests performed by: Division of Pathology and Laboratory Medicine [address] [place] [id number] * IgM (01/12/2024 1:55 PM CDT) Pathologist [facility] IgM 47.0 35.0 - 242.0 mg/dL 01/13/2024 12:06 PM CDT [facility] Blood Peripheral blood specimen / Unknown Venipuncture / Unknown 01/12/2024 1:55 PM CDT 01/12/2024 1:57 PM CDT Leslie Hoskins MD LAB BLOOD ORDERABLES [facility] Unless otherwise noted, all lab tests performed by: Division of Pathology and Laboratory Medicine [address] [place] [id number] * IgG (01/12/2024 1:55 PM CDT) [facility] IgG 836.0 610.0 - 1,616.0 mg/dL 01/13/2024 12:06 PM CDT [facility] Blood Peripheral blood specimen / Unknown Venipuncture / Unknown 01/12/2024 1:55 PM CDT 01/12/2024 1:57 PM CDT Leslie Hoskins MD LAB BLOOD ORDERABLES Performing Organization Address City/[facility] Co de Phone Number [facility] Unless otherwise noted, all lab tests performed by: Division of Pathology and Laboratory Medicine [address] [place] [id number] * Confirm ABORh (01/12/2024 1:50 PM CDT) Pathologist [facility] ABORh Confirm A POS 01/11/2024 7:00 PM CDT [facility] Blood Peripheral blood specimen / Unknown Venipuncture / Unknown 01/12/2024 1:50 PM CDT 01/12/2024 1:50 PM CDT Leslie Hoskins MD BLOOD BANK TEST ORDE RABLES [facility] [address] [place] [address] [address] [place] [address] after 05/23/2023 Care Teams Assurance Engineer Relationship Specialty Start Date [place] [id number] [place] [phone] PCP - External Referring Family Practice 12/28/23 Samanta Lara [place] [id number] [place] [phone] PCP - External Primary Care Provider Family Practice 12/31/23 Leslie Hoskins MD [address] [place] [address] [email or web address] PCP - General Medical Oncology 12/31/23
[2024-05-22 18:58] LABS: Sqamous Epithelial <5 /HPF (None Seen); Urine Bacteria None Seen /HPF (<20); Urine Bilirubin NEGATIVE (Negative); Urine Blood Negative (Negative); Urine Clarity Clear (Clear); Urine Color Light-Yellow (Yellow); Urine Culture Reflex Order NOT NEEDED; Urine Glucose NEGATIVE (Negative); Urine Ketones NEGATIVE (Negative); Urine Microscopic Reflex YN ORDER UMIC; Urine Mucus Slight /HPF (None Seen); Urine Nitrite NEGATIVE (Negative); Urine Protein NEGATIVE (Negative); Urine RBC <5 /HPF (None Seen); Urine Urobilinogen Normal (Normal); Urine WBC <5 /HPF (<5)
[2024-05-22 18:58] LABS: Absolute Basophils 0.1 K/uL (0-0.5); Absolute Eosinophils 0.1 K/uL (0-0.5); Absolute Lymphocytes (CBC) 1.2 K/uL (0.7-4.9); Absolute Monocytes 1.3 K/uL (0.1-1.3); Absolute Neutrophil 10.7 K/uL (1.8-8.0); Basophils % 0.6 % (0-1.3); Hematocrit 30.5 % (36.0-45.0); Hemoglobin 10.2 g/dL (12.0-15.0); Lymphocytes % 8.9 % (15.3-44.8); MCH 32.5 pg (27.0-35.0); MCHC 33.4 g/dL (32.0-36.0); MCV 97.2 fL (80-100); MPV 7.2 fL (7.6-11.3); Monocytes % 9.5 % (3.3-12.3); Platelets 275 thou/uL (152-406); RBC Red Blood Cell Count 3.14 M/uL (3.86-4.86)
[2024-05-22 19:13] LABS: ALT/SGPT 15 U/L (13-56); Albumin 3.6 g/dL (3.4-5.0); Alkaline Phosphatase 80 U/L (45-117); Anion Gap 7.7 mEq/L (5.0-15.0); BUN Blood Urea Nitrogen 12 mg/dL (7-18); Bicarbonate 27 mEq/L (21-32); Bilirubin Total 0.9 mg/dL (0.2-1.0); Globulin 3.6 g/dL (2.3-3.5); Glomerular Filtration Rate 81 ml/min (=/>90); Glucose Level 74 mg/dL (74-106); Lipase 29 U/L (13-75); Potassium 3.7 mEq/L (3.5-5.1); Protein, Total 7.2 g/dL (6.4-8.2); Sodium Level 130 mEq/L (136-145)
[2024-05-22 19:23] LABS: AST/SGOT < 10 U/L (15-37)
--- NOTE | 2024-05-22 19:32 | RAD REPORT ---
Procedure: Chest Single View History: Abdominal pain Comparison: 2021 The lungs appear clear of acute infiltrate. No significant pleural effusion noted. The heart is mildly enlarged. IMPRESSION: No acute abnormality is displayed.
--- NOTE | 2024-05-22 20:25 | RAD REPORT ---
EXAMINATION: CT ABDOMEN AND PELVIS WITH CONTRAST CLINICAL INDICATION: Abdominal pain. Left flank pain TECHNIQUE: CT abdomen and pelvis was performed, after the administration of 100 cc Isovue-300.. Sagit zach and coronal reconstructions were obtained. One or more of the following dose reduction techniques were used: Automated exposure control, adjustment of the mA and/or kV according to patien t size, and/or iterative reconstruction. Unless otherwise specified, incidental findings do not require dedicated imaging follow-up. [id number]. Oral contrast was not given which limits evaluation of b owel and appendix. COMPARISON: 2016 FINDINGS: Small pericardial effusion Small hepatic cyst. Cholecystectomy. The spleen, pancreas, adrenals and kidneys are No adnexal mass Normal appendix There is no evidence of diverticulitis : IMPRESSION: No acute abnormalities displayed
[2024-05-22 21:27] LABS: SARS-CoV-2 Antigen CONTROL BLUE LINE VIS/BG OK; SARS-CoV-2 Antigen Rapid Res Negative (Negative)
--- NOTE | 2024-05-22 21:29 | ER ---
Nurse's Notes [facility] Name: Rupa Gee Age: 68 yrs Sex: Female : 1955 Arrival Date: 05/22/2024 Time: 17:17 Bed 15 Private MD: Diagnosis: Other malaise and fatigue Presentation: 05/22 17:27 Chief complaint: Patient states: has been feeling light headed and forgetful, had labs iw drawn and was told her WBC was high, woke up in a sweat this morning, her flu and covid was negative. Coronavirus screen: Client presents with at least one sign or symptom that may indicate coronavirus-19. Ebola Screen: No symptoms or risks identified at this time. Initial Sepsis Screen: Does the patient meet any 2 criteria? No. Patient's initial sepsis screen is negative. Does the patient have a suspected source of infection? No. Patient's initial sepsis screen is negative. Risk Assessment: Do you want to hurt yourself or someone else? Patient reports no desire to harm self or others. Onset of symptoms was May 17, 2024. 17:27 Method Of Arrival: Ambulatory iw 17:27 Acuity: [id number] 3 iw Historical: - Allergies: 17:29 Codeine; iw 17:29 metoclopramide HCl; iw - PMHx: 17:29 Hypothyroidism; iw 17:29 low calcium; iron deficiency; iw - Immunization history:: Adult Immunizations up to date. - Infectious Disease History:: Denies. - Social history:: Smoking status: Patient denies any tobacco usage or history of. Screenin:22 [facility] ED Fall Risk Assessment (Adult) History of falling in the last 3 months, cm10 including since admission No falls in past 3 months (0 pts) Confusion or Disorientation No (0 pts) Intoxicated or Sedated No (0 pts) Impaired Gait No (0 pts) Mobility Assist Device Used No (0 pt) Altered Elimination No (0 pt) Score/Fall Risk Level 0 - 2 = Low Risk Oriented to surroundings, Maintained a safe environment, Hourly rounding (assess needs \T\ fall precautionary measures) done. Abuse screen: Denies threats or abuse. Denies injuries from another. Nutritional screening: No deficits noted. Tuberculosis screening: No symptoms or risk factors identified. Assessment: 18:51 Reassessment: pt refuses SARS/FLU swab. ERP notified. mb9 19:16 General: Appears in no apparent distress. comfortable, Behavior is calm, cooperative, rg5 appropriate for age. Pain:. Neuro: Level of Consciousness is awake, alert, obeys commands, Oriented to person, place, time. Cardiovascular: Patient's skin is warm and dry. Respiratory: Airway is patent Trachea midline. GI: Abdomen is round non-distended. : No signs and/or symptoms were reported regarding the genitourinary system. EENT: No signs and/or symptoms were reported regarding the EENT system. Derm: Skin is intact, Skin is normal, Skin temperature is warm. Musculoskeletal: Circulation, motion, and sensation intact. Range of motion: intact in all extremities. 21:40 Reassessment: Patient appears in no apparent distress at this time. Patient and/or cm10 family updated on plan of care and expected duration. Pain level reassessed. Patient is alert, oriented x 3, equal unlabored respirations, skin warm/dry/pink. Vital Signs: 17:27 BP 122 / 68; Pulse 74; Resp 16; Temp 98.1; Pulse Ox 96% on R/A; Weight 65.77 kg; Height iw 5 ft. 8 in. ; 19:15 BP 133 / 91; Pulse 56; Resp 17; Temp 98; Pulse Ox 97% on R/A; rg5 21:00 BP 135 / 61; Pulse 68; Resp 16; Pulse Ox 100% ; cm10 17:27 Body Mass Index 22.05 (65.77 kg, 172.72 cm) iw ED Course: 17:20 Patient arrived in ED. mg5 17:21 Gerard Lira PA is PHCP. cp 17:21 Gerson Rogers MD is Attending Physician. cp 17:29 Triage completed. iw 17:30 Arm band placed on. iw 17:46 Loida Ann, SARAH is Primary Nurse. cm10 18:51 Initial lab(s) drawn, by me, sent to lab. Urine collected: clean catch specimen, clear. mb9 Inserted saline lock: 22 gauge in right antecubital area, using aseptic technique. Blood collected. Flushed with 10 mL NS. 18:52 CBC with Diff Sent. mb9 18:52 CMP Sent. mb9 18:52 Lipase Sent. mb9 18:52 Urinalysis w/ reflexes Sent. mb9 19:14 XRAY Chest (1 view) In Process Unspecified. EDMS 20:13 CT Abd/Pelvis - IV Contrast Only In Process Unspecified. EDMS 20:33 PHCP role handed off by Gerard Lira PA sb4 20:33 Luz Maria Martin PA-C is PHCP. sb4 21:22 Patient has correct armband on for positive identification. Bed in low position. Call cm10 light in reach. Side rails up X 1. Side rails up X2. Provided Education on: ER process and procedures.. 21:40 No provider procedures requiring assistance completed. IV discontinued, intact, cm10 bleeding controlled, No redness/swelling at site. Pressure dressing applied. Administered Medications: No medications were administered Medication: 19:16 VIS not applicable for this client. rg5 Outcome: 21:28 Discharge ordered by MD. sb4 21:41 Discharged to home ambulatory, cm10 21:41 Condition: good 21:41 Discharge instructions given to patient, Instructed on discharge instructions, follow up and referral plans. Demonstrated understanding of instructions, follow-up care, 21:41 Patient left the ED. cm10 Signatures: Dispatcher [employer] EDME Isabel Saul, RN SARAH iw Gerard Lira PA PA cp Brown, Sophia, PA-C PA-C sb4 Bren Salter RN RN mb9 Loida Ann RN RN cm10 Flakita Winter 5 Kishan Bey RN RN rg5
--- NOTE | 2024-05-22 21:29 | EDPHYS ---
Physician Documentation [facility] Name: Rupa Gee Age: 68 yrs Sex: Female : 1955 Arrival Date: 05/22/2024 Time: 17:17 Bed 15 Private MD: ED Physician Gerson Rogers HPI: 05/22 18:20 This 68 yrs old Female presents to ER via Ambulatory with complaints of Abnormal Lab cp Results. 18:20 Patient presents to ED after being referred by PCP for elevated WBC. Patient c/o chills cp yesterday and left flank pain. Denies cough. Patient reports PCP screened her for COVID-19 and Influenza with tests being negative. Historical: - Allergies: 17:29 Codeine; iw 17:29 metoclopramide HCl; iw - PMHx: 17:29 Hypothyroidism; iw 17:29 low calcium; iron deficiency; iw - Immunization history:: Adult Immunizations up to date. - Infectious Disease History:: Denies. - Social history:: Smoking status: Patient denies any tobacco usage or history of. ROS: 18:30 Constitutional: Positive for sweats last night, Negative for fever, cp 18:30 Eyes: Negative for injury, pain, redness, and discharge, cp 18:30 Respiratory: Negative for cough, shortness of breath, wheezing, 18:30 Abdomen/GI: Positive for nausea, left flank pain, 18:30 : Negative for urinary symptoms, cp 18:30 Skin: Negative for cellulitis, rash, 18:30 Neuro: Negative for altered mental status, dizziness, headache, syncope, 18:30 All other systems are negative, cp Exam: 18:33 Constitutional: The patient appears in no acute distress, alert, awake, non-toxic, well cp developed, well nourished, 18:33 Head/Face: Normocephalic, atraumatic. cp 18:33 Eyes: Periorbital structures: appear normal, Conjunctiva: normal, no exudate, no injection, Sclera: no appreciated abnormality, Lids and lashes: appear normal, bilaterally, 18:33 ENT: External ear(s): are unremarkable, Nose: is normal, Mouth: is normal, Posterior pharynx: Airway: no evidence of obstruction, patent, 18:33 Chest/axilla: Inspection: normal, 18:33 Cardiovascular: Rate: normal, Rhythm: regular, 18:33 Respiratory: the patient does not display signs of respiratory distress, Respirations: normal, no use of accessory muscles, no retractions, labored breathing, is not present, Breath sounds: are clear throughout, no decreased breath sounds, no stridor, no wheezing, 18:33 Abdomen/GI: Inspection: abdomen appears normal, Bowel sounds: active, all quadrants, Palpation: soft, in all quadrants, moderate abdominal tenderness, in the posterior aspect of left lateral abdomen, anterior aspect of left lateral abdomen and left upper quadrant, rebound tenderness, is not appreciated, 18:33 Neuro: Orientation: to person, place \T\ time. Mentation: is normal, Motor: moves all fours, strength is normal, Vital Signs: 17:27 BP 122 / 68; Pulse 74; Resp 16; Temp 98.1; Pulse Ox 96% on R/A; Weight 65.77 kg; Height iw 5 ft. 8 in. ; 19:15 BP 133 / 91; Pulse 56; Resp 17; Temp 98; Pulse Ox 97% on R/A; rg5 21:00 BP 135 / 61; Pulse 68; Resp 16; Pulse Ox 100% ; cm10 17:27 Body Mass Index 22.05 (65.77 kg, 172.72 cm) iw MDM: 17:31 Patient medically screened. cp 19:00 Differential diagnosis: viral Infection, bacterial infection, URI, bronchitis, cp pneumonia UTI, gastroenteritis, meningitis. 22:24 Data reviewed: vital signs, nurses notes, lab test result(s), radiologic studies, and sb4 as a result, I will discharge patient. Counseling: I had a detailed discussion with the patient and/or guardian regarding the historical points, exam findings, and any diagnostic results supporting the discharge/admit diagnosis, lab results, radiology results, to return to the emergency department if symptoms worsen or persist or if there are any questions or concerns that arise at home. 05/22 18:15 Order name: CBC with Diff; Complete Time: 20:04 cp 05/22 20:04 Interpretation: Normal except: WBC 13.40; RBC 3.14; HGB 10.2; HCT 30.5; MPV 7.2; MICKY% cp 80.0; LYM% 8.9; NEUT A 10.7. 05/22 18:15 Order name: CMP; Complete Time: 20:04 05/22 20:04 Interpretation: Normal except: NA 130; GFR 81; AST < 10; CA 7.3; GLOB 3.6; A/G 1.0. 05/22 18:15 Order name: Lipase; Complete Time: 20:04 05/22 18:15 Order name: Urinalysis w/ reflexes; Complete Time: 20:04 05/22 20:05 Interpretation: Reviewed. 05/22 18:15 Order name: Lactate w/ 2H reflex if indic.; Complete Time: 20:04 05/22 18:15 Order name: SARS RAPID; Complete Time: 21:28 05/22 18:15 Order name: Influenza Screen (a \T\ B); Complete Time: 21:28 05/22 18:15 Order name: CT Abd/Pelvis - IV Contrast Only; Complete Time: 20:26 cp 05/22 18:16 Order name: XRAY Chest (1 view); Complete Time: 20:04 05/22 20:06 Interpretation: Report review. 05/22 18:15 Order name: IV Saline Lock; Complete Time: 18:52 cp 05/22 18:15 Order name: Labs collected and sent; Complete Time: 18:52 cp Administered Medications: No medications were administered Disposition Summary: 05/22/24 21:28 Discharge Ordered Notes: Location: Home sb4 Problem: new sb4 Symptoms: are unchanged sb4 Condition: Stable sb4 Diagnosis - Other malaise and fatigue sb4 Followup: sb4 - With: Private Physician - When: As needed - Reason: Recheck today's complaints, Re-evaluation by your physician Discharge Instructions: - Discharge Summary Sheet sb4 - Fatigue sb4 - Leukocytosis sb4 Forms: - Patient Portal Instructions sb4 - Leadership Thank You Letter sb4 Addendum: 05/24/2024 17:07 Co-signature as Attending Physician, Gerson Rogers MD I reviewed the patient's care r n provided by the Advanced Practice Provider and agree with the diagnosis and treatment plan. Signatures: Dispatcher [employer] Isabel Walsh, Gerson Almeida RN, MD MD rn Page, Corey, PA PA cp Brown, Sophia, PA-C PA-C sb4
[2024-05-22 22:17] VITALS: TEMP 98
[2024-05-22 22:19] VITALS: BP 135/61; O2SAT 100
== END 2024-05-22 21:41 | disposition home or self-care (01) ==
LOC: ER 17:17
DX: R53.81 Other malaise (principal); R53.83 Other fatigue; D72.829 Elevated white blood cell count, unspecified; Z11.52 Encounter for screening for COVID-19
CPT/HCPCS: 85025; 81001; 36415; 83605; 83690; 80053; 87804 ×2; 74177; 71045; 99284; 87811; Q9967